=== PATIENT | female | born 1945 | race Caucasian/White ===

== ENCOUNTER → 2016-06-22 | Outpatient (CLI) | payer OTHER ==
--- NOTE | 2016-06-23 15:11 | MAMMOGRAPHY REPORT ---
BILATERAL DIGITAL SCREENING MAMMOGRAM TOMOSYNTHESIS WITH CAD: 06/22/2016 CLINICAL HISTORY: Asymptomatic. Personal history of breast cancer. TECHNIQUE: Breast tomosynthesis in addition to standard 2D mammography was performed. Current study was also evaluated with a Computer Aided Detection (CAD) system. COMPARISON: Comparison is made to exams dated: 06/19/2015 mammogram - [facility], 05/29/2013 mammogram, 05/31/2014 mammogram - [facility], 04/25/2012 mammogram, 04/21 mammogram, and 04/28/2010 mammogram. BREAST COMPOSITION: The tissue of both breasts is heterogeneously dense, which may obscure small ma sses. FINDINGS: A linear scar marker overlies the upper outer middle one third of the left breast. There are diffuse bilateral rodlike secretory calcifications and benign rim calcifications within the righ t breast. No suspicious mass, architectural distortion or cluster of new, suspicious microcalcifica tions is seen. IMPRESSION: ACR BI-RADS CATEGORY 1: NEGATIVE There is no mammographic evidence of malignancy. A 1 year screening mammogram is recommended. The p atient will receive written notification of the results. Approximately 10% of breast cancers are not detected with mammography. A negative mammographic repor t should not delay biopsy if a clinically suggestive mass is present. Josee Babcock M.D. ay/:06/22/2016 16:08:37 Pearler: Arely ALEGRIA)(Shruthi), [facility] letter sent: Normal /2 BI-RADS Code: ACR BI-RADS Category 1: Negative
== END | disposition home or self-care (01) ==
LOC: C.MAMM 15:34
PROVIDERS: ATTEND Family Medicine
DX: Z12.31 Encounter for screening mammogram for malignant neoplasm of breast (principal); Z85.3 Personal history of malignant neoplasm of breast

== ENCOUNTER → 2017-06-23 | Outpatient (CLI) | payer OTHER ==
--- NOTE | 2017-06-24 12:46 | MAMMOGRAPHY REPORT ---
BILATERAL DIGITAL SCREENING MAMMOGRAM TOMOSYNTHESIS WITH CAD: 06/23/2017 CLINICAL HISTORY: Routine screening examination. TECHNIQUE: Breast tomosynthesis in addition to standard 2D mammography was performed. Current study was also evaluated with a Computer Aided Detection (CAD) system. COMPARISON: Comparison is made to exams dated: 06/22/2016 mammogram, 06/19/2015 mammogram, 05/31/2014 mammogram - [facility], 05/29/2013 mammogram, 04/25/2012 mammogram, and 04/30/2011 ma mmogram. BREAST COMPOSITION: The tissue of both breasts is heterogeneously dense, which may obscure small mas ses. FINDINGS: There is stable expected architectural distortion in the left upper outer quadrant in an ar ea of prior surgery. There are diffuse benign-appearing rodlike and coarse calcifications in the theodora asts. No suspicious mass, architectural distortion or cluster of microcalcifications is seen. IMPRESSION: ACR BI-RADS CATEGORY 1: NEGATIVE There is no mammographic evidence of malignancy. A 1 year screening mammogram is recommended. The pa tient will receive written notification of the results. Approximately 10% of breast cancers are not detected with mammography. A negative mammographic report should not delay biopsy if a clinically suggestive mass is present. Josee Babcock M.D. ay/:06/23/2017 15:47:31 [employer] Supervisor: Meggan REINA(Gerber)(M), [facility] letter sent: Normal 1/2 BI-RADS Code: ACR BI-RADS Category 1: Negative
== END | disposition home or self-care (01) ==
LOC: C.MAMM 15:08
PROVIDERS: ATTEND Family Medicine
DX: Z12.31 Encounter for screening mammogram for malignant neoplasm of breast (principal)

== ENCOUNTER 2024-06-30 17:30 | Inpatient (IN) ==
[2024-06-30] MEDS: ONDANSETRON INJ 2 MG/ML 2 ML VIAL IV STA (18:09)
[2024-06-30] MEDS: ONDANSETRON INJ 2 MG/ML 2 ML VIAL ONE (18:09)
[2024-06-30 18:10] LABS: Basophils # (auto) 0.05 K/uL (0.00-0.20); Basophils % (auto) 0.7 %; Eosinophils # (auto) 0.03 K/uL (0.00-0.50); Eosinophils % (auto) 0.4 %; Hematocrit (blood only) 36.9 % (37.0-47.0); Immature Granulocytes # (auto) 0.02 K/uL (0.01-0.20); Immature Granulocytes % (auto) 0.3 %; Lymphocytes # (auto) 1.88 K/uL (1.20-3.40); Lymphocytes % (auto) 26.2 %; Mean Corpuscular Hemoglobin 30.9 pg (25.0-34.0); Mean Corpuscular Hgb Conc 35.2 g/dL (32.0-36.0); Mean Corpuscular Volume 87.6 fL (80.0-100.0); Mean Platelet Volume 9.2 fL (9.4-12.4); Monocytes # (auto) 0.53 K/uL (0.11-0.59); Monocytes % (auto) 7.4 %; Neutrophils # (auto) 4.67 K/uL (1.40-6.50); Platelet Count 287 K/uL (130-400); RDW Coefficient of Variation 12.4 % (11.5-14.5); Red Blood Count 4.21 M/uL (4.20-5.40); White Blood Count 7.18 K/ul (4.8-10.8)
[2024-06-30 18:29] LABS: Albumin Globulin Ratio 1.8 (0.9-2); Albumin Level 4.5 gm/dl (3.4-5.0); BUN Creatinine Ratio 17.8 (10-20); Bilirubin,Total 0.7 mg/dl (0.2-1.0); Calcium 9.4 mg/dl (8.6-10.3); Creatinine Clr Calc Pharmacy 66.5 ml/min; Globulin 2.5 gm/dl (2.5-4.0); Potassium 3.4 mmol/L (3.5-5.1)
[2024-06-30] MEDS: OPTIRAY 320 100ml IV ONE (18:50)
--- NOTE | 2024-06-30 19:04 | CT Scan Report ---
EXAM: CT Head Without Intravenous Contrast INDICATION: Anxiety, nausea and vomiting. TECHNIQUE: Axial computed tomography images of the head/brain without intravenous contrast. Sagittal and/or coronal reformats are provided. Sagittal and coronal reformatted images were created and reviewed. This CT exam was performed using one or more of the following dose reduction techniques: automated exposure control, adjustment of the mA and/or kV according to patient size, and/or use of iterative reconstruction technique. COMPARISON: No relevant prior studies available. FINDINGS: Limitations: None. Brain and extra-axial spaces: There is age appropriate cortical atrophy and chronic ischemic periventricular white matter hypodensity. No acute infarct, hemorrhage or mass noted. Bones/joints: No acute changes. Soft tissues: No significant abnormality noted. Vasculature: No acute abnormality noted. Sinuses: No layering fluid in the visualized portions of the paranasal sinuses. Mastoid air cells: No mastoid effusion. Orbits: No significant abnormality noted. IMPRESSION: Cerebral atrophy. No acute changes. ACT 112: Negative or not required by law. Electronically signed by Franci Thomas 06-30-2024 7:03 PM
--- NOTE | 2024-06-30 19:10 | CT Scan Report ---
EXAMINATION: CT of the abdomen and pelvis performed after the administration of IV contrast TECHNIQUE: Helical CT images from the lung bases through the symphysis pubis were obtained with contrast. Coronal and sagittal reformatted images were generated at a workstation for further assessment. Dose reduction techniques were achieved by using automatic exposure control and/or adjustment of mA and/or kV according to patient size and/or use of iterative reconstruction technique. COMPARISON: 10/25/2023 HISTORY: Abdominal pain FINDINGS: Lower chest: No consolidation. No pleural effusion or pneumothorax. Liver: No suspicious liver lesions. Portal veins appear patent. Gallbladder: No gallstones. No evidence of acute cholecystitis. Spleen: Normal size. Pancreas: No suspicious pancreatic lesions. The pancreatic duct is not dilated. Adrenal glands: No adrenal nodules. Kidneys: No hydronephrosis or obstructing renal stones. Bladder / Pelvic organs: Bilateral urinary bladder diverticula. The bladder is mildly distended. Bowel: No bowel obstruction. No abnormal bowel wall thickening. The appendix is unremarkable. Sigmoid diverticulosis without diverticulitis. Lymph nodes: No retroperitoneal, mesenteric, or pelvic lymphadenopathy. Peritoneum / Retroperitoneum: No free fluid or air within the abdomen. Vessels: No infrarenal aortic aneurysm. Moderate to heavy aortoiliac calcification. Bones and soft tissues: No suspicious lesion in the bones. Grade 1-2 anterolisthesis at L5 related to facet degenerative changes. The bones are osteopenic. IMPRESSION: No acute finding in the abdomen or pelvis. Electronically signed by Oz Ellison 06-30-2024 7:10 PM
--- NOTE | 2024-06-30 20:07 | Emergency Department Note ---
History of Present Illness General Chief complaint: Vomiting Stated complaint: NAUSEA, VOMITING, HTN Time Seen by Provider: 06/30/24 17:54 History of Present Illness Provider Complaint: + nausea and + vomiting Onset (ago): hour(s) 6 Description of Vomiting: no bilious, no blood-streaked, no bloody or no coffee grounds Associated Abdominal Pain: No Maximum Pain Intensity: 5 Relieved By: + none Exacerbated By: + none Context: + possible food poisoning (Patient reports she went to [email or web address] for lunch with her friends and then came home and then felt very nervous and started vomiting uncontrollably); no foreign travel, no sick contacts, no recent antibiotic use, no alcohol abuse, no trauma, no NSAID use, no smoking or no marijuana use Associated symptoms: + cough; no fever/chills or no headaches Home Medications Medication Instructions Recorded Confirmed Type atorvastatin 40 mg tablet 40 mg PO Q OTHER DAY 06/03/18 10/25/23 History citalopram 20 mg tablet 20 mg PO DAILY 06/03/18 10/25/23 History alendronate 35 mg tablet 35 mg PO WK 10/25/23 10/25/23 History furosemide 20 mg tablet 20 mg PO DAILY 10/25/23 10/25/23 History levothyroxine 100 mcg tablet 100 mcg PO DAILY 10/25/23 10/25/23 History losartan 50 mg tablet 50 mg PO DAILY 10/25/23 10/25/23 History multivitamin 1 tab PO DAILY 10/25/23 10/25/23 History Allergies Allergy/AdvReac Type Severity Reaction Status Date / Time LEONIDAS Inhibitors Allergy Severe SHORTNESS Verified 10/25/23 21:42 OF BREATH Past Med/Surg History Problem List Prolonged Q-T interval on ECG (Acute) Nausea and vomiting (Acute) Discharge planning issues DVT prophylaxis History of DVT (deep vein thrombosis) (Chronic) Early adulthood, no apparent PE, no recurrence. 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, re-excision of margins 2008 Status post cataract extraction (Chronic) Status post hysterectomy (Chronic) History of breast cancer (Chronic) DCIS left breast, s/p partial mastectomy 2007, s/p re-excision of margins 2008 Diabetic neuropathy (Chronic) COPD (chronic obstructive pulmonary disease) (Chronic) Hypothyroidism (Chronic) Depression (Chronic) Sleep apnea, obstructive (Chronic) BiPAP Dyslipidemia (Chronic) Diabetes mellitus type 2 with complications (Chronic) Essential hypertension (Chronic) Acute chest pain (Acute) Bradycardia (Acute) Family History Mother Coronary heart disease Diabetes mellitus type 2 with complications Father Coronary heart disease Brother Heart disease Essential hypertension Social History Smoking Status: Former smoker Second Hand Exposure: No; Do You Dip or Chew Tobacco: No; Hx Alcohol Use: Yes Alcohol type: wine Hx Substance Use: No Preferred Language: Polish Communication Ability: Effective Visual Impairment: No Limitations Hearing Ability: Hard of Hearing Chair Maker Required: No Beliefs That Will Affect Care: None Current Living Situation: Alone Current Living Situation Comment: [facility] ON [facility] [place] Feels Safe at Home: Yes Assistive Devices: BiPap Physical Exam 2 Vital Signs: Vital Signs - 24 hr 06/30/24 17:37 06/30/24 17:40 06/30/24 17:54 Temperature 36.4 C L Temperature Source Oral Pulse Rate 66 62 Pulse Rate [Right Brachial] 61 Pulse Rhythm [Righ t Brachial] Regular Pulse Strength [Ri ght Brachial] Normal Respiratory Rate 15 18 Respiratory Effort / Characteristics Non-Labored Sponta neous Non-Labored Respiratory Depth Normal Normal Respiratory Patter n Regular Regular Blood Pressure 173/103 H Blood Pressure [Ri ght Arm] 175/120 H Blood Pressure Bailee n 126 Blood Pressure Bailee n [Right Arm] 138 Blood Pressure Pos ition [Right Arm] Lying Pulse Oximetry 98 98 Oxygen Delivery Me thod Room Air Room Air Sepsis Recent Feve r Within 48 Hours No Sepsis New/Unexpla ined Change in Men beto Status N/A Sepsis Action Take n by Nursing No Action Required Physical Exam: Physical Exam GENERAL: Patient vomiting. HENT: Exam performed. - Head: Normocephalic and atraumatic. EYES: Conjunctivae and EOM are normal. Right eye exhibits no discharge. Left eye exhibits no discharge. No scleral icterus. NECK: Normal range of motion. Neck supple. No JVD present. CV: Normal rate, regular rhythm, normal heart sounds and intact distal pulses. There is no peripheral edema. Palpable radial pulses bue. PULM/CHEST: Effort normal and breath sounds normal. No respiratory distress. No stridor. no wheezes. no rales. ABD: The abdomen is soft. There is no tenderness. NEURO: Motor and sensation grossly intact. SKIN: Skin is warm and dry. He is not diaphoretic. PSYCH: normal mood and affect. Behavior is normal. Judgment and thought content normal. Course Course 1753: The patient was evaluated in room A2. A complete history and physical exam was performed Cardiac monitoring: An order was placed for continuous cardiac monitoring. The monitor shows a rate of 60 with sinus rhythm interpreted by me. 1930: Vital signs stable. Labs and imaging are unremarkable. Patient has not had any vomiting since receiving Zofran. Patient's QTc is improved. Patient be discharged with follow-up PCP. DISCHARGE - Plan of care discussed with patient and questions answered. The patient was given both verbal and printed discharge instructions. The patient verbalized understanding and ability to comply. The patient is to seek outpatient follow up as noted in the discharge instructions. The patient verbalized understanding and ability to comply. The patient is discharged in stable condition. The patient was instructed to return for worsening symptoms. 2015: Patient is stating she does not feel comfortable going home and is afraid she will not be able to care for self and lives alone. Discussed with Dr. Guo who states he will evaluate her for admission. Administered Medications Discontinued Medications Ioversol (Optiray 320 100ml) 94 ml IV ONCE ONE Stop: 06/30/24 18:51 Last Admin: 06/30/24 18:50 Dose: 94 ml Documented By: GARETH Ondansetron HCl (Ondansetron Inj 2 Mg/Ml 2 Ml Vial) Confirm Administered Dose 4 mg .ROUTE .STK-MED ONE Stop: 06/30/24 18:03 Last Admin: 06/30/24 18:09 Dose: Not Given Documented By: MR Ondansetron HCl (Ondansetron Inj 2 Mg/Ml 2 Ml Vial) 4 mg IV NOW STA Stop: 06/30/24 18:09 Last Admin: 06/30/24 18:09 Dose: 4 mg Documented By: Medical Decision Making Laboratory Data Attestation: I reviewed the patient's lab results. 06/30/24 17:45 06/30/24 17:45 Lab Results 06/30/24 Range/Units 17:45 WBC 7.18 (4.8-10.8) K/ul RBC 4.21 (4.20-5.40) M/uL Hgb 13.0 (12.0-16.0) g/dl Hct 36.9 L (37.0-47.0) % MCV 87.6 (80.0-100.0) fL MCH 30.9 (25.0-34.0) pg MCHC 35.2 (32.0-36.0) g/dL RDW Std Deviation 40.0 (36.4-46.3) fL RDW Coeff of Rod 12.4 (11.5-14.5) % Plt Count 287 (130-400) K/uL MPV 9.2 L (9.4-12.4) fL Immature Gran % (Auto) 0.3 % Neut % (Auto) 65.0 % Lymph % (Auto) 26.2 % [place] % (Auto) 7.4 % Eos % (Auto) 0.4 % Baso % (Auto) 0.7 % Neut # (Auto) 4.67 (1.40-6.50) K/uL Lymph # (Auto) 1.88 (1.20-3.40) K/uL [place] # (Auto) 0.53 (0.11-0.59) K/uL Eos # (Auto) 0.03 (0.00-0.50) K/uL Baso # (Auto) 0.05 (0.00-0.20) K/uL Immature Gran # (Auto) 0.02 (0.01-0.20) K/uL Sodium 139 (136-145) mmol/L Potassium 3.4 L (3.5-5.1) mmol/L Chloride 103 (98-107) mmol/L Carbon Dioxide 24 (21-32) mmol/L Anion Gap 12 H (3-11) BUN 13 (6-23) mg/dl Creatinine 0.73 (0.6-1.2) mg/dl Est Cr Clr Drug Dosing 66.5 ml/min eGFR 82.57 BUN/Creatinine Ratio 17.8 (10-20) Glucose 134 H (70-99(Fasting)) mg/dl Calcium 9.4 (8.6-10.3) mg/dl Total Bilirubin 0.7 (0.2-1.0) mg/dl AST 25 (13-39) U/L ALT 13 (7-52) U/L Alkaline Phosphatase 81 (34-104) U/L Total Protein 7.0 (6.0-8.3) gm/dl Albumin 4.5 (3.4-5.0) gm/dl Globulin 2.5 (2.5-4.0) gm/dl Albumin/Globulin Ratio 1.8 (0.9-2) Lipase 28 (11-82) U/L Imaging Data Radiologist's Impression: Abdomen/Pelvis CT 06/30/24 18:09 EXAMINATION: CT of the abdomen and pelvis performed after the administration of IV contrast TECHNIQUE: Helical CT images from the lung bases through the symphysis pubis were obtained with contrast. Coronal and sagittal reformatted images were generated at a workstation for further assessment. Dose reduction techniques were achieved by using automatic exposure control and/or adjustment of mA and/or kV according to patient size and/or use of iterative reconstruction technique. COMPARISON: 10/25/2023 HISTORY: Abdominal pain FINDINGS: Lower chest: No consolidation. No pleural effusion or pneumothorax. Liver: No suspicious liver lesions. Portal veins appear patent. Gallbladder: No gallstones. No evidence of acute cholecystitis. Spleen: Normal size. Pancreas: No suspicious pancreatic lesions. The pancreatic duct is not dilated. Adrenal glands: No adrenal nodules. Kidneys: No hydronephrosis or obstructing renal stones. Bladder / Pelvic organs: Bilateral urinary bladder diverticula. The bladder is mildly distended. Bowel: No bowel obstruction. No abnormal bowel wall thickening. The appendix is unremarkable. Sigmoid diverticulosis without diverticulitis. Lymph nodes: No retroperitoneal, mesenteric, or pelvic lymphadenopathy. Peritoneum / Retroperitoneum: No free fluid or air within the abdomen. Vessels: No infrarenal aortic aneurysm. Moderate to heavy aortoiliac calcification. Bones and soft tissues: No suspicious lesion in the bones. Grade 1-2 anterolisthesis at L5 related to facet degenerative changes. The bones are osteopenic. IMPRESSION: No acute finding in the abdomen or pelvis. Electronically signed by Oz Ellison 06-30-2024 7:[address] 06/30/24 18:10 EXAM: CT Head Without Intravenous Contrast INDICATION: Anxiety, nausea and vomiting. TECHNIQUE: Axial computed tomography images of the head/brain without intravenous contrast. Sagittal and/or coronal reformats are provided. Sagittal and coronal reformatted images were created and reviewed. This CT exam was performed using one or more of the following dose reduction techniques: automated exposure control, adjustment of the mA and/or kV according to patient size, and/or use of iterative reconstruction technique. COMPARISON: No relevant prior studies available. FINDINGS: Limitations: None. Brain and extra-axial spaces: There is age appropriate cortical atrophy and chronic ischemic periventricular white matter hypodensity. No acute infarct, hemorrhage or mass noted. Bones/joints: No acute changes. Soft tissues: No significant abnormality noted. Vasculature: No acute abnormality noted. Sinuses: No layering fluid in the visualized portions of the paranasal sinuses. Mastoid air cells: No mastoid effusion. Orbits: No significant abnormality noted. IMPRESSION: Cerebral atrophy. No acute changes. ACT 112: Negative or not required by law. Electronically signed by Franci Thomas 06-30-2024 7:03 PM ECG Data Attestation: I personally reviewed and interpreted this ECG as follows: Additional Comments: EKG #1 at 1743: Sinus rhythm with rate of 65. UT 260 QRS [address] elevation or ST depression. First-degree AV block present. T wave inversion in lead aVL which appears unchanged from EKG in October 2023. EKG #2 at 1924: Sinus rhythm with a rate of 62. UT 272 QRS [address] elevation or ST depression. No significant change from the previous EKG. [facility] Narrative 1754: The patient was evaluated in room A2. A complete history and physical exam was performed Cardiac monitoring: An order was placed for continuous cardiac monitoring. The monitor shows a rate of 60 with sinus rhythm interpreted by me. 1930: Vital signs stable. Labs and imaging are unremarkable. Patient has not had any vomiting since receiving Zofran. Patient's QTc is improved. Patient be discharged with follow-up PCP. DISCHARGE - Plan of care discussed with patient and questions answered. The patient was given both verbal and printed discharge instructions. The patient verbalized understanding and ability to comply. The patient is to seek outpatient follow up as noted in the discharge instructions. The patient verbalized understanding and ability to comply. The patient is discharged in stable condition. The patient was instructed to return for worsening symptoms. 2015: Patient is stating she does not feel comfortable going home and is afraid she will not be able to care for self and lives alone. Discussed with Dr. Guo who states he will evaluate her for admission. Impression & Plan Nausea and vomiting, Prolonged Q-T interval on ECG Discharge Plan Visit Data Chief Complaint: Vomiting Stated Complaint: NAUSEA, VOMITING, HTN ED Provider: Frederick Flaherty Discharge Problem: Nausea and vomiting, Prolonged Q-T interval on ECG Patient Disposition: Being Evaluated by Hospitalist Discharge Instructions Tami/Other Patient Handouts: ED [facility] Vomiting Forms Stand Alone Forms: [facility], Important Visit Information Prescriptions Prescriptions: No Action atorvastatin 40 mg Tablet 40 mg PO Q OTHER DAY citalopram 20 mg Tablet 20 mg PO DAILY multivitamin Tablet 1 tab PO DAILY losartan 50 mg tablet 50 mg PO DAILY levothyroxine 100 mcg tablet 100 mcg PO DAILY alendronate 35 mg tablet 35 mg PO WK Rx Instructions: [facility] furosemide 20 mg tablet 20 mg PO DAILY Referrals Referrals: Vinh Mejia MD [Physician] - (Follow-up in 1-7 days.) Jeanine Franco DO [Primary Care Provider] - (Follow-up in 1-7 days.) Discharge Problem: Nausea and vomiting Qualifiers: Vomiting type: unspecified Qualified Code(s): R11.2 - Nausea with vomiting, unspecified
[2024-06-30] MEDS ORDERED: MAGNESIUM HYDROXIDE SUSP 30 ML UDC PO PRN (20:29)
[2024-06-30] MEDS ORDERED: ACETAMINOPHEN 325 MG TAB PO PRN (20:29)
[2024-06-30] MEDS ORDERED: PROMETHAZINE 6.25 MG/50.25 ML BAG IV PRN (20:29)
[2024-06-30] MEDS ORDERED: GLUCOSE 40% GEL 15 GM TUBE PO PRN (20:42)
[2024-06-30] MEDS ORDERED: DEXTROSE 50% 50 ML SYRINGE IV PRN (20:42)
[2024-06-30] MEDS ORDERED: CARBOHYDRATES FOR HYPOGLYCEMIA PO PRN (20:42)
[2024-06-30] MEDS ORDERED: GLUCAGON FOR INJ 1 MG VIAL SQ PRN (20:42)
[2024-06-30] MEDS ORDERED: GLUCOSE 10 TAB/TUBE PO PRN (20:42)
--- NOTE | 2024-06-30 20:46 | History & Physical Report ---
Date of Service June 30, 2024 Assessment & Plan (1) Acute gastroenteritis: Plan Patient is a 79-year-old female with past medical history of type 2 diabetes, hyperlipidemia, hypothyroidism, COPD group B, DARI, hypertension, hypertensive heart disease, irritable bowel syndrome, osteoporosis, history of left breast cancer, depression Presented with multiple episode of nausea/vomiting. Acute gastroenteritis; Mild Hypokalemia Patient presents with acute onset of nausea/vomiting. No diarrhea/ hematemesis BMP showed mild hypokalemia with potassium of 3.4. CT abdomen and pelvis did not show any acute finding. Lipase within normal limits Suspect acute gastroenteritis; will give her IV fluids, replete potassium. Started on clear liquid diet; advance as tolerated Promethazine for nausea/vomiting Repeat BMP tomorrow a.m. Will obtain a stool PCR if she develops diarrhea Prolonged QTc-EKG shows normal sinus rhythm with first-degree AV block( similar to before); prolonged QTc with 511ms. Repleted potassium. Repeat EKG in AM. Chronic conditions; Hypertensioncontinue losartan 50 mg once a day; hold Lasix Hyperlipidemiacontinue on Lipitor Hypothyroidismcontinue levothyroxine Depressioncontinue on citalopram Type 2 diabetes mellitus -last A1c of 6.0% in April 2024; insulin sliding scale. DNR/DNI DVT prophylaxis heparin Time spent evaluating patient, direct bedside care, chart review, placing orders, interpretation of diagnostic studies, discussion with consultants, patient, and family members, as well as other required patient management activities is 60-minute Please note the above document was generated using voice recognition software. It may contain grammatical, syntax or spelling errors. Any formal questions or concerns about the content, text or information contained within the body of this dictation should be directly addressed to the provider for clarification History of Present Illness Chief Complaint: Nausea and vomiting for 1 day Primary Care Provider: Jeanine Franco DO History obtained from interview with the patient and chart review. Medical history of type 2 diabetes, hyperlipidemia, hypothyroidism, COPD group B, DARI, hypertension, hypertensive heart disease, irritable bowel syndrome, osteoporosis, history of left breast cancer, depression Last confinement in May 2018 with chest discomfort Patient presents to the hospital with multiple episodes of nausea and vomiting. Patient reported that she went for lunch with her friends in the afternoon. After coming back home, patient started to have multiple episode of vomiting containing food particle; denies any hematemesis. She reports some abdominal discomfort. She denies any abdominal pain. She denies any diarrhea, chest pain, palpitation or shortness of breath. On presentation to the ED, she was hypertensive, afebrile and saturating well on room air. CBC revealed normal WBC count. BMP showed mild hypokalemia with potassium of 3.4. CT abdomen and pelvis did not show any acute finding. CT head without contrast did not show any cerebral atrophy. Patient was admitted for further evaluation. Family history; mother heart disease, at 97, father heart disorder at 88. Social history; previous smoker; stopped in 2014. Drinks 2 glasses of wine every night; last drink was day before yesterday. Allergies Allergy/AdvReac Type Severity Reaction Status Date / Time LEONIDAS Inhibitors Allergy Severe SHORTNESS Verified 10/25/23 21:42 OF BREATH Home Medications Medication Instructions Recorded Confirmed Type alendronate 35 mg tablet 35 mg PO WK 06/30/24 06/30/24 History atorvastatin 40 mg tablet 40 mg PO DAILY 06/30/24 06/30/24 History citalopram 20 mg tablet 20 mg PO DAILY 06/30/24 06/30/24 History fluticasone propionate 50 1 spray intranasal DAILY 06/30/24 06/30/24 History mcg/actuation nasal spray,suspension furosemide 20 mg tablet 20 mg PO DAILY 06/30/24 06/30/24 History levothyroxine 100 mcg tablet 100 mcg PO DAILY 06/30/24 06/30/24 History losartan 50 mg tablet 50 mg PO DAILY 06/30/24 06/30/24 History Past Med/Surg History Problem List (Updated 06/30/24 @ 20:44 by Fredrick Guo MD) Acute gastroenteritis Prolonged Q-T interval on ECG (Acute) Nausea and vomiting (Acute) Discharge planning issues DVT prophylaxis History of DVT (deep vein thrombosis) (Chronic) Early adulthood, no apparent PE, no recurrence. 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, re-excision of margins 2008 Status post cataract extraction (Chronic) Status post hysterectomy (Chronic) History of breast cancer (Chronic) DCIS left breast, s/p partial mastectomy 2007, s/p re-excision of margins 2008 Diabetic neuropathy (Chronic) COPD (chronic obstructive pulmonary disease) (Chronic) Hypothyroidism (Chronic) Depression (Chronic) Sleep apnea, obstructive (Chronic) BiPAP Dyslipidemia (Chronic) Diabetes mellitus type 2 with complications (Chronic) Essential hypertension (Chronic) Acute chest pain (Acute) Bradycardia (Acute) Family History Mother Coronary heart disease Diabetes mellitus type 2 with complications Father Coronary heart disease Brother Heart disease Essential hypertension Social History Smoking Status: Former smoker Second Hand Exposure: No; Do You Dip or Chew Tobacco: No; Hx Alcohol Use: Yes Alcohol type: wine Hx Substance Use: No Preferred Language: Bengali Communication Ability: Effective Visual Impairment: No Limitations Hearing Ability: Hard of Hearing Tool Crib Manager Required: No Beliefs That Will Affect Care: None Current Living Situation: Alone Current Living Situation Comment: [facility] [place] Feels Safe at Home: Yes Assistive Devices: BiPap Review of Systems Review of Systems: All systems reviewed & are unremarkable except as noted in Subjective Physical Exam Physical Exam: Constitutional: Alert oriented x 3; not in distress. Respiratory bilateral vesicular breath sound Cardiovascular: RRR, no murmur, no edema Vessels: no JVD or carotid bruit Chest: normal inspection of chest Abdomen: Soft, nontender. Bowel sound present Musculoskeletal: no cyanosis or clubbing, extremities motor strength 5/5 Skin: no rashes, warm and dry normal turgor Neurologic: PERRL, EOMI, accommodation nl, no face palsy, no dysarthria CN's II- XI intact bilaterally and moves all extremities Results & Data Results & Data Vital Signs (Past 12 Hours) Vital Signs Temp Pulse Pulse Resp BP BP Pulse Ox 06/30/24 20:01 65 16 176/93 H 95 06/30/24 19:21 63 16 146/69 H 95 06/30/24 17:54 62 06/30/24 17:40 61 18 175/120 H 98 06/30/24 17:37 36.4 C L 66 15 173/103 H 98 O2 Del Method 06/30/24 20:01 Room Air 06/30/24 19:21 Room Air 06/30/24 17:54 06/30/24 17:40 Room Air 06/30/24 17:37 Room Air
[2024-06-30] MEDS: ALPRAZolam 0.25 MG TABLET PO STA (21:13)
[2024-06-30] MEDS: SODIUM CHLORIDE 0.9% 500 ML IV SCH (21:54)
[2024-06-30] MEDS: POTASSIUM CHLORIDE / WTR 10 MEQ/100 ML PLCT IV SCH (22:01)
[2024-06-30] MEDS: HEPARIN SOD 5,000 UNIT/0.5 ML VIAL SQ SCH (22:06)
[2024-06-30] MEDS: INSULIN ASPART PER UNIT CHARGE SC SCH (22:07)
--- OUTSIDE RECORDS SUMMARY | 2024-07-01 04:07 | External Medical Summary | Summary of Care ---
Author Name Unknown Organization [facility] Address [address] [place] [address] Phone [phone] Care Team Providers Care Technical Services Coordinator Name Role Phone Jeanine Franco DO Primary Care Provider Reason for Visit * Reason Onset Date Comments Information 05/19/202405/19 Encounter Details Date Type Department Care Team ([facility] st Contact Info) Description 05/19/2024 Telephone Family Practice [address] [facility] [place] [address] [place] [id number] Jeanine Franco DO [address] [place], [place] [id number] Information (05/19) Allergies Active Allergy Reactions Criticality Noted Date Comments Cm Inhibitors Cough Low 09/11/2008 Amoxicillin 11/17/2019 Diffuse rash documented as of this encounter (statuses as of 06/15/2024) Medications VITAMINS & MINERALS CAPS OR 1 TABLET DAILY 0 0 Active CALCIUM 500 + D 500-125 MG-UNIT PO TABS taking one tablet by mouth once daily Active Vitamin D-3 25 MCG (1000 UT) Oral Capsule Take 1 Capsule by mouth in the morning. 1 Active Fluticasone Propionate 50 MCG/ACT Nasal Suspension (Flonase)Indicat ions:Nasal congestion Administer 2 Sprays into each nostril in the morning. 16 g 07/21/2022 10:54 AM EST 3 Active Magnesium 400 MG Oral Tablet Take 1 Tablet by mouth daily as needed for Cramping. Active OneTouch Verio In Vitro Strip (Glucose Blood)Indication s:Type 2 diabetes mellitus with hemoglobin A1c goal of less than 7.0% (HCC) USE TO TEST BLOOD SUGAR ONCE DAILY 100 Strip 3 03/10/2024 8:23 AM EDT 4 08/25/19 25 Active OneTouch Delica Plus [id number] USE TO TEST BLOOD SUGARS ONCE DAILY 100 Each 3 03/10/2024 8:23 AM EDT 4 08/25/19 25 Active Alendronate Sodium 35 MG Oral Tablet (Fosamax)Indicat ions:High risk for fracture due to osteoporosis by DEXA scan TAKE ONE TABLET BY MOUTH ONCE A WEEK 12 Tablet 3 03/27/2024 8:35 AM EDT 4 Active Losartan Potassium 50 MG Oral Tablet (Cozaar)Indicati ons:HTN, goal below 140/90 TAKE ONE TABLET BY MOUTH EVERY DAY IN THE MORNING 100 Tablet 3 05/22/2024 10:29 AM EST 4 11/08/19 25 Active Furosemide 20 MG Oral Tablet (Lasix)Indicatio ns:HTN, goal below 140/90,Dyslipide dustin, goal LDL below 100,Hypertensive heart disease with chronic diastolic congestive heart failure (HCC) TAKE ONE TABLET BY MOUTH EVERY MORNING 90 Tablet 3 05/26/2024 5:58 PM EST 4 12/01/19 25 Active Atorvastatin Calcium 40 MG Oral Tablet (Lipitor)Indicat ions:Dyslipidemi a, goal LDL below 100 TAKE ONE TABLET BY MOUTH THREE TIMES A WEEK ON MON, WED AND FRI IN THE EVENING 45 Tablet 1 06/07/2024 8:29 AM EST 4 Active Citalopram Hydrobromide 20 MG Oral Tablet (CeleXA)Indicati ons:Major depressive disorder, recurrent episode, moderate (HCC) Take 1 Tablet by mouth every other day. 50 Tablet 3 03/27/2024 8:35 AM EDT 4 Active Levothyroxine Sodium 100 MCG Oral Tablet (Levoxyl) TAKE 1 TABLET BY MOUTH DAILY AT LEAST 30 MINUTES PRIOR TO FIRST MEAL OF THE DAY OR OTHER MEDICATIONS 100 Tablet 3 05/19/2024 1:41 PM EST 4 05/16/20 25 Active busPIRone HCl 5 MG Oral Tablet (Buspar)Indicati ons:Major depressive disorder, recurrent episode, moderate (HCC) Take 1 Tablet by mouth in the morning and 1 Tablet before bedtime. 60 Tablet 1 05/17/2024 11:42 AM EST 4 Active documented as of this encounter (statuses as of 06/15/2024) Active Problems Problem Noted Date Diagnosed Date Major depressive disorder, recurrent episode, mo derate 07/29/2023 Hypertensive heart disease w ith chronic diastolic congestive heart failure 08/06/2021 Lumbar degenerative disc disease 06/04/2021 Nocturnal hypoxemia 05/06/2020 Hypothyroidism due to acquired atrophy of thyroi d 07/24/2019 Type 2 diabetes mellitus with polyneuropathy 08/2019 COPD, group B, by GOLD 2017 classification 05/01 Overview: Per COPD GOLD Classification Type 2 diabetes mellitus wit h diabetic peripheral angiopathy without gangrene 01/12/2018 History of tobacco use 11/10/2015 Overview (11/10/2015): Stopped in 2014 with a 20 pack year history HTN, goal below 140/90 08/26/2015 Overview: Per HTN Protocol #27. Hearing loss sensory, bilateral 11/23/2012 Overview (11/23/2012): bilateral Irritable bowel syndrome 11/15/2009 DYSLIPIDEMIA, GOAL LDL BELOW 100 05/30/2009 Overview (05/30/2009): Per Lipid Taxonomy. Type 2 diabetes mellitus wit h hemoglobin A1c goal of less than 7.0% 04/04/2009 Overview (10/15/2015): Modified per Diabetes protocol #14. ICD-10 update of inactive term Advance directive on file 12/18/2008 Overview (12/18/2008): No, Advance Directive brochure given to patient. History of left breast cancer 08/14/2008 High risk for fracture due to osteoporosis by DE XA scan 05/16/2008 Overview (05/20/2008): fracture risk is HIGH: 10 year risk 24% for osteoporotic fracture CM inhibitor intolerance 01/11/2008 Overview (01/11/2008): Cough DARI (obstructive sleep apnea) 03/15/2003 Overview (12/25/2015): 12/06/15 PSG - AHI 17.4, 34 mins <89% 12/2006 PSG - BIPAP 06/0404/19/05 PSG AHP documented as of this encounter (statuses as of 06/15/2024) Resolved Problems Problem Noted Date Diagnosed Date Resolved Date Major depressive disorder, r ecurrent episode, mild 07/29/2023 07/29/2023 Cauda equina compression 10/09/2020 COPD, mild 06/07/2013 05/05/2019 Overview (11/10/2015): 06/07/2013: PFT completed 11/06/15 reduced FEV1/VC, with normal VC and FEV1 HTN, GOAL BELOW 140/80 02/08/201209/25 Overview: Per HTN Protocol #27. Kidney disease, chronic, sta ge I (GFR over 89 ml/min) 05/26/2010 01/18/2019 HTN, GOAL BELOW 130/80 05/14/200902/10 Overview (05/14/2009): Modified per HTN protocol #16. Vitamin D deficiency 05/08/2009 012 Carcinoma in situ of breast 08/14/2008 09/11/2008 DM type 2 causing renal disease 01/11/2008 05/17/2017 Benign neoplasm of colon 12/24/2006 Overview (01/01/2007): hyperplastic polyps--repeat 10 years DM type 2, not at goal 10/27/200604/04 Overview (04/04/2009): Modified per Diabetes protocol #14. Edema 01/14/2005 07/26/2008 Overview (07/26/2008): Resolved per Duplicate Protocol #2. Edema 03/15/2003 01/12/2018 Dyslipidemia, goal to be determined 05/30/2009 Overview (05/30/2009): Per Lipid Taxonomy. HYPERTENSION NOS 05/14/2009 Overview (05/14/2009): Modified per HTN protocol #16. BONE & CARTILAGE DIS NOS Tobacco use disorder 016 Overview (11/10/2015): Stopped in 2014 Hypothyroidism 06/04/2021 documented as of this encounter (statuses as of 06/15/2024) Immunizations Name Administration Dates Next Due COVID-19 mRNA, LNP-s, No Pre serve, 2-Dose Series ([facility]) 04/10/2021,08/19/2020,07/16/2020 COVID-19 mRNA, LNP-s, No Pre serve, 2-Dose Series ([employer]) 10/06/2021 COVID-19, MRNA-LNP, 24-25, P R, 30MCG/0.3ML, IM, 12YRS AND ABOVE ([employer]-ComirnatRemotium) 03/04/2024 COVID-19, MRNA-LNP, PF, 30 M CG/0.3 mL, 12 YRS AND ABOVE, IM ([employer]-ComirnatRemotium) 11/17/2023,03/14/2023 Covid-19, Mrna, Lnp-s, Pf, B ivalent, 30 Mcg, IM, 12 yrs and above (Pfizer) 03/24/2022 Hepatitis B, 20+ yrs 11/06/2016 Pneumococcal Conjugate Vacc, 13 Valent (Prevnar) 08/22/2014 Pneumococcal Conjugate Vacci ne, 20-valent ([id number]) 04/03/2024 Pneumococcal Polysaccharide PPV23 (Pneumovax) 11/06/2016,11/24/2006 RSV Vac., Recomb, Adjuvant, PF,0.5 Ml (Arexvy) 03/18/2023 Season Influenza, Quad, PF, Adjuvanted, 65+ Yrs, IM (FLUAD) 02/22/2020 Seasonal Influenza Vac., MDV , IM, 0.5 mL (Fluzone) 03/28/2014,04/11/2013,03/21/2012,04/16,03/19/2010,04/25/2008,05/02/2007 ,05/11/2006 Seasonal Influenza, High Dos e, Trivalent, PF, IM (Fluzone HD) 03/27/2024 Seasonal Influenza, PF, 6 M & above, IM , (FluLaval or Fluzone) 04/11/2018,05/17/2017 Seasonal Influenza, Quadriva lent Hd (Fluzone Hd) 03/02/2023,03/31/2022,03/21/2021 Seasonal Influenza, Quadriva lent, No Preserve, IM 03/29/2016,05/02/2015 Seasonal Influenza, Trivalen t, Adjuvanted, 65+ YRS, PF, (Fluad) 03/30/2019 TDAP (age 10 and older)(Boostrix) 06/04/2021 TDAP, Age 7 and older, IM (Adacel) 05/06/2011 Varicella Zoster Vaccine (Adult) 08/01/2008 Zoster Vaccine Recombinant (Shingrix) 08/28/2019 ,05/19/2019 documented as of this encounter Social History Tobacco Use Types Packs/Day Years Used Date Smoking Tobacco: Former Cigarettes 0.5 40 0 12/24/1974 - 12/24/2014 Passive Smoke Exposure: Never Smokeless Tobacco: Never Comments:10 cig./day for 35 years. Trying to quit especially since ill. hasn't smoked in 7 years Alcohol Use Standard Drinks/Week Comments Yes 14 (1 standard drink = 0.6 oz pu re alcohol) AUDIT-C Answer Date Recorded Q1: How often do you have a drink containing alcohol? 4 or more times a week 06/04/2021 Q2: How many drinks containi ng alcohol do you have on a typical day when you are drinking? 1 or 2 Q3: How often do you have si x or more drinks on one occasion? Never 06/04/2021 PHQ-2 Answer Date Recorded PHQ Adult Total Score 2 04/27/2024 Hunger Vital Sign Answer Date Recorded Within the past 12 months, y ou worried that your food would run out before you got the money to buy more. Never true 04/27/20 24 Within the past 12 months, t he food you bought just didn't last and you didn't have money to get more. Never true 04/27/2024 Childcare Answer Date Recorded Do you feel overwhelmed with taking care of a child, family member or friend? No 04/27/2024 Does your family need help f inding childcare? (Household - for ages 0-17 years) Not on file 04/27/2024 Clothing Answer Date Recorded Have you been unable to get clothing when it was really needed? No 04/27/2024 Is your family able to get c lothes or diapers when needed? (Household - for ages 0-17 years) Not on file 04/27/2024 Personal Safety Answer Date Recorded Do you feel unsafe or have concerns for your saf ety? No 04/27/2024 Do you have concerns for you r family's safety? (Household - for ages 0-17 years) Not on file 04/27/2024 Utilities Answer Date Recorded Do you have trouble paying y our heating, water, or electric bill? No 04/27/2024 Is your family able to pay t he heat, water, or electric bill? (Household - for ages 0-17 years) Not on file 04/27/2024 Does your family have access to good internet? (Household - for ages 0-17 years) Not on file 04/27/2024 Employment Status Answer Date Recorded Are you unemployed or without regular income? No 04/27/2024 Does the household have a re gular source of income? (Household - for ages 0-17 years) Not on file 04/27/2024 Social Connections Answer Date Recorded How often do you feel lonely or isolated from those around you? Sometimes 04/27/2024 Financial Resource Strain Answer Date R ecorded Do you have any trouble payi ng for your medications, or do you think you might in the future? No 04/27/2024 Does your family have troubl e paying for medicine? (Household - for ages 0-17 years) Not on file 04/27/2024 Transportation Needs Answer Date Record ed READ ONLY Do you have troubl e getting a ride to medical visits or work? Never True 04/27/2024 Does your family have a hard time getting a ride to doctors visits? (Household - for ages 0-17 years) Not on file 04/27/2024 Has lack of transportation k ept you from medical appointments, meetings, work, or from getting things needed for daily living? Check all that apply. No 04/27/2024 Do you (or your family) have trouble finding or paying for a ride (transportation)? (Household - for ages 0-17 years) Not on file 04/27/2024 Housing Stability Answer Date Recorded Do you currently live in a s helter or have no steady place to sleep at night? No 04/27/2024 READ ONLY Do you think you a re at risk of becoming homeless? No 04/27/2024 Does your family worry about paying for your home or becoming homeless? (Household - for ages 0-17 years) Not on file 1 06/27/2023 Are you homeless or worried that you might be in the future? No 04/27/2024 Are you (or your family) vernon eless or worried that you might be in the future? (Household - for ages 0-17 years) Not on file Food Insecurity Answer Date Recorded Do you need food for this week? No 04/27/2024 Are you able to get enough f ood for your family? (Household - for ages 0-17 years) Not on file 04/27/2024 Does your family need food t his week? (Household - for ages 0-17 years) Not on file 04/27/2024 Do you always have enough fo od for your family? 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 Tube unspun for greater than two hours. Labs can be redrawn at any [facility] lab. Called patient and left a voicemail to return call. Patient returned phone call and will stop in office to get labs redrawn. documented in this encounter Plan of Treatment Upcoming Encounters Date Type Department Care Team (Late st Contact Info) Description 07/19/2024 11:20 AM EST Office Visit Family Practice [address] [place] [address] [address] [facility] [place] [address] Jeanine Franco DO [address] [place] [address] 01/23/2025 10:20 AM EDT Office Visit Dermatology [facility] [address] [facility] [place] [address] Deidre Barragan PA-C [address] [facility] [address] [facility] Maintenance Due Date Last Done Comments Hepatitis B Vaccine (2 of 3 - 19+ 3-dose series) 12/04/2016 11/06/2016 COVID-19 Vaccine ( season) 2024 03/04/2024, 11/17/2023, 03/14/2023, Additional history exists Adult Wellness Visit 09/06/2024 09/07/2023, 04/21/20 22 TSH 10/11/2024 10/12/2023, 03/22, 04/09/2022, Additional history exists HbA1c 11/14/2024 05/17/2024, 11/19, 06/03/2023, Additional history exists Depression Monitoring 04/27/2025 04/27/2024 Albumin/Creatinine Ratio 05/15/2025 024, 04/07/2024, 04/19/2023, Additional history exists Diabetic Foot Exam 05/17/2025 05/17/2024, 1 08/04/2022, 05/22/2022, Additional history exists O2 ASSESSMENT COMPLETED IN PAST YEAR FOR COPD 05/17/2025 05/17/2024 Diabetic Eye Exam 05/22/2025 05/22/2024, , 05/22/2024, Additional history exists GFR 05/22/2025 05/22/2024, 03/21, 12/07/2023, Additional history exists DXA Scan 03/08/2026 03/08/2024, 02/19, 09/08/2021, Additional history exists DTap/Tdap Vaccines (3 - Td or Tdap) 06/04/2031 06/04/2021, 05/06/2011, 01/14/2000 Zoster Vaccines Completed 08/28/2019, 04/22, 08/01/2008 Alpha-1 Antitrypsin Completed 08/06/2021 Influenza Vaccine (FLU shot) Completed 12/2023, 03/27/2024, 03/02/2023, Additional history exists Pneumococcal Vaccine: 50+ Years Completed 04/03/2024, 11/06/2016, 08/22/2014, Additional history exists VITAMIN D LEVEL ONCE IN A LIFETIME-USE SMARTSET# [id number] Completed 05/22/2024, 06/03/2023, 04/09/2022, Additional history exists HPV (Gardasil) Vaccine Aged Out No lo nger eligible based on patient's age to complete this topic MENINGOCOCCAL (MENACTRA/MENVEO) Aged Out No longer eligible based on patient's age to complete this topic documented as of this encounter Medical Devices Implanted Type Area Diabetes Clinical Manager Device Identifier Shelf Expiration Date Model / Serial / Lot Lens 19.0 M160l - [id number] - [id number] Implanted:Qty: 1 on 11/28/2015 by Vinh Richardson MD at OR [facility] Right: Eye [employer] : SURGICAL 08/18/2016 [id number]-[id number] / [id number] / [id number] Lens Intraoc 22.0 - [id number] - [id number] Implanted:Qty: 1 on 01/23/2020 by Ric Mcdonald MD at OR [facility] Left: Eye [employer] 07/21/2024 [id number] / [id number] / [id number] documented as of this encounter Advance Directives Documents on File Type Date Recorded 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 Care Teams Technical Services Coordinator Relationship Specialty Start Date End Date Jeanine Franco DO [address] [place] [address] PCP - General Family Medicine 12/07/23 documented as of this encounter
--- OUTSIDE RECORDS SUMMARY | 2024-07-01 04:07 | External Medical Summary | Summary of Care ---
Author Name Unknown Organization [facility] Address [address] [place] [address] Phone [phone] Care Team Providers Care Software Test Automation Engineer Name Role Phone Jeanine Franco DO Primary Care Provider [phone] Reason for Visit * Reason Onset Date Comments Appointment 05/02/2024 Re: sleep f/u ap pt Encounter Details Date Type Department Care Team ([facility] Contact Info) Description 05/02/2024 Telephone [facility] [place] [address] [facility] [place] [phone] Alena Nuno CRNP [address] [place] [address] Appointment (Re: sleep f/u appt) Allergies Active Allergy Reactions Criticality Noted Date Comments Cm Inhibitors Cough Low 09/11/2008 Amoxicillin 11/17/2019 Diffuse rash documented as of this encounter (statuses as of 06/16/2024) Medications VITAMINS & MINERALS CAPS OR 1 TABLET DAILY 0 0 Active CALCIUM 500 + D 500-125 MG-UNIT PO TABS taking one tablet by mouth once daily Active Vitamin D-3 25 MCG (1000 UT) Oral Capsule Take 1 Capsule by mouth in the morning. 1 Active Fluticasone Propionate 50 MCG/ACT Nasal Suspension (Flonase)Indicati ons:Nasal congestion Administer 2 Sprays into each nostril in the morning. 16 g 07/21/2022 10:54 AM EST 3 Active Magnesium 400 MG Oral Tablet Take 1 Tablet by mouth daily as needed for Cramping. Active OneTouch Verio In Vitro Strip (Glucose Blood)Indications :Type 2 diabetes mellitus with hemoglobin A1c goal of less than 7.0% (HCC) USE TO TEST BLOOD SUGAR ONCE DAILY 100 Strip 3 03/10/2024 8:23 AM EDT 4 08/25/19 25 Active OneTouch Delica Plus [id number] USE TO TEST BLOOD SUGARS ONCE DAILY 100 Each 3 03/10/2024 8:23 AM EDT 4 08/25/19 25 Active Alendronate Sodium 35 MG Oral Tablet (Fosamax)Indicati ons:High risk for fracture due to osteoporosis by DEXA scan TAKE ONE TABLET BY MOUTH ONCE A WEEK 12 Tablet 3 03/27/2024 8:35 AM EDT 4 Active Losartan Potassium 50 MG Oral Tablet (Cozaar)Indicafordo ns:HTN, goal below 140/90 TAKE ONE TABLET BY MOUTH EVERY DAY IN THE MORNING 100 Tablet 3 05/22/2024 10:29 AM EST 4 11/08/19 25 Active Furosemide 20 MG Oral Tablet (Lasix)Indication s:HTN, goal below 140/90,Dyslipidem ia, goal LDL below 100,Hypertensive heart disease with chronic diastolic congestive heart failure (HCC) TAKE ONE TABLET BY MOUTH EVERY MORNING 90 Tablet 3 05/26/2024 5:58 PM EST 4 12/01/19 25 Active Atorvastatin Calcium 40 MG Oral Tablet (Lipitor)Indicati ons:Dyslipidemia, goal LDL below 100 TAKE ONE TABLET BY MOUTH THREE TIMES A WEEK ON MON, WED AND FRI IN THE EVENING 45 Tablet 1 06/07/2024 8:29 AM EST 4 Active Citalopram Hydrobromide 20 MG Oral Tablet (CeleXA)Indicatio ns:Major depressive disorder, recurrent episode, moderate (HCC) Take 1 Tablet by mouth every other day. 50 Tablet 3 03/27/2024 8:35 AM EDT 4 Active documented as of this encounter (statuses as of 06/16/2024) Active Problems Problem Noted Date Diagnosed Date [...] as of this encounter (statuses as of 06/16/2024) Resolved Problems Problem Noted Date Diagnosed Date [...] as of this encounter (statuses as of 06/16/2024) Immunizations Name Administration Dates Next Due COVID-19 mRNA, LNP-s, No Pre serve, 2-Dose Series (Moderna) 04/10/2021,08/19/2020,07/16/2020 COVID-19 mRNA, LNP-s, No Pre serve, 2-Dose Series (Pfizer) 10/06/2021 COVID-19, MRNA-LNP, 24-25, P R, 30MCG/0.3ML, IM, 12YRS AND ABOVE ([employer]-Comirnat[employer]'s Extra) 03/04/2024 COVID-19, MRNA-LNP, PF, 30 M CG/0.3 mL, 12 YRS AND ABOVE, IM ([email or web address]) 11/17/2023,03/14/2023 Covid-19, Mrna, Lnp-s, Pf, B ivalent, 30 Mcg, IM, 12 yrs and above ([employer]) 03/24/2022 Hepatitis B, 20+ yrs 11/06/2016 Pneumococcal Conjugate Vacc, 13 Valent (Prevnar) 08/22/2014 Pneumococcal Conjugate Vacci ne, 20-valent ([id number]) 04/03/2024 Pneumococcal Polysaccharide PPV23 (Pneumovax) 11/06/2016,11/24/2006 RSV [...] No 04/27/2024 Does the household have a [facility] source of income? 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 Her equipment isn't working properly. documented in this encounter Plan of Treatment Upcoming Encounters Date Type Department Care Team (Late st Contact Info) Description 07/19/2024 11:20 AM EST Office Visit Family Practice [address] [place] [address] [address] [place] [address] Jeanine Franco, DO [address] [place] [address] 01/23/2025 10:20 AM EDT Office Visit Dermatology [facility] [place] [address] [place] [address] Deidre Barragan, LORENA [address] [facility] [place] [address] Health Maintenance Due Date Last Done Comments Hepatitis B Vaccine (2 of 3 - 19+ 3-dose series) 12/04/2016 11/06/2016 COVID-19 Vaccine (2023- season) 2024 03/04/2024, 11/17/2023, 03/14/2023, Additional history exists Adult Wellness Visit 09/06/2024 09/07/2023, 04/21/20 22 TSH 10/11/2024 10/12/2023, 03/22, 04/09/2022, Additional history exists HbA1c 11/14/2024 05/17/2024, 11/19, 06/03/2023, Additional history exists Depression Monitoring 04/27/2025 04/27/2024 Albumin/Creatinine Ratio 05/15/202505/15/2 024, 04/07/2024, 04/19/2023, Additional history exists Diabetic [...] D LEVEL ONCE IN A LIFETIME-USE SMARTSET# 53248 Completed 05/22/2024, 06/03/2023, 04/09/2022, Additional history exists HPV (Gardasil) Vaccine Aged Out No lo nger eligible based on patient's age to complete this topic MENINGOCOCCAL (MENACTRA/MENVEO) Aged Out No longer eligible based on patient's age to complete this topic documented as of this encounter Medical Devices Implanted Type Area Upholsterer Outside Device Identifier Shelf Expiration Date Model / Serial / Lot Lens 19.0 M160l - [id number] - [id number] Implanted:Qty: 1 on 11/28/2015 by Vinh Richardson MD at OR [facility] Right: Eye [employer] LOMB : SURGICAL 08/18/2016 [id number] / [id number] / [id number] Lens Intraoc 22.0 - [id number] - [id number] Implanted:Qty: 1 on 01/23/2020 by Ric Mcdonald MD at OR [facility] Left: Eye BAUSCH [employer] LOMB 07/21/2024 [id number] / [id number] / [id number] documented as of this encounter Advance Directives Documents on File Type Date Recorded 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 Care Teams Software Test Automation Engineer Relationship Specialty Start Date End Date Jeanine Franco DO [address] [place] [facility] [place] [address] PCP - General Family Medicine 12/07/23 documented as of this encounter
--- OUTSIDE RECORDS SUMMARY | 2024-07-01 04:08 | External Medical Summary | Summary of Care ---
Author Name Unknown Organization [facility] Address [address] [place] [address] Phone [phone] Care Team Providers Care Contact Finger Assembler Name Role Phone Jeanine Franco DO Primary Care Provider [phone] Encounter Details Date Type Department Care Team ([facility] st Contact Info) Description 05/30/2024 Documentation HEALTH & WELLNESS Clif Barton, Health Ball Rolling Machine Operator Allergies Active Allergy Reactions Criticality Noted Date Comments Cm Inhibitors Cough Low 09/11/2008 Amoxicillin 11/17/2019 Diffuse rash documented as of this encounter (statuses as of 05/30/2024) Medications VITAMINS & MINERALS CAPS OR 1 [...] hemoglobin A1c goal of less than 7.0% ([facility]) USE TO TEST BLOOD SUGAR ONCE DAILY 100 Strip 3 03/10/2024 8:23 AM EDT 4 08/25/19 25 Active RachelTouch Delica Plus [id number] USE TO TEST BLOOD SUGARS ONCE DAILY [...] TIMES A WEEK ON MON, WED AND WED IN THE EVENING 45 Tablet 1 03/01/2024 6:17 PM EDT 4 Active Citalopram Hydrobromide 20 MG Oral [...] as of this encounter (statuses as of 05/30/2024) Active Problems Problem Noted Date Diagnosed Date [...] as of this encounter (statuses as of 05/30/2024) Resolved Problems Problem Noted Date Diagnosed Date [...] as of this encounter (statuses as of 05/30/2024) Immunizations Name Administration Dates Next Due COVID-19 mRNA, LNP-s, No Pre serve, 2-Dose Series (Moderna) 04/10/2021,08/19/2020,07/16/2020 COVID-19 mRNA, LNP-s, No Pre serve, 2-Dose Series (Pfizer) 10/06/2021 COVID-19, MRNA-LNP, 24-25, P R, 30MCG/0.3ML, IM, 12YRS AND ABOVE ([employer]ComirnatProven) 03/04/2024 COVID-19, MRNA-LNP, PF, 30 M CG/0.3 mL, 12 YRS AND ABOVE, IM ([employer]-ComirnatProven) 11/17/2023,03/14/2023 Covid-19, Mrna, Lnp-s, Pf, B ivalent, 30 Mcg, IM, 12 yrs and above (Pfizer) 03/24/2022 Hepatitis B, 20+ yrs 11/06/2016 Pneumococcal Conjugate Vacc, 13 Valent (Prevnar) 08/22/2014 Pneumococcal Conjugate Vacci ne, 20-valent ([id number]) 04/03/2024 Pneumococcal Polysaccharide PPV23 (Pneumovax) 11/06/2016,11/24/2006 RSV [...] 04/27/2024 Does the household have a re lar source of income? 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 Not on aydin e Not on file Not on file Not on file Not on file documented as of this encounter Progress Notes * Clif Barton Health Ball Rolling Machine Operator - 05/30/2024 10:21 AM EST Visit Type: Return Wellness Return Visit Type: Group exercise strength and balance class 45 min documented in this encounter Plan of Treatment Upcoming Encounters Date Type Department Care Team (Late st Contact Info) Description 07/19/2024 11:20 AM EST Office Visit Family Practice [address] [facility] [address] [place] [phone] Jeanine Franco DO [address] [place] [address] 09/11/2024 10:00 AM EDT Nurse Only Family Practice [address] [facility] [address] [place] [phone] Loree Osman, COLE [address] [place] [phone] 01/23/2025 10:20 AM EDT Office Visit Dermatology [facility] [address] [facility] [place] [place] [address] Deidre Barragan PA-C [address] [place] [address] Health Maintenance Due Date Last Done Comments Hepatitis B Vaccine (2 of 3 - 19+ 3-dose series) 12/04/2016 11/06/2016 COVID-19 Vaccine ( season) 2024 03/04/2024, 11/17/2023, 03/14/2023, Additional history exists Adult Wellness Visit 09/06/2024 09/07/2023, 04/21/20 22 TSH 10/11/2024 10/12/2023, 03/22, 04/09/2022, Additional history exists HbA1c 11/14/2024 05/17/2024, 0601/2024, 06/03/2023, Additional history exists Depression Monitoring 04/27/2025 04/27/2024 Albumin/Creatinine Ratio 05/15/202505/15/ 024, 04/07/2024, 04/19/2023, Additional history exists Diabetic Foot Exam 05/17/2025 05/17/2024, 1 08/04/2022, 05/22/2022, Additional history exists O2 ASSESSMENT COMPLETED IN PAST YEAR FOR COPD 05/17/2025 05/17/2024 Diabetic Eye Exam 05/22/2025 05/22/2024, , 06/03/2023, Additional history exists GFR 05/22/2025 05/22/2024, 03/21, 12/07/2023, Additional history exists DXA Scan 03/08/2026 03/08/2024, 02/19, 09/08/2021, Additional history exists DTap/Tdap Vaccines (3 - Td or Tdap) 06/04/2031 06/04/2021, 05/06/2011, 01/14/2000 Zoster Vaccines Completed 08/28/2019, 04/22, 08/01/2008 Alpha-1 Antitrypsin Completed 08/06/2021 Influenza Vaccine (FLU shot) Completed 12/2023, 03/27/2024, 03/02/2023, Additional history exists Pneumococcal Vaccine: 65+ Years Completed 04/03/2024, 11/06/2016, 08/22/2014, Additional history exists VITAMIN D LEVEL ONCE IN A LIFETIME-USE SMARTSET# [id number] Completed 05/22/2024, 06/03/2023, 04/09/2022, Additional history exists HPV (Gardasil) Vaccine Aged Out No lo nger eligible based on patient's age to complete this topic MENINGOCOCCAL (MENACTRA/MENVEO) Aged Out No longer eligible based on patient's age to complete this topic documented as of this encounter Medical Devices Implanted Type Area Provider Network Analyst Device Identifier Shelf Expiration Date Model / Serial / Lot Lens 19.0 M160l - [id number] - [id number] Implanted:Qty: 1 on 11/28/2015 by Vinh Richardson MD at OR [facility] Right: Eye BAUSCH [employer] LOMB : SURGICAL 08/18/2016 [id number]-42.0 / [id number] / [id number] Lens Intraoc 22.0 - [id number] - [id number] Implanted:Qty: 1 on 01/23/2020 by Ric Mcdonald MD at OR [facility] Left: Eye BAUSCH & LOMB 07/21/2024 [id number] / [id number] / [id number] documented as of this encounter Advance Directives Documents on File Type Date Recorded 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 Care Teams Contact Finger Assembler Relationship Specialty Start Date End Date Jeanine Franco DO [address] [place] [address] PCP - General Family Medicine 12/07/23 documented as of this encounter
--- OUTSIDE RECORDS SUMMARY | 2024-07-01 04:08 | External Medical Summary | Summary of Care ---
Author Name Unknown Organization [facility] Address [address] [place] [address] Phone [phone] Care Team Providers Care Area Development Consultant Name Role Phone Jeanine Franco DO Primary Care Provider [phone] Reason for Visit * Reason Comments Outpatient Testing Encounter Details Date Type Department Care Team ([facility] st Contact Info) Description 05/22/2024 12:40 PM EST Laboratory Laboratory, [facility] [address] [place] [phone] [facility] [address] [place] [address] Arrived Allergies Active Allergy Reactions Criticality Noted Date Comments Cm Inhibitors Cough Low 09/11/2008 Amoxicillin 11/17/2019 Diffuse rash documented as of this encounter (statuses as of 05/22/2024) Medications VITAMINS & MINERALS CAPS OR 1 [...] 4 08/25/19 25 Active OneTouch Delica Plus [id number] USE TO TEST BLOOD SUGARS ONCE DAILY [...] BY MOUTH EVERY MORNING 90 Tablet 3 02/26/2024 9:38 AM EDT 4 12/01/19 25 Active Atorvastatin Calcium 40 [...] as of this encounter (statuses as of 05/22/2024) Active Problems Problem Noted Date Diagnosed Date [...] as of this encounter (statuses as of 05/22/2024) Resolved Problems Problem Noted Date Diagnosed Date [...] as of this encounter (statuses as of 05/22/2024) Immunizations Name Administration Dates Next Due COVID-19 mRNA, LNP-s, No Pre serve, 2-Dose Series ([facility]) 04/10/2021,08/19/2020,07/16/2020 COVID-19 mRNA, LNP-s, No Pre serve, 2-Dose Series (Pfizer) 10/06/2021 COVID-19, MRNA-LNP, 24-25, P R, 30MCG/0.3ML, IM, 12YRS AND ABOVE ([employer]a Pharm[employer]) 03/04/2024 COVID-19, MRNA-LNP, PF, 30 M CG/0.3 mL, 12 YRS AND ABOVE, IM (Robert Applebaum MDirnatHanda Pharmaceuticals) 11/17/2023,03/14/2023 Covid-19, Mrna, Lnp-s, Pf, B ivalent, 30 Mcg, IM, 12 yrs and above ([employer]) 03/24/2022 Hepatitis B, 20+ yrs 11/06/2016 Pneumococcal Conjugate Vacc, 13 Valent (Prevnar) 08/22/2014 Pneumococcal Conjugate Vacci ne, 20-valent ([id number]) 04/03/2024 Pneumococcal Polysaccharide PPV23 (Pneumovax) 11/06/2016,11/24/2006 RSV [...] 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 Not on aydin e Not on file Not on file Not on file Not on file documented as of this encounter Plan of Treatment Upcoming Encounters Date Type Department Care Team (Late st Contact Info) Description 07/19/2024 11:20 AM EST Office Visit Family Practice [address] [place] [address] [place] [phone] Jeanine Franco DO [address] [place] [address] 09/11/2024 10:00 AM EDT Nurse Only Family Practice [address] [facility] [address] [place] [phone] Loree Osman, COLE [address] [place] [phone] 01/23/2025 10:20 AM EDT Office Visit Dermatology [facility] [address] [place] [address] Deidre Barragan PA-C [address] [place] [address] Health Maintenance Due Date Last Done Comments Hepatitis B Vaccine (2 of 3 - 19+ 3-dose series) 12/04/2016 11/06/2016 COVID-19 Vaccine ( season) 2024 03/04/2024, 11/17/2023, 03/14/2023, Additional history exists Adult Wellness Visit 09/06/2024 09/07/2023, 04/21/20 22 TSH 10/11/2024 10/12/2023, 03/22, 04/09/2022, Additional history exists HbA1c 11/14/2024 05/17/2024, 11/19, 06/03/2023, Additional history exists GFR 04/07/2025 04/07/2024, 11/19, 10/12/2023, Additional history exists Depression Monitoring 04/27/2025 04/27/2024 Albumin/Creatinine Ratio 05/15/202505/15/2 024, 04/07/2024, 04/19/2023, Additional history exists Diabetic Eye Exam 05/17/2025 05/17/2024, , 06/03/2022, Additional history exists Diabetic Foot Exam 05/17/2025 05/17/2024, 1 08/04/2022, 05/22/2022, Additional history exists O2 ASSESSMENT COMPLETED IN PAST YEAR FOR COPD 05/17/2025 05/17/2024 DXA Scan 03/08/2026 03/08/2024, 02/19, 09/08/2021, Additional history exists DTap/Tdap Vaccines (3 - Td or Tdap) 06/04/2031 06/04/2021, 05/06/2011, 01/14/2000 Zoster Vaccines Completed 08/28/2019, 04/22, 08/01/2008 Alpha-1 Antitrypsin Completed 08/06/2021 VITAMIN D LEVEL ONCE IN A LIFETIME-USE SMARTSET# [id number] Completed 06/03/2023, 04/09/2022, 06/04/2021, Additional history exists Influenza Vaccine (FLU shot) Completed 12/2023, 03/27/2024, 03/02/2023, Additional history exists Pneumococcal Vaccine: 65+ Years Completed 04/03/2024, 11/06/2016, 08/22/2014, Additional history exists HPV (Gardasil) Vaccine Aged Out No lo nger eligible based on patient's age to complete this topic MENINGOCOCCAL (MENACTRA/MENVEO) Aged Out No longer eligible based on patient's age to complete this topic documented as of this encounter Medical Devices Implanted Type Area Professional Security Officer Device Identifier Shelf Expiration Date Model / Serial / Lot Lens 19.0 M160l - [id number] - [id number] Implanted:Qty: 1 on 11/28/2015 by Vinh Richardson MD at OR [facility] Right: Eye BAUSCH [employer] LOMB : SURGICAL 08/18/2016 [id number] / [id number] / [id number] Lens Intraoc 22.0 - [id number] - [id number] Implanted:Qty: 1 on 01/23/2020 by Ric Mcdonald MD at OR [facility] Left: Eye BAUSCH & LOMB 07/21/2024 [id number] / [id number] / [id number] documented as of this encounter Advance Directives Documents on File Type Date Recorded 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 Care Teams Area Development Consultant Relationship Specialty Start Date End Date Jeanine Franco DO [address] [place] [address] PCP - General Family Medicine 12/07/23 documented as of this encounter
--- OUTSIDE RECORDS SUMMARY | 2024-07-01 04:08 | External Medical Summary ---
Author Name Unknown Address Unknown Organization [id number]:[facility] [place] [address] Laboratory Report Ordering Provider Test Date Status AMNA BERKOWITZ 05/22/2024 12:47:27 Final Observation Date Value Abnormality Reference (Units ) Status BUN 05/22/2024 12:47:27 9 6-20 (mg/dL) Final Creatinine 05/22/2024 12:47:27 0.7 0.5-1.0 (mg/dL) Final Glomerular filtration rate/1.73 sq M.predicted [Volume Rate/Area] in Serum, Plasma or Blood by Creatinine-based formula (CKD-EPI) 05/22/2024 12:47:27 81 >=60 (mL/min) Final eGFR is calculated based on the CKD-EPI 2020 equation. Sodium 05/22/2024 12:47:27 137 135-146 (m mol/L) Final Potassium 05/22/2024 12:47:27 4.3 3.5-5.1 (m mol/L) Final Cl 05/22/2024 12:47:27 99 98-107 (mm ol/L) Final CO2 05/22/2024 12:47:27 28 22-32 (mmo l/L) Final Anion gap 05/22/2024 12:47:27 10 7-15 (mmol /L) Final Glucose 05/22/2024 12:47:27 137 Above high normal 70 -120 (mg/dL) Final Calcium 05/22/2024 12:47:27 9.5 8.4-10.2 ( mg/dL) Final Performing Location [facility] [address] [place] [address]
--- OUTSIDE RECORDS SUMMARY | 2024-07-01 04:08 | External Medical Summary ---
Author Name Unknown Address Unknown Organization [id number]:[facility] - [address] [place] [address] Laboratory Report Ordering Provider Test Date Status AMNA BERKOWITZ 05/22/2024 12:47:27 Final Deficient: <20 ng/mL
Ins ufficient: 20-29 ng/mL
Recommended/Optimum:30-50 ng/mL

Vitamin D intoxication is rare. If suspicious of Vitamin D toxicity, evaluation of serum Calcium and PTH is recommended. Observation Date Value Abnormality Reference (Units ) Status 25-OH Vitamin D total 05/22/2024 12:47:27 27 >19 (ng/mL) Final Performing Location LAB[facility]ATORY [facility] - [address] [place] [address]
--- OUTSIDE RECORDS SUMMARY | 2024-07-01 04:08 | External Medical Summary | Summary of Care ---
Author Name Unknown Organization [facility] Address [address] [place] [address] Phone [phone] Care Team Providers Care Frozen Food Department Manager Name Role Phone Jeanine Franco DO Primary Care Provider [phone] Reason for Visit * Reason Onset Date Comments Test Results 05/25/202405/25 Encounter Details Date Type Department Care Team ([facility] st Contact Info) Description 05/25/2024 Telephone Family Practice [address] [facility], [place] [address] [place] [phone] Jeanine Franco DO [address] [place], [place] [id number] Test Results (05/25) Allergies Active Allergy Reactions Criticality Noted Date Comments Cm Inhibitors Cough Low 09/11/2008 Amoxicillin 11/17/2019 Diffuse rash documented as of this encounter (statuses as of 05/25/2024) Medications VITAMINS & MINERALS CAPS OR 1 [...] 4 08/25/19 25 Active OneTouch Delica Plus [id number] USE TO TEST BLOOD SUGARS ONCE DAILY [...] FRI IN THE EVENING 45 Tablet 1 03/01/2024 [...] as of this encounter (statuses as of 05/25/2024) Active Problems Problem Noted Date Diagnosed Date [...] as of this encounter (statuses as of 05/25/2024) Resolved Problems Problem Noted Date Diagnosed Date [...] as of this encounter (statuses as of 05/25/2024) Immunizations Name Administration Dates Next Due COVID-19 mRNA, LNP-s, No Pre serve, 2-Dose Series ([facility]) 04/10/2021,08/19/2020,07/16/2020 COVID-19 mRNA, LNP-s, No Pre serve, 2-Dose Series (Pfizer) 10/06/2021 COVID-19, MRNA-LNP, 24-25, P R, 30MCG/0.3ML, IM, 12YRS AND ABOVE ([employer]) 03/04/2024 COVID-19, MRNA-LNP, PF, 30 M CG/0.3 mL, 12 YRS AND ABOVE, IM ([employer]) 11/17/2023,03/14/2023 Covid-19, Mrna, Lnp-s, Pf, B ivalent, 30 Mcg, IM, 12 yrs and above (Pfizer) 03/24/2022 Hepatitis B, 20+ yrs 11/06/2016 Pneumococcal Conjugate Vacc, 13 Valent (Prevnar) 08/22/2014 Pneumococcal Conjugate Vacci ne, 20-valent ([id number]) 04/03/2024 Pneumococcal Polysaccharide PPV23 (Pneumovax) 11/06/2016,11/24/2006 RSV [...] 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 Thank you * Telephone Encounter - Su Gaines LPN - 05/25/2024 2:49 PM EST Call placed to patient - no answer. Message left to return call to [phone]. * Telephone Encounter - Jeanine Franco DO - 05/25/2024 2:21 PM EST Would advise that she take regularly and we will check at a future visit. * Telephone Encounter - Su Gaines LPN - 05/25/2024 2:02 PM EST Call placed to patient and relayed information from Dr. Franco. Pt states she does have Vitamin D1000 IU at home. States she does miss taking them some days. Discussed putting them in her pill minder with other medications. Pt states she will comply. Please advise if any additional recommendations. * Telephone Encounter - Jeanine Franco DO - 05/25/2024 1:57 PM EST Please let pt know: Her lab studies looked good. Her vitamin D is not quite back to normal range. Is she taking the supplements as listed on her medlist or has she changed? documented in this encounter Plan of Treatment Upcoming Encounters Date Type Department Care Team (Late st Contact Info) Description 07/19/2024 11:20 AM EST Office Visit Family [facility], [address] [place] [address] Jeanine Franco DO 293 [place] [address] 09/11/2024 10:00 AM EDT Nurse Only Family Practice [address] [place] [address] 293 [place] [address] Loree Osman, COLE 293 [place] [address] 01/23/2025 10:20 AM EDT Office Visit Dermatology [facility] [address] [facility] [place] [address] Deidre Barragan PA-C [address] [facility] [place] [address] Health Maintenance Due Date Last Done Comments [...] IN PAST YEAR FOR COPD 05/17/2025 05/17/2024 GFR 05/22/2025 05/22/2024, 03/21, 12/07/2023, Additional history [...] D LEVEL ONCE IN A LIFETIME-USE SMARTSET# 04267 Completed 05/22/2024, 06/03/2023, 04/09/2022, Additional history exists HPV (Gardasil) Vaccine Aged Out No lo nger eligible based on patient's age to complete this topic MENINGOCOCCAL (MENACTRA/MENVEO) Aged Out No longer eligible based on patient's age to complete this topic documented as of this encounter Medical Devices Implanted Type Area Machine Precision Etcher Device Identifier Shelf Expiration Date Model / Serial / Lot Lens 19.0 M160l - [id number] - [id number] Implanted:Qty: 1 on 11/28/2015 by Vinh Richardson MD at OR [facility] Right: Eye BAUSCH & LOMB : SURGICAL 08/18/2016 [id number] / [id number] / [id number] Lens Intraoc 22.0 - [id number] - [id number] Implanted:Qty: 1 on 01/23/2020 by Ric Mcdonald MD at OR [facility] Left: Eye BAUSCH & LOMB 07/21/2024 [id number] / [id number] / [id number] documented as of this encounter Advance Directives Documents on File Type Date Recorded Patient Rehab Services Aide Expl anation POL 10/01/2022 [place] OR [facility] FOR LIFE-SUSTAINING TREATMENT * Full Code (Latest Code Status on File) Date Activated Date Inactivated Comments 11/28/2015 6:26 AM 11/28/2015 12:14 PM This order re flects the patients wishes and were consensually agreed upon. Care Teams Frozen Food Department Manager Relationship Specialty Start Date End Date Jeanine Franco DO [address] [place] [address] PCP - General Family Medicine 12/07/23 documented as of this encounter
--- OUTSIDE RECORDS SUMMARY | 2024-07-01 04:08 | External Medical Summary | Summary of Care ---
Author Name Unknown Organization [facility] Address [address] [place] [address] Phone [phone] Care Team Providers Care Clinical Product Specialist Name Role Phone Jeanine Franco DO Primary Care Provider [phone] Encounter Details Date Type Department Care Team (Late st Contact Info) Description 05/26/2024 Orders Only Family Practice 65 [facility], [place] [address] [place] [phone] Jeanine Franco DO 293 [place] [address] Allergies Active Allergy Reactions Criticality Noted Date Comments Cm Inhibitors Cough Low 09/11/2008 Amoxicillin 11/17/2019 Diffuse rash documented as of this encounter (statuses as of 05/26/2024) Medications VITAMINS & MINERALS CAPS OR 1 [...] 4 08/25/19 25 Active OneTouch Delica Plus Earlhs32V USE TO TEST BLOOD SUGARS ONCE DAILY [...] as of this encounter (statuses as of 05/26/2024) Active Problems Problem Noted Date Diagnosed Date [...] as of this encounter (statuses as of 05/26/2024) Resolved Problems Problem Noted Date Diagnosed Date [...] as of this encounter (statuses as of 05/26/2024) Immunizations Name Administration Dates Next Due COVID-19 mRNA, LNP-s, No Pre serve, 2-Dose Series ([facility]) 04/10/2021,08/19/2020,07/16/2020 COVID-19 mRNA, LNP-s, No Pre serve, 2-Dose Series ([employer]) 10/06/2021 COVID-19, MRNA-LNP, 24-25, P R, 30MCG/0.3ML, IM, 12YRS AND ABOVE ([employer]) 03/04/2024 COVID-19, MRNA-LNP, PF, 30 M CG/0.3 mL, 12 YRS AND ABOVE, IM ([employer]) 11/17/2023,03/14/2023 Covid-19, Mrna, Lnp-s, Pf, B ivalent, 30 Mcg, IM, 12 yrs and above (Pfizer) 03/24/2022 Hepatitis B, 20+ yrs 11/06/2016 Pneumococcal Conjugate Vacc, 13 Valent (Prevnar) 08/22/2014 Pneumococcal Conjugate Vacci ne, 20-valent ([id number]) 04/03/2024 Pneumococcal Polysaccharide PPV23 (Pneumovax) 11/06/2016,11/24/2006 RSV [...] 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 Not on file Not on aydin e Not on file Not on file Not on file Not on file documented as of this encounter Plan of Treatment Upcoming Encounters Date Type Department Care Team (Late st Contact Info) Description 07/19/2024 11:20 AM EST Office Visit Family Practice [address] [facility], [place] 293 [facility] [place] [address] Jeanine Franco DO 293 [place] [address] 09/11/2024 10:00 AM EDT Nurse Only Family Practice 65 [facility] [address] [place] [address] Loree Osman, COLE 293 [place] [address] 01/23/2025 10:20 AM EDT Office Visit Dermatology [facility] 200 [place] [address] Deidre Barragan PA-C [address] [facility] [address] Health Maintenance Due Date Last Done Comments [...] 05/22/2025 05/22/2024, 03/21, 12/07/2023, Additional history exists Diabetic Eye Exam 05/26/2025 05/22/2024, , 06/03/2023, Additional history exists DXA Scan 03/08/2026 03/08/2024, 02/19, 09/08/2021, Additional history exists DTap/Tdap Vaccines (3 - Td or Tdap) 06/04/2031 06/04/2021, 05/06/2011, 01/14/2000 Zoster Vaccines Completed 08/28/2019, 04/22, 08/01/2008 Alpha-1 Antitrypsin Completed 08/06/2021 Influenza Vaccine (FLU shot) Completed 12/2023, 03/27/2024, 03/02/2023, Additional history exists Pneumococcal Vaccine: 65+ Years Completed 04/03/2024, 11/06/2016, 08/22/2014, Additional history exists VITAMIN D LEVEL ONCE IN A LIFETIME-USE SMARTSET# 00410 Completed 05/22/2024, 06/03/2023, 04/09/2022, Additional history exists HPV (Gardasil) Vaccine Aged Out No lo nger eligible based on patient's age to complete this topic MENINGOCOCCAL (MENACTRA/MENVEO) Aged Out No longer eligible based on patient's age to complete this topic documented as of this encounter Medical Devices Implanted Type Area Senior Project Coordinator Device Identifier Shelf Expiration Date Model / Serial / Lot Lens 19.0 M160l - [id number] - [id number] Implanted:Qty: 1 on 11/28/2015 by Vinh Richardson MD at OR [facility] Right: Eye BAUSCH & LOMB : SURGICAL 08/18/2016 [id number]-[id number] / [id number] / [id number] Lens Intraoc 22.0 - [id number] - [id number] Implanted:Qty: 1 on 01/23/2020 by Ric Mcdonald MD at OR [facility] Left: Eye BAUSCH & LOMB 07/21/2024 [id number] / [id number] / [id number] documented as of this encounter Procedures Procedure Name Priority Date/Time Associated Diagnosis Comments DIABETIC EYE EXAM Routine 05/22/2024 documented in this encounter Results * DIABETIC EYE EXAM (05/22/2024) 05/22/2024 us History Per Patient OTHER Final Result OUTSIDE LAB (SEE SCANNED REPORT) documented in this encounter Advance Directives Documents on File Type Date Recorded Patient Boiler Room Operator Expl anation POLST 10/01/2022 [place] OR [facility] FOR LIFE-SUSTAINING TREATMENT * Full Code (Latest Code Status on File) Date Activated Date Inactivated Comments 11/28/2015 6:26 AM 11/28/2015 12:14 PM This order re flects the patients wishes and were consensually agreed upon. Care Teams Clinical Product Specialist Relationship Specialty Start Date End Date Jeanine Franco DO [address] [place] [address] PCP - General Family Medicine 12/07/23 documented as of this encounter
--- OUTSIDE RECORDS SUMMARY | 2024-07-01 04:08 | External Medical Summary | Summary of Care ---
Author Name Unknown Organization [facility] Address [address] [place] [address] Phone [phone] Care Team Providers Care Malted Milk Mixer Name Role Phone Jeanine Franco DO Primary Care Provider [phone] Encounter Details Date Type Department Care Team ([facility] st Contact Info) Description 06/01/2024 Documentation HEALTH & WELLNESS Clif Barton, Health Elevator Operator Service Allergies Active Allergy Reactions Criticality Noted Date Comments Cm Inhibitors Cough Low 09/11/2008 Amoxicillin 11/17/2019 Diffuse rash documented as of this encounter (statuses as of 06/01/2024) Medications VITAMINS & MINERALS CAPS OR 1 [...] hemoglobin A1c goal of less than 7.0% ([facility]) USE TO TEST BLOOD SUGAR ONCE DAILY 100 Strip 3 03/10/2024 8:23 AM EDT 4 08/25/19 25 Active RachelTouch Delica Plus Jwoafc76H USE TO TEST BLOOD SUGARS ONCE DAILY [...] as of this encounter (statuses as of 06/01/2024) Active Problems Problem Noted Date Diagnosed Date [...] as of this encounter (statuses as of 06/01/2024) Resolved Problems Problem Noted Date Diagnosed Date [...] as of this encounter (statuses as of 06/01/2024) Immunizations Name Administration Dates Next Due COVID-19 mRNA, LNP-s, No Pre serve, 2-Dose Series ([employer]) 04/10/2021,08/19/2020,07/16/2020 COVID-19 mRNA, LNP-s, No Pre serve, 2-Dose Series (Pfizer) 10/06/2021 COVID-19, MRNA-LNP, 24-25, P R, 30MCG/0.3ML, IM, 12YRS AND ABOVE ([employer]) 03/04/2024 COVID-19, MRNA-LNP, PF, 30 M CG/0.3 mL, 12 YRS AND ABOVE, IM ([employer]) 11/17/2023,03/14/2023 Covid-19, Mrna, Lnp-s, Pf, B ivalent, 30 Mcg, IM, 12 yrs and above (Pfizer) 03/24/2022 Hepatitis B, 20+ yrs 11/06/2016 Pneumococcal Conjugate Vacc, 13 Valent (Prevnar) 08/22/2014 Pneumococcal Conjugate Vacci ne, 20-valent ([id number]) 04/03/2024 Pneumococcal Polysaccharide PPV23 (Pneumovax) 11/06/2016,11/24/2006 RSV [...] 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 Not 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 Not on aydin e Not on file Not on file Not on file Not on file documented as of this encounter Progress Notes * Clif Barton Health Elevator Operator Service - 06/01/2024 10:48 AM EST Visit Type: Return Wellness Return Visit Type: Group exercise strength and balance class 45 min documented in this encounter Plan of Treatment Upcoming Encounters Date Type Department Care Team (Late st Contact Info) Description 07/19/2024 11:20 AM EST Office Visit Family Practice 65 [facility] 293 [place] [phone] Jeanine Franco DO 293 [place] [address] 09/11/2024 10:00 AM EDT Nurse Only Family Practice 65 [facility] 293 [place] [phone] Loree Osman, COLE 293 [facility] [phone] 01/23/2025 10:20 AM EDT Office Visit Dermatology [facility] 200 [facility] [place] [address] Deidre Barragan PA-C [address] [place] [address] Health Maintenance Due Date Last Done Comments [...] D LEVEL ONCE IN A LIFETIME-USE SMARTSET# 77309 Completed 05/22/2024, 06/03/2023, 04/09/2022, Additional history exists HPV (Gardasil) Vaccine Aged Out No lo nger eligible based on patient's age to complete this topic MENINGOCOCCAL (MENACTRA/MENVEO) Aged Out No longer eligible based on patient's age to complete this topic documented as of this encounter Medical Devices Implanted Type Area Dental Professional Device Identifier Shelf Expiration Date Model / Serial / Lot Lens 19.0 M160l - [id number] - [id number] Implanted:Qty: 1 on 11/28/2015 by Vinh Richardson MD at OR [facility] Right: Eye BAUSCH & LOMB : SURGICAL 08/18/2016 [id number]-74.0 / [id number] / [id number] Lens Intraoc 22.0 - [id number] - [id number] Implanted:Qty: 1 on 01/23/2020 by Ric Mcdonald MD at OR [facility] Left: Eye BAUSCH & LOMB 07/21/2024 [id number] / [id number] / [id number] documented as of this encounter Advance Directives Documents on File Type Date Recorded Patient Firer Powerhouse Expl anation POLST 10/01/2022 [place] OR [facility] FOR LIFE-SUSTAINING TREATMENT * Full Code (Latest Code Status on File) Date Activated Date Inactivated Comments 11/28/2015 6:26 AM 11/28/2015 12:14 PM This order re flects the patients wishes and were consensually agreed upon. Care Teams Malted Milk Mixer Relationship Specialty Start Date End Date Jeanine Franco DO [address] [facility] [place] [address] PCP - General Family Medicine 12/07/23 documented as of this encounter
--- OUTSIDE RECORDS SUMMARY | 2024-07-01 04:09 | External Medical Summary | Summary of Care ---
Author Name Unknown Organization [facility] Address [address] [place] [address] Phone [phone] Care Team Providers Care Planting Supervisor Name Role Phone Jeanine Franco DO Primary Care Provider Reason for Visit * Reason Onset Date Comments Scan To Read 05/17/2024 Encounter Details Date Type Department Care Team ([facility] st Contact Info) Description 05/17/2024 Telephone Family Practice 65 [facility] [place] [address] [place] [phone] Jeanine Franco DO [address] [place], [place] [id number] Scan To Read Allergies Active Allergy Reactions Criticality Noted Date Comments Cm Inhibitors Cough Low 09/11/2008 Amoxicillin 11/17/2019 Diffuse rash documented as of this encounter (statuses as of 05/17/2024) Medications VITAMINS & MINERALS CAPS OR 1 [...] 4 08/25/19 25 Active OneTouch Delica Plus Kstyth24H USE TO TEST BLOOD SUGARS ONCE DAILY [...] DAY IN THE MORNING 100 Tablet 3 02/11/2024 8:50 AM EDT 4 11/08/19 25 Active Furosemide 20 MG [...] DAY OR OTHER MEDICATIONS 100 Tablet 3 4 05/16/20 25 Active busPIRone HCl 5 MG Oral Tablet (Buspar)Indicati ons:Major depressive disorder, recurrent episode, moderate (HCC) Take 1 Tablet by mouth in the morning and 1 Tablet before bedtime. 60 Tablet 1 4 Active documented as of this encounter (statuses as of 05/17/2024) Active Problems Problem Noted Date Diagnosed Date [...] as of this encounter (statuses as of 05/17/2024) Resolved Problems Problem Noted Date Diagnosed Date [...] as of this encounter (statuses as of 05/17/2024) Immunizations Name Administration Dates Next Due COVID-19 mRNA, LNP-s, No Pre serve, 2-Dose Series ([facility]) 04/10/2021,08/19/2020,07/16/2020 COVID-19 mRNA, LNP-s, No Pre serve, 2-Dose Series ([employer]) 10/06/2021 COVID-19, MRNA-LNP, 24-25, P R, 30MCG/0.3ML, IM, 12YRS AND ABOVE ([employer]) 03/04/2024 COVID-19, MRNA-LNP, PF, 30 M CG/0.3 mL, 12 YRS AND ABOVE, IM ([employer]) 11/17/2023,03/14/2023 Covid-19, Mrna, Lnp-s, Pf, B ivalent, 30 Mcg, IM, 12 yrs and above ([employer]) 03/24/2022 Hepatitis B, 20+ yrs 11/06/2016 Pneumococcal Conjugate Vacc, 13 Valent (Prevnar) 08/22/2014 Pneumococcal Conjugate Vacci ne, 20-valent ([id number]) 04/03/2024 Pneumococcal Polysaccharide PPV23 (Pneumovax) 11/06/2016,11/24/2006 RSV [...] the money to buy more. Never true 11/07/20 24 Within the past 12 months, t [...] Encounter - Ramona Crisostomo RT (R) - 05/17/2024 10:22 AM EST A Diabetic Telemed Eye image was taken and requires your interpretation for Dr Franco. Please check your inbasket for image. Patient prefers to be seen at [facility] if a follow-up appointment is needed. documented in this encounter Plan of Treatment Upcoming Encounters Date Type Department Care Team (Late st Contact Info) Description 07/19/2024 11:20 AM EST Office Visit Family Practice [address] [place] [address] 293 [place] [address] Jeanine Franco DO [address] [place] [address] 09/11/2024 10:00 AM EDT Nurse Only [address] [place] [address] Loree Osman, COLE [address] [place] [address] 01/23/2025 10:20 AM EDT Office Visit Dermatology [facility] [place] [address] Deidre Barragan PA-C [address] [facility] [address] Health Maintenance Due Date Last Done Comments Hepatitis B Vaccine (2 of 3 - 19+ 3-dose series) 12/04/2016 11/06/2016 COVID-19 Vaccine ( season) 2024 03/04/2024, 11/17/2023, 03/14/2023, Additional history exists Postponed from 04/29/2024 (Patient Declined After Education) HbA1c 06/07/2024 12/07/2023, 05/21, 02/01/2023, Additional history exists Adult Wellness Visit 09/06/2024 09/07/2023, 04/21/20 22 TSH 10/11/2024 10/12/2023, 03/22, 04/09/2022, Additional history exists GFR 04/07/2025 04/07/2024, 11/19, [...] D LEVEL ONCE IN A LIFETIME-USE SMARTSET# 70312 Completed 06/03/2023, 04/09/2022, 06/04/2021, Additional history exists Influenza Vaccine (FLU shot) Completed 03/27/2024, 03/27/2024, 03/02/2023, Additional history exists Pneumococcal Vaccine: 65+ Years Completed 04/03/2024, 11/06/2016, 08/22/2014, Additional history exists HPV (Gardasil) Vaccine Aged Out No lo nger eligible based on patient's age to complete this topic MENINGOCOCCAL (MENACTRA/MENVEO) Aged Out No longer eligible based on patient's age to complete this topic documented as of this encounter Medical Devices Implanted Type Area Quick Print Operator Device Identifier Shelf Expiration Date Model / Serial / Lot Lens 19.0 M160l - [id number] - [id number] Implanted:Qty: 1 on 11/28/2015 by Vinh Richardson MD at OR [facility] Right: Eye BAUSCH & LOMB : SURGICAL 08/18/2016 [id number]-43.0 / [id number] / [id number] Lens Intraoc 22.0 - [id number] - [id number] Implanted:Qty: 1 on 01/23/2020 by Ric Mcdonald MD at OR [facility] Left: Eye BAUSCH & LOMB 07/21/2024 [id number] / [id number] / [id number] documented as of this encounter Advance Directives Documents on File Type Date Recorded Patient Artist Color Separation Expl anation POLST 10/01/2022 [place] OR [facility] FOR LIFE-SUSTAINING TREATMENT * Full Code (Latest Code Status on File) Date Activated Date Inactivated Comments 11/28/2015 6:26 AM 11/28/2015 12:14 PM This order re flects the patients wishes and were consensually agreed upon. Care Teams Planting Supervisor Relationship Specialty Start Date End Date Jeanine Franco DO 293 [facility] [place] [address] PCP - General Family Medicine 12/07/23 documented as of this encounter
--- OUTSIDE RECORDS SUMMARY | 2024-07-01 04:09 | External Medical Summary | Summary of Care ---
Author Name Unknown Organization [facility] Address [address] [place] [address] Phone [phone] Care Team Providers Care Junior Systems Administrator Name Role Phone Jeanine Franco DO Primary Care Provider [phone] Reason for Referral * Precert (Diagnostic Medical) (Within 10 days (routine)) - Authorized Specialty Diagnoses / Procedures Referred By Contac t Referred To Contact Sleep Disorders Diagnoses Obstructive sleep apnea Nocturnal hypoxemia Hypertensive heart disease with chronic diastolic congestive heart failure (HCC) Weight loss Procedures SLEEP STUDY, W/O CPAP Alena Nuno CRNP [address] [place] [address] Phone: tel: fax: Referral ID Status Reason Start Date Expiration Date V isits Requested Visits Authorized [id number] Authorized 05/16/2024 999 999 * Precert (Diagnostic Medical) (Within 10 days (routine)) - Authorized Specialty Diagnoses / Procedures Referred By Contac t Referred To Contact Sleep Disorders Diagnoses Obstructive sleep apnea Nocturnal hypoxemia Hypertensive heart disease with chronic diastolic congestive heart failure (HCC) Weight loss Procedures SLEEP STUDY, W/ CPAP (TREATMENT SETTINGS) Alena Nuno CRNP [address] [employer] [place] [address] Phone: tel: fax: Referral ID Status Reason Start Date Expiration Date V isits Requested Visits Authorized [id number] Authorized 05/16/2024 999 999 Reason for Visit * Reason Comments Follow Up Return sleep. DARI. C PAP. Hasn't used CPAP in around year ago. Stopped using it due to the recall. * Evaluate & Treat - Unlimited Visits (Within 10 days (routine)) - Authorized Specialty Diagnoses / Procedures Referred By Contac t Referred To Contact Sleep Medicine / Sleep Disorders Diagnoses DARI (obstructive sleep apnea) Jeanine Franco, DO [address] [place] [address] Phone: tel: fax: Referral ID Status Reason Start Date Expiration Date Visits Requested Visits Authorized [id number] Authorized Specialty Services Required 4 2 2 Encounter Details Date Type Department Care Team (Late st Contact Info) Description 05/16/2024 8:30 AM EST Office Visit Sleep Disorders Ctr [facility] [address] [facility] [phone] Alena Nuno CRNP [address] [facility] [place] [address] Obstructive sleep apnea*; Nocturnal hypoxemia; Hypertensive heart disease with chronic diastolic congestive heart failure (HCC); Weight loss Allergies Active Allergy Reactions Criticality Noted Date Comments Cm Inhibitors Cough Low 09/11/2008 Amoxicillin 11/17/2019 Diffuse rash documented as of this encounter (statuses as of 05/16/2024) Medications VITAMINS & MINERALS CAPS OR 1 [...] mouth daily as needed for Cramping. Active NATURAL SUPPLEMENT Take 1 Capsule by mouth in the morning. Coqnol 100 1 capsule daily with fat-containing meal to help with muscle cramping/fatigu e from statin medication. Active NATURAL SUPPLEMENT Take 2 Capsules by mouth in the morning and 2 Capsules before bedtime. Osteoben-2 capsules in AM, 2 capsules at night for bone health/muscle cramping. Active Levothyroxine Sodium 100 MCG Oral Tablet (Levoxyl) TAKE 1 TABLET BY MOUTH DAILY AT LEAST 30 MINUTES PRIOR TO FIRST MEAL OF THE DAY OR OTHER MEDICATIONS 100 Tablet 2 02/08/2024 11:36 AM EDT 4 07/25/19 25 Active finalsiteTouch Verio In Vitro Strip (Glucose Blood)Indication s:Type 2 diabetes mellitus with hemoglobin A1c goal of less than 7.0% ([facility]) USE TO TEST BLOOD SUGAR ONCE DAILY 100 Strip 3 03/10/2024 8:23 AM EDT 4 08/25/19 25 Active OneTouch Delica Plus [id number] USE TO TEST BLOOD SUGARS ONCE DAILY [...] 3 03/27/2024 8:35 AM EDT 4 Active Citalopram Hydrobromide 20 MG Oral Tablet (CeleXA)Indicati ons:Major depressive disorder, recurrent episode, moderate (HCC) Take one tablet by mouth every other day 15 Tablet 5 4 Active documented as of this encounter (statuses as of 05/16/2024) Active Problems Problem Noted Date Diagnosed Date [...] as of this encounter (statuses as of 05/16/2024) Resolved Problems Problem Noted Date Diagnosed Date [...] as of this encounter (statuses as of 05/16/2024) Immunizations Name Administration Dates Next Due COVID-19 mRNA, LNP-s, No Pre serve, 2-Dose Series ([facility]) 04/10/2021,08/19/2020,07/16/2020 COVID-19 mRNA, LNP-s, No Pre serve, 2-Dose Series (Pfizer) 10/06/2021 COVID-19, MRNA-LNP, 24-25, P R, 30MCG/0.3ML, IM, 12YRS AND ABOVE (Pfizer-Comirnaty) 03/04/2024 COVID-19, MRNA-LNP, PF, 30 M CG/0.3 mL, 12 YRS AND ABOVE, IM (PFIZER-Comirnaty) 11/17/2023,03/14/2023 Covid-19, Mrna, Lnp-s, Pf, B ivalent, 30 Mcg, IM, 12 yrs and above (Pfizer) 03/24/2022 Hepatitis B, 20+ yrs 11/06/2016 Pneumococcal Conjugate Vacc, 13 Valent (Prevnar) 08/22/2014 Pneumococcal Conjugate Vacci ne, 20-valent ([id number]) 04/03/2024 Pneumococcal Polysaccharide PPV23 (Pneumovax) 11/06/2016,11/24/2006 RSV [...] 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 Not on file Not on aydin e Not on file Not on file Not on file Not on file documented as of this encounter Last Filed Vital Signs Vital Sign Reading Time Taken Comments Blood Pressure 122/82 05/16/2024 8:16 AM EST Pulse 58 05/16/2024 8:16 AM EST Temperature 35 C (95 F) 05/16/2024 8:16 AM EST Respiratory Rate 16 05/16/2024 8:16 AM EST Oxygen Saturation 97% 05/16/2024 8:16 AM EST Inhaled Oxygen Concentration - - Weight 80.7 kg (178 lb) 05/16/2024 8:16 AM EST Height 168.9 cm (5' 6.5") 05/16/2024 8:16 AM EST Body Mass Index 28.3 05/16/2024 8:16 AM EST documented in this encounter Progress Notes * Alena Nuno CRNP - 05/16/2024 8:26 AM EST [facility] Dominique Sloan is a 79 year old female seen today for severe DARI. Initially presented with snoring and tiredness. PSG 04/19/2005: RDI 39 PAP titration 12/2006: titrated to BiPAP 17/10 cwp PSG 10/15/2015: AHI 17, SpO2 <89% for 34 minutes PAP titration 02/17/2016: titrated to CPAP 7 cwp PAP intolerance due to dry mouth HST 03/20/2021 (wt 196 lb): ESTHER 49.7, SpO2 timi 80%, time <89% 47.5 min Last seen by Dr. Baxter July 2022 with continued dry mouth and low usage, overnight oximetry ordered but not completed. Interim History: Stopped BPAP due to Javi' recall about 1 year ago. She does not recall receiving replacement BPAP through Javi[employer] recall. Doesn't like PAP treatment with dry mouth as one complaint with oronasal interface. Wonders if mouth tape would help her breathing at night. Has lost about 50 lbs by report (20 lb since last study in 2020). Bedtime around 7-7:30p, sleeping until 7:30a. Wakes about twice a night to use the restroom. Total sleep time around 10 hours. No morning headaches. Rested on waking. Denies daytime sleepiness or fatigue. No daytime sleeping. No RLS. Will get muscle cramps about 1-2x/week at the most. Has a new bed and mattress which she has been happy with. No health related concerns. Tries to walk a mile a day, inside or outside. Equipment: DME Provider: [facility] Device: [employer] autoBIPAP Settings: min EPAP 4, max IPAP 13, PS 2-7 [place] Sleepiness Scale Question 05/15/2024 2:06 PM EST - Filed by Patient What is the chance you will doze off in the following situation? Sitting and reading No chance of dozing Watching TV No chance of dozing Sitting inactive in a public place, such as a theater or meeting No chance of dozing As a passenger in a car for an hour without a break No chance of dozing Lying down to rest in the afternoon when circumstances permit No chance of dozing When sitting and talking to someone No chance of dozing When sitting quietly after lunch without alcohol No chance of dozing In a car, while stopped for a few minutes in traffic No chance of dozing Score (range: 0 - 24) 0 Problem List: Patient Active Problem List Diagnosis DARI (obstructive sleep apnea) Advance directive on file CM inhibitor intolerance High risk for fracture due to osteoporosis by DEXA scan History of left breast cancer Type 2 diabetes mellitus with hemoglobin A1c goal of less than 7.0% ([facility]) DYSLIPIDEMIA, GOAL LDL BELOW 100 Irritable bowel syndrome Hearing loss sensory, bilateral HTN, goal below 140/90 History of tobacco use Type 2 diabetes mellitus with diabetic peripheral angiopathy without gangrene (HCC) COPD, group B, by GOLD 2017 classification ([facility]) Hypothyroidism due to acquired atrophy of thyroid Type 2 diabetes mellitus with polyneuropathy (HCC) Nocturnal hypoxemia Lumbar degenerative disc disease Hypertensive heart disease with chronic diastolic congestive heart failure (HCC) Major depressive disorder, recurrent episode, moderate (HCC) Current Medications: Current Outpatient Medications Medication Sig Dispense Refill Citalopram Hydrobromide 20 MG Oral Tablet (CeleXA) Take one tablet by mouth every other day 15 Tablet 5 Citalopram Hydrobromide 20 MG Oral Tablet (CeleXA) Take 1 Tablet by mouth every other day. 50 Tablet 3 Atorvastatin Calcium 40 MG Oral Tablet (Lipitor) TAKE ONE TABLET BY MOUTH THREE TIMES A WEEK ON MON, WED AND FRI IN THE EVENING 45 Tablet 1 Furosemide 20 MG Oral Tablet (Lasix) TAKE ONE TABLET BY MOUTH EVERY MORNING 90 Tablet 3 Losartan Potassium 50 MG Oral Tablet (Cozaar) TAKE ONE TABLET BY MOUTH EVERY DAY IN THE MORNING 100Tablet 3 Alendronate Sodium 35 MG Oral Tablet (Fosamax) TAKE ONE TABLET BY MOUTH ONCE A WEEK 12 Tablet 3 OneTouch Delica Plus [id number] USE TO TEST BLOOD SUGARS ONCE DAILY 100 Each 3 OneTouch Verio In Vitro Strip (Glucose Blood) USE TO TEST BLOOD SUGAR ONCE DAILY 100 Strip 3 Levothyroxine Sodium 100 MCG Oral Tablet (Levoxyl) TAKE 1 TABLET BY MOUTH DAILY AT LEAST 30 MINUTESPRIOR TO FIRST MEAL OF THE DAY OR OTHER MEDICATIONS 100 Tablet 2 NATURAL SUPPLEMENT Take 1 Capsule by mouth in the morning. Coqnol 100 1 capsule daily with fat-containing meal to help with muscle cramping/fatigue from statin medication. NATURAL SUPPLEMENT Take 2 Capsules by mouth in the morning and 2 Capsules before bedtime. Osteoben-2 capsules in AM, 2 capsules at night for bone health/muscle cramping. Magnesium 400 MG Oral Tablet Take 1 Tablet by mouth daily as needed for Cramping. Fluticasone Propionate 50 MCG/ACT Nasal Suspension (Flonase) Administer 2 Sprays into each nostril in the morning. 16 g 0 Vitamin D-3 25 MCG (1000 UT) Oral Capsule Take 1 Capsule by mouth in the morning. CALCIUM 500 + D 500-125 MG-UNIT PO TABS taking one tablet by mouth once daily VITAMINS & MINERALS CAPS OR 1 TABLET DAILY 0 No current facility-administered medications for this visit. Physical Exam: BP 122/82 | Pulse 58 | Temp (!) 35 C (95 F) (Tympanic) | Resp 16 | Ht 1.689 m (5' 6.5") | Wt 80.7 kg (178 lb) | SpO2 97% | BMI 28.30 kg/m | BSA 1.95 m Constitutional: Alert, oriented and in no acute distress Skin: No abnormal mask markings on face Cardio: Regular rate and rhythm, no murmur Chest: Normal respiratory effort at rest Neuro: Fluent speech Psych: Appropriate mood and affect. Assessment & Plan: Encounter Diagnoses Name Primary? Obstructive sleep apnea Yes Nocturnal hypoxemia Hypertensive heart disease with chronic diastolic congestive heart failure (HCC) -untreated severe DARI with hypoxemia, discussed risks with overall health if left untreated -weight down from prior testing -agreeable to reassessing and restarting PAP therapy if recommended -consider cutting sleep time back to max 9 hours -continue to avoid engaging in activities that require full alertness when feeling sleepy or tired Follow-up with Sleep Medicine pending sleep study results. [facility] I spent a total of 30-39 minutes (exact time 39 mins) on the date of service in preparation, delivery, and documentation of the care provided to Dominique Sloan excluding any time spent in the performance of separately billed services. documented in this encounter Nursing Notes * Valorie Ovalles LPN - 05/16/2024 8:19 AM EST Chief Complaint Patient presents with Follow Up Return sleep. DARI. CPAP. Hasn't used CPAP in around year ago. Stopped using it due to the recall. [place] Sleepiness Scale Question 05/15/2024 2:06 PM EST - Filed by Patient What is the chance you will doze off in the following situation? Sitting and reading No chance of dozing Watching TV No chance of dozing Sitting inactive in a public place, such as a theater or meeting No chance of dozing As a passenger in a car for an hour without a break No chance of dozing Lying down to rest in the afternoon when circumstances permit No chance of dozing When sitting and talking to someone No chance of dozing When sitting quietly after lunch without alcohol No chance of dozing In a car, while stopped for a few minutes in traffic No chance of dozing Score (range: 0 - 24) 0 documented in this encounter Plan of Treatment Upcoming Encounters Date Type Department Care Team (Late st Contact Info) Description 07/19/2024 11:20 AM EST Office Visit Family Practice [address], [place] [address] [facility], [place] [address] Jeanine Franco, DO [address] [facility] [address] 09/11/2024 10:00 AM EDT Nurse Only Family Practice [address] [facility], [place] [address] [place] [address] Loree Osman, RN [address] [place] [phone] 01/23/2025 10:20 AM EDT Office Visit Dermatology [facility] [address] [place] [address] Deidre Barragan PA-C [address] [facility] [address] Scheduled Orders Name Type Priority Associated Diagnoses Orde r Schedule SLEEP STUDY, W/ CPAP (TREATMENT SETTINGS) Procedures Routine Obstructive sleep apnea Nocturnal hypoxemia Hypertensive heart disease with chronic diastolic congestive heart failure (HCC) Weight loss Ordered: 05/16/2024 SLEEP STUDY, W/O CPAP Procedures Routine Obstructive sleep apnea Nocturnal hypoxemia Hypertensive heart disease with chronic diastolic congestive heart failure (HCC) Weight loss Ordered: 05/16/2024 Health Maintenance Due Date Last Done Comments Hepatitis B Vaccine (2 of 3 - 19+ 3-dose series) 12/04/2016 11/06/2016 COVID-19 Vaccine ( season) 2024 03/04/2024, 11/17/2023, 03/14/2023, Additional history exists Diabetic Eye Exam 06/03/2024 06/03/2023, , 06/04/2021, Additional history exists Diabetic Foot Exam 06/03/2024 06/03/2023, 1 07/23/2021, 04/09/2022, Additional history exists HbA1c 06/07/2024 12/07/2023, 05/21, 02/01/2023, Additional history exists Adult Wellness Visit 09/06/2024 09/07/2023, 04/21/20 22 TSH 10/11/2024 10/12/2023, 03/22, 04/09/2022, Additional history exists GFR 04/07/2025 04/07/2024, 11/19, 10/12/2023, Additional history exists Depression Monitoring 04/27/2025 04/27/2024 Albumin/Creatinine Ratio 05/15/2025 024, 04/07/2024, 04/19/2023, Additional history exists O2 ASSESSMENT COMPLETED IN PAST YEAR FOR COPD 05/16/2025 05/16/2024 DXA Scan 03/08/2026 03/08/2024, 02/19, 09/08/2021, Additional history exists DTap/Tdap Vaccines (3 - Td or Tdap) 06/04/2031 06/04/2021, 05/06/2011, 01/14/2000 Zoster Vaccines Completed 08/28/2019, 04/22, 08/01/2008 Alpha-1 Antitrypsin Completed 08/06/2021 VITAMIN D LEVEL ONCE IN A LIFETIME-USE SMARTSET# [id number] Completed 06/03/2023, 04/09/2022, 06/04/2021, Additional history exists [...] this encounter Medical Devices Implanted Type Area Agriculturist Device Identifier Shelf Expiration Date Model / Serial / Lot Lens 19.0 M160l - [id number] - [id number] Implanted:Qty: 1 on 11/28/2015 by Vinh Richardson MD at OR [facility] Right: Eye BA[employer]CH [employer] LOMB : SURGICAL 08/18/2016 [id number] / [id number] / [id number] Lens Intraoc 22.0 - [id number] - [id number] Implanted:Qty: 1 on 01/23/2020 by Ric Mcdonald MD at OR [facility] Left: Eye BAUSCH [employer] LOMB 07/21/2024 [id number] / [id number] / [id number] documented as of this encounter Visit Diagnoses Diagnosis Obstructive sleep apnea- Primary Obstructive sleep apnea (adult) (pediatric) Nocturnal hypoxemia Hypoxemia Hypertensive heart disease with chronic diastolic congestive heart failure (HCC) Weight loss Loss of weight documented in this encounter Advance Directives Documents on File Type Date Recorded 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 Care Teams Junior Systems Administrator Relationship Specialty Start Date End Date Jeanine Franco DO [address] [place] [address] PCP - General Family Medicine 12/07/23 documented as of this encounter
--- OUTSIDE RECORDS SUMMARY | 2024-07-01 04:09 | External Medical Summary | Summary of Care ---
Author Name Unknown Organization [facility] Address [address] [place] [address] Phone [phone] Care Team Providers Care Leader Assembler Name Role Phone Jeanine Franco DO Primary Care Provider [phone] Encounter Details Date Type Department Care Team (Late st Contact Info) Description 05/11/2024 Documentation HEALTH & WELLNESS Clif Barton, Health Linesperson Allergies Active Allergy Reactions Criticality Noted Date Comments Cm Inhibitors Cough Low 09/11/2008 Amoxicillin 11/17/2019 Diffuse rash documented as of this encounter (statuses as of 05/11/2024) Medications VITAMINS & MINERALS CAPS OR 1 [...] 11:36 AM EDT 4 07/25/19 25 Active OneTouch Verio In Vitro Strip (Glucose Blood)Indication s:Type 2 diabetes mellitus with hemoglobin A1c goal of less than 7.0% (HCC) USE TO TEST BLOOD SUGAR ONCE DAILY 100 Strip 3 03/10/2024 8:23 AM EDT 4 08/25/19 25 Active OneTouch Delica Plus [id number] USE TO TEST BLOOD SUGARS ONCE DAILY [...] as of this encounter (statuses as of 05/11/2024) Active Problems Problem Noted Date Diagnosed Date [...] as of this encounter (statuses as of 05/11/2024) Resolved Problems Problem Noted Date Diagnosed Date [...] as of this encounter (statuses as of 05/11/2024) Immunizations Name Administration Dates Next Due COVID-19 mRNA, LNP-s, No Pre serve, 2-Dose Series (Moderna) 04/10/2021,08/19/2020,07/16/2020 COVID-19 mRNA, LNP-s, No Pre serve, 2-Dose Series (Pfizer) 10/06/2021 COVID-19, MRNA-LNP, 24-25, P R, 30MCG/0.3ML, IM, 12YRS AND ABOVE ([employer]-ComirnatNightpro) 03/04/2024 COVID-19, MRNA-LNP, PF, 30 M CG/0.3 mL, 12 YRS AND ABOVE, IM ([employer]-ComirnatNightpro) 11/17/2023,03/14/2023 Covid-19, Mrna, Lnp-s, Pf, B ivalent, 30 Mcg, IM, 12 yrs and above (Pfizer) 03/24/2022 Hepatitis B, 20+ yrs 11/06/2016 Pneumococcal Conjugate Vacc, 13 Valent (Prevnar) 08/22/2014 Pneumococcal Conjugate Vacci ne, 20-valent ([id number]) 04/03/2024 Pneumococcal Polysaccharide PPV23 (Pneumovax) 11/06/2016,11/24/2006 RSV [...] 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 Not on file Not on aydin e Not on file Not on file Not on file Not on file documented as of this encounter Progress Notes * Clif Barton, Health Linesperson - 05/11/2024 2:35 PM EST Visit Type: Return Wellness Return Visit Type: Group exercise strength and balance circuit 45 min documented in this encounter Plan of Treatment Upcoming Encounters Date Type Department Care Team (Late st Contact Info) Description 07/19/2024 11:20 AM EST Office Visit Family Practice [address] [place] [address] [address] [place] [phone] Jeanine Franco DO [address] [place] [address] 09/11/2024 10:00 AM EDT Nurse Only Family Practice [address] [place] [address] [address] [place] [phone] Loree Osman, COLE [address] [place] [phone] 11/07/2024 10:00 AM EDT Office Visit Sleep Disorders Ctr [facility] [phone] Alena Nuno CRNP [address] [facility] [address] 01/23/2025 10:20 AM EDT Office Visit Dermatology [facility] [address] [facility] [place] [address] Deidre Barragan, PA-C [address] [facility] [address] Health Maintenance Due Date Last Done Comments [...] 10/11/2024 10/12/2023, 03/22, 04/09/2022, Additional history exists Albumin/Creatinine Ratio 04/07/2025 024, 04/19/2023, 04/16/2023, Additional history exists GFR 04/07/2025 04/07/2024, 11/19, 10/12/2023, Additional history exists O2 ASSESSMENT COMPLETED IN PAST YEAR FOR COPD 04/24/2025 04/24/2024 Depression Monitoring 04/27/2025 04/27/2024 DXA Scan 03/08/2026 03/08/2024, 02/19, 09/08/2021, Additional history exists DTap/Tdap Vaccines (3 - Td or Tdap) 06/04/2031 06/04/2021, 05/06/2011, 01/14/2000 Zoster Vaccines Completed 08/28/2019, 04/22, 08/01/2008 Alpha-1 Antitrypsin Completed 08/06/2021 VITAMIN D LEVEL ONCE IN A LIFETIME-USE SMARTSET# [id number] Completed 06/03/2023, 04/09/2022, 06/04/2021, Additional history exists [...] this encounter Medical Devices Implanted Type Area Wood Patternmaker Device Identifier Shelf Expiration Date Model / Serial / Lot Lens 19.0 M160l - [id number] - [id number] Implanted:Qty: 1 on 11/28/2015 by Vinh Richardson MD at OR [facility] Right: Eye BAUSCH [employer] LOMB : SURGICAL 08/18/2016 [id number] / [id number] / [id number] Lens Intraoc 22.0 - [id number] - [id number] Implanted:Qty: 1 on 01/23/2020 by Ric Mcdonald MD at OR [facility] Left: Eye BAUSCH [employer] LOMB 07/21/2024 [id number] / [id number] / [id number] documented as of this encounter Advance Directives Documents on File Type Date Recorded 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 Care Teams Leader Assembler Relationship Specialty Start Date End Date Jeanine Franco DO [address] [place] [address] PCP - General Family Medicine 12/07/23 documented as of this encounter
--- OUTSIDE RECORDS SUMMARY | 2024-07-01 04:09 | External Medical Summary | Summary of Care ---
Author Name Unknown Organization [facility] Address [address] [place] [address] Phone [phone] Care Team Providers Care Loading Unit Operator Seating Name Role Phone Jeanine Franco DO Primary Care Provider [phone] Reason for Referral * Evaluate & Treat - Unlimited Visits (Within 30 days (routine)) - Authorized Specialty Diagnoses / Procedures Referred By Contac t Referred To Contact Optometry Diagnoses Type 2 diabetes mellitus with polyneuropathy (HCC) Jeanine Franco DO [address] [place] [address] Phone: tel: fax: Referral ID Status Reason Start Date Expiration Date Visits Requested Visits Authorized [id number] Authorized Specialty Services Required 4 1 1 Question Answer Referring for: Optometry Conditions Optometry Conditions Diabetic Eye Exam without Retinopathy Referral Priority Within 30 days (routine) Where should this appointment be scheduled? External Reason for Visit * Reason Comments Follow Up Encounter Details Date Type Department Care Team (Latest Contact Info) Description 05/17/2024 8:00 AM EST Office Visit Family Practice [facility] [place] [address] [place] [address] Jeanine Franco DO [address] [place] [address] Type 2 diabetes mellitus with polyneuropathy (HCC)*; DM type 2 nursing care encounter (HCC); Major depressive disorder, recurrent episode, moderate (HCC); Vitamin D deficiency Allergies Active Allergy Reactions Criticality Noted Date Comments Cm Inhibitors Cough Low 09/11/2008 Amoxicillin 11/17/2019 Diffuse rash documented as of this encounter (statuses as of 05/17/2024) Medications VITAMINS & MINERALS CAPS OR 1 TABLET DAILY 0 12/05/19 00 Active CALCIUM 500 + D 500-125 MG-UNIT PO TABS taking one tablet by mouth once daily Active Vitamin D-3 25 MCG (1000 UT) Oral Capsule Take 1 Capsule by mouth in the morning. 06/05/20 21 Active Fluticasone Propionate 50 MCG/ACT Nasal Suspension (Flonase)Indica tions:Nasal congestion Administer 2 Sprays into each nostril in the morning. 16 g 3 10:54 AM EST 07/21/19 23 Active Magnesium 400 MG Oral Tablet Take 1 Tablet by mouth daily as needed for Cramping. Active OneTouch Verio In Vitro Strip (Glucose Blood)Indicatio ns:Type 2 diabetes mellitus with hemoglobin A1c goal of less than 7.0% ([facility]) USE TO TEST BLOOD SUGAR ONCE DAILY 100 Strip 3 4 8:23 AM EDT 08/25/19 24 025 Active OneTouch Delica Plus [id number] USE TO TEST BLOOD SUGARS ONCE DAILY 100 Each 3 4 8:23 AM EDT 08/25/19 24 025 Active Alendronate Sodium 35 MG Oral Tablet (Fosamax)Indica tions:High risk for fracture due to osteoporosis by DEXA scan TAKE ONE TABLET BY MOUTH ONCE A WEEK 12 Tablet 3 4 8:35 AM EDT 10/14/19 24 Active Losartan Potassium 50 MG Oral Tablet (Cozaar)Indicat ions:HTN, goal below 140/90 TAKE ONE TABLET BY MOUTH EVERY DAY IN THE MORNING 100 Tablet 3 4 8:50 AM EDT 11/08/19 24 025 Active Furosemide 20 MG Oral Tablet (Lasix)Indicati ons:HTN, goal below 140/90,Dyslipid emia, goal LDL below 100,Hypertensiv e heart disease with chronic diastolic congestive heart failure (HCC) TAKE ONE TABLET BY MOUTH EVERY MORNING 90 Tablet 3 4 9:38 AM EDT 12/01/19 24 025 Active Atorvastatin Calcium 40 MG Oral Tablet (Lipitor)Indica tions:Dyslipide dustin, goal LDL below 100 TAKE ONE TABLET BY MOUTH THREE TIMES A WEEK ON MON, WED AND FRI IN THE EVENING 45 Tablet 1 4 6:17 PM EDT 02/29/20 24 Active Citalopram Hydrobromide 20 MG Oral Tablet (CeleXA)Indicat ions:Major depressive disorder, recurrent episode, moderate (HCC) Take 1 Tablet by mouth every other day. 50 Tablet 3 4 8:35 AM EDT 03/09/20 24 Active Levothyroxine Sodium 100 MCG Oral Tablet (Levoxyl) TAKE 1 TABLET BY MOUTH DAILY AT LEAST 30 MINUTES PRIOR TO FIRST MEAL OF THE DAY OR OTHER MEDICATIONS 100 Tablet 3 05/16/20 24 025 Active busPIRone HCl 5 MG Oral Tablet (Buspar)Indicat ions:Major depressive disorder, recurrent episode, moderate (HCC) Take 1 Tablet by mouth in the morning and 1 Tablet before bedtime. 60 Tablet 1 05/17/20 24 Active NATURAL SUPPLEMENT Take 1 Capsule by mouth in the morning. Coqnol 100 1 capsule daily with fat-containing meal to help with muscle cramping/fatig ue from statin medication. Discontinued NATURAL SUPPLEMENT Take 2 Capsules by mouth in the morning and 2 Capsules before bedtime. Osteoben-2 capsules in AM, 2 capsules at night for bone health/muscle cramping. 024 Discontinued Citalopram Hydrobromide 20 MG Oral Tablet (CeleXA)Indicat ions:Major depressive disorder, recurrent episode, moderate (HCC) Take one tablet by mouth every other day 15 Tablet 5 03/30/20 24 024 Discontinued documented as of this encounter (statuses as [...] mRNA, LNP-s, No Pre serve, 2-Dose Series ([facility]) 04/10/2021,08/19/2020,07/16/2020 COVID-19 mRNA, LNP-s, No Pre serve, 2-Dose Series ([employer]) 10/06/2021 COVID-19, MRNA-LNP, 24-25, P R, 30MCG/0.3ML, IM, 12YRS AND ABOVE ([employer]) 03/04/2024 COVID-19, MRNA-LNP, PF, 30 M CG/0.3 mL, 12 YRS AND ABOVE, IM ([employer]) 11/17/2023,03/14/2023 Covid-19, Mrna, Lnp-s, Pf, B ivalent, 30 Mcg, IM, 12 yrs and above ([employer]ix) 03/24/2022 Hepatitis B, 20+ yrs 11/06/2016 Influenza, Whole Virus 04/04/2003 PPD 12/10/2004 Pneumococcal Conjugate Vacc, 13 Valent (Prevnar) 08/22/2014 Pneumococcal Conjugate Vacci ne, 20-valent ([id number]) 04/03/2024 Pneumococcal Polysaccharide PPV23 (Pneumovax) 11/06/2016,11/24/2006 RSV Vac., Recomb, Adjuvant, PF,0.5 Ml (Arexvy) 03/18/2023 Season Influenza, Quad, PF, Adjuvanted, 65+ Yrs, IM (FLUAD) 02/22/2020 Seasonal Influenza Vac., MDV , IM, 0.5 mL (Fluzone) 03/28/2014,04/11/2013,03/21/2012,04/16,03/19/2010,04/25/2008,05/02/2007 ,05/11/2006,04/16/2005,03/27/2002 Seasonal Influenza, High Dos e, Trivalent, PF, IM (Fluzone HD) 03/27/2024 Seasonal Influenza, PF, 6 M & above, IM , (FluLaval or Fluzone) 04/11/2018,05/17/2017 Seasonal Influenza, Quadriva lent Hd (Fluzone Hd) 03/02/2023,03/31/2022,03/21/2021 Seasonal Influenza, Quadriva lent, No Preserve, IM 03/29/2016,05/02/2015 Seasonal Influenza, Trivalen t, Adjuvanted, 65+ YRS, PF, (Fluad) 03/30/2019 TD - Tetanus/Diptheria (ADULT) 01/14/2000 TDAP (age 10 and older)(Boostrix) 06/04/2021 TDAP, Age 7 and older, IM (Adacel) 05/06/2011 Varicella Zoster Vaccine (Adult) 08/01/2008 Zoster Vaccine Recombinant (Shingrix) 08/28/2019 ,05/19/2019 documented as of this encounter Social History Tobacco Use Types Packs/Day Years Used Date Smoking Tobacco: Former Cigarettes 0.5 40 0 12/24/1974 - 12/24/2014 Passive Smoke Exposure: Never Smokeless Tobacco: Never Tobacco Cessation:Counseling Given: Yes Comments:10 cig./day for 35 years. Trying to [...] No 04/27/2024 Does the household have a [facility] income? 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 Not on file Not on file Not on aydin e Not on file Not on file Not on file Not on file documented as of this encounter Last Filed Vital Signs Vital Sign Reading Time Taken Comments Blood Pressure 130/84 05/17/2024 8:20 AM EST Pulse 58 05/17/2024 8:20 AM EST Temperature 35.5 C (95.9 F) 05/17/2024 8:20 AM ES T Respiratory Rate 16 05/17/2024 8:20 AM EST Oxygen Saturation 97% 05/17/2024 8:20 AM EST Inhaled Oxygen Concentration - - Weight 79.9 kg (176 lb 3.2 oz) 05/17/2024 8:20 A M EST Height 168.9 cm (5' 6.5") 05/17/2024 8:20 AM EST Body Mass Index 28.01 05/17/2024 8:20 AM EST documented in this encounter Patient Instructions * Patient Instructions* Loree Laboy, VOIP NETWORK TECHNICIAN - 05/17/2024 8:19 AM EST Diabetes: Keeping Feet Healthy Inspect your feet every day for signs of a problem. Diabetes can damage nerves in your feet and cause neuropathy. This condition makes it hard for you to feel injuries or sore spots. Diabetes can also change blood flow, making it harder for small problems, like a blister, to heal properly. In fact, minor injuries can quickly become serious infections that send you to the hospital. Practice self-care to protect your feet and keep them healthy. Take Special Care Inspect your feet daily for problems such as redness, blisters, cracks, dry skin, or numbness. Use a mirror to see the bottoms of your feet. Or, ask for help. Manage your diabetes. Monitor and control your blood sugar. Take all your medications as prescribed. Avoid walking barefoot, even indoors. Wash your feet with warm water and mild soap. Dry well, especially between toes. Dont treat corns or calluses yourself. Talk to your doctor or legal records manager (a doctor who specializes in foot care) if you need assistance trimming your toenails. Use moisturizing cream or lotion if you have dry skin, but dont use it between toes. Dont use heating pads on your feet. If you have neuropathy, you could get a burn and not feel it. Stop smoking. Smoking restricts blood flow and can make it harder for wounds to heal. Have Regular Checkups Foot problems can develop quickly. So be sure to follow your healthcare teams schedule for regular checkups. During office visits, take off your shoes and socks as soon as you get in the exam room. Ask your healthcare provider to examine your feet for problems. This will make it easier to find and treat small skin irritations before they get worse. Regular checkups can also help keep track of the blood flow and feeling in your feet. If you have neuropathy, you may need to have checkups more often. Wear Proper Footwear Wearing proper footwear is very important. If areas of your feet have been damaged by too much pressure, your healthcare provider may recommend changing your footwear. In some cases, avoiding high heels or tight work boots may be all thats needed. Or, your healthcare provider may recommend special shoes or custom inserts. These help protect your feet and keep existing irritations from getting worse. If you need special footwear, ask your healthcare provider if you qualify for [employer] diabetic shoe program. Make Sure Shoes and Socks Fit Any pair of shoes--new or old--should feel comfortable as soon as you put them on. There shouldnt be any rubbing when you walk. Wear the right shoe for any activity. For instance, a running shoe is designed to keep your feet injury-free while jogging. Buy shoes at the end of the day, when your feet are larger. Make sure they provide support without feeling too loose. Make sure your socks fit, t oo. Wear soft, seamless, well-padded socks for activity. Cotton or microfiber socks are best to help to absorb sweat. To protect your feet, avoid shoes that are open-toed or open-heeled. If you have questions about what kinds of shoes and socks are best, talk to your healthcare team. Get Regular Exercise Regular exercise improves blood flow in your feet. It also increases foot strength and flexibility.Gentle exercises, like walking or riding a stationary bicycle, are best. You can also do special foot exercises. Just be sure to talk with your healthcare provider before starting any exercise program. Also mention if any exercise causes pain, redness, or other signs of foot problems. Note: If you have any kind of break in the skin of your foot or ankle, keep the area clean. Then call your doctor--especially if the area doesnt appear to be healing. [phone] [employer], [address] [place] [address], [place] [address]. All rights reserved. This information is not intended as a substitute for professional medical care. Always follow your healthcare professional's instructions. documented in this encounter Progress Notes * Loree Laboy LPN - 05/17/2024 8:19 AM EST Socks and Shoes Removed for Annual Diabetic Foot Screening RIGHT FOOT: No Reddened, Cracking, Or Open Areas Noted. RIGHT Dorsalis Pedis Pulse: Palpable RIGHT Posterior Tibial Pulse: Palpable RIGHT Monofilament:Patient reports feeling monofilament pressure on plantar surface of foot LEFT FOOT: No Reddened, Cracking or Open Areas Noted. LEFT Dorsalis Pedis Pulse: Palpable LEFT Posterior Tibial Pulse: Palpable LEFT Monofilament:Patient reports feeling monofilament pressure on plantar surface of foot Do you need diabetic shoes: N/A * Jeanine Franco DO - 05/17/2024 8:12 AM EST SUBJECTIVE: Chief Complaint Patient presents with Follow Up HPI: Dominique Sloan is a 79 year old female who presents today with complaints of depression and anxiety. This started about 3-4 weeks ago. She has done counseling in the past but not recently. She cannot pinpoint any particular trigger. She does not believe that it has been seasonal. She is on Celexa. PHM: Patient Active Problem List Diagnosis DARI (obstructive sleep apnea) Advance directive on file CM inhibitor intolerance High risk for fracture due to osteoporosis by DEXA scan History of left breast cancer Type 2 diabetes mellitus with hemoglobin A1c goal of less than 7.0% (HCC) DYSLIPIDEMIA, GOAL LDL BELOW 100 Irritable bowel syndrome Hearing loss sensory, bilateral HTN, goal below 140/90 History of tobacco use Type 2 diabetes mellitus with diabetic peripheral angiopathy without gangrene (HCC) COPD, group B, by GOLD 2017 classification (HCC) Hypothyroidism due to acquired atrophy of thyroid Type 2 diabetes mellitus with polyneuropathy (HCC) Nocturnal hypoxemia Lumbar degenerative disc disease Hypertensive heart disease with chronic diastolic congestive heart failure (HCC) Major depressive disorder, recurrent episode, moderate (HCC) Current Outpatient Medications Medication Sig Dispense Refill VITAMINS & MINERALS CAPS OR 1 TABLET DAILY 0 CALCIUM 500 + D 500-125 MG-UNIT PO TABS taking one tablet by mouth once daily Vitamin D-3 25 MCG (1000 UT) Oral Capsule Take 1 Capsule by mouth in the morning. Fluticasone Propionate 50 MCG/ACT Nasal Suspension (Flonase) Administer 2 Sprays into each nostril in the morning. 16 g 0 Magnesium 400 MG Oral Tablet Take 1 Tablet by mouth daily as needed for Cramping. Alendronate Sodium 35 MG Oral Tablet (Fosamax) TAKE ONE TABLET BY MOUTH ONCE A WEEK 12 Tablet 3 Losartan Potassium 50 MG Oral Tablet (Cozaar) TAKE ONE TABLET BY MOUTH EVERY DAY IN THE MORNING 100Tablet 3 Furosemide 20 MG Oral Tablet (Lasix) TAKE ONE TABLET BY MOUTH EVERY MORNING 90 Tablet 3 Atorvastatin Calcium 40 MG Oral Tablet (Lipitor) TAKE ONE TABLET BY MOUTH THREE TIMES A WEEK ON MON, WED AND FRI IN THE EVENING 45 Tablet 1 Citalopram Hydrobromide 20 MG Oral Tablet (CeleXA) Take 1 Tablet by mouth every other day. 50 Tablet 3 Levothyroxine Sodium 100 MCG Oral Tablet (Levoxyl) TAKE 1 TABLET BY MOUTH DAILY AT LEAST 30 MINUTESPRIOR TO FIRST MEAL OF THE DAY OR OTHER MEDICATIONS 100 Tablet 3 OneTouch Verio In Vitro Strip (Glucose Blood) USE TO TEST BLOOD SUGAR ONCE DAILY 100 Strip 3 OneTouch Delica Plus [id number] USE TO TEST BLOOD SUGARS ONCE DAILY 100 Each 3 No current facility-administered medications for this visit. Past Medical History: Diagnosis Date CM inhibitor intolerance cough Advance directive on file 12/18/2008 No, Advance Directive brochure given to patient. Benign neoplasm of colon 12/24/2006 hyperplastic polyps--repeat 10 years CA IN SITU BREAST 08/14/2008 COPD, mild (HCC) 06/07/2013 PFT completed 06/07/2013 DIAB RENAL MANIF ADULT 01/11/2008 DM type 2, goal A1c below 7 04/04/2009 Modified per Diabetes protocol #14. Dyslipidemia, goal LDL below 100 05/30/2009 Edema 03/15/2003 Eye trauma 02/20/1980 hit in left eye with raquet ball-patient reports rest and eye patch called it a "detached retina" Hernia, umbilical 04/28/2012 Dr. Villalba HTN, goal below 140/90 02/08/2012 Per HTN Protocol #27. HYPOTHYROIDISM NOS Irritable bowel syndrome 11/15/2009 Kidney Dz,Chronic (GFR Over 89) Stage I 05/26/2010 Lumbar degenerative disc disease 06/04/2021 Major depressive disorder, recurrent episode, mild (HCC) NEUROPATHY IN DIABETES 04/16/2011 Obstructive Sleep Apnea 03/15/2003 bi pap Sensory - neural hearing loss 11/23/2012 bilateral Tobacco use disorder Past Surgical History: Procedure Laterality Date COLONOSCOPY W/ LESION REMOVAL, SNARE 12/24/2006 repeat 10 yrs, hyperplastic polyp COLORECTAL CANCER SCREEN;W/FLE 09/27/2002 wnl 40cms MAMMOGRAM - BILATERAL 09/07/2001 MAMMOGRAM-UNILAT FOCAL CAITY 09/15/2005 birad code 2, yearly left asymmetry remains unchanged MASTECTOMY, PARTIAL 08/06/2008 Left breast, re-excision of margins (clear) at [facility] - Dr. Cobb PARTIAL HYSTERECTOMY 06/21/1982 heavy periods [place] MASTECTOMY PARTIAL Left 06/18/2008 Left breast (DCIS) at [facility] - Dr. Cobb REMOVE CATARACT, INSERT LENS PROSTH Right 11/28/2015 EXTRACAPSULAR CATARACT REMOVAL WITH INTRAOCULAR LENS performed by Vinh Richardson MD at [facility] REMOVE CATARACT, INSERT LENS PROSTH Left 01/23/2020 left EXTRACAPSULAR CATARACT REMOVAL WITH INTRAOCULAR LENS performed by Ric Mcdonald MD at OR [facility] UMBIL HERNIA REPAIR (REDUCIBLE) AGE 5+YR 04/28/2012 04/28/2012 umbilical hernia repair [facility] - Dr. Yifan Villalba Review of patient's allergies indicates: Allergen Reactions Amoxicillin Diffuse rash Cm Inhibitors Cough Family History Problem Relation Name Age of Onset Heart Disorder Mother angioplasty 80s Diabetes Mother Heart Disorder Father CAD Eye Problems Father AMD, blind one eye childhood Arthritis Sister Hypertension Sister Other (lumbar spinal stenosis) Sister Myasthenia gravis Sister Lymphoma Brother Valvular heart disease Brother Family Status Relation Status Mo at age 97 diabetes onset in 80s, angioplasty in her 80s Fa at age 88 heart disease Sis Alive cholesterol Sis Alive Bro Alive cholesterol Social History Tobacco Use Smoking status: Former Current packs/day: 0.00 Average packs/day: 0.5 packs/day for 40.0 years (20.0 ttl pk-yrs) Types: Cigarettes Start date: 12/24/1974 Quit date: 12/24/2014 Years since quittin.4 Passive exposure: Never Smokeless tobacco: Never Tobacco comments: 10 cig./day for 35 years. Trying to quit especially since ill. hasn't smoked in 7 years Substance Use Topics Alcohol use: Yes Alcohol/week: 14.0 standard drinks of alcohol Types: 14 12 oz of beer per week Vaping/E-Cigarette Use Vaping/E-Cigarette Use Never User Counseling Given? No Vaping/E-Cigarette Substances Nicotine No Other No Flavoring No THC No Cannabidiol (CBD) No Vaping/E-Cigarette Devices Disposable No Pre-filled or Refillable Cartridge No Refillable Tank No Pre-filled Pod No REVIEW OF SYSTEMS: Review of Systems Constitutional: Negative for chills, fatigue, fever and unexpected weight change. Respiratory: Negative for cough, chest tightness, shortness of breath and wheezing. Cardiovascular: Negative for chest pain, palpitations and leg swelling. Gastrointestinal: Negative for abdominal pain, constipation, diarrhea, nausea and vomiting. Musculoskeletal: Negative for arthralgias, gait problem and joint swelling. Skin: Negative for color change, pallor and rash. Psychiatric/Behavioral: As per HPI OBJECTIVE: BP 130/84 | Pulse 58 | Temp 95.9 F (35.5 C) | Resp 16 | Ht 5' 6.5" (1.689 m) | Wt 176 lb 3.2 oz(79.9 kg) | SpO2 97% | BMI 28.01 kg/m | BSA 1.94 m PHYSICAL EXAM: Physical Exam Constitutional: General: She is not in acute distress. Appearance: She is well-developed. Cardiovascular: Rate and Rhythm: Normal rate and regular rhythm. Heart sounds: Normal heart sounds. No murmur heard. No friction rub. No gallop. Pulmonary: Effort: Pulmonary effort is normal. No respiratory distress. Breath sounds: Normal breath sounds. No wheezing or rales. Abdominal: General: Bowel sounds are normal. There is no distension. Palpations: Abdomen is soft. Tenderness: There is no abdominal tenderness. There is no guarding. Musculoskeletal: General: No tenderness or deformity. Normal range of motion. Skin: General: Skin is warm and dry. Coloration: Skin is not pale. Findings: No erythema or rash. Neurological: Mental Status: She is alert and oriented to person, place, and time. ASSESSMENT/PLAN: (E11.42) Type 2 diabetes mellitus with polyneuropathy (HCC) (primary encounter diagnosis) Plan: HEMOGLOBIN A1C, TELEMEDICINE DIABETIC EYE, ADULT/PEDS OPHTHALMOLOGY/OPTOMETRY REFERRAL OP, BASIC METABOLIC PANEL Pt will complete lab studies. She will complete eye screen. (E11.9) DM type 2 nursing care encounter (HCC) Plan: DIABETES FOOT EXAM Pt will complete foot exam. (F33.1) Major depressive disorder, recurrent episode, moderate (HCC) Plan: busPIRone HCl 5 MG Oral Tablet (Buspar) Pt will start Buspar in addition to Celexa. Discussed potential risks and side effects. (E55.9) Vitamin D deficiency Plan: 25-HYDROXY VITAMIN D Pt will complete vitamin D. Follow-up: as scheduled Total time today including reviewing chart before the visit, pertinent labs, imaging reports, face to face time, and documentation time was 33 minutes. Jeanine Franco DO documented in this encounter Nursing Notes * Loree Laboy LPN - 05/17/2024 8:17 AM EST Here for follow up, is going to PT> documented in this encounter Plan of Treatment Upcoming Encounters Date Type Department Care Team (Late st Contact Info) Description 07/19/2024 11:20 AM EST Office Visit Family Practice 65 [facility] [address] [place] [address] Jeanine Franco DO [address] [place] [address] 09/11/2024 10:00 AM EDT Nurse Only Family Practice 65 [facility] [address] [place] [phone] Loree Osman, COLE [address] [place] [phone] 01/23/2025 10:20 AM EDT Office Visit Dermatology Shonna Ortiz [place] [address] [place] [address] Deidre Barragan PA-C [address] [facility] [place] [phone] Pending Results Name Type Priority Associated Diagnoses Date /Time HEMOGLOBIN A1C Lab Routine Type 2 diabetes mellitus with polyneuropathy (HCC) 05/17/2024 8:47 AM EST BASIC METABOLIC PANEL Lab Routine Type 2 diabetes mellitus with polyneuropathy (HCC) 05/17/2024 8:47 AM EST 25-HYDROXY VITAMIN D Lab Routine Vitamin D deficiency 05/17/2024 8:47 AM EST Scheduled Orders Name Type Priority Associated Diagnoses Orde r Schedule HEMOGLOBIN A1C Lab Routine Type 2 diabetes mellitus with polyneuropathy (HCC) Expected: 05/17/2024 (Approximate), Expires: 06/16/2025 BASIC METABOLIC PANEL Lab Routine Type 2 diabetes mellitus with polyneuropathy (HCC) Expected: 05/17/2024 (Approximate), Expires: 05/17/2025 25-HYDROXY VITAMIN D Lab Routine Vitamin D deficiency Expected: 05/17/2024 (Approximate), Expires: 05/17/2025 Scheduled Referrals Name Type Priority Associated Diagnoses Orde r Schedule ADULT/PEDS OPHTHALMOLOGY/OPTO METRY REFERRAL OP Referral Within 30 days (routine) Type 2 diabetes mellitus with polyneuropathy (HCC) Ordered: 05/17/2024 Health Maintenance Due Date Last Done Comments Hepatitis B Vaccine (2 of 3 - 19+ 3-dose series) 12/04/2016 11/06/2016 COVID-19 Vaccine ( season) 2024 03/04/2024, 11/17/2023, 03/14/2023, Additional history exists Postponed from 04/29/2024 (Patient Declined After Education) Diabetic Eye Exam 06/03/2024 06/03/2023, , 06/04/2021, Additional history exists HbA1c 06/07/2024 12/07/2023, 05/21, [...] D LEVEL ONCE IN A LIFETIME-USE SMARTSET# [id number] Completed 06/03/2023, 04/09/2022, 06/04/2021, Additional history exists [...] this encounter Medical Devices Implanted Type Area Solar Field Service Technician Device Identifier Shelf Expiration Date Model / Serial / Lot Lens 19.0 M160l - [id number] - [id number] Implanted:Qty: 1 on 11/28/2015 by Vinh Richardson MD at OR [facility] Right: Eye [employer] : SURGICAL 08/18/2016 [id number]-11.0 / [id number] / [id number] Lens Intraoc 22.0 - [id number] - [id number] Implanted:Qty: 1 on 01/23/2020 by Ric Mcdonald MD at OR [facility] Left: Eye [employer] 07/21/2024 [id number] / [id number] / [id number] documented as of this encounter Visit Diagnoses Diagnosis Type 2 diabetes mellitus with polyneuropathy (HCC)- Primary Type II or unspecified type diabetes mellitus with neurological manifestations, not stated as uncontrolled DM type 2 nursing care encounter (HCC) Type II or unspecified type diabetes mellitus without mention of complication, not stated as uncontrolled Major depressive disorder, recurrent episode, moderate (HCC) Major depressive disorder, recurrent episode, moderate Vitamin D deficiency Unspecified vitamin D deficiency documented in this encounter Advance Directives Documents on File Type Date Recorded 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 Care Teams Loading Unit Operator Seating Relationship Specialty Start Date End Date Jeanine Franco DO [address] [place] [address] PCP - General Family Medicine 12/07/23 documented as of this encounter
--- OUTSIDE RECORDS SUMMARY | 2024-07-01 04:09 | External Medical Summary ---
Author Name Unknown Address Unknown Organization K01:[place] [facility] [place] [address] [facility] [address] Laboratory Report Ordering Provider Test Date Status AMNA BERKOWITZ 05/17/2024 08:47:30 Final Observation Date Value Abnormality Reference (Units ) Status HbA1C 05/17/2024 08:47:30 6.0 Above high normal 4. 0-5.6 (%) Final The use of HbA1c to monitor glycemic status is based on normal hemoglobin and HbA composition. This test should not be used in patients with abnormal hemoglobin that affects the half life of the red blood cell or the in vivo glycation rates. Glucose, estimated average 05/17/2024 08:47:30 126 Above high normal <126 (mg/dL) Malik mendoza Performing Location [facility] [place] [address] [facility] [address]
--- OUTSIDE RECORDS SUMMARY | 2024-07-01 04:09 | External Medical Summary | Summary of Care ---
Author Name Unknown Organization [facility] Address [address] [place] [address] Phone [phone] Care Team Providers Care Water Service Supervisor Name Role Phone Jeanine Franco DO Primary Care Provider [phone] Reason for Referral * Evaluate & Treat - Unlimited Visits (Within 30 days (routine)) - Authorized Specialty Diagnoses / Procedures Referred By Contac t Referred To Contact Optometry Diagnoses Type 2 diabetes mellitus with polyneuropathy (HCC) Jeanine Franco DO [address] [place] [address] Phone: tel: fax: Referral ID Status Reason Start Date Expiration Date Visits Requested Visits Authorized [id number] Authorized Specialty Services Required 4 1 1 Question Answer Referring for: Optometry Conditions Optometry Conditions Diabetic Eye Exam without Retinopathy Referral Priority Within 30 days (routine) Where should this appointment be scheduled? External Reason for Visit * Reason Comments Follow Up Encounter Details Date Type Department Care Team (Latest Contact Info) Description 05/17/2024 8:00 AM EST Office Visit Family Practice 65 [facility] [place] [address] [place] [address] Jeanine Franco DO [address] [place] [address] Type 2 diabetes mellitus with polyneuropathy (HCC)*; [...] hemoglobin A1c goal of less than 7.0% ([facility]) USE TO TEST BLOOD SUGAR ONCE DAILY 100 Strip 3 4 8:23 AM EDT 08/25/19 24 025 Active OneTouch Delica Plus [id number] USE TO TEST BLOOD SUGARS ONCE DAILY [...] mRNA, LNP-s, No Pre serve, 2-Dose Series ([facility]) 04/10/2021,08/19/2020,07/16/2020 COVID-19 mRNA, LNP-s, No Pre serve, 2-Dose Series ([employer]) 10/06/2021 COVID-19, MRNA-LNP, 24-25, P R, 30MCG/0.3ML, IM, 12YRS AND ABOVE ([employer]) 03/04/2024 COVID-19, MRNA-LNP, PF, 30 M CG/0.3 mL, 12 YRS AND ABOVE, IM ([employer]) 11/17/2023,03/14/2023 Covid-19, Mrna, Lnp-s, Pf, B ivalent, 30 Mcg, IM, 12 yrs and above ([employer]) 03/24/2022 Hepatitis B, 20+ yrs 11/06/2016 Influenza, Whole Virus 04/04/2003 PPD 12/10/2004 Pneumococcal Conjugate Vacc, 13 Valent (Prevnar) 08/22/2014 Pneumococcal Conjugate Vacci ne, 20-valent ([id number]) 04/03/2024 Pneumococcal Polysaccharide PPV23 (Pneumovax) 11/06/2016,11/24/2006 RSV [...] No 04/27/2024 Does the household have a [facility] source of income? 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 Talk to your doctor or single corner cutter (a doctor who specializes in foot care) [...] the area doesnt appear to be healing. [phone] [employer], [address] [place] [address], [place] [address]. All rights reserved. This information is not [...] DAILY 100 Strip 3 OneTouch Delica Plus [id number] USE TO TEST BLOOD SUGARS ONCE DAILY [...] Left breast, re-excision of margins (clear) at [facility] - Dr. Cobb PARTIAL HYSTERECTOMY 06/21/1982 heavy periods [place] MASTECTOMY PARTIAL Left 06/18/2008 Left breast (DCIS) at [facility] - Dr. Cobb REMOVE CATARACT, INSERT LENS PROSTH Right 11/28/2015 EXTRACAPSULAR CATARACT REMOVAL WITH INTRAOCULAR LENS performed by Vinh Richardson MD at OR [facility] REMOVE CATARACT, INSERT LENS PROSTH Left 01/23/2020 left EXTRACAPSULAR CATARACT REMOVAL WITH INTRAOCULAR LENS performed by Ric Mcdonald MD at OR [facility] UMBIL HERNIA REPAIR (REDUCIBLE) AGE 5+YR 04/28/2012 04/28/2012 umbilical hernia repair [facility] - Dr. Yifan Villalba Review of patient's [...] AM EST Office Visit Family Practice 65 [facility] [address] [place] [address] Jeanine Franco DO [address] [place] [address] 09/11/2024 10:00 AM EDT Nurse Only Family Practice 65 [facility] [address] [place] [phone] Loree Osman, COLE [address] [place] [phone] 01/23/2025 10:20 AM EDT Office Visit Dermatology [facility] [place] [address] [place] [address] Deidre Barragan PA-C [address] [facility] [place] [address] Pending Results Name Type Priority Associated Diagnoses [...] D LEVEL ONCE IN A LIFETIME-USE SMARTSET# [id number] Completed 06/03/2023, 04/09/2022, 06/04/2021, Additional history exists [...] this encounter Medical Devices Implanted Type Area Jigger Operator Device Identifier Shelf Expiration Date Model / Serial / Lot Lens 19.0 M160l - [id number] - [id number] Implanted:Qty: 1 on 11/28/2015 by Vinh Richardson MD at OR [facility] Right: Eye BAUSCH & LOMB : SURGICAL 08/18/2016 [id number]-56.0 / [id number] / [id number] Lens Intraoc 22.0 - [id number] - [id number] Implanted:Qty: 1 on 01/23/2020 by Ric Mcdonald MD at OR [facility] Left: Eye BAUSCH & LOMB 07/21/2024 [id number] / [id number] / [id number] documented as of this encounter Visit Diagnoses [...] Documents on File Type Date Recorded Patient Cosmetician Apprentice Expl anation POLST 10/01/2022 [place] OR [facility] FOR LIFE-SUSTAINING TREATMENT * Full Code (Latest Code Status on File) Date Activated Date Inactivated Comments 11/28/2015 6:26 AM 11/28/2015 12:14 PM This order re flects the patients wishes and were consensually agreed upon. Care Teams Water Service Supervisor Relationship Specialty Start Date End Date Jeanine Franco DO [address] [place] [address] PCP - General Family Medicine 12/07/23 documented as of this encounter
--- OUTSIDE RECORDS SUMMARY | 2024-07-01 04:09 | External Medical Summary | Summary of Care ---
Author Name Unknown Organization [facility] Address [address] [place] [address] Phone [phone] Care Team Providers Care Tassel Making Machine Operator Name Role Phone Jeanine Franco DO Primary Care Provider Reason for Visit * Reason Onset Date Comments Scan To Read 05/17/2024 Encounter Details Date Type Department Care Team ([facility] st Contact Info) Description 05/17/2024 Telephone Family Practice 65 [facility] [place] [address] [place] [phone] Jeanine Franco DO [address] [place], [place] [phone] Scan To Read Allergies Active Allergy Reactions [...] 4 08/25/19 25 Active OneTouch Delica Plus [id number] USE TO TEST BLOOD SUGARS ONCE DAILY [...] LNP-s, No Pre serve, 2-Dose Series ([facility]) 04/10/2021,08/19/2020,07/16/2020 COVID-19 mRNA, LNP-s, No Pre serve, 2-Dose Series ([employer]) 10/06/2021 COVID-19, MRNA-LNP, 24-25, P R, 30MCG/0.3ML, IM, 12YRS AND ABOVE ([employer]) 03/04/2024 COVID-19, MRNA-LNP, PF, 30 M CG/0.3 mL, 12 YRS AND ABOVE, IM ([employer]) 11/17/2023,03/14/2023 Covid-19, Mrna, Lnp-s, Pf, B ivalent, 30 Mcg, IM, 12 yrs and above ([employer]) 03/24/2022 Hepatitis B, 20+ yrs 11/06/2016 Influenza, Whole Virus 04/04/2003 PPD 12/10/2004 Pneumococcal Conjugate Vacc, 13 Valent (Prevnar) 08/22/2014 Pneumococcal Conjugate Vacci ne, 20-valent (Nrlcrnl63) 04/03/2024 Pneumococcal Polysaccharide PPV23 (Pneumovax) 11/06/2016,11/24/2006 RSV [...] 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 Travis Mark MD 05/17/2024 12:40 PM * Telephone Encounter - Ramona Crisostomo RT (R) - 05/17/2024 10:22 AM EST A Diabetic Telemed Eye image was taken and requires your interpretation for Dr Franco. Please check your inbasket for image. Patient prefers to be seen at [facility] if a follow-up appointment is needed. documented in this encounter Plan of Treatment Upcoming Encounters Date Type Department Care Team (Late st Contact Info) Description 07/19/2024 11:20 AM EST Office Visit Family Practice 65 [facility] [address] [place] [phone] Jeanine Franco DO [address] [place] [address] 09/11/2024 10:00 AM EDT Nurse Only Family Practice 65 [facility] [address] [place] [phone] Loree Osman RN [address] [place] [phone] 01/23/2025 10:20 AM EDT Office Visit Dermatology [facility] [place] [address] [facility], [place] [address] Deidre Barragan PA-C [address] [facility] [place] [address] Health Maintenance Due Date Last Done Comments [...] D LEVEL ONCE IN A LIFETIME-USE SMARTSET# [id number] Completed 06/03/2023, 04/09/2022, 06/04/2021, Additional history exists [...] this encounter Medical Devices Implanted Type Area Unit Manager Device Identifier Shelf Expiration Date Model / Serial / Lot Lens 19.0 M160l - [id number] - [id number] Implanted:Qty: 1 on 11/28/2015 by Vinh Richardson MD at OR [facility] Right: Eye BAUSCH [employer] LOMB : SURGICAL 08/18/2016 [id number]-62.0 / [id number] / [id number] Lens Intraoc 22.0 - [id number] - [id number] Implanted:Qty: 1 on 01/23/2020 by Ric Mcdonald MD at OR [facility] Left: Eye BAUSCH & LOMB 07/21/2024 [id number] / [id number] / [id number] documented as of this encounter Advance Directives Documents on File Type Date Recorded Patient Brimming Machine Operator Expl anation POLST 10/01/2022 [place] OR [facility] FOR LIFE-SUSTAINING TREATMENT * Full Code (Latest Code Status on File) Date Activated Date Inactivated Comments 11/28/2015 6:26 AM 11/28/2015 12:14 PM This order re flects the patients wishes and were consensually agreed upon. Care Teams Tassel Making Machine Operator Relationship Specialty Start Date End Date Jeanine Franco DO [address] [facility] [place] [address] PCP - General Family Medicine 12/07/23 documented as of this encounter
--- OUTSIDE RECORDS SUMMARY | 2024-07-01 04:09 | External Medical Summary | Summary of Care ---
Author Name Unknown Organization [facility] Address [address] [place] [address] Phone [phone] Care Team Providers Care Pumper Gager Name Role Phone Jeanine Franco DO Primary Care Provider [phone] Reason for Referral * Evaluate & Treat - Unlimited Visits (Within 30 days (routine)) - Authorized Specialty Diagnoses / Procedures Referred By Contac t Referred To Contact Optometry Diagnoses Type 2 diabetes mellitus with polyneuropathy (HCC) Jeanine Franco DO [address] [place] [address] Phone: tel: fax: Referral ID Status Reason Start Date Expiration Date Visits Requested Visits Authorized [id number] Authorized Specialty Services Required 4 1 1 Question Answer Referring for: Optometry Conditions Optometry Conditions Diabetic Eye Exam without Retinopathy Referral Priority Within 30 days (routine) Where should this appointment be scheduled? External Reason for Visit * Reason Comments Follow Up Encounter Details Date Type Department Care Team (Latest Contact Info) Description 05/17/2024 8:00 AM EST Office Visit Family Practice 65 [facility] [place] [address] [place] [address] Jeanine Franco DO [address] [place] [address] Type 2 diabetes mellitus with polyneuropathy (HCC)*; [...] hemoglobin A1c goal of less than 7.0% ([facility]) USE TO TEST BLOOD SUGAR ONCE DAILY 100 Strip 3 4 8:23 AM EDT 08/25/19 24 025 Active OneTouch Delica Plus [id number] USE TO TEST BLOOD SUGARS ONCE DAILY [...] mRNA, LNP-s, No Pre serve, 2-Dose Series ([facility] [place] [facility]) 04/10/2021,08/19/2020,07/16/2020 COVID-19 mRNA, LNP-s, No Pre serve, 2-Dose Series ([employer]) 10/06/2021 COVID-19, MRNA-LNP, 24-25, P R, 30MCG/0.3ML, IM, 12YRS AND ABOVE ([email or web address]) 03/04/2024 COVID-19, MRNA-LNP, PF, 30 M CG/0.3 mL, 12 YRS AND ABOVE, IM ([employer]) 11/17/2023,03/14/2023 Covid-19, Mrna, Lnp-s, Pf, B ivalent, 30 Mcg, IM, 12 yrs and above ([employer]) 03/24/2022 Hepatitis B, 20+ yrs 11/06/2016 Influenza, Whole Virus 04/04/2003 PPD 12/10/2004 Pneumococcal Conjugate Vacc, 13 Valent (Prevnar) 08/22/2014 Pneumococcal Conjugate Vacci ne, 20-valent ([employer]) 04/03/2024 Pneumococcal Polysaccharide PPV23 (Pneumovax) 11/06/2016,11/24/2006 RSV [...] No 04/27/2024 Does the household have a [facility] source of income? 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 Talk to your doctor or warp worker (a doctor who specializes in foot care) [...] the area doesnt appear to be healing. [id number] [employer], [address] [place] [address], [place] [address]. All rights reserved. This information is not [...] DAILY 100 Strip 3 OneTouch Delica Plus [id number] USE TO TEST BLOOD SUGARS ONCE DAILY [...] Left breast, re-excision of margins (clear) at [facility] - Dr. Cobb PARTIAL HYSTERECTOMY 06/21/1982 heavy periods [place] MASTECTOM[place] PARTIAL Left 06/18/2008 Left breast (DCIS) at [facility] - Dr. Cobb REMOVE CATARACT, INSERT LENS PROSTH Right 11/28/2015 EXTRACAPSULAR CATARACT REMOVAL WITH INTRAOCULAR LENS performed by Vinh Richardson MD at [facility] REMOVE CATARACT, INSERT LENS PROSTH Left 01/23/2020 left EXTRACAPSULAR CATARACT REMOVAL WITH INTRAOCULAR LENS performed by Ric Mcdonald MD at OR [facility] UMBIL HERNIA REPAIR (REDUCIBLE) AGE 5+YR 04/28/2012 04/28/2012 umbilical hernia repair [facility] - Dr. Yifan Villalba Review [...] AM EST Office Visit Family Practice 65 [facility] [address] [place] [address] Jeanine Franco DO [address] [place] [address] 09/11/2024 10:00 AM EDT Nurse Only Family Practice [address] [facility] [address] [place] [phone] Loree Osman, COLE [address] [place] [phone] 01/23/2025 10:20 AM EDT Office Visit Dermatology Shonna Ortiz [place] [address] [facility], [place] [address] Deidre Barragan PA-C [address] [facility] [place] [address] Pending Results Name Type Priority Associated Diagnoses [...] D LEVEL ONCE IN A LIFETIME-USE SMARTSET# [id number] Completed 06/03/2023, 04/09/2022, 06/04/2021, Additional history exists [...] this encounter Medical Devices Implanted Type Area Shot Polisher Device Identifier Shelf Expiration Date Model / Serial / Lot Lens 19.0 M160l - [id number] - [id number] Implanted:Qty: 1 on 11/28/2015 by Vinh Richardson MD at OR [facility] Right: Eye BAUSCH [employer] LOMB : SURGICAL 08/18/2016 [id number]-39.0 / [id number] / [id number] Lens Intraoc 22.0 - [id number] - [id number] Implanted:Qty: 1 on 01/23/2020 by Ric Mcdonald MD at OR [facility] Left: Eye BAUSCH & LOMB 07/21/2024 [id number] / [id number] / [id number] documented as of this encounter Procedures Procedure Name Priority Date/Time Associated Diagnosis Comments TELEMEDICINE DIABETIC EYE Routine 05/17/2024 Type 2 diabetes mellitus with polyneuropathy (HCC) documented in this encounter Results * TELEMEDICINE DIABETIC EYE (05/17/2024) 05/17/2024 Jeanine Franco DO DIGITAL PHOTOGRAPHY Final Re sult documented in this encounter Visit Diagnoses Diagnosis Type 2 [...] Documents on File Type Date Recorded Patient Gamma Operator Expl anation POLST 10/01/2022 [place] OR [facility] FOR LIFE-SUSTAINING TREATMENT * Full Code (Latest Code Status on File) Date Activated Date Inactivated Comments 11/28/2015 6:26 AM 11/28/2015 12:14 PM This order re flects the patients wishes and were consensually agreed upon. Care Teams Pumper Gager Relationship Specialty Start Date End Date Jeanine Franco DO [address] [place] [address] PCP - General Family Medicine 12/07/23 documented as of this encounter
--- OUTSIDE RECORDS SUMMARY | 2024-07-01 04:09 | External Medical Summary ---
Author Name Unknown Address Unknown Organization K1H:LABORATORY [facility] - [address] [facility] [address] Laboratory Report Ordering Provider Test Date Status RAMÍREZ VERONICA 05/15/2024 11:19:00 Final Normal: <30 mg/g creatinine< br/>High: 30-300 mg/g creatinine
Very High: >300 mg/g creatinine
Nephrotic: >2200 mg/g creatinine Observation Date Value Abnormality Reference (Units ) Status Albumin, Urine 05/15/2024 11:19:00 <1.20 (mg/d L) Final This testing was performed a s part of a [facility] [employer] fulfillment initiative Creatinine, Urine 05/15/2024 11:19:00 31 (m g/dL) Final ALBUMIN/CREATININE RATIO, HIDE 05/15/2024 11:19:00 Uninterpretable Albumin/Creatinine ratio due to very low albumin and creatinine values. <30 (mg/g Creat) Final Performing Location LABORATORY [facility] - [address] [facility] [address]
--- OUTSIDE RECORDS SUMMARY | 2024-07-01 04:09 | External Medical Summary | Summary of Care ---
Author Name Unknown Organization [facility] Address [address] [place] [address] Phone [phone] Care Team Providers Care Vehicle Assembler Name Role Phone Jeanine Woo DO Primary Care Provider [phone] Reason for Visit * Reason Comments Medication Refill Encounter Details Date Type Department Care Team (Late st Contact Info) Description 05/16/2024 Refill Family Practice [address] [place] [address] [place] [phone] Jeanine Woo DO [address] [place] [address] Allergies Active Allergy Reactions Criticality Noted Date [...] morning. 16 g 07/21/2022 10:54 AM EST 07/21/19 23 Active Magnesium [...] at night for bone health/muscle cramping. Active OneTouch Verio In Vitro Strip (Glucose Blood)Indication s:Type 2 diabetes mellitus with hemoglobin A1c goal of less than 7.0% ([facility]) USE TO TEST BLOOD SUGAR ONCE DAILY 100 Strip 3 03/10/2024 8:23 AM EDT 08/25/19 24 025 Active OneTouch Delica Plus [id number] USE TO TEST BLOOD SUGARS ONCE DAILY 100 Each 3 03/10/2024 8:23 AM EDT 08/25/19 24 025 Active Alendronate Sodium 35 MG Oral Tablet (Fosamax)Indicat ions:High risk for fracture due to osteoporosis by DEXA scan TAKE ONE TABLET BY MOUTH ONCE A WEEK 12 Tablet 3 03/27/2024 8:35 AM EDT 10/14/19 24 Active Losartan Potassium 50 MG Oral Tablet (Cozaar)Indicati ons:HTN, goal below 140/90 TAKE ONE TABLET BY MOUTH EVERY DAY IN THE MORNING 100 Tablet 3 02/11/2024 8:50 AM EDT 11/08/19 24 025 Active Furosemide 20 MG Oral Tablet (Lasix)Indicatio ns:HTN, goal below 140/90,Dyslipide dustin, goal LDL below 100,Hypertensive heart disease with chronic diastolic congestive heart failure (HCC) TAKE ONE TABLET BY MOUTH EVERY MORNING 90 Tablet 3 02/26/2024 9:38 AM EDT 12/01/19 24 025 Active Atorvastatin Calcium 40 MG Oral Tablet (Lipitor)Indicat ions:Dyslipidemi a, goal LDL below 100 TAKE ONE TABLET BY MOUTH THREE TIMES A WEEK ON MON, WED AND FRI IN THE EVENING 45 Tablet 1 03/01/2024 6:17 PM EDT 02/29/20 24 Active Citalopram Hydrobromide 20 MG Oral Tablet (CeleXA)Indicati ons:Major depressive disorder, recurrent episode, moderate (HCC) Take 1 Tablet by mouth every other day. 50 Tablet 3 03/27/2024 8:35 AM EDT 03/09/20 24 Active Citalopram Hydrobromide 20 MG Oral Tablet (CeleXA)Indicati ons:Major depressive disorder, recurrent episode, moderate (HCC) Take one tablet by mouth every other day 15 Tablet 5 03/30/20 24 Active Levothyroxine Sodium 100 MCG Oral Tablet (Levoxyl) TAKE 1 TABLET BY MOUTH DAILY AT LEAST 30 MINUTES PRIOR TO FIRST MEAL OF THE DAY OR OTHER MEDICATIONS 100 Tablet 3 05/16/20 24 025 Active Levothyroxine Sodium 100 MCG Oral Tablet (Levoxyl) TAKE 1 TABLET BY MOUTH DAILY AT LEAST 30 MINUTES PRIOR TO FIRST MEAL OF THE DAY OR OTHER MEDICATIONS 100 Tablet 2 02/08/2024 11:36 AM EDT 07/26/19 24 024 Discontin ued(Refil l) documented as of this encounter (statuses as [...] serve, 2-Dose Series ([facility]) 04/10/2021,08/19/2020,07/16/2020 COVID-19 mRNA, LNP-s, No Pre serve, [...] (Prevnar) 08/22/2014 Pneumococcal Conjugate Vacci ne, 20-valent ([id number]) 04/03/2024 Pneumococcal Polysaccharide PPV23 (Pneumovax) 11/06/2016,11/24/2006 RSV [...] Job Start Date 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 Not on file Not on file Not on aydin e Not on file Not on file Not on file Not on file documented as of this encounter Miscellaneous Notes * Telephone Encounter - Joanna Wilson [facility] - 05/16/2024 8:05 PM ESTSigned Prescriptions: Disp Refills Levothyroxine Sodium 100 MCG Oral Tablet (*100 Ta*3 Sig: TAKE 1 TABLET BY MOUTH DAILY AT LEAST 30 MINUTES PRIOR TO FIRST MEAL OF THE DAY OR OTHER MEDICATIONS Authorizing Provider: JEANINE WOO Ordering User: JOANNA WILSON * Telephone Encounter - Jesi Matson CPhT - 05/16/2024 4:49 PM EST Did you pend patient's preferred pharmacy and medication before forwarding?yes Pharmacy: [facility] Pending Prescriptions: Disp Refills Levothyroxine Sodium 100 MCG Oral Tablet *100 Ta*2 Sig: TAKE 1 TABLET BY MOUTH DAILY AT LEAST 30 MINUTES PRIOR TO FIRST MEAL OF THE DAY OR OTHER MEDICATIONS Last Visit: 04/24/2024 (in office), 12/07/2023 (telemedicine) Next Visit: 05/17/2024 If no future appointments scheduled, and last appointment is greater than a year ago, please schedule patient for a follow-up appointment Last date the medication was ordered: 07/26/23 Is this request for a controlled substance?No Urine Drug Screen:No results found. However, due to the size of the patient record, not all encounters were searched. Please check Results Review for a complete set of results. Patient Phone Numbers Labs: Lab Results Component Value Date/Time CREAT 0.7 04/07/2024 10:48 AM CREAT 0.7 05/27/2020 10:36 AM POTASSIUM 4.7 04/07/2024 10:48 AM POTASSIUM 4.4 05/27/2020 10:36 AM TSH 0.28 10/12/2023 12:02 PM TSH 0.06 (L) 05/27/2020 10:36 AM LDL 71 06/03/2023 09:43 AM LDL 87 06/13/2019 08:08 AM LDL NOT APPLICABLE 06/13/2019 08:08 AM ALT 14 04/07/2024 10:48 AM ALT 14 05/27/2020 10:36 AM HGBA1C 5.9 (H) 12/07/2023 10:54 AM HGBA1C 6.2 (H) 05/27/2020 10:36 AM documented in this encounter Plan of Treatment Upcoming Encounters Date Type Department Care Team (Late st Contact Info) Description 05/17/2024 8:00 AM EST Office Visit Family Practice [address] [place] [phone] Jeanine Woo DO [address] [place] [address], [place] [address] 07/19/2024 11:20 AM EST Office Visit Family Practice 65 [facility] [address] [place] [phone] Jeanine Woo DO 293 [place] [address] 09/11/2024 10:00 AM EDT Nurse Only Family Practice [address] [place] [phone] Loree Osman RN [address] [place] [phone] 01/23/2025 10:20 AM EDT Office Visit Dermatology [facility] [address] [facility] [place] [address] Deidre Barragan, LORENA [address] [facility] [place] [address] Health Maintenance Due Date Last Done Comments [...] D LEVEL ONCE IN A LIFETIME-USE SMARTSET# 14976 Completed 06/03/2023, 04/09/2022, 06/04/2021, Additional history exists [...] this encounter Medical Devices Implanted Type Area Head Of Physics Device Identifier Shelf Expiration Date Model / Serial / Lot Lens 19.0 M160l - [id number] - [id number] Implanted:Qty: 1 on 11/28/2015 by Vinh Richardson MD at OR [facility] Right: Eye [employer] : SURGICAL 08/18/2016 [id number] / [id number] / [id number] Lens Intraoc 22.0 - [id number] - [id number] Implanted:Qty: 1 on 01/23/2020 by Ric Mcdonald MD at OR [facility] Left: Eye BA[employer] LOMB 07/21/2024 [id number] / [id number] / [id number] documented as of this encounter Advance Directives Documents on File Type Date Recorded 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 Care Teams Vehicle Assembler Relationship Specialty Start Date End Date Jeanine Woo DO [address] [place] [address] PCP - General Family Medicine 12/07/23 documented as of this encounter
--- OUTSIDE RECORDS SUMMARY | 2024-07-01 04:10 | External Medical Summary | Summary of Care ---
Author Name Unknown Organization [facility] Address [address] [place] [address] Phone [phone] Care Team Providers Care Signalman Name Role Phone Jeanine Franco DO Primary Care Provider Reason for Visit * Reason Onset Date Comments Appointment 04/18/2024 1M Encounter Details Date Type Department Care Team ([facility] st Contact Info) Description 04/18/2024 Telephone Family Practice 65 [facility] [place] [address] [place] [phone] Jeanine Franco DO [address] [place] [address] Appointment (1M) Allergies Active Allergy Reactions Criticality Noted Date Comments Cm Inhibitors Cough Low 09/11/2008 Amoxicillin 11/17/2019 Diffuse rash documented as of this encounter (statuses as of 04/19/2024) Medications Medication Sig Dispensed Refills Start Date End Date Status VITAMINS & MINERALS CAPS OR 1 TABLET DAILY 0 12/05/1999 Active CALCIUM 500 + D 500-125 MG-UNIT PO TABS taking one tablet by mouth once daily Active Vitamin D-3 25 MCG (1000 UT) Oral Capsule Take 1 Capsule by mouth in the morning. 06/05/2021 Active Fluticasone Propionate 50 MCG/ACT Nasal Suspension (Flonase)Indication s:Nasal congestion Administer 2 Sprays into each nostril in the morning. 16 g 07/21/2022 Active Magnesium 400 MG Oral Tablet Take 1 Tablet by mouth daily as needed for Cramping. Active NATURAL SUPPLEMENT Take 1 Capsule by mouth in the morning. Coqnol 100 1 capsule daily with fat-containing meal to help with muscle cramping/fatigue from statin medication. Active NATURAL SUPPLEMENT Take 2 Capsules by mouth in the morning and 2 Capsules before bedtime. Osteoben-2 capsules in AM, 2 capsules at night for bone health/muscle cramping. Active Levothyroxine Sodium 100 MCG Oral Tablet (Levoxyl) TAKE 1 TABLET BY MOUTH DAILY AT LEAST 30 MINUTES PRIOR TO FIRST MEAL OF THE DAY OR OTHER MEDICATIONS 100 Tablet 2 07/26/2023 07/25/2024 Active GIVTEDTouch Verio In Vitro Strip (Glucose Blood)Indications:T ype 2 diabetes mellitus with hemoglobin A1c goal of less than 7.0% (HCC) USE TO TEST BLOOD SUGAR ONCE DAILY 100 Strip 3 08/25/2023 08/24/2024 Active OneTouch Delica Plus [id number] USE TO TEST BLOOD SUGARS ONCE DAILY 100 Each 3 08/25/2023 08/24/2024 Active Alendronate Sodium 35 MG Oral Tablet (Fosamax)Indication s:High risk for fracture due to osteoporosis by DEXA scan TAKE ONE TABLET BY MOUTH ONCE A WEEK 12 Tablet 3 10/14/2023 Active Losartan Potassium 50 MG Oral Tablet (Cozaar)Indications :HTN, goal below 140/90 TAKE ONE TABLET BY MOUTH EVERY DAY IN THE MORNING 100 Tablet 3 11/08/2023 11/07/2024 Active Furosemide 20 MG Oral Tablet (Lasix)Indications: HTN, goal below 140/90,Dyslipidemia , goal LDL below 100,Hypertensive heart disease with chronic diastolic congestive heart failure (HCC) TAKE ONE TABLET BY MOUTH EVERY MORNING 90 Tablet 3 12/01/2023 11/30/2024 Active Atorvastatin Calcium 40 MG Oral Tablet (Lipitor)Indication s:Dyslipidemia, goal LDL below 100 TAKE ONE TABLET BY MOUTH THREE TIMES A WEEK ON MON, WED AND FRI IN THE EVENING 45 Tablet 1 02/29/2024 Active Citalopram Hydrobromide 20 MG Oral Tablet (CeleXA)Indications :Major depressive disorder, recurrent episode, moderate (HCC) Take 1 Tablet by mouth every other day. 50 Tablet 3 03/09/2024 Active Citalopram Hydrobromide 20 MG Oral Tablet (CeleXA)Indications :Major depressive disorder, recurrent episode, moderate (HCC) Take one tablet by mouth every other day 15 Tablet 5 03/30/2024 Active documented as of this encounter (statuses as of 04/19/2024) Active Problems Problem Noted Date Diagnosed Date [...] gangrene 01/12/2018 History of tobacco use 11/10/2015 Overview: Stopped in 2014 with a 20 pack year history HTN, goal below 140/90 08/26/2015 Overview: Per HTN Protocol #27. Hearing loss sensory, bilateral 11/23/2012 Overview: bilateral Irritable bowel syndrome 11/15/2009 DYSLIPIDEMIA, GOAL LDL BELOW 100 05/30/2009 Overview: Per Lipid Taxonomy. Type 2 diabetes mellitus wit h hemoglobin A1c goal of less than 7.0% 04/04/2009 Overview: Modified per Diabetes protocol #14. ICD-10 update of inactive term Advance directive on file 12/18/2008 Overview: No, Advance Directive brochure given to patient. History of left breast cancer 08/14/2008 High risk for fracture due to osteoporosis by DE XA scan 05/16/2008 Overview: fracture risk is HIGH: 10 year risk 24% for osteoporotic fracture CM inhibitor intolerance 01/11/2008 Overview: Cough DARI (obstructive sleep apnea) 03/15/2003 Overview: 12/06/15 PSG - AHI 17.4, 34 mins <89% 12/2006 PSG - BIPAP 06/0404/19/05 PSG AHP documented as of this encounter (statuses as of 04/19/2024) Resolved Problems Problem Noted Date Diagnosed Date Resolved Date Major depressive disorder, r ecurrent episode, mild 07/29/2023 07/29/2023 Cauda equina compression 10/09/2020 COPD, mild 06/07/2013 05/05/2019 Overview: 06/07/2013: PFT completed 11/06/15 reduced FEV1/VC, with normal VC and FEV1 HTN, GOAL BELOW 140/80 02/08/201209/25 Overview: Per HTN Protocol #27. Kidney disease, chronic, sta ge I (GFR over 89 ml/min) 05/26/2010 01/18/2019 HTN, GOAL BELOW 130/80 05/14/200902/10 Overview: Modified per HTN protocol #16. Vitamin D deficiency 05/08/2009 012 Carcinoma in situ of breast 08/14/2008 09/11/2008 DM type 2 causing renal disease 01/11/2008 05/17/2017 Benign neoplasm of colon 12/24/2006 Overview: hyperplastic polyps--repeat 10 years DM type 2, not at goal 10/27/200604/04 Overview: Modified per Diabetes protocol #14. Edema 01/14/2005 07/26/2008 Overview: Resolved per Duplicate Protocol #2. Edema 03/15/2003 01/12/2018 Dyslipidemia, goal to be determined 05/30/2009 Overview: Per Lipid Taxonomy. HYPERTENSION NOS 05/14/2009 Overview: Modified per HTN protocol #16. BONE & CARTILAGE DIS NOS Tobacco use disorder 016 Overview: Stopped in 2014 Hypothyroidism 06/04/2021 documented as of this encounter (statuses as of 04/19/2024) Immunizations Name Administration Dates Next Due COVID-19 mRNA, LNP-s, No Pre serve, 2-Dose Series (Moderna) 04/10/2021,08/19/2020,07/16/2020 COVID-19 mRNA, LNP-s, No Pre serve, 2-Dose Series (Pfizer) 10/06/2021 COVID-19, MRNA-LNP, 23-24, P F, 30 MCG/0.3 mL, 12 YRS AND ABOVE, IM (Mevvy-Continuum AnalyticsirMEEP) 11/17/2023,03/14/2023 COVID-19, MRNA-LNP, 24-25, P R, 30MCG/0.3ML, IM, 12YRS AND ABOVE (THYME) 03/04/2024 Covid-19, Mrna, Lnp-s, Pf, B ivalent, 30 Mcg, IM, 12 yrs and above (VeriWave) 03/24/2022 Hepatitis B, 20+ yrs 11/06/2016 Pneumococcal Conjugate Vacc, 13 Valent (Prevnar) 08/22/2014 Pneumococcal Conjugate Vacci ne, 20-valent ([id number]) 04/03/2024 Pneumococcal Polysaccharide PPV23 (Pneumovax) 11/06/2016,11/24/2006 RSV [...] years Alcohol Use Standard Drinks/Week Comments Yes 17.5 (1 standard drink = 0.6 oz pure alcohol) 24 oz/day AUDIT-C Answer Date Recorded Q1: How often [...] Answer Date Recorded PHQ Adult Total Score 0 02/01/2023 Hunger Vital Sign Answer Date Recorded Within the past 12 months, y ou worried that your food would run out before you got the money to buy more. Never true 09/06/19 24 Within the past 12 months, t he food you bought just didn't last and you didn't have money to get more. Never true 09/06/2023 Childcare Answer Date Recorded Do you feel overwhelmed with taking care of a child, family member or friend? No 09/06/2023 Does your family need help f inding childcare? (Household - for ages 0-17 years) Not on file 09/06/2023 Clothing Answer Date Recorded Have you been unable to get clothing when it was really needed? No 09/06/2023 Is your family able to get c lothes or diapers when needed? (Household - for ages 0-17 years) Not on file 09/06/2023 Personal Safety Answer Date Recorded Do you feel unsafe or have concerns for your saf ety? No 09/06/2023 Do you have concerns for you r family's safety? (Household - for ages 0-17 years) Not on file 09/06/2023 Utilities Answer Date Recorded Do you have trouble paying y our heating, water, or electric bill? No 09/06/2023 Is your family able to pay t he heat, water, or electric bill? (Household - for ages 0-17 years) Not on file 09/06/2023 Does your family have access to good internet? (Household - for ages 0-17 years) Not on file 09/06/2023 Employment Status Answer Date Recorded Are you unemployed or without regular income? No 09/06/2023 Does the household have a re lar source of income? (Household - for ages 0-17 years) Not on file 09/06/2023 Social Connections Answer Date Recorded How often do you feel lonely or isolated from th ose around you? Rarely 09/06/2023 Financial Resource Strain Answer Date R ecorded Do you have any trouble payi ng for your medications, or do you think you might in the future? No 09/06/2023 Does your family have troubl e paying for medicine? (Household - for ages 0-17 years) Not on file 09/06/2023 Transportation Needs Answer Date Record ed READ ONLY Do you have troubl e getting a ride to medical visits or work? Never True 09/06/2023 Does your family have a hard time getting a ride to doctors visits? (Household - for ages 0-17 years) Not on file 09/06/2023 Has lack of transportation k ept you from medical appointments, meetings, work, or from getting things needed for daily living? Check all that apply. (Adult - for ages 18 years and over) Not on file 09/06/2023 Do you (or your family) have trouble finding or paying for a ride (transportation)? (Household - for ages 0-17 years) Not on file 09/06/2023 Housing Stability Answer Date Recorded Do you currently live in a s helter or have no steady place to sleep at night? No 09/06/2023 READ ONLY Do you think you a re at risk of becoming homeless? No 09/06/2023 Does your family worry about paying for your home or becoming homeless? (Household - for ages 0-17 years) Not on file 0 09/06/2023 Are you homeless or worried that you might be in the future? (Adult - for ages 18 years and over) Not on file Are you (or your family) vernon eless or worried that you might be in the future? (Household - for ages 0-17 years) Not on file Food Insecurity Answer Date Recorded Do you need food for this week? No 09/06/2023 Are you able to get enough f ood for your family? (Household - for ages 0-17 years) Not on file 09/06/2023 Does your family need food t his week? (Household - for ages 0-17 years) Not on file 09/06/2023 Do you always have enough fo od for your family? (Household - for ages 0-17 years) Not on file 09/06/2023 Sex and Gender Information Value Date Recorded Sex Assigned at Female 04/03/2019 10:03 AM EDT Gender Identity Female 04/03/2019 10:03 AM EDT Sexual Orientation Straight 04/03/2019 10 :03 AM EDT Job Start Date Occupation Industry Not on file Not on file Not on file documented as of this encounter Miscellaneous Notes * Telephone Encounter - Roxanna Ribeiro OSA - 04/19/2024 2:22 PM EDT Left message to call to schedule appt * Telephone Encounter - Jeanine Franco DO - 04/19/2024 1:45 PM EDT Per TE on 04/12, I did advise 1 month f/u given results. * Telephone Encounter - Su Gaines LPN - 04/18/2024 3:00 PM EDT Please advise. Most recent OV note also states follow up in 3 months. * Telephone Encounter - Roxanna Ribeiro OSA - 04/18/2024 2:39 PM EDT Came in thinking she needed a one month return You put 3M on her visit summary Do you want her back sooner? documented in this encounter Plan of Treatment Upcoming Encounters Date Type Department Care Team (Late st Contact Info) Description 07/19/2024 11:20 AM EST Office Visit Family Practice [address] [place] [address] [address] [place] [phone] Jeanine Franco DO [address] [place] [address] 09/11/2024 10:00 AM EDT Nurse Only Family Practice [address] [place] [address] [address] [place] [phone] Loree Osman, COLE [address] [place] [address] 11/07/2024 10:00 AM EDT Office Visit Sleep Disorders Ctr [facility] [address] [place] [phone] Alena Nuno CRNP [address] [facility] [place] [address] 01/23/2025 10:20 AM EDT Office Visit Dermatology [facility] [address] [facility], [place] [address] Deidre Barragan PA-C [address] [facility] [place] [address] Health Maintenance Due Date Last Done Comments Hepatitis B Vaccine (2 of 3 - 19+ 3-dose series) 12/04/2016 11/06/2016 Diabetic Eye Exam 06/03/2024 06/03/2023, , 06/04/2021, Additional history exists Diabetic Foot Exam 06/03/2024 06/03/2023, 1 07/23/2021, 04/09/2022, Additional history exists HbA1c 06/07/2024 12/07/2023, 05/21, 02/01/2023, Additional history exists Depression Monitoring 09/05/2024 09/06/2023 Adult Wellness Visit 09/06/2024 09/07/2023, 04/21/20 22 TSH 10/11/2024 10/12/2023, 03/22, 04/09/2022, Additional history exists Albumin/Creatinine Ratio 04/07/2025 024, 04/19/2023, 04/16/2023, Additional history exists GFR 04/07/2025 04/07/2024, 11/19, 10/12/2023, Additional history exists O2 ASSESSMENT COMPLETED IN PAST YEAR FOR COPD 04/07/2025 04/07/2024 DXA Scan 03/08/2026 03/08/2024, 02/19, 09/08/2021, Additional history exists DTap/Tdap Vaccines (3 - Td or Tdap) 06/04/2031 06/04/2021, 05/06/2011, 01/14/2000 Zoster Vaccines Completed 08/28/2019, 04/22, 08/01/2008 Alpha-1 Antitrypsin Completed 08/06/2021 VITAMIN D LEVEL ONCE IN A LIFETIME-USE SMARTSET# [id number] Completed 06/03/2023, 04/09/2022, 06/04/2021, Additional history exists COVID-19 Vaccine Completed 03/04/2024, , 03/14/2023, Additional history exists Influenza Vaccine (FLU shot) [...] this encounter Medical Devices Implanted Type Area Mechanical Car Checker Device Identifier Shelf Expiration Date Model / Serial / Lot Lens 19.0 M160l - [id number] Implanted:Qty: 1 on 11/28/2015 by Vinh Richardson MD at OR [facility] Right: Eye [employer]OM[employer] : SURGICAL 08/18/2016 [id number] / [id number] / [id number] Lens Intraoc 22.0 - [id number] - [id number] Implanted:Qty: 1 on 01/23/2020 by Ric Mcdonald MD at OR [facility] Left: Eye BA[employer]CH [employer] LOMB 07/21/2024 [id number] / [id number] / [id number] documented as of this encounter Advance Directives Documents on File Type Date Recorded 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 Care Teams Signalman Relationship Specialty Start Date End Date Jeanine Franco DO [address] [place] [address] PCP - General Family Medicine 12/07/23 documented as of this encounter
--- OUTSIDE RECORDS SUMMARY | 2024-07-01 04:10 | External Medical Summary | Summary of Care ---
Author Name Unknown Organization [facility] Address [address] [place] [address] Phone [phone] Care Team Providers Care Lapping Machine Operator Name Role Phone Jeanine Franco DO Primary Care Provider [phone] Encounter Details Date Type Department Care Team (Late st Contact Info) Description 04/18/2024 Population Health External Data Unspecified Department Allergies Active Allergy Reactions Criticality Noted Date Comments Cm Inhibitors Cough Low 09/11/2008 Amoxicillin 11/17/2019 Diffuse rash documented as of this encounter (statuses as of 04/18/2024) Medications Medication Sig Dispensed Refills Start Date [...] MEDICATIONS 100 Tablet 2 07/26/2023 07/25/2024 Active OneTouch Verio In Vitro Strip (Glucose Blood)Indications:T ype 2 diabetes mellitus with hemoglobin A1c goal of less than 7.0% (HCC) USE TO TEST BLOOD SUGAR ONCE DAILY 100 Strip 3 08/25/2023 08/24/2024 Active OneTouch Delica Plus [id number] USE TO TEST BLOOD SUGARS ONCE DAILY [...] as of this encounter (statuses as of 04/18/2024) Active Problems Problem Noted Date Diagnosed Date [...] as of this encounter (statuses as of 04/18/2024) Resolved Problems Problem Noted Date Diagnosed Date [...] as of this encounter (statuses as of 04/18/2024) Immunizations Name Administration Dates Next Due COVID-19 mRNA, LNP-s, No Pre serve, 2-Dose Series (Moderna) 04/10/2021,08/19/2020,07/16/2020 COVID-19 mRNA, LNP-s, No Pre serve, 2-Dose Series (Pfizer) 10/06/2021 COVID-19, MRNA-LNP, 23-24, P F, 30 MCG/0.3 mL, 12 YRS AND ABOVE, IM (datango-Comirnat) 11/17/2023,03/14/2023 COVID-19, MRNA-LNP, 24-25, P R, 30MCG/0.3ML, IM, 12YRS AND ABOVE (Lang Ma-Well Beyond CareirnatIsentropic) 03/04/2024 Covid-19, Mrna, Lnp-s, Pf, B ivalent, 30 Mcg, IM, 12 yrs and above (Pfizer) 03/24/2022 Hepatitis B, 20+ yrs 11/06/2016 Pneumococcal Conjugate Vacc, 13 Valent (Prevnar) 08/22/2014 Pneumococcal Conjugate Vacci ne, 20-valent ([id number]) 04/03/2024 Pneumococcal Polysaccharide PPV23 (Pneumovax) 11/06/2016,11/24/2006 RSV [...] the money to buy more. Never true 02/02/20 23 Within the past 12 months, t he food you bought just didn't last and you didn't have money to get more. Never true 02/01/2023 Sex and Gender Information Value Date Recorded [...] AM EST Office Visit Family Practice 65 [facility] 293 [place] [address] Jeanine Franco DO [address] [place] [address] 09/11/2024 10:00 AM EDT Nurse Only Family Practice 65 [facility] 293 [place] [phone] Loree Osman, COLE [address] [place] [address] 11/07/2024 10:00 AM EDT [facility] [address] [place] [phone] Alena Nuno CRNP [address] [facility] [place] [address] 01/23/2025 10:20 AM EDT Office Visit Dermatology [facility] Diana Carney [address] [facility] [address] Deidre Barragan PA-C [address] [facility] [address] Health Maintenance Due Date Last Done Comments [...] D LEVEL ONCE IN A LIFETIME-USE SMARTSET# [id number] Completed 06/03/2023, 04/09/2022, 06/04/2021, Additional history exists [...] this encounter Medical Devices Implanted Type Area Beef Ribber Device Identifier Shelf Expiration Date Model / Serial / Lot Lens 19.0 M160l - [id number] - [id number] Implanted:Qty: 1 on 11/28/2015 by Vinh Richardson MD at OR [facility] Right: Eye BAUSCH & LOMB : SURGICAL 08/18/2016 [id number]-09.0 / [id number] / [id number] Lens Intraoc 22.0 - [id number] - [id number] Implanted:Qty: 1 on 01/23/2020 by Ric Mcdonald MD at OR [facility] Left: Eye BAUSCH & LOMB 07/21/2024 [id number] / [id number] / [id number] documented as of this encounter Advance Directives Documents on File Type Date Recorded Patient Scuba Dive Training Instructor Expl anation POLST 10/01/2022 [place] OR [facility] FOR LIFE-SUSTAINING TREATMENT * Full Code (Latest Code Status on File) Date Activated Date Inactivated Comments 11/28/2015 6:26 AM 11/28/2015 12:14 PM This order re flects the patients wishes and were consensually agreed upon. Care Teams Lapping Machine Operator Relationship Specialty Start Date End Date Jeanine Franco DO [address] [place] [address] PCP - General Family Medicine 12/07/23 documented as of this encounter
--- OUTSIDE RECORDS SUMMARY | 2024-07-01 04:10 | External Medical Summary | Summary of Care ---
Author Name Unknown Organization [facility] Address [address] [place] [address] Phone [phone] Care Team Providers Care Kickboxing Instructor Name Role Phone Jeanine Franco DO Primary Care Provider [phone] Reason for Visit * Reason Onset Date Comments Appointment 04/07/2024 Sleep appt Encounter Details Date Type Department Care Team ([facility] Contact Info) Description 04/07/2024 Telephone Family Practice [address] [facility] [place] [address] [place] [phone] Jeanine Franco DO [address] [place], [place] [phone] Appointment (Sleep appt) Allergies Active Allergy Reactions Criticality Noted Date Comments Cm Inhibitors Cough Low 09/11/2008 Amoxicillin 11/17/2019 Diffuse rash documented as of this encounter (statuses as of 04/21/2024) Medications Medication Sig Dispensed Refills Start Date [...] MEDICATIONS 100 Tablet 2 07/26/2023 07/25/2024 Active Volar VideoTouch Verio In Vitro Strip (Glucose Blood)Indications:T ype 2 diabetes mellitus with hemoglobin A1c goal of less than 7.0% (HCC) USE TO TEST BLOOD SUGAR ONCE DAILY 100 Strip 3 08/25/2023 08/24/2024 Active OneTouch Delica Plus [id number] USE TO TEST BLOOD SUGARS ONCE DAILY [...] as of this encounter (statuses as of 04/21/2024) Active Problems Problem Noted Date Diagnosed Date [...] as of this encounter (statuses as of 04/21/2024) Resolved Problems Problem Noted Date Diagnosed Date [...] as of this encounter (statuses as of 04/21/2024) Immunizations Name Administration Dates Next Due COVID-19 mRNA, LNP-s, No Pre serve, 2-Dose Series ([facility]) 04/10/2021,08/19/2020,07/16/2020 COVID-19 mRNA, LNP-s, No Pre serve, 2-Dose Series (Lectorati) 10/06/2021 COVID-19, MRNA-LNP, 24-25, P R, 30MCG/0.3ML, IM, 12YRS AND ABOVE (LectoratiAttraction World) 03/04/2024 COVID-19, MRNA-LNP, PF, 30 M CG/0.3 mL, 12 YRS AND ABOVE, IM (Hail Varsity) 11/17/2023,03/14/2023 Covid-19, Mrna, Lnp-s, Pf, B ivalent, 30 Mcg, IM, 12 yrs and above (Lectorati) 03/24/2022 Hepatitis B, 20+ yrs 11/06/2016 Pneumococcal Conjugate Vacc, 13 Valent (Prevnar) 08/22/2014 Pneumococcal Conjugate Vacci ne, 20-valent ([id number]) 04/03/2024 Pneumococcal Polysaccharide PPV23 (Pneumovax) 11/06/2016,11/24/2006 RSV [...] Telephone Encounter - Itzel Gray LPN - 04/07/2024 11:03 AM EDT Please add pt to cancel list. * Telephone Encounter - Roxanna Ribeiro OSA - 04/07/2024 10:58 AM EDT Needs sleep med appt DARI (obstructive sleep apnea) [G47.33] Gave May appt Could she be seen sooner Please call with date and time documented in this encounter Plan of Treatment Upcoming Encounters Date Type Department Care Team (Late st Contact Info) Description 04/24/2024 8:00 AM EST Office Visit Family Practice [address] [facility] [place] 293 [place] [address] Jeanine Franco, DO 293 [facility] [place] [address] 07/19/2024 11:20 AM EST Office Visit Family Practice 65 [facility] 293 [place] [address] Jeanine Franco, DO 293 [facility] [place] [address] 09/11/2024 10:00 AM EDT Nurse Only [facility] Practice [address] [place] [address] 293 [place] [phone] Loree Osman, COLE 293 [facility] [place] [phone] 11/07/2024 10:00 AM EDT Office Visit [facility] [phone] Alena Nuno CRNP [facility] [address] 01/23/2025 10:20 AM EDT Office Visit Dermatology [facility] 200 [facility] [place] [address] Deidre Barragan PA-Latrice [address] [facility] [address] Health Maintenance Due Date Last Done Comments [...] D LEVEL ONCE IN A LIFETIME-USE SMARTSET# [id number] Completed 06/03/2023, 04/09/2022, 06/04/2021, Additional history exists [...] this encounter Medical Devices Implanted Type Area Acidizer Helper Device Identifier Shelf Expiration Date Model / Serial / Lot Lens 19.0 M160l - [id number] - [id number] Implanted:Qty: 1 on 11/28/2015 by Vinh Richardson MD at OR [facility] Right: Eye BAUSCH & LOMB : SURGICAL 08/18/2016 [id number]-32.0 / [id number] / [id number] Lens Intraoc 22.0 - [id number] - [id number] Implanted:Qty: 1 on 01/23/2020 by Ric Mcdonald MD at OR [facility] Left: Eye BAUSCH & LOMB 07/21/2024 [id number] / [id number] / [id number] documented as of this encounter Advance Directives Documents on File Type Date Recorded Patient Nurse Epidemiologist Expl anation POLST 10/01/2022 [place] [facility] FOR LIFE-SUSTAINING TREATMENT * Full Code (Latest Code Status on File) Date Activated Date Inactivated Comments 11/28/2015 6:26 AM 11/28/2015 12:14 PM This order re flects the patients wishes and were consensually agreed upon. Care Teams Kickboxing Instructor Relationship Specialty Start Date End Date Jeanine Franco DO [address] [facility] [place] [address] PCP - General Family Medicine 12/07/23 documented as of this encounter
--- OUTSIDE RECORDS SUMMARY | 2024-07-01 04:10 | External Medical Summary | Summary of Care ---
Author Name Unknown Organization [facility] Address [address] [place] [address] Phone [phone] Care Team Providers Care Head Cager Name Role Phone Jeanine Franco DO Primary Care Provider [phone] Encounter Details Date Type Department Care Team (Late st Contact Info) Description 05/09/2024 Documentation HEALTH & WELLNESS Clif Barton, Health Airplane Cabin Attendant Allergies Active Allergy Reactions Criticality Noted Date Comments Cm Inhibitors Cough Low 09/11/2008 Amoxicillin 11/17/2019 Diffuse rash documented as of this encounter (statuses as of 05/09/2024) Medications VITAMINS & MINERALS CAPS OR 1 [...] 4 08/25/19 25 Active OneTouch Delica Plus [id number] USE TO TEST BLOOD SUGARS ONCE DAILY [...] as of this encounter (statuses as of 05/09/2024) Active Problems Problem Noted Date Diagnosed Date [...] as of this encounter (statuses as of 05/09/2024) Resolved Problems Problem Noted Date Diagnosed Date [...] as of this encounter (statuses as of 05/09/2024) Immunizations Name Administration Dates Next Due COVID-19 mRNA, LNP-s, No Pre serve, 2-Dose Series (Moderna) 04/10/2021,08/19/2020,07/16/2020 COVID-19 mRNA, LNP-s, No Pre serve, 2-Dose Series (Pfizer) 10/06/2021 COVID-19, MRNA-LNP, 24-25, P R, 30MCG/0.3ML, IM, 12YRS AND ABOVE (Link_A_Media Devices-ComirnatSelerity) 03/04/2024 COVID-19, MRNA-LNP, PF, 30 M CG/0.3 mL, 12 YRS AND ABOVE, IM (GoMango.com-ComirnatSelerity) 11/17/2023,03/14/2023 Covid-19, Mrna, Lnp-s, Pf, B ivalent, 30 Mcg, IM, 12 yrs and above (Pfizer) 03/24/2022 Hepatitis B, 20+ yrs 11/06/2016 Pneumococcal Conjugate Vacc, 13 Valent (Prevnar) 08/22/2014 Pneumococcal Conjugate Vacci ne, 20-valent ([id number]) 04/03/2024 Pneumococcal Polysaccharide PPV23 (Pneumovax) 11/06/2016,11/24/2006 RSV [...] 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 file Not on file Not on aydin e Not on file Not on file Not on file Not on file documented as of this encounter Progress Notes * Clif Barton, Health Airplane Cabin Attendant - 05/09/2024 12:34 PM EST Visit Type: Return Wellness Return Visit Type: Group exercise strength and balance class 45 min documented in this encounter Plan of Treatment Upcoming Encounters Date Type Department Care Team (Late st Contact Info) Description 07/19/2024 11:20 AM EST Office Visit Family Practice [address] [place] [address] 293 [place] [phone] Jeanine Franco DO [address] [place] [address] 09/11/2024 10:00 AM EDT Nurse Only Family Practice [address] [place] [address] 293 [place] [phone] Loree Osman, COLE [address] [place] [phone] 11/07/2024 10:00 AM EDT Office Visit [facility]tr [facility] [phone] Alena N[facility] [address] [facility] [address] 01/23/2025 10:20 AM EDT Office Visit Dermatology [facility] 200 [facility] [place] [place] [address] Deidre Barragan, PA-C [address] [facility] [address] Health Maintenance Due Date Last Done Comments [...] D LEVEL ONCE IN A LIFETIME-USE SMARTSET# [id number] Completed 06/03/2023, 04/09/2022, 06/04/2021, Additional history exists [...] this encounter Medical Devices Implanted Type Area Asphalt Mixer Device Identifier Shelf Expiration Date Model / Serial / Lot Lens 19.0 M160l - [id number] - [id number] Implanted:Qty: 1 on 11/28/2015 by Vinh Richardson MD at OR [facility] Right: Eye BAUSCH & LOMB : SURGICAL 08/18/2016 [id number]-12.0 / [id number] / [id number] Lens Intraoc 22.0 - [id number] - [id number] Implanted:Qty: 1 on 01/23/2020 by Ric Mcdonald MD at OR [facility] Left: Eye BAUSCH & LOMB 07/21/2024 [id number] / [id number] / [id number] documented as of this encounter Advance Directives Documents on File Type Date Recorded Patient Tank Calibrator Expl anation POLST 10/01/2022 [place] OR [facility] FOR LIFE-SUSTAINING TREATMENT * Full Code (Latest Code Status on File) Date Activated Date Inactivated Comments 11/28/2015 6:26 AM 11/28/2015 12:14 PM This order re flects the patients wishes and were consensually agreed upon. Care Teams Head Cager Relationship Specialty Start Date End Date Jeanine Franco DO [address] [facility] [address] PCP - General Family Medicine 12/07/23 documented as of this encounter
--- OUTSIDE RECORDS SUMMARY | 2024-07-01 04:10 | External Medical Summary | Summary of Care ---
Author Name Unknown Organization [facility] Address [address] [place] [address] Phone [phone] Care Team Providers Care Nurse Orthopedic Name Role Phone Jeanine Franco DO Primary Care Provider [phone] Encounter Details Date Type Department Care Team (Late st Contact Info) Description 04/07/2024 Documentation HEALTH & WELLNESS Alayna Farah, Health Stacker Driver Allergies Active Allergy Reactions Criticality Noted Date Comments Cm Inhibitors Cough Low 09/11/2008 Amoxicillin 11/17/2019 Diffuse rash documented as of this encounter (statuses as of 04/07/2024) Medications Medication Sig Dispensed Refills Start Date [...] 3 08/25/2023 08/24/2024 Active OneTouch Delica Plus [id number] USE TO TEST BLOOD SUGARS ONCE DAILY [...] as of this encounter (statuses as of 04/07/2024) Active Problems Problem Noted Date Diagnosed Date [...] as of this encounter (statuses as of 04/07/2024) Resolved Problems Problem Noted Date Diagnosed Date [...] as of this encounter (statuses as of 04/07/2024) Immunizations Name Administration Dates Next Due COVID-19 mRNA, LNP-s, No Pre serve, 2-Dose Series (Moderna) 04/10/2021,08/19/2020,07/16/2020 COVID-19 mRNA, LNP-s, No Pre serve, 2-Dose Series (Pfizer) 10/06/2021 COVID-19, MRNA-LNP, 23-24, P F, 30 MCG/0.3 mL, 12 YRS AND ABOVE, IM (OmiroFashiolista) 11/17/2023,03/14/2023 COVID-19, MRNA-LNP, 24-25, P R, 30MCG/0.3ML, IM, 12YRS AND ABOVE (Patient Engagement Systems) 03/04/2024 Covid-19, Mrna, Lnp-s, Pf, B ivalent, 30 Mcg, IM, 12 yrs and above (King Solarman) 03/24/2022 Hepatitis B, 20+ yrs 11/06/2016 Pneumococcal Conjugate Vacc, 13 Valent (Prevnar) 08/22/2014 Pneumococcal Conjugate Vacci ne, 20-valent ([id number]) 04/03/2024 Pneumococcal Polysaccharide PPV23 (Pneumovax) 11/06/2016,11/24/2006 RSV [...] as of this encounter Progress Notes * Alayna Farah Health Stacker Driver - 04/07/2024 11:25 AM EDT Visit Type: Return Wellness Return Visit Type: Group exercise Balance and strength training documented in this encounter Plan of Treatment Upcoming Encounters Date Type Department Care Team (Late st Contact Info) Description 04/07/2024 2:00 PM EDT Imaging Radiology [facility] 132 [facility] [place] [address] 09/11/2024 10:00 AM EDT Nurse Only Family Practice [address] [place] [address] 293 [facility], [place] [phone] Loree Osman, RN 293 [place] [address] 11/07/2024 10:00 AM EDT Office Visit Sleep Disorders Ctr [facility] 132 [facility] [place] [phone] Alena Nuno CRNP [address] [facility] [address] 01/23/2025 10:20 AM EDT Office Visit Dermatology [facility] [address] [place], [place] [address] Deidre Barragan PA-C [address] [facility] [address] Health Maintenance Due Date Last Done Comments Hepatitis B Vaccine (2 of 3 - 19+ 3-dose series) 12/04/2016 11/06/2016 Albumin/Creatinine Ratio 04/19/2024 023, 04/16/2023, 05/22/2022, Additional history exists Diabetic Eye Exam 06/03/2024 06/03/2023, , 06/04/2021, Additional history exists Diabetic Foot Exam 06/03/2024 06/03/2023, 1 07/23/2021, 04/09/2022, Additional history exists HbA1c 06/07/2024 12/07/2023, 05/21, 02/01/2023, Additional history exists Depression Monitoring 09/05/2024 09/06/2023 Adult Wellness Visit 09/06/2024 09/07/2023, 04/21/20 22 TSH 10/11/2024 10/12/2023, 03/22, 04/09/2022, Additional history exists GFR 12/06/2024 12/07/2023, 09/20, 07/29/2023, Additional history exists O2 ASSESSMENT COMPLETED IN PAST YEAR FOR COPD 04/07/2025 04/07/2024 DXA Scan 03/08/2026 03/08/2024, 02/19, 09/08/2021, Additional history exists DTap/Tdap Vaccines (3 - Td or Tdap) 06/04/2031 06/04/2021, 05/06/2011, 01/14/2000 Zoster Vaccines Completed 08/28/2019, 04/22, 08/01/2008 Alpha-1 Antitrypsin Completed 08/06/2021 VITAMIN D LEVEL ONCE IN A LIFETIME-USE SMARTSET# [id number] Completed 06/03/2023, 04/09/2022, 06/04/2021, Additional history exists [...] this encounter Medical Devices Implanted Type Area Lead Mechanic Device Identifier Shelf Expiration Date Model / Serial / Lot Lens 19.0 M160l - [id number] - [id number] Implanted:Qty: 1 on 11/28/2015 by Vinh Richardson MD at OR [facility] Right: Eye BAUSCH & LOMB : SURGICAL 08/18/2016 [id number]-20.0 / [id number] / [id number] Lens Intraoc 22.0 - [id number] - [id number] Implanted:Qty: 1 on 01/23/2020 by Ric Mcdonald MD at OR [facility] Left: Eye BAUSCH & LOMB 07/21/2024 [id number] / [id number] / [id number] documented as of this encounter Advance Directives Documents on File Type Date Recorded Patient Trimmer Machine Operator Expl anatfili POLST 10/01/2022 [place] [facility] FOR LIFE-SUSTAINING TREATMENT * Full Code (Latest Code Status on File) Date Activated Date Inactivated Comments 11/28/2015 6:26 AM 11/28/2015 12:14 PM This order re flects the patients wishes and were consensually agreed upon. Care Teams Nurse Orthopedic Relationship Specialty Start Date End Date Jeanine Franco DO [address] [place] [address] PCP - General Family Medicine 12/07/23 documented as of this encounter
--- OUTSIDE RECORDS SUMMARY | 2024-07-01 04:10 | External Medical Summary | Summary of Care ---
Author Name Unknown Organization [facility] Address [address] [place] [address] Phone [phone] Care Team Providers Care Senior Policy Advisor Name Role Phone Jeanine Franco DO Primary Care Provider [phone] Reason for Visit * Reason Comments Follow Up Encounter Details Date Type Department Care Team ([facility] st Contact Info) Description 04/24/2024 8:00 AM EST Office Visit Family Practice [address] [facility] [address] [place] [phone] Jeanine Franco DO [address] [place] [address] Type 2 diabetes mellitus with hemoglobin A1c goal of less than 7.0% ([facility])*; HTN, goal below 140/90; Alcohol abuse Allergies Active Allergy Reactions Criticality Noted Date Comments Cm Inhibitors Cough Low 09/11/2008 Amoxicillin 11/17/2019 Diffuse rash documented as of this encounter (statuses as of 04/24/2024) Medications Medication Sig Dispensed Refills Start Date [...] MEDICATIONS 100 Tablet 2 07/26/2023 07/25/2024 Active twtrlandTouch Verio In Vitro Strip (Glucose Blood)Indications:T ype 2 diabetes mellitus with hemoglobin A1c goal of less than 7.0% ([facility]) USE TO TEST BLOOD SUGAR ONCE DAILY 100 Strip 3 08/25/2023 08/24/2024 Active OneTouch Delica Plus [id number] USE TO TEST BLOOD SUGARS ONCE DAILY [...] as of this encounter (statuses as of 04/24/2024) Active Problems Problem Noted Date Diagnosed Date [...] as of this encounter (statuses as of 04/24/2024) Resolved Problems Problem Noted Date Diagnosed Date [...] as of this encounter (statuses as of 04/24/2024) Immunizations Name Administration Dates Next Due COVID-19 mRNA, LNP-s, No Pre serve, 2-Dose Series ([facility] 04/10/2021,08/19/2020,07/16/2020 COVID-19 mRNA, LNP-s, No Pre serve, 2-Dose Series ([employer]) 10/06/2021 COVID-19, MRNA-LNP, 24-25, P R, 30MCG/0.3ML, IM, 12YRS AND ABOVE ([employer]) 03/04/2024 COVID-19, MRNA-LNP, PF, 30 M CG/0.3 mL, 12 YRS AND ABOVE, IM ([employer]) 11/17/2023,03/14/2023 Covid-19, Mrna, Lnp-s, Pf, B ivalent, 30 Mcg, IM, 12 yrs and above ([employer]) 03/24/2022 Hepatitis B, 20+ yrs 11/06/2016 Pneumococcal Conjugate Vacc, 13 Valent (Prevnar) 08/22/2014 Pneumococcal Conjugate Vacci ne, 20-valent ([id number]) 04/03/2024 Pneumococcal Polysaccharide PPV23 (Pneumovax) 11/06/2016,11/24/2006 RSV [...] Sign Reading Time Taken Comments Blood Pressure 118/64 04/24/2024 8:00 AM EST Pulse 60 04/24/2024 8:00 AM EST Temperature 36.4 C (97.6 F) 04/24/2024 8:00 AM ES T Respiratory Rate 14 04/24/2024 8:00 AM EST Oxygen Saturation 96% 04/24/2024 8:00 AM EST Inhaled Oxygen Concentration - - Weight 80.2 kg (176 lb 14.4 oz) 04/24/2024 8:00 AM EST Height 168.9 cm (5' 6.5") 04/24/2024 8:00 AM EST Body Mass Index 28.12 04/24/2024 8:00 AM EST documented in this encounter Progress Notes * Jeanine Franco DO - 04/24/2024 8:16 AM EST SUBJECTIVE: Chief Complaint Patient presents with Follow Up HPI: Dominique Sloan is a 79 year old female who presents today for regular return. Pt notes that she is doing well. She notes no further falls. She feels she has clearer memory and notes things are cognitively doing better. She attributes this to cutting back on alcohol. She has moved from wine to beer. She is not drinking more than 1-2 a day per her report. She feels this has helped. She offers no complaints today. PHM: Patient Active Problem List Diagnosis DAIR (obstructive sleep apnea) Advance directive on file CM inhibitor intolerance High risk for fracture due to osteoporosis by DEXA scan History of left breast cancer Type 2 diabetes mellitus with hemoglobin A1c goal of less than 7.0% ([facility]) DYSLIPIDEMIA, GOAL LDL BELOW 100 Irritable bowel syndrome Hearing loss sensory, bilateral HTN, goal below 140/90 History of tobacco use Type 2 diabetes mellitus with diabetic peripheral angiopathy without gangrene ([facility]) COPD, group B, by GOLD 2017 classification ([facility]) Hypothyroidism due to acquired atrophy of thyroid Type 2 diabetes mellitus with polyneuropathy ([facility]) Nocturnal hypoxemia Lumbar degenerative disc disease Hypertensive heart disease with chronic diastolic congestive heart failure ([facility]) Major depressive disorder, recurrent episode, moderate ([facility]) Current Outpatient Medications Medication Sig Dispense Refill [...] by mouth daily as needed for Cramping. NATURAL SUPPLEMENT Take 2 Capsules by mouth in the morning and 2 Capsules before bedtime. Osteoben-2 capsules in AM, 2 capsules at night for bone health/muscle cramping. Levothyroxine Sodium 100 MCG Oral Tablet (Levoxyl) TAKE 1 TABLET BY MOUTH DAILY AT LEAST 30 MINUTESPRIOR TO FIRST MEAL OF THE DAY OR OTHER MEDICATIONS 100 Tablet 2 Alendronate Sodium 35 MG Oral Tablet (Fosamax) [...] mouth every other day. 50 Tablet 3 NATURAL SUPPLEMENT Take 1 Capsule by mouth in the morning. Coqnol 100 1 capsule daily with fat-containing meal to help with muscle cramping/fatigue from statin medication. (Patient not taking: Reported on 04/24/2024) OneTouch Verio In Vitro Strip (Glucose Blood) USE TO TEST BLOOD SUGAR ONCE DAILY 100 Strip 3 OneTouch Delica Plus [id number] USE TO TEST BLOOD SUGARS ONCE DAILY 100 Each 3 Citalopram Hydrobromide 20 MG Oral Tablet (CeleXA) Take one tablet by mouth every other day 15 Tablet 5 No current facility-administered medications for this visit. [...] Left breast, re-excision of margins (clear) [place] [facility] [place] Cobb PARTIAL HYSTERECTOMY 06/21/1982 heavy periods [place] MASTECTOMY PARTIAL Left 06/18/2008 Left breast (DCIS) [place] [facility]. Cobb REMOVE CATARACT, INSERT LENS PROSTH Right 11/28/2015 EXTRACAPSULAR CATARACT REMOVAL WITH INTRAOCULAR LENS performed by Vinh Richardson MD at [facility] REMOVE CATARACT, INSERT LENS PROSTH Left 01/23/2020 left EXTRACAPSULAR CATARACT REMOVAL WITH INTRAOCULAR LENS performed by Ric Mcdonald MD at [facility] UMBIL HERNIA REPAIR (REDUCIBLE) AGE 5+YR 04/28/2012 04/28/2012 umbilical hernia repair [facility] - Dr. Yifan Villalba Review [...] date: 12/24/1974 Quit date: 12/24/2014 Years since quittin.3 Passive exposure: Never Smokeless tobacco: Never Tobacco comments: 10 cig./day for 35 years. Trying to quit especially since ill. hasn't smoked in 7 years Substance Use Topics Alcohol use: Yes Alcohol/week: 17.5 standard drinks of alcohol Types: 21 5 oz of wine per week Comment: 24 oz/day Vaping/E-Cigarette Use Vaping/E-Cigarette Use Never User Counseling [...] Negative for color change, pallor and rash. OBJECTIVE: BP 118/64 (BP Site: Left Arm, BP Position: Sitting, BP Cuff Size: Regular) | Pulse 60 | Temp 36.4 C (97.6 F) (Tympanic) | Resp 14 | Ht 1.689 m (5' 6.5") | Wt 80.2 kg (176 lb 14.4 oz) | SpO2 96% |BMI 28.12 kg/m | BSA 1.94 m PHYSICAL EXAM: [...] oriented to person, place, and time. ASSESSMENT/PLAN: (E11.9) Type 2 diabetes mellitus with hemoglobin A1c goal of less than 7.0% (HCC) (primary encounter diagnosis) Plan: pt will remain on current regimen. No changes. Has been controlled. (I10) HTN, goal below 140/90 Plan: BP controlled. No changes for now. (F10.10) Alcohol abuse Plan: pt has cut back on alcohol. Feeling better cognitively. No further falls. Follow-up: as scheduled Total time today including reviewing chart before the visit, pertinent labs, imaging reports, face to face time, and documentation time was 31 minutes. Jeanine Franco DO documented in this encounter Nursing Notes * Su Gaines LPN - 04/24/2024 8:00 AM EST Patient here for routine follow up visit. documented in this encounter Plan of Treatment Upcoming Encounters Date Type Department Care Team (Late st Contact Info) Description 07/19/2024 11:20 AM EST Office Visit Family Practice [address] [place] [address] [address] [place] [phone] Jeanine Franco DO [address] [place] [address] 09/11/2024 10:00 AM EDT Nurse Only Family Practice [address] [place] [address] [address] [place] [phone] Loree Osman RN [address] [place] [address] 11/07/2024 10:00 AM EDT Office Visit [facility] [address] [facility] [phone] Alena Nuno CRNP [address] [facility] [address] 01/23/2025 10:20 AM EDT Office Visit Dermatology [facility] [address] [facility] [address] Deidre Barragan PA-C [address] [facility] [place] [address] Health Maintenance Due Date Last Done Comments [...] IN PAST YEAR FOR COPD 04/24/2025 04/24/2024 DXA Scan 03/08/2026 03/08/2024, 02/19, 09/08/2021, Additional history exists DTap/Tdap Vaccines (3 - Td or Tdap) 06/04/2031 06/04/2021, 05/06/2011, 01/14/2000 Zoster Vaccines Completed 08/28/2019, 04/22, 08/01/2008 Alpha-1 Antitrypsin Completed 08/06/2021 VITAMIN D LEVEL ONCE IN A LIFETIME-USE SMARTSET# [id number] Completed 06/03/2023, 04/09/2022, 06/04/2021, Additional history exists [...] this encounter Medical Devices Implanted Type Area Developmental Training Counselor Device Identifier Shelf Expiration Date Model / Serial / Lot Lens 19.0 M160l - [id number] - [id number] Implanted:Qty: 1 on 11/28/2015 by Vinh Richardson MD at [facility] Right: Eye BAUSCH [employer] LOMB : SURGICAL 08/18/2016 [id number] / [id number] / [id number] Lens Intraoc 22.0 - [id number] - [id number] Implanted:Qty: 1 on 01/23/2020 by Ric Mcdonald MD at OR [facility] Left: Eye BAUSCH & LOMB 07/21/2024 [id number] / [id number] / [id number] documented as of this encounter Visit Diagnoses Diagnosis Type 2 diabetes mellitus with hemoglobin A1c goal of less than 7.0% ([facility])- Primary HTN, goal below 140/90 Unspecified essential hypertension Alcohol abuse Alcohol abuse, unspecified documented in this encounter Advance Directives Documents on File Type Date Recorded Patient Profiler Operator Expl anation POLST 10/01/2022 [place] [facility] * Full Code (Latest Code Status on File) Date Activated Date Inactivated Comments 11/28/2015 6:26 AM 11/28/2015 12:14 PM This order re flects the patients wishes and were consensually agreed upon. Care Teams Senior Policy Advisor Relationship Specialty Start Date End Date Jeanine Franco DO [address] [facility] [place] [address] PCP - General Family Medicine 12/07/23 documented as of this encounter
--- OUTSIDE RECORDS SUMMARY | 2024-07-01 04:11 | External Medical Summary | Summary of Care ---
Author Name Unknown Organization [facility] Address [address] [place] [address] Phone [phone] Care Team Providers Care [facility] Name Role Phone Jeanine Woo DO Primary Care Provider Encounter Details Date Type Department Care Team (Late st Contact Info) Description 03/28/2024 Refill Family Practice [address] [place] [address] [place] [phone] Jeanine Woo DO [address] [place] [address] Major depressive disorder, recurrent episode, moderate (HCC) Allergies Active Allergy Reactions Criticality Noted Date Comments Cm Inhibitors Cough Low 09/11/2008 Amoxicillin 11/17/2019 Diffuse rash documented as of this encounter (statuses as of 03/30/2024) Medications Medication Sig Dispensed Refills Start Date End Date Status VITAMINS & MINERALS CAPS OR 1 TABLET DAILY 0 12/05/1999 Acti ve CALCIUM 500 + D 500-125 MG-UNIT PO TABS taking one tablet by mouth once daily Active Vitamin D-3 25 MCG (1000 UT) Oral Capsule Take 1 Capsule by mouth in the morning. 06/05/2021 Active Fluticasone Propionate 50 MCG/ACT Nasal Suspension (Flonase)Indicatio ns:Nasal congestion Administer 2 Sprays into each nostril [...] at night for bone health/muscle cramping. Active NATURAL SUPPLEMENT Take 1 Capsule by mouth in the morning. Berbenne synergy 1 capsule daily for blood sugar. Active Levothyroxine Sodium 100 MCG Oral Tablet (Levoxyl) TAKE 1 TABLET BY MOUTH DAILY AT LEAST 30 MINUTES PRIOR TO FIRST MEAL OF THE DAY OR OTHER MEDICATIONS 100 Tablet 2 07/26/2023 5 Active OneTouch Verio In Vitro Strip (Glucose Blood)Indications: Type 2 diabetes mellitus with hemoglobin A1c goal of less than 7.0% ([facility]) USE TO TEST BLOOD SUGAR ONCE DAILY 100 Strip 3 08/25/2023 5 Active OneTouch Delica Plus [id number] USE TO TEST BLOOD SUGARS ONCE DAILY 100 Each 3 08/25/2023 5 Active Alendronate Sodium 35 MG Oral Tablet (Fosamax)Indicatio ns:High risk for fracture due to osteoporosis by DEXA scan TAKE ONE TABLET BY MOUTH ONCE A WEEK 12 Tablet 3 10/14/2023 Active Losartan Potassium 50 MG Oral Tablet (Cozaar)Indication s:HTN, goal below 140/90 TAKE ONE TABLET BY MOUTH EVERY DAY IN THE MORNING 100 Tablet 3 11/08/2023 5 Active Furosemide 20 MG Oral Tablet (Lasix)Indications :HTN, goal below 140/90,Dyslipidemi a, goal LDL below 100,Hypertensive heart disease with chronic diastolic congestive heart failure (HCC) TAKE ONE TABLET BY MOUTH EVERY MORNING 90 Tablet 3 12/01/2023 5 Active Atorvastatin Calcium 40 MG Oral Tablet (Lipitor)Indicatio ns:Dyslipidemia, goal LDL below 100 TAKE ONE TABLET BY MOUTH THREE TIMES A WEEK ON MON, WED AND FRI IN THE EVENING 45 Tablet 1 02/29/2024 Active Citalopram Hydrobromide 20 MG Oral Tablet (CeleXA)Indication s:Major depressive disorder, recurrent episode, moderate (HCC) Take 1 Tablet by mouth every other day. 50 Tablet 3 03/09/2024 Active Citalopram Hydrobromide 20 MG Oral Tablet (CeleXA)Indication s:Major depressive disorder, recurrent episode, moderate (HCC) Take one tablet by mouth every other day 15 Tablet 5 03/30/2024 Active Citalopram Hydrobromide 20 MG Oral Tablet (CeleXA)Indication s:Major depressive disorder, recurrent episode, moderate (HCC) Take one tablet by mouth every other day 10 Tablet 3 03/08/2024 4 Discontinue d(Refill) documented as of this encounter (statuses as of 03/30/2024) Active Problems Problem Noted Date Diagnosed Date [...] as of this encounter (statuses as of 03/30/2024) Resolved Problems Problem Noted Date Diagnosed Date [...] as of this encounter (statuses as of 03/30/2024) Immunizations Name Administration Dates Next Due COVID-19 mRNA, LNP-s, No Pre serve, 2-Dose Series ([employer]) 04/10/2021,08/19/2020,07/16/2020 COVID-19 mRNA, LNP-s, No Pre serve, 2-Dose Series (Pfizer) 10/06/2021 COVID-19, MRNA-LNP, 23-24, P F, 30 MCG/0.3 mL, 12 YRS AND ABOVE, IM ([employer]) 11/17/2023,03/14/2023 COVID-19, MRNA-LNP, 24-25, P R, 30MCG/0.3ML, IM, 12YRS AND ABOVE ([employer]) 03/04/2024 Covid-19, Mrna, Lnp-s, Pf, B ivalent, 30 Mcg, IM, 12 yrs and above (Pfizer) 03/24/2022 Hepatitis B, 20+ yrs 11/06/2016 Pneumococcal Conjugate Vacc, 13 Valent (Prevnar) 08/22/2014 Pneumococcal Polysaccharide PPV23 (Pneumovax) 11/06/2016,11/24/2006 RSV Vac., [...] encounter Miscellaneous Notes * Telephone Encounter - Torri Mcnair [facility] - 03/30/2024 9:01 AM EDTSigned Prescriptions: Disp Refills Citalopram Hydrobromide 20 MG Oral Tablet *15 Tab*5 Sig: Take one tablet by mouth every other dayAuthorizing Provider: JEANINE WOO User: TORRI MCNAIR NN * Telephone Encounter - Roxanna Ribeiro DARI - 03/28/2024 1:27 PM EDT ONE MONTH SUPPLY HAS NONE LEFT THEN WANTS BACK ON AUTOMATIC REFILL Pending Prescriptions: Disp Refills Citalopram Hydrobromide 20 MG Oral Tablet*10 Tab*3 Sig: Take one tablet by mouth every other day Last Visit: 01/03/2024 (in office), 12/07/2023 (telemedicine) Next Visit: 04/03/2024 Last date the medication was ordered Patient Active Problem List Diagnosis DARI (obstructive sleep apnea) Advance directive on file CM inhibitor intolerance High risk for fracture due to osteoporosis by DEXA scan History of left breast cancer Type 2 diabetes mellitus with hemoglobin A1c goal of less than 7.0% ([facility]) DYSLIPIDEMIA, GOAL LDL BELOW 100 Irritable bowel syndrome Hearing loss sensory, bilateral HTN, goal below 140/90 History of tobacco use Type 2 diabetes mellitus with diabetic peripheral angiopathy without gangrene ([facility]) COPD, group B, by GOLD 2017 classification ([facility]) Hypothyroidism due to acquired atrophy of thyroid Type 2 diabetes mellitus with polyneuropathy ([facility]) Nocturnal hypoxemia Lumbar degenerative disc disease Hypertensive heart disease with chronic diastolic congestive heart failure ([facility]) Major depressive disorder, recurrent episode, moderate ([facility]) Labs: Lab Results Component Value Date/Time CREATININE - [facility] 0.8 12/07/2023 10:54 AM CREATININE - [facility] 0.7 05/27/2020 10:36 AM CREATININE, RANDOM URINE - [facility] 108 04/19/2023 03:24 PM CREATININE, RANDOM URINE - [facility] 12 05/27/2020 10:43 AM Lab Results Component Value Date/Time POTASSIUM - [facility] 4.9 12/07/2023 10:54 AM POTASSIUM - [facility] 4.4 05/27/2020 10:36 AM Lab Results Component Value Date/Time TSH - [facility] 0.28 10/12/2023 12:02 PM TSH - [facility] 0.06 (L) 05/27/2020 10:36 AM TSH - OUTSIDE LAB 0.454 06/04/2018 12:00 AM Lab Results Component Value Date/Time LDL CHOLESTEROL (CALCULATED) - [facility] 71 06/03/2023 09:43 AM LDL CHOLESTEROL (CALCULATED) - [facility] 104 12/04/2021 11:53 AM LDL CHOLESTEROL (CALCULATED) - [facility] 87 06/13/2019 08:08 AM LDL CHOLESTEROL (CALCULATED) - [facility] 90 07/20/2018 02:42 PM LDL CHOLESTEROL (DIRECT MEASURE) - [facility] NOT APPLICABLE 06/13/2019 08:08 AM LDL CHOLESTEROL (DIRECT MEASURE) - [facility] NOT APPLICABLE 07/20/2018 02:42 PM LDL CHOLESTEROL (DIRECT MEASURE) - [facility] 148 (H) 05/10/2013 12:43 PM LDL CHOLESTEROL (DIRECT MEASURE) - [facility] 149 (H) 07/01/2010 11:47 AM Lab Results Component Value Date/Time ALT - [facility] 13 10/12/2023 12:02 PM ALT - [facility] 14 05/27/2020 10:36 AM Hemoglobin AIC Results: Lab Results Component Value Date/Time HEMOGLOBIN A1C - [facility] 5.9 (H) 12/07/2023 10:54 AM HEMOGLOBIN A1C - [facility] 6.2 (H) 06/03/2023 09:43 AM HEMOGLOBIN A1C - [facility] 6.1 (H) 02/01/2023 09:18 AM HEMOGLOBIN A1C - [facility] 6.2 (H) 05/27/2020 10:36 AM HEMOGLOBIN A1C - [facility] 6.4 (H) 12/27/2019 03:55 PM HEMOGLOBIN A1C - [facility] 6.3 (H) 06/13/2019 08:08 AM documented in this encounter Plan of Treatment Upcoming Encounters Date Type Department Care Team (Late st Contact Info) Description 04/03/2024 10:15 AM EDT Nurse Only Family Practice 65 [facility] [address] [facility] [place] [phone] College, Nurse Fam Prac [address] [place] [address] 04/07/2024 11:20 AM EDT Office Visit Family Practice [address] [place] [address] [address] [facility] [place] [phone] Jeanine Woo DO [address] [place] [address] 09/11/2024 10:00 AM EDT Nurse Only Family Practice [address] [place] [address] 293 [place] [phone] Loree Osman, COLE 293 [place] [phone] 01/23/2025 10:20 AM EDT Office Visit Dermatology [facility] 200 [facility] [address] Deidre Barragan PA-C [address] [facility] [address] Health Maintenance Due Date Last Done Comments Hepatitis B Vaccine (2 of 3 - 19+ 3-dose series) 12/04/2016 11/06/2016 Albumin/Creatinine Ratio 04/19/202404/19/2 023, 04/16/2023, 05/22/2022, Additional history exists Diabetic [...] ASSESSMENT COMPLETED IN PAST YEAR FOR COPD 01/02/2025 01/03/2024 DXA Scan 03/08/2026 03/08/2024, 08/20, 09/08/2021, Additional history exists DTap/Tdap Vaccines (3 - Td or Tdap) 06/04/2031 06/04/2021, 05/06/2011, 01/14/2000 Pneumococcal Vaccine: 65+ Years Completed 11/06/2016, 08/22/2014, 11/24/2006 Zoster Vaccines Completed 08/28/2019, 04/22, 08/01/2008 Alpha-1 Antitrypsin Completed 08/06/2021 VITAMIN D LEVEL ONCE IN A LIFETIME-USE SMARTSET# [id number] Completed 06/03/2023, 04/09/2022, 06/04/2021, Additional history exists COVID-19 Vaccine Completed 03/04/2024, , 03/14/2023, Additional history exists Influenza Vaccine (FLU shot) Completed 12/2023, 03/02/2023, 03/31/2022, Additional history exists HPV (Gardasil) Vaccine Aged Out No lo nger eligible based on patient's age to complete this topic MENINGOCOCCAL (MENACTRA/MENVEO) Aged Out No longer eligible based on patient's age to complete this topic documented as of this encounter Medical Devices Implanted Type Area Highway Engineering Technician Device Identifier Shelf Expiration Date Model / Serial / Lot Lens 19.0 M160l - [id number] - [id number] Implanted:Qty: 1 on 11/28/2015 by Vinh Richardson MD at OR [facility] Right: Eye BA[employer]CH [employer] LOMB : SURGICAL 08/18/2016 [id number] / [id number] / [id number] Lens Intraoc 22.0 - [id number] - [id number] Implanted:Qty: 1 on 01/23/2020 by Ric Mcdonald MD at OR [facility] Left: Eye BAUSCH [employer] LOMB 07/21/2024 [id number] / [id number] / [id number] documented as of this encounter Visit Diagnoses Diagnosis Major depressive disorder, recurrent episode, moderate (HCC) Major depressive disorder, recurrent episode, moderate documented in this encounter Advance Directives Documents on File Type Date Recorded Patient A P Manager Expl anation POLST 10/01/2022 [place] [facility] FOR LIFE-SUSTAINING TREATMENT * Full Code (Latest Code Status on File) Date Activated Date Inactivated Comments 11/28/2015 6:26 AM 11/28/2015 12:14 PM This order re flects the patients wishes and were consensually agreed upon. Care Teams [facility] Relationship Specialty Start Date End Date Jeanine Woo DO [address] [place] [address] PCP - General Family Medicine 12/07/23 documented as of this encounter
--- OUTSIDE RECORDS SUMMARY | 2024-07-01 04:11 | External Medical Summary ---
Author Name Unknown Address Unknown Organization K01:[facility] – [place] - [address] [facility] [address] Laboratory Report Ordering Provider Test Date Status AMNA BERKOWITZ 04/07/2024 10:48:09 Final Observation Date Value Abnormality Reference (Units ) Status BUN 04/07/2024 10:48:09 10 6-20 (mg/dL) Final Creatinine 04/07/2024 10:48:09 0.7 0.5-1.0 (mg/dL) Final Glomerular filtration rate/1.73 sq M.predicted [Volume Rate/Area] in Serum, Plasma or Blood by Creatinine-based formula (CKD-EPI) 04/07/2024 10:48:09 87 >=60 (mL/min) Final eGFR is calculated based on the CKD-EPI 2020 equation. Sodium 04/07/2024 10:48:09 137 135-146 (m mol/L) Final Potassium 04/07/2024 10:48:09 4.7 3.5-5.1 (m mol/L) Final Cl 04/07/2024 10:48:09 101 98-107 (mm ol/L) Final CO2 04/07/2024 10:48:09 25 22-32 (mmo l/L) Final Anion gap 04/07/2024 10:48:09 11 7-15 (mmol /L) Final Glucose 04/07/2024 10:48:09 106 70-120 (mg /dL) Final Albumin 04/07/2024 10:48:09 4.4 3.8-5.0 (g /dL) Final AST (Aspartate aminotransferase) 04/07/2024 10:48:09 29 10-35 (U/L) Final Results may be falsely eleva darrel due to hemolysis. Alk Phos 04/07/2024 10:48:09 108 35-130 (U/ L) Final Bilirubin, Total 04/07/2024 10:48:09 0.5 <=1 .2 (mg/dL) Final Calcium 04/07/2024 10:48:09 9.4 8.4-10.2 ( mg/dL) Final Protein 04/07/2024 10:48:09 6.5 6.0-8.3 (g /dL) Final ALT (Alanine aminotransferase) 04/07/2024 10:48:09 14 10-35 (U/L) Final Performing Location [facility] – [place], [place] - [address] [facility] [address]
--- OUTSIDE RECORDS SUMMARY | 2024-07-01 04:11 | External Medical Summary | Summary of Care ---
Author Name Unknown Organization [facility] Address [address] [place] [address] Phone [phone] Care Team Providers Care Shuttle Spotter Name Role Phone Jeanine Franco DO Primary Care Provider [phone] Encounter Details Date Type Department Care Team (Late st Contact Info) Description 04/03/2024 Documentation HEALTH & WELLNESS Alayna Farah, Health Still Operator Allergies Active Allergy Reactions Criticality Noted Date Comments Cm Inhibitors Cough Low 09/11/2008 Amoxicillin 11/17/2019 Diffuse rash documented as of this encounter (statuses as of 04/03/2024) Medications Medication Sig Dispensed Refills Start Date [...] 3 08/25/2023 08/24/2024 Active OneTouch Delica Plus [id number] USE TO TEST BLOOD SUGARS ONCE DAILY [...] as of this encounter (statuses as of 04/03/2024) Active Problems Problem Noted Date Diagnosed Date [...] as of this encounter (statuses as of 04/03/2024) Resolved Problems Problem Noted Date Diagnosed Date [...] as of this encounter (statuses as of 04/03/2024) Immunizations Name Administration Dates Next Due COVID-19 mRNA, LNP-s, No Pre serve, 2-Dose Series (Moderna) 04/10/2021,08/19/2020,07/16/2020 COVID-19 mRNA, LNP-s, No Pre serve, 2-Dose Series (Cardley) 10/06/2021 COVID-19, MRNA-LNP, 23-24, P F, 30 MCG/0.3 mL, 12 YRS AND ABOVE, IM ([facility]) 11/17/2023,03/14/2023 COVID-19, MRNA-LNP, 24-25, P R, 30MCG/0.3ML, IM, 12YRS AND ABOVE ([facility]) 03/04/2024 Covid-19, Mrna, Lnp-s, Pf, B ivalent, 30 Mcg, IM, 12 yrs and above (Cardley) 03/24/2022 Hepatitis B, 20+ yrs 11/06/2016 Pneumococcal Conjugate Vacc, 13 Valent (Prevnar) 08/22/2014 Pneumococcal Conjugate Vacci ne, 20-valent ([id number]) 04/03/2024 Pneumococcal Polysaccharide PPV23 (Pneumovax) 11/06/2016,11/24/2006 RSV [...] encounter Progress Notes * Alayna Farah Health Still Operator - 04/03/2024 10:57 AM EDT SESSION TYPE: Group exercise session: Exercise Subtype or Modality: Flexibility Training Patient completed a group exercise session which consisted of flexibility training. All exercise was focused on improving flexibility and mobility of upper and lower body. She tolerated exercise welland had no complaints. documented in this encounter Plan of Treatment Upcoming Encounters Date Type Department Care Team (Late st Contact Info) Description 04/07/2024 11:20 AM EDT Office Visit Family Practice 65 [facility] 293 [place] [phone] Jeanine Franco DO 293 [place] [address] 09/11/2024 10:00 AM EDT Nurse Only Family Practice 65 [facility] 293 [place] [phone] Loree Osman RN 293 [place] [phone] 01/23/2025 10:20 AM EDT Office Visit Dermatology [facility] [address] [place] [address] Deidre Barragan PA-C [address] [facility] [address] Health Maintenance Due Date Last Done Comments [...] D LEVEL ONCE IN A LIFETIME-USE SMARTSET# [id number] Completed 06/03/2023, 04/09/2022, 06/04/2021, Additional history exists COVID-19 Vaccine Completed 03/04/2024, , 03/14/2023, Additional history exists Influenza Vaccine (FLU shot) Completed 12/2023, 03/02/2023, 03/31/2022, Additional history exists Pneumococcal Vaccine: 65+ Years Completed 04/03/2024, 11/06/2016, 08/22/2014, Additional history exists HPV (Gardasil) Vaccine Aged Out No lo nger eligible based on patient's age to complete this topic MENINGOCOCCAL (MENACTRA/MENVEO) Aged Out No longer eligible based on patient's age to complete this topic documented as of this encounter Medical Devices Implanted Type Area Clay Stain Mixer Device Identifier Shelf Expiration Date Model / Serial / Lot Lens 19.0 M160l - [id number] - [id number] Implanted:Qty: 1 on 11/28/2015 by Vinh Richardson MD at OR [facility] Right: Eye BAUSCH & LOMB : SURGICAL 08/18/2016 [id number] / [id number] / [id number] Lens Intraoc 22.0 - [id number] - [id number] Implanted:Qty: 1 on 01/23/2020 by Ric Mcdonald MD at OR [facility] Left: Eye BAUSCH & LOMB 07/21/2024 [id number] / [id number] / [id number] documented as of this encounter Advance Directives Documents on File Type Date Recorded Patient City Auditor Expl anation POLST 10/01/2022 [facility] FOR LIFE-SUSTAINING TREATMENT * Full Code (Latest Code Status on File) Date Activated Date Inactivated Comments 11/28/2015 6:26 AM 11/28/2015 12:14 PM This order re flects the patients wishes and were consensually agreed upon. Care Teams Shuttle Spotter Relationship Specialty Start Date End Date Jeanine Franco DO [address] [place] [address] PCP - General Family Medicine 12/07/23 documented as of this encounter
--- OUTSIDE RECORDS SUMMARY | 2024-07-01 04:11 | External Medical Summary | Summary of Care ---
Author Name Unknown Organization [facility] Address [address] [place] [address] Phone [phone] Care Team Providers Care Merchandising Specialist Name Role Phone Jeanine Franco DO Primary Care Provider Reason for Visit * Reason Onset Date Comments Other 03/28/2024 Fall Encounter Details Date Type Department Care Team (Latest Contact Info) Description 03/28/2024 Telephone HEALTH & WELLNESS Jeanine Franco DO [address] [place] [address] Other (Fall) Allergies Active Allergy Reactions Criticality Noted Date Comments Cm Inhibitors Cough Low 09/11/2008 Amoxicillin 11/17/2019 Diffuse rash documented as of this encounter (statuses as of 03/29/2024) Medications Medication Sig Dispensed Refills Start Date [...] 3 08/25/2023 08/24/2024 Active OneTouch Delica Plus [id number] USE TO TEST BLOOD SUGARS ONCE DAILY [...] every other day 10 Tablet 3 03/08/2024 Active Citalopram Hydrobromide 20 MG Oral Tablet (CeleXA)Indications :Major depressive disorder, recurrent episode, moderate (HCC) Take 1 Tablet by mouth every other day. 50 Tablet 3 03/09/2024 Active documented as of this encounter (statuses as of 03/29/2024) Active Problems Problem Noted Date Diagnosed Date [...] as of this encounter (statuses as of 03/29/2024) Resolved Problems Problem Noted Date Diagnosed Date [...] as of this encounter (statuses as of 03/29/2024) Immunizations Name Administration Dates Next Due COVID-19 mRNA, LNP-s, No Pre serve, 2-Dose Series (Moderna) 04/10/2021,08/19/2020,07/16/2020 COVID-19 mRNA, LNP-s, No Pre serve, 2-Dose Series (Pfizer) 10/06/2021 COVID-19, MRNA-LNP, 23-24, P F, 30 MCG/0.3 mL, 12 YRS AND ABOVE, IM ([facility]) 11/17/2023,03/14/2023 COVID-19, MRNA-LNP, 24-25, P R, 30MCG/0.3ML, IM, 12YRS AND ABOVE (Monscierge) 03/04/2024 Covid-19, Mrna, Lnp-s, Pf, B ivalent, 30 Mcg, IM, 12 yrs and above ([employer]) 03/24/2022 Hepatitis B, 20+ yrs 11/06/2016 [...] encounter Miscellaneous Notes * Telephone Encounter - Jeanine Franco DO - 03/29/2024 1:44 PM EDT Noted. * Telephone Encounter - Loree LaboyKEITH - 03/29/2024 1:14 PM EDT Called to check status of patient, states she has right shoulder pain. Offered appt, states she feels she will be ok. Thank you * Telephone Encounter - Jeanine Franco DO - 03/29/2024 9:39 AM EDT Noted. Please see how pt is doing today. * Telephone Encounter - Alayna Farah Health Punch Press Operator - 03/28/2024 8:11 AM EDT Patient contacted me via email this morning to let me know she wouldn't be in exercise class this morning. She stated that she fell and is a little sore. I asked the patient how she fell and if she needed to speak to a nurse. She stated that she got up in the middle of the night and tripped over her own feet. She will be playing pinCloudJayle here this afternoon and informed me that she would touch base with someone if she doesn't feel any better or feels worse. documented in this encounter Plan of Treatment Upcoming Encounters Date Type Department Care Team (Late st Contact Info) Description 04/03/2024 10:15 AM EDT Nurse Only Family Practice 65 [facility] 293 [place] [address] College, Nurse Fam Prac 65 [facility] 293 [facility], [place] [address] 04/07/2024 11:20 AM EDT Office Visit Family Practice 65 [facility] 293 [place] [address] Jeanine Franco DO 293 [place] [address] 09/11/2024 10:00 AM EDT Nurse Only Family Practice [address] [place] [address] [address] [place], [place] [phone] Loree Osman, RN [address] [place], [place] [phone] 01/23/2025 10:20 AM EDT Office Visit Dermatology [facility] 200 [facility], [place] [address] Deidre Barragan PA-C [address] [facility] [place] [address] Health Maintenance Due Date Last Done Comments [...] D LEVEL ONCE IN A LIFETIME-USE SMARTSET# [id number] Completed 06/03/2023, 04/09/2022, 06/04/2021, Additional history exists [...] this encounter Medical Devices Implanted Type Area Connie Scratcher Device Identifier Shelf Expiration Date Model / Serial / Lot Lens 19.0 M160l - [id number] - [id number] Implanted:Qty: 1 on 11/28/2015 by Vinh Richarsdon MD at OR [facility] Right: Eye BAUSCH & LOMB : SURGICAL 08/18/2016 [id number]-13.0 / [id number] / [id number] Lens Intraoc 22.0 - [id number] - [id number] Implanted:Qty: 1 on 01/23/2020 by Ric Mcdonald MD at OR [facility] Left: Eye BAUSCH & LOMB 07/21/2024 [id number] / [id number] / [id number] documented as of this encounter Advance Directives Documents on File Type Date Recorded Patient Cytogenetic Technician Expl anation POLST 10/01/[address] [place] [address] [facility] FOR LIFE-SUSTAINING TREATMENT * Full Code (Latest Code Status on File) Date Activated Date Inactivated Comments 11/28/2015 6:26 AM 11/28/2015 12:14 PM This order re flects the patients wishes and were consensually agreed upon. Care Teams Merchandising Specialist Relationship Specialty Start Date End Date Jeanine Franco DO [address] [facility] [place] [address] PCP - General Family Medicine 12/07/23 documented as of this encounter
--- OUTSIDE RECORDS SUMMARY | 2024-07-01 04:11 | External Medical Summary ---
Author Name Unknown Address Unknown Organization K01:[facility] [address] [facility] [place] [address] Laboratory Report Ordering Provider Test Date Status AMNA BERKOWITZ 04/07/2024 10:48:09 Final Observation Date Value Abnormality Reference (Units ) Status WBC, Total 04/07/2024 10:48:09 4.24 4.00-10.80 (K/uL) Final RBC 04/07/2024 10:48:09 4.24 3.85-5.15 (M/uL) Final Hemoglobin 04/07/2024 10:48:09 13.3 12.0-15.3 (g/dL) Final HCT 04/07/2024 10:48:09 40.0 36.0-45.2 (%) Final MCV 04/07/2024 10:48:09 94.3 81.5-97.5 (fL) Final MCH 04/07/2024 10:48:09 31.4 27.0-34.0 (pg) Final MCHC 04/07/2024 10:48:09 33.3 32.0-36.0 (g/dL) Final RDW 04/07/2024 10:48:09 12.4 11.5-15.5 (%) Final Platelets 04/07/2024 10:48:09 277 140-400 (K/uL) Final MPV 04/07/2024 10:48:09 9.8 6.6-11.1 (fL) Final Nucleated erythrocytes/100 leukocytes [Ratio] in Blood by Automated count 04/07/2024 10:48:09 0 <=0 (/100 WBCs) Final Performing Location [facility] [place] [address] [place] [address]
--- OUTSIDE RECORDS SUMMARY | 2024-07-01 04:11 | External Medical Summary ---
Author Name Unknown Address Unknown Organization K01:[facility]ATORY [facility] [place] - [address] [place] [address] Laboratory Report Ordering Provider Test Date Status AMNA BERKOWITZ 04/07/2024 10:48:09 Final Observation Date Value Abnormality Reference (Units ) Status Vitamin B12 04/07/2024 10:48:09 [phone] (pg/mL) Final Performing Location LABORATORY [facility] - [address] [place] [address]
--- OUTSIDE RECORDS SUMMARY | 2024-07-01 04:11 | External Medical Summary | Summary of Care ---
Author Name Unknown Organization [facility] Address [address] [place] [address] Phone [phone] Care Team Providers Care Sheeter Waxer Operator Name Role Phone Jeanine Franco DO Primary Care Provider [phone] Encounter Details Date Type Department Care Team (Late st Contact Info) Description 04/06/2024 Documentation HEALTH & WELLNESS Alayna Farah, Health Preparation Supervisor [place] Allergies Active Allergy Reactions Criticality Noted Date Comments Cm Inhibitors Cough Low 09/11/2008 Amoxicillin 11/17/2019 Diffuse rash documented as of this encounter (statuses as of 04/06/2024) Medications Medication Sig Dispensed Refills Start Date [...] 3 08/25/2023 08/24/2024 Active OneTouch Delica Plus [id number] USE TO TEST BLOOD SUGARS ONCE DAILY [...] as of this encounter (statuses as of 04/06/2024) Active Problems Problem Noted Date Diagnosed Date [...] as of this encounter (statuses as of 04/06/2024) Resolved Problems Problem Noted Date Diagnosed Date [...] as of this encounter (statuses as of 04/06/2024) Immunizations Name Administration Dates Next Due COVID-19 mRNA, LNP-s, No Pre serve, 2-Dose Series (Moderna) 04/10/2021,08/19/2020,07/16/2020 COVID-19 mRNA, LNP-s, No Pre serve, 2-Dose Series ([facility]) 10/06/2021 COVID-19, MRNA-LNP, 23-24, P F, 30 MCG/0.3 mL, 12 YRS AND ABOVE, IM ([facility]) 11/17/2023,03/14/2023 COVID-19, MRNA-LNP, 24-25, P R, 30MCG/0.3ML, IM, 12YRS AND ABOVE ([facility]) 03/04/2024 Covid-19, Mrna, Lnp-s, Pf, B ivalent, 30 Mcg, IM, 12 yrs and above ([facility]) 03/24/2022 Hepatitis B, 20+ yrs 11/06/2016 Pneumococcal Conjugate Vacc, 13 Valent (Prevnar) 08/22/2014 Pneumococcal Conjugate Vacci ne, 20-valent ([id number]) 04/03/2024 Pneumococcal Polysaccharide PPV23 (Pneumovax) 11/06/2016,11/24/2006 RSV [...] encounter Progress Notes * Alayna Farah Health Preparation Supervisor [place] - 04/06/2024 1:54 PM EDT Visit Type: Return Wellness Return Visit Type: Group exercise Cardiovascular training documented in this encounter Plan of Treatment Upcoming Encounters Date Type Department Care Team (Late st Contact Info) Description 04/07/2024 10:00 AM EDT Office Visit Family Practice 65 [facility] 293 [place] [phone] Jeanine Franco DO [address] [place] [address] 09/11/2024 10:00 AM EDT Nurse Only Family Practice 65 [facility] 293 [place] [phone] Loree Osman, COLE [address] [place] [address] 01/23/2025 10:20 AM EDT Office Visit Dermatology [facility] 200 [facility] [place] [address] Deidre Barragan, [place] [address] [place] [address] Health Maintenance Due Date Last Done Comments [...] D LEVEL ONCE IN A LIFETIME-USE SMARTSET# [id number] Completed 06/03/2023, 04/09/2022, 06/04/2021, Additional history exists [...] this encounter Medical Devices Implanted Type Area Strip Tank Tender Device Identifier Shelf Expiration Date Model / Serial / Lot Lens 19.0 M160l - [id number] - [id number] Implanted:Qty: 1 on 11/28/2015 by Vinh Richardson MD at OR [facility] Right: Eye BAUSCH & LOMB : SURGICAL 08/18/2016 [id number]-57.0 / [id number] / [id number] Lens Intraoc 22.0 - [id number] - [id number] Implanted:Qty: 1 on 01/23/2020 by Ric Mcdonald MD at OR [facility] Left: Eye BAUSCH & LOMB 07/21/2024 [id number] / [id number] / [id number] documented as of this encounter Advance Directives Documents on File Type Date Recorded Patient Epoxy Specialist Expl anation POLST 10/01/2022 [place] OR [facility] FOR LIFE-SUSTAINING TREATMENT * Full Code (Latest Code Status on File) Date Activated Date Inactivated Comments 11/28/2015 6:26 AM 11/28/2015 12:14 PM This order re flects the patients wishes and were consensually agreed upon. Care Teams Sheeter Waxer Operator Relationship Specialty Start Date End Date Jeanine Franco DO [address] [place] [address] PCP - General Family Medicine 12/07/23 documented as of this encounter
--- OUTSIDE RECORDS SUMMARY | 2024-07-01 04:11 | External Medical Summary ---
Author Name Unknown Address Unknown Organization K01:LABORATORY [facility] [place] - [address] [place] [address] Laboratory Report Ordering Provider Test Date Status AMNA BERKOWITZ 04/07/2024 10:48:09 Final Normal: <30 mg/g creatinine< br/>High: 30-300 mg/g creatinine
Very High: >300 mg/g creatinine
Nephrotic: >2200 mg/g creatinine Observation Date Value Abnormality Reference (Units ) Status Albumin, Urine 04/07/2024 10:48:09 4.00 (mg/dL) Final Creatinine, Urine 04/07/2024 10:48:09 58 (mg/dL) Final Albumin/Creatinine [Mass Ratio] in Urine 04/07/2024 10:48:09 69 Above high normal <30 (mg/g Creat) Final Performing Location LABORATORY [facility] [place] - [address] [place] [address]
--- OUTSIDE RECORDS SUMMARY | 2024-07-01 04:11 | External Medical Summary ---
Author Name Unknown Address Unknown Organization : Laboratory Report Ordering Provider Test Date Status AMNA BERKOWITZ 04/07/2024 10:40:00 Final Observation Date Value Abnormality Reference (Units ) Status Color of Urine by Auto 04/07/2024 10:40:00 Yellow Light Yellow, Yellow Final Clarity, Urine 04/07/2024 10:40:00 Clear Clear Final Glucose [Mass/volume] in Urine by Automated test strip 04/07/2024 10:40:00 Negative Negative (mg/dL) Final Bilirubin.total [Presence] in Urine by Automated test strip 04/07/2024 10:40:00 Negative Negative Final Ketones [Mass/volume] in Urine by Automated test strip 04/07/2024 10:40:00 Negative Negative (mg/dL) Final Specific gravity, Urine 04/07/2024 10:40:00 1.015 1.003-1.030 Final Hemoglobin [Presence] in Urine by Automated test strip 04/07/2024 10:40:00 Small Abnormal Negative Final pH, Urine 04/07/2024 10:40:00 5.5 5.0, 5.5, 6.0, 6.5, 7.0, 7.5 (units) Final Protein [Mass/volume] in Urine by Automated test strip 04/07/2024 10:40:00 Negative Negative (mg/dL) Final Urobilinogen, Urine 04/07/2024 10:40:00 0.2 0.2, 1.0 (mg/dL) Final Nitrite [Presence] in Urine by Automated test strip 04/07/2024 10:40:00 Negative Negative Final Leukocyte esterase [Presence] in Urine by Automated test strip 04/07/2024 10:40:00 Negative Negative Final Performing Location
--- OUTSIDE RECORDS SUMMARY | 2024-07-01 04:11 | External Medical Summary | Summary of Care ---
Author Name Unknown Organization [facility] Address [address] [place] [address] Phone [phone] Care Team Providers Care Sexual Assault Social Worker Name Role Phone Jeanine Franco DO Primary Care Provider [phone] Encounter Details Date Type Department Care Team (Late st Contact Info) Description 03/29/2024 Documentation HEALTH & WELLNESS Alayna Farah, Health Account Retention Representative Allergies Active Allergy Reactions Criticality Noted Date [...] 3 08/25/2023 08/24/2024 Active OneTouch Delica Plus Nktxhv29K USE TO TEST BLOOD SUGARS ONCE DAILY [...] mRNA, LNP-s, No Pre serve, 2-Dose Series ([employer]utenberg[employer]) 10/06/2021 COVID-19, MRNA-LNP, 23-24, P F, 30 MCG/0.3 mL, 12 YRS AND ABOVE, IM ([facility]) 11/17/2023,03/14/2023 COVID-19, MRNA-LNP, 24-25, P R, 30MCG/0.3ML, IM, 12YRS AND ABOVE ([employer] [facility] [employer] 03/04/2024 Covid-19, Mrna, Lnp-s, Pf, B ivalent, 30 Mcg, IM, 12 yrs and above ([employer]berg[employer]) 03/24/2022 Hepatitis B, 20+ yrs 11/06/2016 Pneumococcal [...] encounter Progress Notes * Alayna Farah Health Account Retention Representative - 03/29/2024 9:55 AM EDT SESSION TYPE: Group exercise session: Exercise Subtype or Modality: Balance Training Patient completed a group exercise session which consisted of balance training. All exercises included improving balance and strength of lower extremities. She tolerated the exercises well and had nocomplaints. documented in this encounter Plan of Treatment Upcoming Encounters Date Type Department Care Team (Late st Contact Info) Description 04/03/2024 10:15 AM EDT Nurse Only Family Practice 65 [facility] 293 [place] [phone] College, Nurse [facility] Pr[facility] [address] [place] [address] 04/07/2024 11:20 AM EDT Office Visit Family Practice 65 [facility] [address] [place] [phone] Jeanine Franco DO 293 [place] [address] 09/11/2024 10:00 AM EDT Nurse Only Family Practice 65 [facility] [address] [place] [phone] Loree Osman RN 293 [place] [phone] 01/23/2025 10:20 AM EDT Office Visit Dermatology [facility] 200 [place] [address] Deidre Barragan PA-C [address] [facility] [address] Health Maintenance Due Date Last Done Comments [...] D LEVEL ONCE IN A LIFETIME-USE SMARTSET# [id number] Completed 06/03/2023, 04/09/2022, 06/04/2021, Additional history exists [...] this encounter Medical Devices Implanted Type Area Car Hopper Device Identifier Shelf Expiration Date Model / Serial / Lot Lens 19.0 M160l - [id number] - [id number] Implanted:Qty: 1 on 11/28/2015 by Vinh Richardson MD at OR [facility] Right: Eye BAUSCH & LOMB : SURGICAL 08/18/2016 [id number]-57.0 / [id number] / [id number] Lens Intraoc 22.0 - [id number] - [id number] Implanted:Qty: 1 on 01/23/2020 by Ric Mcdonald MD at OR [facility] Left: Eye BAUSCH & LOMB 07/21/2024 [id number] / [id number] / [id number] documented as of this encounter Advance Directives Documents on File Type Date Recorded Patient Display Specialist Expl anation POLST 10/01/2022 [facility] FOR LIFE-SUSTAINING TREATMENT * Full Code (Latest Code Status on File) Date Activated Date Inactivated Comments 11/28/2015 6:26 AM 11/28/2015 12:14 PM This order re flects the patients wishes and were consensually agreed upon. Care Teams Sexual Assault Social Worker Relationship Specialty Start Date End Date Jeanine Franco DO [address] [place] [address] PCP - General Family Medicine 12/07/23 documented as of this encounter
--- OUTSIDE RECORDS SUMMARY | 2024-07-01 04:11 | External Medical Summary | Summary of Care ---
Author Name Unknown Organization [facility] Address [address] [place] [address] Phone [phone] Care Team Providers Care Technical Solution Architect Name Role Phone Jeanine Franco DO Primary Care Provider [phone] Encounter Details Date Type Department Care Team (Late st Contact Info) Description 04/05/2024 Documentation [facility]ALTH [facility] WELLNESS Alayna Farah, Health Speeder Tender Allergies Active Allergy Reactions Criticality Noted Date Comments Cm Inhibitors Cough Low 09/11/2008 Amoxicillin 11/17/2019 Diffuse rash documented as of this encounter (statuses as of 04/05/2024) Medications Medication Sig Dispensed Refills Start Date [...] 3 08/25/2023 08/24/2024 Active OneTouch Delica Plus [id number] USE TO TEST BLOOD SUGARS ONCE DAILY [...] as of this encounter (statuses as of 04/05/2024) Active Problems Problem Noted Date Diagnosed Date [...] as of this encounter (statuses as of 04/05/2024) Resolved Problems Problem Noted Date Diagnosed Date [...] as of this encounter (statuses as of 04/05/2024) Immunizations Name Administration Dates Next Due COVID-19 mRNA, LNP-s, No Pre serve, 2-Dose Series (Moderna) 04/10/2021,08/19/2020,07/16/2020 COVID-19 mRNA, LNP-s, No Pre serve, 2-Dose Series ([facility]) 10/06/2021 COVID-19, MRNA-LNP, 23-24, P F, 30 MCG/0.3 mL, 12 YRS AND ABOVE, IM [facility]) 11/17/2023,03/14/2023 COVID-19, MRNA-LNP, 24-25, P R, 30MCG/0.3ML, IM, 12YRS AND ABOVE ([facility]) 03/04/2024 Covid-19, Mrna, Lnp-s, Pf, B ivalent, 30 Mcg, IM, 12 yrs and above ([facility]) 03/24/2022 Hepatitis B, 20+ yrs 11/06/2016 Pneumococcal Conjugate Vacc, 13 Valent (Prevnar) 08/22/2014 Pneumococcal Conjugate Vacci ne, 20-valent ([id number]) 04/03/2024 Pneumococcal Polysaccharide PPV23 (Pneumovax) 11/06/2016,11/24/2006 RSV [...] encounter Progress Notes * Alayna Farah Health Speeder Tender - 04/05/2024 9:57 AM EDT Visit Type: Return Wellness Return Visit Type: Group exercise Balance training documented in this encounter Plan of Treatment Upcoming Encounters Date Type Department Care Team (Late st Contact Info) Description 04/07/2024 11:20 AM EDT Office Visit Family Practice [address] [facility] [address] [place] [phone] Jeanine Franco DO [address] [place] [address] 09/11/2024 10:00 AM EDT Nurse Only Family Practice [address] [facility] [address] [place] [phone] Loree Osman, COLE [address] [place] [address] 01/23/2025 10:20 AM EDT Office Visit Dermatology [facility] [address] [facility] [place] [address] Deidre Barragan, MERVAT-Latrice [address] [place] [address] Health Maintenance Due Date Last Done Comments [...] D LEVEL ONCE IN A LIFETIME-USE SMARTSET# [id number] Completed 06/03/2023, 04/09/2022, 06/04/2021, Additional history exists [...] this encounter Medical Devices Implanted Type Area Bow String Maker Device Identifier Shelf Expiration Date Model / Serial / Lot Lens 19.0 M160l - [id number] - [id number] Implanted:Qty: 1 on 11/28/2015 by Vinh Richardson MD at OR [facility] Right: Eye [employer] : SURGICAL 08/18/2016 HS87G-20.0 / [id number] / [id number] Lens Intraoc 22.0 - [id number] - [id number] Implanted:Qty: 1 on 01/23/2020 by Ric Mcdonald MD at OR [facility] Left: Eye [employer] 07/21/2024 [id number] / [id number] / [id number] documented as of this encounter Advance Directives Documents on File Type Date Recorded Patient Bulb Sorter Expl anation POLST 10/01/2022 [place] [facility] FOR LIFE-SUSTAINING TREATMENT * Full Code (Latest Code Status on File) Date Activated Date Inactivated Comments 11/28/2015 6:26 AM 11/28/2015 12:14 PM This order re flects the patients wishes and were consensually agreed upon. Care Teams Technical Solution Architect Relationship Specialty Start Date End Date Jeanine Franco DO [address] [facility] [place] [address] PCP - General Family Medicine 12/07/23 documented as of this encounter
--- OUTSIDE RECORDS SUMMARY | 2024-07-01 04:11 | External Medical Summary | Summary of Care ---
Author Name Unknown Organization [facility] Address [address] [place] [address] Phone [phone] Care Team Providers Care Retail Account Executive Name Role Phone Jeanine Franco DO Primary Care Provider [phone] Reason for Referral * Evaluate & Treat - Unlimited Visits (Within 10 days (routine)) - Authorized Specialty Diagnoses / Procedures Referred By Dianne posada Referred To Contact Sleep Medicine / Sleep Disorders Diagnoses DARI (obstructive sleep apnea) Jeanine Franco DO [address] [place] [address] Referral ID Status Reason Start Date Expiration Date Visits Requested Visits Authorized [id number] Authorized Specialty Services Required 4 2 2 Question Answer GS CAD SLEEP MED ADULT REFERRAL Sleep Apnea Testing and Management Does the patient snore and/or gasp at night or has been told they stop breathing at night? Yes, document patient's symptoms in progress note Referral Priority Within 10 days (routine) Where should this appointment be scheduled? [facility] * Precert (Within 10 days (routine)) - Authorized Specialty Diagnoses / Procedures Referred By Contsergey t Referred To Contact Radiology Diagnoses Multiple falls Memory difficulties Procedures CT HEAD/BRAIN WO CONTRAST Jeanine Franco DO [address] [place] [address] Referral ID Status Reason Start Date Expiration Date V isits Requested Visits Authorized [id number] Authorized 04/07/2024 999 999 Reason for Visit * Reason Comments Follow Up Encounter Details Date Type Department Care Team (Latest Contact Info) Description 04/07/2024 10:00 AM EDT Office Visit Family Practice [address], [place] [address] [place] [address] Jeanine Franco, DO [address] [facility] [place] [address] Type 2 diabetes mellitus with polyneuropathy (HCC)*; Multiple falls; Alcohol abuse; Risk and functional assessment; Memory difficulties; Rash and nonspecific skin eruption; DARI (obstructive sleep apnea) Allergies Active Allergy Reactions Criticality Noted Date [...] OR OTHER MEDICATIONS 100 Tablet 2 07/26/2023 Active OneTouch Verio In Vitro Strip (Glucose Blood)Indications: Type 2 diabetes mellitus with hemoglobin A1c goal of less than 7.0% (HCC) USE TO TEST BLOOD SUGAR ONCE DAILY 100 Strip 3 08/25/2023 5 Active OneTouch Delica Plus [id number] USE TO TEST BLOOD SUGARS ONCE DAILY [...] other day 15 Tablet 5 03/30/2024 Active NATURAL SUPPLEMENT Take 1 Capsule by mouth in the morning. Berbenne synergy 1 capsule daily for blood sugar. 4 Discontinue d(Patient preference/ discontinua tion) documented as of this encounter (statuses as [...] MCG/0.3 mL, 12 YRS AND ABOVE, IM ([facility] 11/17/2023,03/14/2023 COVID-19, MRNA-LNP, 24-25, P R, 30MCG/0.3ML, IM, 12YRS AND ABOVE ([facility]) 03/04/2024 Covid-19, Mrna, Lnp-s, Pf, B ivalent, 30 Mcg, IM, 12 yrs and above (Pfizer) 03/24/2022 Hepatitis B, 20+ yrs 11/06/2016 Influenza, Whole Virus 04/04/2003 PPD 12/10/2004 Pneumococcal Conjugate Vacc, 13 Valent (Prevnar) 08/22/2014 Pneumococcal Conjugate Vacci ne, 20-valent ([id number]) 04/03/2024 Pneumococcal Polysaccharide PPV23 (Pneumovax) 11/06/2016,11/24/2006 RSV [...] Sign Reading Time Taken Comments Blood Pressure 128/76 04/07/2024 10:04 AM EDT Pulse 61 04/07/2024 10:04 AM EDT Temperature 35.9 C (96.7 F) 04/07/2024 10:04 AM E DT Respiratory Rate 14 04/07/2024 10:04 AM EDT Oxygen Saturation 98% 04/07/2024 10:04 AM EDT Inhaled Oxygen Concentration - - Weight 80.8 kg (178 lb 3.2 oz) 04/07/2024 10:04 AM EDT Height 168.9 cm (5' 6.5") 04/07/2024 10:04 AM ED T Body Mass Index 28.33 04/07/2024 10:04 AM EDT documented in this encounter Patient Instructions * Patient Instructions* Su Mckeon LPN - 04/07/2024 10:01 AM EDT Patient Instructions - Fall Prevention (This education is for all patients over 65 regardless of symptoms) Remember to take your current medications as prescribed. In order to prevent falls, you are encouraged to: Exercise Utilize assistive/adaptive devices Avoid multifocal lenses when walking Avoid hazards in home Maintain a regular toileting schedule Any questions please contact our office. Preventing Falls in the Home (This education is for all patients over 65 regardless of symptoms) As you get older, falls are more likely. Thats because your reaction time slows. Your muscles and joints may also get stiffer, making them less flexible. Illness, medications, and vision changes can also affect your balance. A fall could leave you unable to live on your own. To make your home safer, follow these tips: Floors Put nonskid pads under area rugs Remove throw rugs Replace worn floor coverings Tack carpets firmly to each step on carpeted stairs. Put nonskid strips on the edges of uncarpeted stairs Keep floors and stairs free of clutter and cords Arrange furniture so there are clear pathways Clean up any spills right away Bathrooms Install grab bars in the tub or shower Apply nonskid strips or put a nonskid rubber mat in the tub or shower Sit on a bath chair to bathe Use bathmats with nonskid backing Lighting Keep a flashlight in each room Put a nightlight along the pathway between the bedroom and the bathroom Tami Patient Education Copyright 2008 - 2010 Tami except where otherwise noted Preventing Falls: Exercises to Improve Balance, Flexibility, Strength, and Staying Power (This education is for all patients over 65 regardless of symptoms) Certain types of exercises may help make you less likely to fall. Try the ones below. Or do other exercises that your healthcare provider suggests. Depending on your health, you may need to start slowly. Dont let that stop you. Even small amounts of exercise can help you. Be sure to talk to yourhealthcare provider before starting any exercise program. Improve Balance Many types of exercise can help improve balance. Alexander chi and yoga are good examples. Heres another one to try. You can do it anytime and almost anywhere. Stand next to a counter or solid support. Push yourself up onto your tiptoes. Hold for 5 seconds. If you start to lose your balance, hold on to the counter. Rest and repeat 5 times. Work up to holding for 20 to 30 seconds, if you can. Increase Flexibility Being more flexible makes it easier for you to move around safely. Try exercises like the seated hamstring stretch. Sit in a chair and put one foot on a stool. Straighten your leg and reach with both hands down either side of your leg. Reach as far down your leg as you can. Hold for about 20 seconds. Go back to the starting position. Then repeat 5 times. Switch legs. Build Strength Resistance exercises help build strength. You can do them without equipment. Or you can use weights, elastic bands, or special machines. One such exercise is called the biceps curl. You can hold a 1 pound weight or even a can of soup. Do this exercise at least 3 times a week. Strive for everyday. Sit up straight in a chair. Keep your elbow close to your body and your wrist straight. Bend your arm, moving your hand up to your shoulder. Then slowly lower your arm. Repeat 5 times. Switch to the other arm. Build Your Staying Power Aerobic exercises make your heart and lungs stronger so you can keep moving longer. Walking and swimming are two of the best types of exercises you can do. Using a stationary bike is great, too. Find an aerobic exercise that you enjoy. Start slowly and build up. Even 5 minutes is helpful. Aimfor a goal of 30 minutes, at least 3 times a week. You dont have to do 30 minutes in one session. Break it up and walk a little throughout the day. More Helpful Tips Start easy. Slowly work up to doing more. Talk with your healthcare provider about the best exercises for you. Call senior centers or health clubs about exercise programs. If needed, have a family member watch you walk every so often to check your stability. Exercise with a friend. Choose an activity you both enjoy. Try exercises that you can do anytime, anywhere. Here are two examples. Have someone with you when you first try these: Practice walking by placing one foot right in front of the other. Stand up and sit down 10 times. Repeat this throughout the day. PlayBuzz Patient Education Copyright 2008 [employer]zz except where otherwise noted. Preventing Falls: Moving Safely Using a Cane or Walker (This education is for all patients over 65 regardless of symptoms) Keep the cane away from your feet so you dont trip. A walking aid, such as a cane or walker, can help you stay more independent and avoid falls. Remember to keep your walking aid within easy reach when youre in a chair or in bed. And learn how to use it safely so you dont injure yourself. Using a Cane If you have a stronger side, hold the cane on that side. Get your balance. Move the cane and your weaker leg forward. Support your weight on both the cane and your weaker side. Step with your stronger leg. Start again from step 1. If youre using a folding walker, be sure you know how to lock it open. Check that its locked open before each use. Using a Walker Roll the walker (or lift it, if youre using one without wheels) forward about 12 inches. Step forward with your weaker leg first. Use the walker to help keep your balance. Bring your other foot forward to the center of the walker. Start again from step 1. Helpful Tips Check with your healthcare provider about the right walking aid to use. Ask about a walker with a seat attached. Check the tips of your cane or walker to make sure they have nonskid covers. Move slowly from room to room. Dont nicole. Sit down to get dressed. Use a dom pack or backpack to keep your hands free. Get help for jobs that mean climbing, even on a stepstool. [employer] Patient Education Copyright 2008 - 2010 [employer]zz except where otherwise noted. Urinary Incontinence Plan of Care Documentation: (This education is for all patients over 65 regardless of symptoms) Current medications reconciled. Patient encouraged to: Practice kegal exercises Provide education materials Use the restroom every 2 hours throughout the day Limit caffeine, alcohol, spicy foods and acidic foods Keep a bladder diary Limit fluid intake 3-4 hours before bed Lose weight Prevent constipation Take fluid pills at a time when you can get to the bathroom quickly Control sugar better if diabetic Limit fluid intake to 60 oz. per day Wear support stockings (TEDs)if you have edema Su Mckeon LPN 04/07/2024 Kegel Exercises Kegel exercises dont require special clothing or equipment. Theyre easy to learn and simple to do. And if you do them right, no one can tell youre doing them, so they can be done almost anywhere. Your doctor, nurse, or physical therapist can answer any questions you have and help you get started. A Weak Pelvic Floor The pelvic floor muscles may weaken due to aging, and vaginal childbirth, injury, surgery, chronic cough, or lack of exercise. If the pelvic floor is weak, your bladder and other pelvic organs may sag out of place. The urethra may also open too easily and allow urine to leak out. Kegel exercises can help you strengthen your pelvic floor muscles so they can better support the pelvic organs and control urine flow. How Kegel Exercises Are Done Try each of the Kegel exercises described below. When youre doing them, try not to move your leg, buttock, or stomach muscles. While youre urinating, try to stop the flow of urine. Start and stop it as often as you can. Contract as if you were stopping your urine stream, but do it when youre not urinating. Tighten your rectum as if trying not to pass gas. Contract your anus, but dont move your buttocks. Helpful Hints Do your Kegels as often as you can. The more you do them, the faster youll feel the results. Pick an activity you do often as a reminder. For instance, do your Kegels every time you sit down. Tighten your pelvic floor before you sneeze, get up from a chair, cough, laugh, or lift. This protects your pelvic floor from injury and can help prevent urine leakage. Try to hold each Kegel for a slow count to five. You probably wont be able to hold them for thatlong at first, but keep practicing. It will get easier as your pelvic floor gets stronger. Eventually, special weights that you place in your vagina may be recommended to help make your Kegels even more effective. Tami Patient Education Copyright 2009 - 2010 Tami except where otherwise noted. Here are some helpful tips for your urinary incontinence: (This education is for all patients over 65 regardless of symptoms) Practice Kegel exercises Use the restroom every 2 hours throughout the day Limit caffeine, alcohol, spicy foods, and acidic foods Keep a bladder diary Limit fluid intake 3-4 hours before bed Lose weight Prevent constipation Take fluid pills at a time when can get to the bathroom quickly Control sugar better if diabetic Limit fluid intake to 60 oz. per day Any questions, please feel free to contact our office. documented in this encounter Progress Notes * Jeanine Franco, DO - 04/07/2024 10:01 AM EDT SUBJECTIVE: Chief Complaint Patient presents with Follow Up HPI: Dominique Sloan is a 79 year old female who presents today for regular return. Pt states she had irineo on her left shoulder. It is apparently gone now. Somewhat itchy. She has a lump there as well.She has had it for a long time. This is separate from the rash. Pt has had a number of falls. She states she tripped on a curb. She fell going to the bathroom in the middle of the night. She states she slept on her couch last night and woke up in the middle of the night on the floor. She does remember rolling off the couch onto the floor. Drinking nightly, at least two glasses of wine. She states she cut back from a full bottle in the "last couple of months". Pt states that she has some memory issues. She will forget names and appointments. She had the wrong date on a check a few days ago. It was dated 2021. It was sent back to her. She feels she misplaces things. Pt notes she has not worn her CPAP in some time. She states that she was not using it after the recall. Per sleep medicine note, she was on BiPAP and was to f/u in July with them. PHM: Patient Active Problem List Diagnosis DARI [...] diabetic peripheral angiopathy without gangrene ([facility]) COPD, group B, by GOLD 2017 classification ([facility]) Hypothyroidism due to acquired atrophy of thyroid Type 2 diabetes mellitus with polyneuropathy ([facility]) Nocturnal hypoxemia Lumbar degenerative disc disease Hypertensive heart disease with chronic diastolic congestive heart failure ([facility]) Major depressive disorder, recurrent episode, moderate ([facility]) Current Outpatient Medications Medication Sig Dispense Refill [...] as needed for Cramping. NATURAL SUPPLEMENT Take 1 Capsule by mouth [...] mouth every other day. 50 Tablet 3 OneTouch Verio In Vitro Strip (Glucose Blood) USE TO TEST BLOOD SUGAR ONCE DAILY 100 Strip 3 OneTouch Delica Plus [id number] USE TO TEST BLOOD SUGARS ONCE DAILY [...] Left breast, re-excision of margins (clear) at [facility] [place] - Dr. Cobb PARTIAL HYSTERECTOMY 06/21/1982 heavy periods NC MASTECTOMY PARTIAL Left 06/18/2008 Left breast (DCIS) at [facility] [place] - Dr. Cobb REMOVE CATARACT, INSERT LENS PROSTH Right 11/28/2015 EXTRACAPSULAR CATARACT REMOVAL WITH INTRAOCULAR LENS performed by Vinh Richardson MD at [facility] REMOVE CATARACT, INSERT LENS PROSTH Left 01/23/2020 left EXTRACAPSULAR CATARACT REMOVAL WITH INTRAOCULAR LENS performed by Ric Mcdonald MD at [facility] UMBIL HERNIA REPAIR (REDUCIBLE) AGE 5+YR 04/28/2012 04/28/[address] [facility] - Dr. Yifan Villalba Review of [...] date: 12/24/1974 Quit date: 12/24/2014 Years since quittin.2 Passive exposure: Never Smokeless tobacco: Never Tobacco [...] arthralgias, gait problem and joint swelling. Skin: Positive for rash. Negative for color change and pallor. Neurological: As per HPI OBJECTIVE: BP 128/76 (BP Site: Left Arm, BP Position: Sitting, BP Cuff Size: Large) | Pulse 61 | Temp 35.9 C(96.7 F) (Tympanic) | Resp 14 | Ht 1.689 m (5' 6.5") | Wt 80.8 kg (178 lb 3.2 oz) | SpO2 98% | BMI 28.33 kg/m | BSA 1.95 m PHYSICAL EXAM: Physical Exam Constitutional: General: [...] not pale. Findings: No erythema or rash. Comments: Some excoriation of left shoulder Neurological: Mental Status: She is alert and oriented to person, place, and time. ASSESSMENT/PLAN: (E11.42) Type 2 diabetes mellitus with polyneuropathy (HCC) (primary encounter diagnosis) Plan: ALBUMIN / CREATININE RATIO, URINE Pt will complete urine today. She is currently diet controlled. To remain off of medication. Last A1C 5.9. (R29.6) Multiple falls Plan: CT HEAD/BRAIN WO CONTRAST, COMPREHENSIVE METABOLIC PANEL, CBC, VITAMIN B12, RPR, URINALYSIS, POINT OF CARE (ENTER/EDIT) Will check CT. UA with no cause of for falls. Check lab studies. Suspect alcohol is a contributor. (F10.10) Alcohol abuse Plan: Pt had been drinking a bottle of wine nightly. Reports she has cut back but unclear if she has done so. Suspect that this is a major contributor to memory issues and falls. Seems reluctant to cut back but states she will work on it. (Z13.9) Risk and functional assessment Plan: See nursing note. (R41.3) Memory difficulties Plan: CT HEAD/BRAIN WO CONTRAST, COMPREHENSIVE METABOLIC PANEL, CBC, VITAMIN B12, RPR, URINALYSIS, POINT OF CARE (ENTER/EDIT) As above. MMSE 29/30. (R21) Rash and nonspecific skin eruption Plan: No hives. Pt will monitor. Seems to have resolved. Small lipoma noted. (G47.33) DARI (obstructive sleep apnea) Plan: SLEEP MEDICINE REFERRAL OP Pt due for sleep medicine f/u. Unclear why she is not using the Bipap. She states she does not havethe necessary supplies now. Will ask sleep medicine to assess and assist with appropriate equipment. Follow-up: 3 months Total time today including reviewing chart before the visit, pertinent labs, imaging reports, face to face time, and documentation time was 44 minutes. Jeanine Franco DO * Su Mckeon LPN - 04/07/2024 10:01 AM EDT Fall Risk Plan of Care Documentation: - Current medications reconciled Patient encouraged to: - Exercise - Provide education materials for Core strengthening - Utilize assistive/adaptive devices - Provide education materials - Avoid multifocal lenses when walking - Avoid hazards in home - Provide education materials - Maintain a regular toileting schedule Su Mckeon LPN 04/07/2024 documented in this encounter Nursing Notes * Su Mckeon LPN - 04/07/2024 10:56 AM EDT Mini Mental exam today with score of 29/30. * Su Mckeon LPN - 04/07/2024 10:01 AM EDT Patient here for routine follow up visit. Reports she has had 3 falls over the past couple of weeks. Fell once going to bathroom in middle ofthe night - tripped over her feet. Fell again tripping over a curb. Fell last night - rolled of couch while sleeping. Pt reports she has cramping in legs, feet, hands that bothers her at night. Had a rash on left upper arm which she reports has resolved. Currently has a rash, hive type areas on upper right shoulder, chest area. Has a lump on her left upper arm that she has had for awhile. documented in this encounter Miscellaneous Notes * Addendum Note - Su Mckeon LPN - 04/07/2024 10:58 AM EDTAddended by: SU MCKEON on: 04/07/2024 10:58 AM Modules accepted: Orders documented in this encounter Plan of Treatment Upcoming Encounters Date Type Department Care Team (Late st Contact Info) Description 04/07/2024 2:00 PM EDT Imaging Radiology [address] [facility] [place] [id number] 09/11/2024 10:00 AM EDT Nurse Only Family Practice [address] [place] [address] [address] [place] [phone] Loree Osman RN [address] [facility] [place] [address] 11/07/2024 10:00 AM EDT Office Visit Sleep Disorders [facility]tr [facility] [address] [facility] [place] [phone] Alena Nuno CRNP [address] [facility] [place] [address] 01/23/2025 10:20 AM EDT Office [facility]at[facility] [address] Deidre Barragan PA-C [address] [facility] [place] [address] Pending Results Name Type Priority Associated Diagnoses Date /Time ALBUMIN / CREATININE RATIO, URINE Lab Routine Type 2 diabetes mellitus with polyneuropathy (HCC) 04/07/2024 10:48 AM EDT COMPREHENSIVE METABOLIC PANEL Lab Routine Multiple falls Memory difficulties 04/07/2024 10:48 AM EDT CBC Lab Routine Multiple falls Memory difficulties 04/07/2024 10:48 AM EDT VITAMIN B12 Lab Routine Multiple falls Memory difficulties 04/07/2024 10:48 AM EDT RPR Lab Routine Multiple falls Memory difficulties 04/07/2024 10:48 AM EDT Scheduled Orders Name Type Priority Associated Diagnoses Orde r Schedule ALBUMIN / CREATININE RATIO, URINE Lab Routine Type 2 diabetes mellitus with polyneuropathy (HCC) Expected: 04/07/2024, Expires: 04/07/2025 CT HEAD/BRAIN WO CONTRAST Medical Imaging Routine Multiple falls Memory difficulties Ordered: 04/07/2024 COMPREHENSIVE METABOLIC PANEL Lab Routine Multiple falls Memory difficulties Expected: 04/07/2024 (Approximate), Expires: 04/07/2025 CBC Lab Routine Multiple falls Memory difficulties Expected: 04/07/2024 (Approximate), Expires: 04/07/2025 VITAMIN B12 Lab Routine Multiple falls Memory difficulties Expected: 04/07/2024 (Approximate), Expires: 04/07/2025 RPR Lab Routine Multiple falls Memory difficulties Expected: 04/07/2024 (Approximate), Expires: 04/07/2025 URINALYSIS, POINT OF CARE (ENTER/EDIT) Point of Care Testing Routine Multiple falls Memory difficulties Ordered: 04/07/2024 Scheduled Referrals Name Type Priority Associated Diagnoses Orde r Schedule SLEEP MEDICINE REFERRAL OP Referral Within 10 days (routine) DARI (obstructive sleep apnea) Ordered: 04/07/2024 Health Maintenance Due Date Last Done Comments [...] D LEVEL ONCE IN A LIFETIME-USE SMARTSET# [id number] Completed 06/03/2023, 04/09/2022, 06/04/2021, Additional history exists [...] this encounter Medical Devices Implanted Type Area Temporary Administrative Assistant Device Identifier Shelf Expiration Date Model / Serial / Lot Lens 19.0 [id number] - [id number] - [id number] Implanted:Qty: 1 on 11/28/2015 by Vinh Richardson MD at [facility] Right: Eye [employer] : SURGICAL 08/18/2016 [id number] / [id number] / [id number] Lens Intraoc 22.0 - [id number] - [id number] Implanted:Qty: 1 on 01/23/2020 by Ric Mcdonald MD at [facility] Left: Eye [employer] 07/21/2024 [id number] / [id number] / [id number] documented as of this encounter Procedures Procedure Name Priority Date/Time Associated Diagnosis Comments MINI-MENTAL QUESTIONNAIRE SCAN (MMSE) OP Routine 04/07/2024 Memory difficulties documented in this encounter Results * MINI-MENTAL QUESTIONNAIRE SCAN (MMSE) OP (04/07/2024) Narrative Su Mckeon LPN - 04/07/2024 Jeanine Franco DO OTHER documented in this encounter Visit Diagnoses Diagnosis Type 2 diabetes mellitus with polyneuropathy (HCC)- Primary Type II or unspecified type diabetes mellitus with neurological manifestations, not stated as uncontrolled Multiple falls Personal history of fall Alcohol abuse Alcohol abuse, unspecified Risk and functional assessment Screening for unspecified condition Memory difficulties Memory loss Rash and nonspecific skin eruption Rash and other nonspecific skin eruption DARI (obstructive sleep apnea) Obstructive sleep apnea (adult) (pediatric) documented in this encounter Advance Directives Documents on File Type Date Recorded Patient National Service Officer Expl anation POL 10/01/2022 [place] [facility] FOR LIFE-SUSTAINING TREATMENT * Full Code (Latest Code Status on File) Date Activated Date Inactivated Comments 11/28/2015 6:26 AM 11/28/2015 12:14 PM This order re flects the patients wishes and were consensually agreed upon. Care Teams Retail Account Executive Relationship Specialty Start Date End Date Jeanine Franco DO [address] [place] [address] PCP - General Family Medicine 12/07/23 documented as of this encounter
--- OUTSIDE RECORDS SUMMARY | 2024-07-01 04:11 | External Medical Summary ---
Author Name Unknown Address Unknown Organization K01:[facility] [place] - [address] Priyanka [place]OWE[place] [address] Laboratory Report Ordering Provider Test Date Status AMNA BERKOWITZ 04/07/2024 10:48:09 Final Observation Date Value Abnormality Reference (Units ) Status Reagin Ab [Presence] in Serum by RPR 04/07/2024 10:48:09 Nonreactive Nonreactive Final Performing Location [facility] [place] - [address] [place] [address]
--- OUTSIDE RECORDS SUMMARY | 2024-07-01 04:11 | External Medical Summary | Summary of Care ---
Author Name Unknown Organization [facility] Address [address] [place] [address] Phone [phone] Care Team Providers Care Ship'S Cook Name Role Phone BalbirJeanine ireland Primary Care Provider [phone] Encounter Details Date Type Department Care Team ([facility] st Contact Info) Description 04/03/2024 10:15 AM EDT Nurse Only Family Practice [address] [phone] College, Nurse [facility] Prac [address] [address] Arrived Allergies Active Allergy Reactions Criticality Noted [...] A1c goal of less than 7.0% ([facility]) USE TO TEST BLOOD SUGAR ONCE DAILY 100 Strip 3 08/25/2023 08/24/2024 Active OneTouch Delica Plus [id number] USE TO TEST BLOOD SUGARS ONCE DAILY [...] mRNA, LNP-s, No Pre serve, 2-Dose Series ([facility]) 04/10/2021,08/19/2020,07/16/2020 COVID-19 mRNA, LNP-s, No Pre serve, 2-Dose Series ([employer]) 10/06/2021 COVID-19, MRNA-LNP, 23-24, P F, 30 MCG/0.3 mL, 12 YRS AND ABOVE, IM (Dynadmic-Composer[employer]) 11/17/2023,03/14/2023 COVID-19, MRNA-LNP, 24-25, P R, 30MCG/0.3ML, IM, 12YRS AND ABOVE ([employer]) 03/04/2024 Covid-19, Mrna, Lnp-s, Pf, B ivalent, 30 Mcg, IM, 12 yrs and above ([employer]) 03/24/2022 Hepatitis B, 20+ yrs 11/06/2016 Pneumococcal Conjugate Vacc, 13 Valent (Prevnar) 08/22/2014 Pneumococcal Conjugate Vacci ne, 20-valent (Edlymny20) 04/03/2024 Pneumococcal Polysaccharide PPV23 (Pneumovax) 11/06/2016,11/24/2006 RSV [...] EDT Office Visit Family Practice [address] [place] 293 [place] [phone] Jeanine Franco DO 293 [place] [address] 09/11/2024 10:00 AM EDT Nurse Only [facility] Practice 65 [facility] 293 [place] [phone] Loree Osman, COLE [address] [place] [phone] 01/23/2025 10:20 AM EDT Office Visit Dermatology [facility] 200 [place] [address] Deidre Barragan PA-C [address] [place] [address] Health Maintenance Due Date Last Done Comments [...] D LEVEL ONCE IN A LIFETIME-USE SMARTSET# 03204 Completed 06/03/2023, 04/09/2022, 06/04/2021, Additional history exists [...] this encounter Medical Devices Implanted Type Area Bounty Trapper Device Identifier Shelf Expiration Date Model / Serial / Lot Lens 19.0 M160l - [id number] - [id number] Implanted:Qty: 1 on 11/28/2015 by Vinh Richardson MD at OR [id number] Right: Eye BAUSCH & LOMB : SURGICAL 08/18/2016 [id number]-[id number] / [id number] / [id number] Lens Intraoc 22.0 - [id number] - [id number] Implanted:Qty: 1 on 01/23/2020 by Ric Mcdonald MD at OR [facility] Left: Eye BAUSCH & LOMB 07/21/2024 [id number] / [id number] / [id number] documented as of this encounter Visit Diagnoses Diagnosis Need for pneumococcal vaccination- Primary Need for prophylactic vaccination against streptococcus pneumoniae (pneumococcus) documented in this encounter Advance Directives Documents on File Type Date Recorded Patient Sales And Training Specialist Expl anation POLST 10/01/[address] [place] [address] [facility] FOR LIFE-SUSTAINING TREATMENT * Full Code (Latest Code Status on File) Date Activated Date Inactivated Comments 11/28/2015 6:26 AM 11/28/2015 12:14 PM This order re flects the patients wishes and were consensually agreed upon. Care Teams Ship'S Cook Relationship Specialty Start Date End Date Jeanine Franco DO [address] [facility] [place] [place] [address] PCP - General Family Medicine 12/07/23 documented as of this encounter
--- OUTSIDE RECORDS SUMMARY | 2024-07-01 04:11 | External Medical Summary | Summary of Care ---
Author Name Unknown Organization [facility] Address [address] [place] [address] Phone [phone] Care Team Providers Care Ironworker Apprentice Name Role Phone Jeanine Franco DO Primary Care Provider [phone] Reason for Referral * Evaluate & Treat - Unlimited Visits (Within 10 days (routine)) - Authorized Specialty Diagnoses / Procedures Referred By Dianne posada Referred To Contact Sleep Medicine / Sleep Disorders Diagnoses DARI (obstructive sleep apnea) Jeanine Franco DO [address] [place] [address] Referral ID Status Reason Start Date Expiration Date Visits Requested Visits Authorized [id number] Authorized Specialty Services Required 4 2 2 [...] CT HEAD/BRAIN WO CONTRAST Jeanine Franco DO [address] [place] [address] Referral ID Status Reason Start Date Expiration Date V isits Requested Visits Authorized [id number] Authorized 04/07/2024 999 999 Reason for Visit * Reason Comments Follow Up Encounter Details Date Type Department Care Team (Latest Contact Info) Description 04/07/2024 10:00 AM EDT Office Visit Family Practice [address] [place] [address] [place] [address] Jeanine Franco, DO 293 [place] [address] Type 2 diabetes mellitus with polyneuropathy (HCC)*; [...] 3 08/25/2023 5 Active OneTouch Delica Plus Drwecb90N USE TO TEST BLOOD SUGARS ONCE DAILY [...] MCG/0.3 mL, 12 YRS AND ABOVE, IM ([facility] 11/17/2023,03/14/2023 COVID-19, MRNA-LNP, 24-25, P R, 30MCG/0.3ML, IM, 12YRS AND ABOVE ([facility]) 03/04/2024 Covid-19, Mrna, Lnp-s, Pf, B ivalent, 30 Mcg, IM, 12 yrs and above (Pfizer) 03/24/2022 Hepatitis B, 20+ yrs 11/06/2016 Influenza, Whole Virus 04/04/2003 PPD 12/10/2004 Pneumococcal Conjugate Vacc, 13 Valent (Prevnar) 08/22/2014 Pneumococcal Conjugate Vacci ne, 20-valent (Beckvls84) 04/03/2024 Pneumococcal Polysaccharide PPV23 (Pneumovax) 11/06/2016,11/24/2006 RSV [...] 10 times. Repeat this throughout the day. [employer] Patient Education Copyright 2008 [employer] except where otherwise noted. Preventing Falls: Moving [...] that mean climbing, even on a stepstool. [employer] Patient Education Copyright 2008 - 2010 [employer]udog except where otherwise noted. Urinary Incontinence Plan [...] mellitus with diabetic peripheral angiopathy without gangrene ([facility]) COPD, group B, by GOLD 2017 classification ([facility]) Hypothyroidism due to acquired atrophy of thyroid Type 2 diabetes mellitus with polyneuropathy ([facility]) Nocturnal hypoxemia Lumbar degenerative disc disease Hypertensive heart disease with chronic diastolic congestive heart failure ([facility]) Major depressive disorder, recurrent episode, moderate ([facility]) Current Outpatient Medications Medication Sig [...] DAILY 100 Strip 3 OneTouch Delica Plus [id number] USE TO TEST BLOOD SUGARS ONCE DAILY [...] Left breast, re-excision of margins (clear) at [facility] - Dr. Cobb PARTIAL HYSTERECTOMY 06/21/1982 heavy periods [place] MASTECTOMY PARTIAL Left 06/18/2008 Left breast (DCIS) at [facility] - Dr. Cobb REMOVE CATARACT, INSERT LENS PROSTH Right 11/28/2015 EXTRACAPSULAR CATARACT REMOVAL WITH INTRAOCULAR LENS performed by Vinh Richardson MD at [facility] REMOVE CATARACT, INSERT LENS PROSTH Left 01/23/2020 left EXTRACAPSULAR CATARACT REMOVAL WITH INTRAOCULAR LENS performed by Ric Mcdonald MD at [facility] UMBIL HERNIA REPAIR (REDUCIBLE) AGE 5+YR 04/28/2012 04/28/2012 umbilical hernia repair [facility] - Dr. Yifan Villalba Review of [...] Description 04/07/2024 2:00 PM EDT Imaging Radiology [address] [facility] [place] [address] 09/11/2024 10:00 AM EDT Nurse Only Family Practice [address] [place] [address] [address] [place] [phone] Loree Osman RN 293 [place] [address] 11/07/2024 10:00 AM EDT Office Visit Sleep Disorders Ctr [facility] [address] [facility] [place] [phone] Alena Nuno CRNP 132 [facility] [place] [address] 01/23/2025 10:20 AM EDT Office Visit [facility]ermatology [facility] [address] Deidre Barragan PA-C [address] [facility] [place] [address] Pending Results Name Type Priority Associated Diagnoses [...] D LEVEL ONCE IN A LIFETIME-USE SMARTSET# 48698 Completed 06/03/2023, 04/09/2022, 06/04/2021, Additional history exists [...] this encounter Medical Devices Implanted Type Area Systems Auditor Device Identifier Shelf Expiration Date Model / Serial / Lot Lens 19.0 M160l - [id number] - [id number] Implanted:Qty: 1 on 11/28/2015 by Vinh Richardson MD at OR [facility] Right: Eye BAUSCH & LOMB : SURGICAL 08/18/2016 [id number]-11.0 / [id number] / [id number] Lens Intraoc 22.0 - [id number] - [id number] Implanted:Qty: 1 on 01/23/2020 by Ric Mcdonald MD at OR [facility] Left: Eye BAUSCH & LOMB 07/21/2024 [id number] / [id number] / [id number] documented as of this encounter Procedures Procedure [...] Documents on File Type Date Recorded Patient Major Assembly Inspector Expl anation POL 10/01/2022 [place] OR [facility] FOR LIFE-SUSTAINING TREATMENT * Full Code (Latest Code Status on File) Date Activated Date Inactivated Comments 11/28/2015 6:26 AM 11/28/2015 12:14 PM This order re flects the patients wishes and were consensually agreed upon. Care Teams Ironworker Apprentice Relationship Specialty Start Date End Date Jeanine Franco DO 293 [place] [address] PCP - General Family Medicine 12/07/23 documented as of this encounter
--- OUTSIDE RECORDS SUMMARY | 2024-07-01 04:12 | External Medical Summary | Summary of Care ---
Author Name Unknown Organization [facility] Address [address] [place] [address] Phone [phone] Care Team Providers Care Freight Representative Name Role Phone Jeanine Franco DO Primary Care Provider [phone] Encounter Details Date Type Department Care Team (Late st Contact Info) Description 03/27/2024 Documentation HEALTH & WELLNESS Alayna Farah, Health Millroom Supervisor Allergies Active Allergy Reactions Criticality Noted Date Comments Cm Inhibitors Cough Low 09/11/2008 Amoxicillin 11/17/2019 Diffuse rash documented as of this encounter (statuses as of 03/27/2024) Medications Medication Sig Dispensed Refills Start Date [...] 3 08/25/2023 08/24/2024 Active OneTouch Delica Plus Jhqgww43G USE TO TEST BLOOD SUGARS ONCE DAILY [...] as of this encounter (statuses as of 03/27/2024) Active Problems Problem Noted Date Diagnosed Date [...] as of this encounter (statuses as of 03/27/2024) Resolved Problems Problem Noted Date Diagnosed Date [...] as of this encounter (statuses as of 03/27/2024) Immunizations Name Administration Dates Next Due COVID-19 mRNA, LNP-s, No Pre serve, 2-Dose Series (Moderna) 04/10/2021,08/19/2020,07/16/2020 COVID-19 mRNA, LNP-s, No Pre serve, 2-Dose Series ([employer]us) 10/06/2021 COVID-19, MRNA-LNP, 23-24, P F, 30 MCG/0.3 mL, 12 YRS AND ABOVE, IM ([facility]) 11/17/2023,03/14/2023 COVID-19, MRNA-LNP, 24-25, P R, 30MCG/0.3ML, IM, 12YRS AND ABOVE ([employer]) 03/04/2024 Covid-19, Mrna, Lnp-s, Pf, B ivalent, 30 Mcg, IM, 12 yrs and above (Chorus) 03/24/2022 Hepatitis B, 20+ yrs 11/06/2016 Pneumococcal [...] encounter Progress Notes * Alayna Farah Health Millroom Supervisor - 03/27/2024 9:55 AM EDT SESSION TYPE: Group exercise [...] Care Team (Late st Contact Info) Description 03/27/2024 10:15 AM EDT Nurse Only Family Practice 65 [facility] 293 [place] [phone] College, Nurse Fam Prac [address] [place] [address] Arrived 04/07/2024 11:20 AM EDT Office Visit Family Practice 65 [facility] 293 [place] [phone] Jeanine Franco DO 293 [place] [address] 09/11/2024 10:00 AM EDT Nurse Only Family Practice 65 [facility] 293 [place] [phone] Loree Osman RN [address] [place] [address], [place] [phone] 01/23/2025 10:20 AM EDT Office Visit Dermatology [facility] 200 [place] [address] Deidre Barragan PA-C [address] [place] [address] Health Maintenance Due Date Last Done Comments Hepatitis B Vaccine (2 of 3 - 19+ 3-dose series) 12/04/2016 11/06/2016 Influenza Vaccine (FLU shot) (#1) 2024 03/27/2024, 03/02/2023, 03/31/2022, Additional history exists Albumin/Creatinine Ratio 04/19/202404/19/2 023, 04/16/2023, 05/22/2022, Additional [...] D LEVEL ONCE IN A LIFETIME-USE SMARTSET# [id number] Completed 06/03/2023, 04/09/2022, 06/04/2021, Additional history exists COVID-19 Vaccine Completed 03/04/2024, , 03/14/2023, Additional history exists HPV (Gardasil) Vaccine Aged Out No lo nger eligible based on patient's age to complete this topic MENINGOCOCCAL (MENACTRA/MENVEO) Aged Out No longer eligible based on patient's age to complete this topic documented as of this encounter Medical Devices Implanted Type Area Petroleum Geology Faculty Member Device Identifier Shelf Expiration Date Model / Serial / Lot Lens 19.0 M160l - [id number] - [id number] Implanted:Qty: 1 on 11/28/2015 by Vinh Richardson MD at OR [facility] Right: Eye BAUSCH & LOMB : SURGICAL 08/18/2016 [id number]-88.0 / [id number] / [id number] Lens Intraoc 22.0 - [id number] - [id number] Implanted:Qty: 1 on 01/23/2020 by Ric Mcdonald MD at OR [facility] Left: Eye BAUSCH & LOMB 07/21/2024 [id number] / [id number] / [id number] documented as of this encounter Advance Directives Documents on File Type Date Recorded Patient Globe Tester Expl anation POLST 10/01/2022 [place] OR [facility] FOR LIFE-SUSTAINING TREATMENT * Full Code (Latest Code Status on File) Date Activated Date Inactivated Comments 11/28/2015 6:26 AM 11/28/2015 12:14 PM This order re flects the patients wishes and were consensually agreed upon. Care Teams Freight Representative Relationship Specialty Start Date End Date Jeanine Franco DO [address] [place] [address] PCP - General Family Medicine 12/07/23 documented as of this encounter
--- OUTSIDE RECORDS SUMMARY | 2024-07-01 04:12 | External Medical Summary | Summary of Care ---
Author Name Unknown Organization [facility] Address [address] [place] [address] Phone [phone] Care Team Providers Care Dining Room Attendant Cafeteria Name Role Phone Jeanine Franco DO Primary Care Provider [phone] Encounter Details Date Type Department Care Team (Late st Contact Info) Description 03/16/2024 Documentation HEALTH & WELLNESS Alayna Farah, Health Iso Coordinator Allergies Active Allergy Reactions Criticality Noted Date Comments Cm Inhibitors Cough Low 09/11/2008 Amoxicillin 11/17/2019 Diffuse rash documented as of this encounter (statuses as of 03/16/2024) Medications Medication Sig Dispensed Refills Start Date [...] 3 08/25/2023 08/24/2024 Active OneTouch Delica Plus Xolmes40J USE TO TEST BLOOD SUGARS ONCE DAILY [...] as of this encounter (statuses as of 03/16/2024) Active Problems Problem Noted Date Diagnosed Date [...] as of this encounter (statuses as of 03/16/2024) Resolved Problems Problem Noted Date Diagnosed Date [...] as of this encounter (statuses as of 03/16/2024) Immunizations Name Administration Dates Next Due COVID-19 mRNA, LNP-s, No Pre serve, 2-Dose Series (Moderna) 04/10/2021,08/19/2020,07/16/2020 COVID-19 mRNA, LNP-s, No Pre serve, 2-Dose Series ([employer]) 10/06/2021 COVID-19, MRNA-LNP, 23-24, P F, 30 MCG/0.3 mL, 12 YRS AND ABOVE, IM ([facility]) 11/17/2023,03/14/2023 Covid-19, Mrna, Lnp-s, Pf, B ivalent, 30 Mcg, IM, 12 yrs and above (Pfizer) 03/24/2022 Hepatitis B, 20+ yrs 11/06/2016 Pneumococcal Conjugate Vacc, 13 Valent (Prevnar) 08/22/2014 Pneumococcal Polysaccharide PPV23 (Pneumovax) 11/06/2016,11/24/2006 RSV Vac., Recomb, Adjuvant, PF,0.5 Ml (Arexvy) 03/18/2023 Season Influenza, Quad, PF, Adjuvanted, 65+ Yrs, IM (FLUAD) 02/22/2020 Seasonal Influenza, PF, 6 M & above, IM , (FluLaval or Fluzone) 04/11/2018,05/17/2017 Seasonal Influenza, Quadriva lent Hd (Fluzone Hd) 03/02/2023,03/31/2022,03/21/2021 Seasonal Influenza, Quadriva lent, No Preserve, IM 03/29/2016,05/02/2015 Seasonal Influenza, Trivalen t, (IIV3), with Preserv, (Fluzone) 03/28/2014,04/11/2013,03/21/2012,04/16,03/19/2010,04/25/2008,05/02/2007 ,05/11/2006 Seasonal Influenza, Trivalen t, Adjuvanted, 65+ YRS, [...] encounter Progress Notes * Alayna Farah Health Iso Coordinator - 03/16/2024 11:55 AM EDT SESSION TYPE: Group exercise session: Exercise Subtype or Modality: Cardiovascular Training Patient completed a group exercise session which consisted of cardiovascular and resistance training. Patient moved through different cardio stations in 4 minute increments. The stations included using steps, seated/stationary exercises, dumbbells, recumbent bike and treadmill. Intensity of exercise was increased every minute at each station. She tolerated exercise well and had no complaints. documented in this encounter Plan of Treatment Upcoming Encounters Date Type Department Care Team (Late st Contact Info) Description 04/07/2024 11:20 AM EDT Office Visit Family Practice [address] [place] 293 [facility] [place] [address] Jeanine Franco, DO 293 [facility] [place] [address] 09/11/2024 10:00 AM EDT Nurse Only Ancillary 65 [facility] 293 [place] [address] College, Nurse Annual Wellness Visit 65 [facility] 293 [place] [address] 01/23/2025 10:20 AM EDT Office Visit Dermatology [facility] 200 [place] [address] Deidre Barragan PA-C [address] [facility] [address] Health Maintenance Due Date Last Done Comments Hepatitis B Vaccine (2 of 3 - 19+ 3-dose series) 12/04/2016 11/06/2016 COVID-19 Vaccine ( season) 2024 11/17/2023, 03/14/2023, 03/24/2022, Additional history exists Influenza Vaccine (FLU shot) (#1) 2024 03/02/2023, 03/31/2022, 03/21/2021, Additional history exists Albumin/Creatinine Ratio 04/19/202404/19/2 023, [...] D LEVEL ONCE IN A LIFETIME-USE SMARTSET# 95662 Completed 06/03/2023, 04/09/2022, 06/04/2021, Additional history exists Lung Cancer Screening Completed 09/02/2023 , 08/28/2022, 01/14/2005 HPV (Gardasil) Vaccine Aged Out No lo nger eligible based on patient's age to complete this topic MENINGOCOCCAL (MENACTRA/MENVEO) Aged Out No longer eligible based on patient's age to complete this topic documented as of this encounter Medical Devices Implanted Type Area Welding Pantograph Machine Operator Device Identifier Shelf Expiration Date Model / Serial / Lot Lens 19.0 M160l - [id number] - [id number] Implanted:Qty: 1 on 11/28/2015 by Vinh Richardson MD at OR [facility] Right: Eye BAUSCH & LOMB : SURGICAL 08/18/2016 [id number]-60.0 / [id number] / [id number] Lens Intraoc 22.0 - [id number] - [id number] Implanted:Qty: 1 on 01/23/2020 by Ric Mcdonald MD at OR [facility] Left: Eye BAUSCH & LOMB 07/21/2024 [id number] / [id number] / [id number] documented as of this encounter Advance Directives Documents on File Type Date Recorded Patient Animal Nurse Expl vidal POL 10/01/2022 [place] OR [facility] FOR LIFE-SUSTAINING TREATMENT * Full Code (Latest Code Status on File) Date Activated Date Inactivated Comments 11/28/2015 6:26 AM 11/28/2015 12:14 PM This order re flects the patients wishes and were consensually agreed upon. Care Teams Dining Room Attendant Cafeteria Relationship Specialty Start Date End Date Jeanine Franco DO [address] [place] [address] PCP - General Family Medicine 12/07/23 documented as of this encounter
--- OUTSIDE RECORDS SUMMARY | 2024-07-01 04:12 | External Medical Summary | Summary of Care ---
Author Name Unknown Organization [facility] Address [address] [place] [address] Phone [phone] Care Team Providers Care Quill Picking Machine Operator Name Role Phone BalbirJeanine ireland Primary Care Provider [phone] Reason for Visit * Reason Comments Immunizations Encounter Details Date Type Department Care Team ([facility] st Contact Info) Description 03/27/2024 10:15 AM EDT Nurse Only Family Practice [address] [phone] College, Nurse [facility] Prac [address] [address] Immunizations Allergies Active Allergy Reactions Criticality Noted Date [...] MEDICATIONS 100 Tablet 2 07/26/2023 07/25/2024 Active SimalayaTouch Verio In Vitro Strip (Glucose Blood)Indications:T ype 2 diabetes mellitus with hemoglobin A1c goal of less than 7.0% ([facility]) USE TO TEST BLOOD SUGAR ONCE DAILY 100 Strip 3 08/25/2023 08/24/2024 Active OneTouch Delica Plus [id number] USE TO TEST BLOOD SUGARS ONCE DAILY [...] mRNA, LNP-s, No Pre serve, 2-Dose Series ([employer]) 10/06/2021 COVID-19, MRNA-LNP, 23-24, P F, 30 MCG/0.3 mL, 12 YRS AND ABOVE, IM ([facility]) 11/17/2023,03/14/2023 COVID-19, MRNA-LNP, 24-25, P R, 30MCG/0.3ML, IM, 12YRS AND ABOVE ([facility]) 03/04/2024 Covid-19, Mrna, Lnp-s, Pf, B ivalent, 30 Mcg, IM, 12 yrs and above ([facility]) 03/24/2022 Hepatitis B, 20+ yrs 11/06/2016 Pneumococcal [...] as of this encounter Progress Notes * Giovanna Webb, [facility] - 03/27/2024 10:13 AM EDT Pre-Administration Time Out Procedure Performed: Yes Patient Identified (Ask Name/Date of ): Yes Does the patient have a fever greater than 101 degrees today? No Patient allergic to latex? No Has the patient ever fainted after receiving an injection? No VFC Stock: No Immunization(s) verified: Yes, Immunization Name: Flu, VIS Sheet(s) given: Yes Verified Side and Site: Yes Verified Shot(s) with Parent(s)/Patient: Yes Giovanna Archibald, Pharm D, BCACP Clinical Pharmacist [address] [place] [address] Medication Therapy [facility] 03/27/2024, 10:13 AM Ph. [phone] documented in this encounter Plan of Treatment Upcoming Encounters Date Type Department Care Team (Late st Contact Info) Description 04/03/2024 10:15 AM EDT Nurse Only Family Practice [address] [place] [address] [place] [phone] College, Nurse [address] [address] 04/07/2024 11:20 AM EDT Office Visit Family Practice [address] [place] [address] 293 [place] [phone] Jeanine Franco DO 293 [place] [address] 09/11/2024 10:00 AM EDT Nurse Only Family Practice [address] [place] [address] 293 [place] [address] Loree Osman, COLE [address] [place] [phone] 01/23/2025 10:20 AM EDT Office Visit Dermatology [facility] [address] [facility] [address] Deidre Barragan PA-C [address] [place] [address] [place] [address] Health Maintenance Due Date Last Done Comments [...] D LEVEL ONCE IN A LIFETIME-USE SMARTSET# [id number] Completed 06/03/2023, 04/09/2022, 06/04/2021, Additional history exists [...] this encounter Medical Devices Implanted Type Area X Ray Physician Device Identifier Shelf Expiration Date Model / Serial / Lot Lens 19.0 M160l - [id number] - [id number] Implanted:Qty: 1 on 11/28/2015 by Vinh Richardson MD at OR [facility] Right: Eye BAUSCH & LOMB : SURGICAL 08/18/2016 [id number]-18.0 / [id number] / [id number] Lens Intraoc 22.0 - [id number] - [id number] Implanted:Qty: 1 on 01/23/2020 by Ric Mcdonald MD at OR [facility] Left: Eye BAUSCH & LOMB 07/21/2024 [id number] / [id number] / [id number] documented as of this encounter Visit Diagnoses Diagnosis Need for influenza vaccination- Primary Need for prophylactic vaccination and inoculation against influenza documented in this encounter Advance Directives Documents on File Type Date Recorded Patient Instrument And Control Technician Expl anation POLST 10/01/2022 [place] [facility] FOR LIFE-SUSTAINING TREATMENT * Full Code (Latest Code Status on File) Date Activated Date Inactivated Comments 11/28/2015 6:26 AM 11/28/2015 12:14 PM This order re flects the patients wishes and were consensually agreed upon. Care Teams Quill Picking Machine Operator Relationship Specialty Start Date End Date Jeanine Franco DO [address] [facility] [place] [address] PCP - General Family Medicine 12/07/23 documented as of this encounter
--- OUTSIDE RECORDS SUMMARY | 2024-07-01 04:12 | External Medical Summary | Summary of Care ---
Author Name Unknown Organization [facility] Address [address] [place] [address] Phone [phone] Care Team Providers Care Rn Building Name Role Phone Jeanine Franco DO Primary Care Provider [phone] Encounter Details Date Type Department Care Team (Late st Contact Info) Description 03/21/2024 Documentation HEALTH & WELLNESS Alayna Farah, Health Rotor Assembler Allergies Active Allergy Reactions Criticality Noted Date Comments Cm Inhibitors Cough Low 09/11/2008 Amoxicillin 11/17/2019 Diffuse rash documented as of this encounter (statuses as of 03/21/2024) Medications Medication Sig Dispensed Refills Start Date [...] 3 08/25/2023 08/24/2024 Active OneTouch Delica Plus [id number] USE TO TEST BLOOD SUGARS ONCE DAILY [...] as of this encounter (statuses as of 03/21/2024) Active Problems Problem Noted Date Diagnosed Date [...] as of this encounter (statuses as of 03/21/2024) Resolved Problems Problem Noted Date Diagnosed Date [...] as of this encounter (statuses as of 03/21/2024) Immunizations Name Administration Dates Next Due COVID-19 mRNA, LNP-s, No Pre serve, 2-Dose Series (Moderna) 04/10/2021,08/19/2020,07/16/2020 COVID-19 mRNA, LNP-s, No Pre serve, 2-Dose Series ([employer]) 10/06/2021 COVID-19, MRNA-LNP, 23-24, P F, 30 MCG/0.3 mL, 12 YRS AND ABOVE, IM ([facility]) 11/17/2023,03/14/2023 Covid-19, Mrna, Lnp-s, Pf, B ivalent, [...] 0.5 mL (Fluzone) 03/28/2014,04/11/2013,03/21/2012,04/16,03/19/2010,04/25/2008,05/02/2007 ,05/11/2006 Seasonal Influenza, PF, 6 M & above, [...] encounter Progress Notes * Alayna Farah Health Rotor Assembler - 03/21/2024 2:26 PM EDT SESSION TYPE: Group exercise session: Exercise Subtype or Modality: Resistance Training Patient completed a group exercise session which consisted of resistance training. Body weight and dumbbells were used for the exercises. She tolerated exercise well and had no complaints. documented in this encounter Plan of Treatment Upcoming Encounters Date Type Department Care Team (Late st Contact Info) Description 03/27/2024 10:00 AM EDT Nurse Only Family Practice 65 [facility] 293 [place] [phone] College, Nurse [facility] Prac [address] [place] [address] 04/07/2024 11:20 AM EDT Office Visit Family Practice 65 [facility] 293 [place] [phone] Jeanine Franco DO 293 [place] [address] 09/11/2024 10:00 AM EDT Nurse Only Family Practice 65 [facility] 293 [place] [phone] Loree Osman, COLE 293 [place] [address] 01/23/2025 10:20 AM EDT Office Visit Dermatology [facility] 200 [place] [address] Deidre Barragan PA-Latrice [address] [place] [address] Health Maintenance Due Date Last Done Comments [...] D LEVEL ONCE IN A LIFETIME-USE SMARTSET# [id number] Completed 06/03/2023, 04/09/2022, 06/04/2021, Additional history exists HPV (Gardasil) Vaccine Aged Out No lo nger eligible based on patient's age to complete this topic MENINGOCOCCAL (MENACTRA/MENVEO) Aged Out No longer eligible based on patient's age to complete this topic documented as of this encounter Medical Devices Implanted Type Area Timber Buyer Device Identifier Shelf Expiration Date Model / Serial / Lot Lens 19.0 M160l - [id number] - [id number] Implanted:Qty: 1 on 11/28/2015 by Vinh Richardson MD at OR [facility] Right: Eye BAUSCH & LOMB : SURGICAL 08/18/2016 HH34P-57.0 / [id number] / [id number] Lens Intraoc 22.0 - [id number] - [id number] Implanted:Qty: 1 on 01/23/2020 by Ric Mcdonald MD at OR [facility] Left: Eye BAUSCH & LOMB 07/21/2024 [id number] / [id number] / [id number] documented as of this encounter Advance Directives Documents on File Type Date Recorded Patient Senior Compensation Analyst Expl anation POLST 10/01/2022 [facility] FOR LIFE-SUSTAINING TREATMENT * Full Code (Latest Code Status on File) Date Activated Date Inactivated Comments 11/28/2015 6:26 AM 11/28/2015 12:14 PM This order re flects the patients wishes and were consensually agreed upon. Care Teams Rn Building Relationship Specialty Start Date End Date Jeanine Franco DO 293 [place] [address] PCP - General Family Medicine 12/07/23 documented as of this encounter
--- OUTSIDE RECORDS SUMMARY | 2024-07-01 04:12 | External Medical Summary | Summary of Care ---
Author Name Unknown Organization [facility] Address [address] [place] [address] Phone [phone] Care Team Providers Care Sports Management Internship Name Role Phone Jeanine Franco DO Primary Care Provider [phone] Encounter Details Date Type Department Care Team (Late st Contact Info) Description 2024 Documentation HEALTH & WELLNESS Alayna Farah, Health Hand Buffer Allergies Active Allergy Reactions Criticality Noted Date Comments Cm Inhibitors Cough Low 09/11/2008 Amoxicillin 11/17/2019 Diffuse rash documented as of this encounter (statuses as of 2024) Medications Medication Sig Dispensed Refills Start Date [...] 3 08/25/2023 08/24/2024 Active OneTouch Delica Plus [id number] USE TO TEST BLOOD SUGARS ONCE DAILY [...] as of this encounter (statuses as of 2024) Active Problems Problem Noted Date Diagnosed Date [...] as of this encounter (statuses as of 2024) Resolved Problems Problem Noted Date Diagnosed Date [...] as of this encounter (statuses as of 2024) Immunizations Name Administration Dates Next Due COVID-19 mRNA, LNP-s, No Pre serve, 2-Dose Series (Moderna) 04/10/2021,08/19/2020,07/16/2020 COVID-19 mRNA, LNP-s, No Pre serve, 2-Dose Series ([employer]) 10/06/2021 COVID-19, MRNA-LNP, 23-24, P F, 30 MCG/0.3 mL, 12 YRS AND ABOVE, IM ([facility]) 11/17/2023,03/14/2023 Covid-19, Mrna, Lnp-s, Pf, B [...] encounter Progress Notes * Alayna Farah Health Hand Buffer - 2024 12:03 PM EDT SESSION TYPE: Group exercise session: Exercise Subtype or Modality: Balance Training Patient completed a group exercise session which consisted of resistance and balance training. Resistance training consisted of bodyweight. She tolerated exercise well and had no complaints. documented in this encounter Plan of Treatment Upcoming Encounters Date Type Department Care Team (Late st Contact Info) Description 04/07/2024 11:20 AM EDT Office Visit Family Practice [address] [place] 293 [place] [address] Jeanine Franco DO 293 [place] [address] 09/11/2024 10:00 AM EDT Nurse Only Family Practice [address] [place] [address] [address] [place], [place] [phone] Loree Osman, RN 293 [place] [phone] 01/23/2025 10:20 AM EDT Office Visit Dermatology [facility] 200 [facility], [place] [address] Deidre Barragan PA-C [address] [facility] [address] Health Maintenance Due Date Last Done Comments Hepatitis B Vaccine (2 of 3 - 19+ 3-dose series) 12/04/2016 11/06/2016 COVID-19 Vaccine ( season) 2024 11/17/2023, 03/14/2023, 03/24/2022, Additional history exists Influenza Vaccine (FLU shot) (#1) 2024 03/02/2023, 03/31/2022, 03/21/2021, Additional history exists Albumin/Creatinine Ratio 04/19/2024 023, 04/16/2023, 05/22/2022, Additional [...] D LEVEL ONCE IN A LIFETIME-USE SMARTSET# [id number] Completed 06/03/2023, 04/09/2022, 06/04/2021, Additional history exists HPV (Gardasil) Vaccine Aged Out No lo nger eligible based on patient's age to complete this topic MENINGOCOCCAL (MENACTRA/MENVEO) Aged Out No longer eligible based on patient's age to complete this topic documented as of this encounter Medical Devices Implanted Type Area Senior Chemist Device Identifier Shelf Expiration Date Model / Serial / Lot Lens 19.0 M160l - [id number] - [id number] Implanted:Qty: 1 on 11/28/2015 by Vinh Richardson MD at OR [facility] Right: Eye BAUSCH & LOMB : SURGICAL 08/18/2016 FO14G-86.0 / [id number] / [id number] Lens Intraoc 22.0 - [id number] - [id number] Implanted:Qty: 1 on 01/23/2020 by Ric Mcdonald MD at OR [facility] Left: Eye BAUSCH & LOMB 07/21/2024 [id number] / [id number] / [id number] documented as of this encounter Advance Directives Documents on File Type Date Recorded 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 Care Teams Sports Management Internship Relationship Specialty Start Date End Date Jeanine Franco DO [address] [place] [address] PCP - General Family Medicine 12/07/23 documented as of this encounter
--- OUTSIDE RECORDS SUMMARY | 2024-07-01 04:12 | External Medical Summary | Summary of Care ---
Author Name Unknown Organization [facility] Address [address] [place] [address] Phone [phone] Care Team Providers Care Call Center Rn Name Role Phone Jeanine Franco DO Primary Care Provider [phone] Encounter Details Date Type Department Care Team (Late st Contact Info) Description 03/24/2024 Documentation HEALTH & WELLNESS Alayna Farah, Health Production Reproduction Manager Allergies Active Allergy Reactions Criticality Noted Date Comments Cm Inhibitors Cough Low 09/11/2008 Amoxicillin 11/17/2019 Diffuse rash documented as of this encounter (statuses as of 03/24/2024) Medications Medication Sig Dispensed Refills Start Date [...] 3 08/25/2023 08/24/2024 Active OneTouch Delica Plus [id number] USE TO TEST BLOOD SUGARS ONCE DAILY [...] as of this encounter (statuses as of 03/24/2024) Active Problems Problem Noted Date Diagnosed Date [...] as of this encounter (statuses as of 03/24/2024) Resolved Problems Problem Noted Date Diagnosed Date [...] as of this encounter (statuses as of 03/24/2024) Immunizations Name Administration Dates Next Due COVID-19 mRNA, LNP-s, No Pre serve, 2-Dose Series (Moderna) 04/10/2021,08/19/2020,07/16/2020 COVID-19 mRNA, LNP-s, No Pre serve, 2-Dose Series ([employer]) 10/06/2021 COVID-19, MRNA-LNP, 23-24, P F, 30 MCG/0.3 mL, 12 YRS AND ABOVE, IM ([facility]) 11/17/2023,03/14/2023 Covid-19, Mrna, Lnp-s, Pf, B ivalent, [...] encounter Progress Notes * Alayna Farah Health Production Reproduction Manager - 03/24/2024 1:23 PM EDT SESSION TYPE: Group exercise session: [...] AM EDT Nurse Only Family Practice 65 [facility] 293 [place] [address] College, Nurse [facility] Prac [address] [place] [address] 03/27/2024 10:15 AM EDT Nurse Only Family Practice 65 [facility] 293 [place] [phone] College, Nurse Fam Prac [address] [place] [address] 04/07/2024 11:20 AM EDT Office Visit Family Practice 65 [facility] 293 [place] [phone] Jeanine Franco DO 293 [facility] [place] [address] 09/11/2024 10:00 AM EDT Nurse Only Family Practice 65 [facility] 293 [place] [phone] Loree Osman, COLE 293 [facility] [place] [phone] 01/23/2025 10:20 AM EDT Office Visit Dermatology [facility] 200 [facility] [place] [address] Deidre Barragan PA-C [address] [place] [address] Health Maintenance Due Date Last Done Comments [...] D LEVEL ONCE IN A LIFETIME-USE SMARTSET# [id number] Completed 06/03/2023, 04/09/2022, 06/04/2021, Additional history exists HPV (Gardasil) Vaccine Aged Out No lo nger eligible based on patient's age to complete this topic MENINGOCOCCAL (MENACTRA/MENVEO) Aged Out No longer eligible based on patient's age to complete this topic documented as of this encounter Medical Devices Implanted Type Area Patrol Judge Device Identifier Shelf Expiration Date Model / Serial / Lot Lens 19.0 M160l - [id number] - [id number] Implanted:Qty: 1 on 11/28/2015 by Vinh Richardson MD at OR [facility] Right: Eye BAUSCH & LOMB : SURGICAL 08/18/2016 WY51J-79.0 / [id number] / [id number] Lens Intraoc 22.0 - [id number] - [id number] Implanted:Qty: 1 on 01/23/2020 by Ric Mcdonald MD at OR [facility] Left: Eye BAUSCH & LOMB 07/21/2024 [id number] / [id number] / [id number] documented as of this encounter Advance Directives Documents on File Type Date Recorded Patient Board Handler Expl anation POLST 10/01/2022 [place] [facility] FOR LIFE-SUSTAINING TREATMENT * Full Code (Latest Code Status on File) Date Activated Date Inactivated Comments 11/28/2015 6:26 AM 11/28/2015 12:14 PM This order re flects the patients wishes and were consensually agreed upon. Care Teams Call Center Rn Relationship Specialty Start Date End Date Jeanine Franco DO [address] [place], [place] [address] [address] PCP - General Family Medicine 12/07/23 documented as of this encounter
--- OUTSIDE RECORDS SUMMARY | 2024-07-01 04:13 | External Medical Summary | Summary of Care ---
Author Name Unknown Organization [facility] Address [address] [place] [address] Phone [phone] Care Team Providers Care Produce Service Team Member Name Role Phone Jeanine Franco DO Primary Care Provider [phone] Encounter Details Date Type Department Care Team (Late st Contact Info) Description 03/10/2024 Documentation HEALTH & WELLNESS Alayna Farah, Health Safety Glass Installer Allergies Active Allergy Reactions Criticality Noted Date Comments Cm Inhibitors Cough Low 09/11/2008 Amoxicillin 11/17/2019 Diffuse rash documented as of this encounter (statuses as of 03/10/2024) Medications Medication Sig Dispensed Refills Start Date [...] 3 08/25/2023 08/24/2024 Active OneTouch Delica Plus [id number] USE TO TEST BLOOD SUGARS ONCE DAILY [...] as of this encounter (statuses as of 03/10/2024) Active Problems Problem Noted Date Diagnosed Date [...] as of this encounter (statuses as of 03/10/2024) Resolved Problems Problem Noted Date Diagnosed Date [...] as of this encounter (statuses as of 03/10/2024) Immunizations Name Administration Dates Next Due COVID-19 mRNA, LNP-s, No Pre serve, 2-Dose Series (Moderna) 04/10/2021,08/19/2020,07/16/2020 COVID-19 mRNA, LNP-s, No Pre serve, 2-Dose Series ([employer]) 10/06/2021 COVID-19, MRNA-LNP, 23-24, P F, 30 MCG/0.3 mL, 12 YRS AND ABOVE, IM ([facility]) 11/17/2023,03/14/2023 Covid-19, Mrna, Lnp-s, [...] encounter Progress Notes * Alayna Farah Health Safety Glass Installer - 03/10/2024 10:42 AM EDT SESSION TYPE: Group exercise session: [...] EDT Office Visit Family Practice [address], [place] 293 [place] [address] Jeanine Franco DO [address] [facility] [address] 09/11/2024 10:00 AM EDT Nurse Only Ancillary [address], [place] 293 [facility], [place] [address] College, Nurse Annual Wellness Visit [address] [facility] 293 [facility], [place] [address] 01/23/2025 10:20 AM EDT Office Visit Dermatology [facility] [place] 200 [facility] [address] Deidre Barragan PA-C [address] [facility] [address] Health Maintenance Due Date Last Done Comments [...] D LEVEL ONCE IN A LIFETIME-USE SMARTSET# [id number] Completed 06/03/2023, 04/09/2022, 06/04/2021, Additional history exists Lung Cancer Screening Completed 09/02/2023 , 08/28/2022, 01/14/2005 HPV (Gardasil) Vaccine Aged Out No lo nger eligible based on patient's age to complete this topic MENINGOCOCCAL (MENACTRA/MENVEO) Aged Out No longer eligible based on patient's age to complete this topic documented as of this encounter Medical Devices Implanted Type Area Due Diligence Coordinator Device Identifier Shelf Expiration Date Model / Serial / Lot Lens 19.0 M160l - [id number] - [id number] Implanted:Qty: 1 on 11/28/2015 by Vinh Richardson MD at OR [facility] Right: Eye BAUSCH & LOMB : SURGICAL 08/18/2016 [id number]-76.0 / [id number] / [id number] Lens Intraoc 22.0 - [id number] - [id number] Implanted:Qty: 1 on 01/23/2020 by Ric Mcdonald MD at OR [facility] Left: Eye BAUSCH & LOMB 07/21/2024 [id number] / [id number] / [id number] documented as of this encounter Advance Directives Documents on File Type Date Recorded Patient Staffing Recruiter Expl anation POLST 10/01/2022 [place] [facility] FOR LIFE-SUSTAINING TREATMENT * Full Code (Latest Code Status on File) Date Activated Date Inactivated Comments 11/28/2015 6:26 AM 11/28/2015 12:14 PM This order re flects the patients wishes and were consensually agreed upon. Care Teams Produce Service Team Member Relationship Specialty Start Date End Date Jeanine Franco DO [address] [place] [address] PCP - General Family Medicine 12/07/23 documented as of this encounter
--- OUTSIDE RECORDS SUMMARY | 2024-07-01 04:13 | External Medical Summary | Summary of Care ---
Author Name Unknown Organization [facility] Address [address] [place] [address] Phone [phone] Care Team Providers Care Silviculture Professor Name Role Phone Jeanine Woo DO Primary Care Provider [phone] Reason for Visit * Reason Onset Date Comments Medication Refill 03/07/2024 Short supply, pt is out Encounter Details Date Type Department Care Team (Late st Contact Info) Description 03/07/2024 Refill Family Practice [address] [place] [address] [place] [address] Jeanine Woo DO [address] [place] [address] Major depressive disorder, recurrent episode, moderate (HCC) Allergies Active Allergy Reactions Criticality Noted Date Comments Cm Inhibitors Cough Low 09/11/2008 Amoxicillin 11/17/2019 Diffuse rash documented as of this encounter (statuses as of 03/09/2024) Medications Medication Sig Dispensed Refills Start Date [...] MEDICATIONS 100 Tablet 2 07/26/2023 5 Active EvogenTouch Verio In Vitro Strip (Glucose Blood)Indications: Type 2 diabetes mellitus with hemoglobin A1c goal of less than 7.0% (HCC) USE TO TEST BLOOD SUGAR ONCE DAILY 100 Strip 3 08/25/2023 Active EvogenTouch Delica Plus [id number] USE TO TEST BLOOD SUGARS ONCE DAILY [...] one tablet by mouth every other day 50 Tablet 3 12/07/2023 4 Discontinue d(Refill) documented as of this encounter (statuses as of 03/09/2024) Active Problems Problem Noted Date Diagnosed Date [...] as of this encounter (statuses as of 03/09/2024) Resolved Problems Problem Noted Date Diagnosed Date [...] as of this encounter (statuses as of 03/09/2024) Immunizations Name Administration Dates Next Due COVID-19 mRNA, LNP-s, No Pre serve, 2-Dose Series (Moderna) 04/10/2021,08/19/2020,07/16/2020 COVID-19 mRNA, LNP-s, No Pre serve, 2-Dose Series (Pfizer) 10/06/2021 COVID-19, MRNA-LNP, 23-24, P F, 30 MCG/0.3 mL, 12 YRS AND ABOVE, IM (PFIZER-Comirnat) 11/17/2023,03/14/2023 Covid-19, Mrna, Lnp-s, Pf, B ivalent, [...] Trivalen t, (IIV3), with Preserv, (Fluzone) 03/28/2014,04/11/2013,03/21/2012,04/16,03/19/2010,04/25/2008,05/02/2007 ,05/11/2006,04/16/2005,03/27/2002 Seasonal Influenza, Trivalen t, Adjuvanted, 65+ YRS, [...] Miscellaneous Notes * Telephone Encounter - Roxanna Nova OSA - 03/09/2024 10:15 AM EDT Pt checking the status of this message. Please note, pt is and has been out of med for several days. Please send a short term supply to for her to picker packer \ Please call her once so she is aware . * Telephone Encounter - Roxanna Ribeiro OSA - 03/09/2024 8:50 AM EDT Needs short term sent to [facility] as she is completely out and has been for several days. Needs short supply to get her through Please fill JEROME and advise pt once signed to go picker packer. * Telephone Encounter - Josee Mcgill [facility] - 03/08/2024 9:47 AM EDTSigned Prescriptions: Disp Refills Citalopram Hydrobromide 20 MG Oral Tablet *10 Tab*3 Sig: Take one tablet by mouth every other dayAuthorizing Provider: JEANINE WOO * Telephone Encounter - Jeanien Woo DO - 03/08/2024 8:24 AM EDTSigned Prescriptions: Disp Refills Citalopram Hydrobromide 20 MG Oral Tablet *10 Tab*3 Sig: Take one tablet by mouth every other day Authorizing Provider: JEANINE WOO * Telephone Encounter - Roxanna Nova OSA - 03/07/2024 2:52 PM EDT Pt will call mail order for this refill of Celexa as she has refills left, she will confirm she is on automatic reorder. She is asking for a short supply be sent to the [facility] pharmacy as she is out of med. She has been out for several days now. Please contact pt to advise. documented in this encounter Plan of Treatment Upcoming Encounters Date Type Department Care Team (Late st Contact Info) Description 04/07/2024 11:20 AM EDT Office Visit Family Practice [address] [facility] [address] [place] [address] Jeanine Woo DO [address] [place] [address] 09/11/2024 10:00 AM EDT Nurse Only Ancillary [address] [address] [place], Nurse Annual Wellness Visit [address] [address] 01/23/2025 10:20 AM EDT Office Visit Dermatology [facility] [address] [place] [address] Deidre Barragan PA-C [address] [place] [address] Health Maintenance Due Date Last Done Comments [...] D LEVEL ONCE IN A LIFETIME-USE SMARTSET# [id number] Completed 06/03/2023, 04/09/2022, 06/04/2021, Additional history exists Lung Cancer Screening Completed 09/02/2023 , 08/28/2022, 01/14/2005 HPV (Gardasil) Vaccine Aged Out No lo nger eligible based on patient's age to complete this topic MENINGOCOCCAL (MENACTRA/MENVEO) Aged Out No longer eligible based on patient's age to complete this topic documented as of this encounter Medical Devices Implanted Type Area Laborer Tan House Device Identifier Shelf Expiration Date Model / Serial / Lot Lens 19.0 M160l - [id number] - [id number] Implanted:Qty: 1 on 11/28/2015 by Vinh Richardson MD at OR [facility] Right: Eye BAUSCH & LOMB : SURGICAL 08/18/2016 [id number]-77.0 / [id number] / [id number] Lens Intraoc 22.0 - [id number] - [id number] Implanted:Qty: 1 on 01/23/2020 by Ric Mcdonald MD at OR [facility] Left: Eye BAUSCH & LOMB 07/21/2024 [id number] / [id number] / [id number] documented as of this encounter Visit Diagnoses Diagnosis Major depressive disorder, recurrent episode, moderate (HCC) Major depressive disorder, recurrent episode, moderate documented in this encounter Advance Directives Documents on File Type Date Recorded 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 Care Teams Silviculture Professor Relationship Specialty Start Date End Date Jeanine Woo DO [address] [place] [address] PCP - General Family Medicine 12/07/23 documented as of this encounter
--- OUTSIDE RECORDS SUMMARY | 2024-07-01 04:13 | External Medical Summary | Summary of Care ---
Author Name Unknown Organization [facility] Address [address] [place] [address] Phone [phone] Care Team Providers Care Energy Operations Vice President Name Role Phone Jeanine Franco DO Primary Care Provider [phone] Encounter Details Date Type Department Care Team (Late st Contact Info) Description 03/09/2024 Documentation HEALTH & WELLNESS Alayna Farah, Health Renewable Energy Technician Allergies Active Allergy Reactions Criticality Noted Date [...] 3 08/25/2023 08/24/2024 Active OneTouch Delica Plus [id number] USE TO TEST BLOOD SUGARS ONCE DAILY [...] other day 10 Tablet 3 03/08/2024 Active documented as of this encounter (statuses [...] MCG/0.3 mL, 12 YRS AND ABOVE, IM (PFIZER-Comirnaty) [...] encounter Progress Notes * Alayna Farah Health Renewable Energy Technician - 03/09/2024 12:02 PM EDT SESSION TYPE: Group exercise session: [...] Upcoming Encounters Date Type Department Care Team (Donna st Contact Info) Description 04/07/2024 11:20 AM EDT Office Visit Family Practice [address] [place] [address] [place] [address] Jeanine Franco, DO [address] [place] [address] 09/11/2024 10:00 AM EDT Nurse Only Ancillary [address] [place] [address] [place] [address] [place], Nurse Annual Wellness Visit [address] [facility] [address] [place] [address] 01/23/2025 10:20 AM EDT Office Visit Dermatology [facility] [place] [address] [facility], [place] [address] Deidre Barragan [facility]-C [address] [facility] [address] Health Maintenance Due Date Last Done Comments [...] D LEVEL ONCE IN A LIFETIME-USE SMARTSET# [id number] Completed 06/03/2023, 04/09/2022, 06/04/2021, Additional history exists Lung Cancer Screening Completed 09/02/2023 , 08/28/2022, 01/14/2005 HPV (Gardasil) Vaccine Aged Out No lo nger eligible based on patient's age to complete this topic MENINGOCOCCAL (MENACTRA/MENVEO) Aged Out No longer eligible based on patient's age to complete this topic documented as of this encounter Medical Devices Implanted Type Area Solar Electric Installer Device Identifier Shelf Expiration Date Model / Serial / Lot Lens 19.0 M160l - [id number] - [id number] Implanted:Qty: 1 on 11/28/2015 by Vinh Richardson MD at OR [facility] Right: Eye BAUSCH & LOMB : SURGICAL 08/18/2016 [id number]-31.0 / [id number] / [id number] Lens Intraoc 22.0 - [id number] - [id number] Implanted:Qty: 1 on 01/23/2020 by Ric Mcdonald MD at OR [facility] Left: Eye BAUSCH & LOMB 07/21/2024 [id number] / [id number] / [id number] documented as of this encounter Advance Directives Documents on File Type Date Recorded Patient Finger Lift Operator Expl anation POLST 10/01/[address] [place] [address] [facility] FOR LIFE-SUSTAINING TREATMENT * Full Code (Latest Code Status on File) Date Activated Date Inactivated Comments 11/28/2015 6:26 AM 11/28/2015 12:14 PM This order re flects the patients wishes and were consensually agreed upon. Care Teams Energy Operations Vice President Relationship Specialty Start Date End Date Jeanine Franco DO [address] [place] [address] PCP - General Family Medicine 12/07/23 documented as of this encounter
--- OUTSIDE RECORDS SUMMARY | 2024-07-01 04:13 | External Medical Summary | Summary of Care ---
Author Name Unknown Organization [facility] Address [address] [place] [address] Phone [phone] Care Team Providers Care Senior Economist Name Role Phone Jeanine Woo DO Primary Care Provider Reason for Visit * Reason Onset Date Comments Medication Refill 03/07/2024 Short supply, pt is out Encounter Details Date Type Department Care Team (Late st Contact Info) Description 03/07/2024 Refill Family Practice [address] [place] [address] [place] [address] Jeanine Woo DO [address] [place] [address] Major depressive disorder, recurrent episode, moderate (HCC) [...] MEDICATIONS 100 Tablet 2 07/26/2023 5 Active NemediaTouch Verio In Vitro Strip (Glucose Blood)Indications: Type 2 diabetes mellitus with hemoglobin A1c goal of less than 7.0% (HCC) USE TO TEST BLOOD SUGAR ONCE DAILY 100 Strip 3 08/25/2023 Active NemediaTouch Delica Plus [id number] USE TO TEST BLOOD SUGARS ONCE DAILY [...] as of this encounter Miscellaneous Notes * Addendum Note - Rochelle Galvez [facility] - 03/09/2024 12:08 PM EDT Addended by: ROCHELLE GALVEZ on: 03/09/2024 12:08 PM Modules accepted: Orders * Telephone Encounter - Rochelle Galvez [facility] - 03/09/2024 12:00 PM EDT Patient's script was sent to [facility] yesterday. Called and left her a message saying such. Will send follow up script to mail order for subsequent fills. Rochelle Archibald, Pharm D, BCACP Clinical Pharmacist [address] - [facility] 03/09/2024, 12:01 PM Ph. [phone] * Telephone Encounter - Roxanna Nova OSA - 03/09/2024 10:15 AM EDT Pt checking the status of this message. Please note, pt is and has been out of med for several days. 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 * Telephone Encounter - Roxanna Ribeiro OSA - 03/09/2024 8:50 AM EDT Needs short term sent to [facility] as she is completely out and has been for several days. Needs short supply to get her through Please fill JEROME and advise pt once signed to go crop picker. * Telephone Encounter - Josee Mcgill [facility] - 03/08/2024 9:47 AM EDTSigned Prescriptions: Disp Refills Citalopram Hydrobromide 20 MG Oral Tablet *10 Tab*3 Sig: Take one tablet by mouth every other dayAuthorizing Provider: JEANINE WOO * Telephone Encounter - Jeanine Woo DO - 03/08/2024 8:24 AM EDTSigned [...] a short supply be sent to the [facility] pharmacy as she is out of med. She has been out for several days now. Please contact pt to advise. documented in this encounter Plan of Treatment Upcoming Encounters Date Type Department Care Team (Late st Contact Info) Description 04/07/2024 11:20 AM EDT Office Visit [facility] 65 [facility] [address] [place] [address] Jeanine Woo, 293 [place] [address] 09/11/2024 10:00 AM EDT Nurse Only Ancillary 65 [facility] [address] [place] [address] [place], Nurse Annual Wellness Visit [address] [place] [address] 01/23/2025 10:20 AM EDT Office Visit Dermatology [facility] [address] [place] [address] Deidre Barragan [facility]-C [address] [facility] [address] Health Maintenance Due Date Last Done Comments [...] D LEVEL ONCE IN A LIFETIME-USE SMARTSET# [id number] Completed 06/03/2023, 04/09/2022, 06/04/2021, Additional history exists Lung Cancer Screening Completed 09/02/2023 , 08/28/2022, 01/14/2005 HPV (Gardasil) Vaccine Aged Out No lo nger eligible based on patient's age to complete this topic MENINGOCOCCAL (MENACTRA/MENVEO) Aged Out No longer eligible based on patient's age to complete this topic documented as of this encounter Medical Devices Implanted Type Area E Learning Coordinator Device Identifier Shelf Expiration Date Model / Serial / Lot Lens 19.0 M160l - [id number] - [id number] Implanted:Qty: 1 on 11/28/2015 by Vinh Richardson MD at OR [facility] Right: Eye BAUSCH & LOMB : SURGICAL 08/18/2016 [id number]-24.0 / [id number] / [id number] Lens Intraoc 22.0 - [id number] - [id number] Implanted:Qty: 1 on 01/23/2020 by Ric Mcdonald MD at OR [facility] Left: Eye BAUSCH & LOMB 07/21/2024 [id number] / [id number] / [id number] documented as of this encounter Visit Diagnoses Diagnosis Major depressive disorder, recurrent episode, moderate (HCC) Major depressive disorder, recurrent episode, moderate documented in this encounter Advance Directives Documents on File Type Date Recorded Patient Production Cell Leader Expl vidal POL 10/01/2022 [place] OR [facility] FOR LIFE-SUSTAINING TREATMENT * Full Code (Latest Code Status on File) Date Activated Date Inactivated Comments 11/28/2015 6:26 AM 11/28/2015 12:14 PM This order re flects the patients wishes and were consensually agreed upon. Care Teams Senior Economist Relationship Specialty Start Date End Date Jeanine Woo DO [address] [place] [address] PCP - General Family Medicine 12/07/23 documented as of this encounter
--- OUTSIDE RECORDS SUMMARY | 2024-07-01 04:13 | External Medical Summary | Summary of Care ---
Author Name Unknown Organization [facility] Address [address] [place] [address] Phone [phone] Care Team Providers Care Revolving Inventory Clerk Name Role Phone Jeanine Franco DO Primary Care Provider [phone] Encounter Details Date Type Department Care Team (Late st Contact Info) Description 03/08/2024 Documentation HEALTH & WELLNESS Alayna Farah, Health News Anchor Allergies Active Allergy Reactions Criticality Noted Date Comments Cm Inhibitors Cough Low 09/11/2008 Amoxicillin 11/17/2019 Diffuse rash documented as of this encounter (statuses as of 03/08/2024) Medications Medication Sig Dispensed Refills Start Date [...] 3 08/25/2023 08/24/2024 Active OneTouch Delica Plus [id number] USE TO TEST BLOOD SUGARS ONCE DAILY [...] as of this encounter (statuses as of 03/08/2024) Active Problems Problem Noted Date Diagnosed Date [...] as of this encounter (statuses as of 03/08/2024) Resolved Problems Problem Noted Date Diagnosed Date [...] as of this encounter (statuses as of 03/08/2024) Immunizations Name Administration Dates Next Due COVID-19 [...] encounter Progress Notes * Alayna Farah Health News Anchor - 03/08/2024 11:58 AM EDT SESSION TYPE: Group exercise session: [...] AM EDT Office Visit Family Practice 65 [facility] [address] [place] [id number] Jeanine Franco DO [address] [place] [address] 09/11/2024 10:00 AM EDT Nurse Only Ancillary [address] [place], [place] [address] College, Nurse Annual Wellness Visit [address] [facility] [address] [place], [place] [address] 01/23/2025 10:20 AM EDT [facility] [place] [address] [place] [address] Deidre Barragan PA-C [address] [facility] [place] [address] Health Maintenance Due Date Last Done Comments Hepatitis B Vaccine (2 of 3 - 19+ 3-dose series) 12/04/2016 11/06/2016 DXA Scan 09/09/2023 09/08/2021, 08/20, 07/31/2019, Additional history exists COVID-19 Vaccine ( season) 2024 11/17/2023, 03/14/2023, [...] IN PAST YEAR FOR COPD 01/02/2025 01/03/2024 DTap/Tdap Vaccines (3 - Td or Tdap) 06/04/2031 06/04/2021, 05/06/2011, 01/14/2000 Pneumococcal Vaccine: 65+ Years Completed 11/06/2016, 08/22/2014, 11/24/2006 Zoster Vaccines Completed 08/28/2019, 04/22, 08/01/2008 Alpha-1 Antitrypsin Completed 08/06/2021 VITAMIN D LEVEL ONCE IN A LIFETIME-USE SMARTSET# [id number] Completed 06/03/2023, 04/09/2022, 06/04/2021, Additional history exists Lung Cancer Screening Completed 09/02/2023 , 08/28/2022, 01/14/2005 HPV (Gardasil) Vaccine Aged Out No lo nger eligible based on patient's age to complete this topic MENINGOCOCCAL (MENACTRA/MENVEO) Aged Out No longer eligible based on patient's age to complete this topic documented as of this encounter Medical Devices Implanted Type Area Director Of Public Relations Device Identifier Shelf Expiration Date Model / Serial / Lot Lens 19.0 M160l - [id number] - [id number] Implanted:Qty: 1 on 11/28/2015 by Vinh Richardson MD at OR [facility] Right: Eye BAUSCH & LOMB : SURGICAL 08/18/2016 [id number]-67.0 / [id number] / [id number] Lens Intraoc 22.0 - [id number] - [id number] Implanted:Qty: 1 on 01/23/2020 by Ric Mcdonald MD at OR [facility] Left: Eye BAUSCH & LOMB 07/21/2024 [id number] / [id number] / [id number] documented as of this encounter Advance Directives Documents on File Type Date Recorded Patient Director Of Mechanical Engineering Expl anation POLST 10/01/2022 [place] OR [facility] FOR LIFE-SUSTAINING TREATMENT * Full Code (Latest Code Status on File) Date Activated Date Inactivated Comments 11/28/2015 6:26 AM 11/28/2015 12:14 PM This order re flects the patients wishes and were consensually agreed upon. Care Teams Revolving Inventory Clerk Relationship Specialty Start Date End Date Jeanine Franco DO [address] [place] [address] PCP - General Family Medicine 12/07/23 documented as of this encounter
--- OUTSIDE RECORDS SUMMARY | 2024-07-01 04:13 | External Medical Summary | Summary of Care ---
Author Name Unknown Organization [facility] Address [address] [place] [address] Phone [phone] Care Team Providers Care Belt Lacer Name Role Phone Jeanine Franco DO Primary Care Provider Reason for Visit * Reason Onset Date Comments Medication Refill 02/29/2024 Encounter Details Date Type Department Care Team (Late st Contact Info) Description 02/29/2024 Refill Family Practice [address], [place] [address] [place] [phone] Jeanine Franco DO [address] [place] [address] Major depressive disorder, recurrent episode, moderate (HCC) Allergies Active Allergy Reactions Criticality Noted Date Comments Cm Inhibitors Cough Low 09/11/2008 Amoxicillin 11/17/2019 Diffuse rash documented as of this encounter (statuses as of 03/01/2024) Medications Medication Sig Dispensed Refills Start Date [...] MEDICATIONS 100 Tablet 2 07/26/2023 07/25/2024 Active ZurffTouch Verio In Vitro Strip (Glucose Blood)Indications:T ype 2 diabetes mellitus with hemoglobin A1c goal of less than 7.0% ([facility]) USE TO TEST BLOOD SUGAR ONCE DAILY 100 Strip 3 08/25/2023 08/24/2024 Active OneTouch Delica Plus [id number] USE TO TEST BLOOD SUGARS ONCE DAILY [...] MORNING 90 Tablet 3 12/01/2023 11/30/2024 Active Citalopram Hydrobromide 20 MG Oral Tablet (CeleXA)Indications :Major depressive disorder, recurrent episode, moderate (HCC) Take one tablet by mouth every other day 50 Tablet 3 12/07/2023 Active documented as of this encounter (statuses as of 03/01/2024) Active Problems Problem Noted Date Diagnosed Date [...] as of this encounter (statuses as of 03/01/2024) Resolved Problems Problem Noted Date Diagnosed Date [...] as of this encounter (statuses as of 03/01/2024) Immunizations Name Administration Dates Next Due COVID-19 mRNA, LNP-s, No Pre serve, 2-Dose Series (Moderna) 04/10/2021,08/19/2020,07/16/2020 COVID-19 mRNA, LNP-s, No Pre serve, 2-Dose Series (Nuserv) 10/06/2021 COVID-19, MRNA-LNP, 23-24, P F, 30 MCG/0.3 mL, 12 YRS AND ABOVE, IM ([facility]) 11/17/2023,03/14/2023 Covid-19, Mrna, Lnp-s, Pf, B ivalent, [...] encounter Miscellaneous Notes * Telephone Encounter - Stuart Acevedo RP - 03/01/2024 5:12 PM EDT Refused Prescriptions: Disp Refills Citalopram Hydrobromide 20 MG Oral Tablet *50 Tab*3 Sig: Take one tablet by mouth every other day Refused By: STUART ACEVEDO Reason for Refusal: Too soon * Telephone Encounter - Roxanna Ribeiro OSA - 02/29/2024 8:54 AM EDT Pending Prescriptions: Disp Refills Citalopram Hydrobromide 20 MG Oral Tablet*50 Tab*3 Sig: Take one tablet by mouth every other day Last Visit: 01/03/2024 (in office), 12/07/2023 (telemedicine) Next Visit: 02/29/2024 Last date the medication was ordered: Patient Active Problem List Diagnosis DARI (obstructive sleep apnea) Advance directive on file CM inhibitor intolerance High risk for fracture due to osteoporosis by DEXA scan History of left breast cancer Type 2 diabetes mellitus with hemoglobin A1c goal of less than 7.0% ([facility]) DYSLIPIDEMIA, GOAL LDL BELOW 100 Irritable bowel syndrome Hearing loss sensory, bilateral HTN, goal below 140/90 History of tobacco use Type 2 diabetes mellitus with diabetic peripheral angiopathy without gangrene ([facility]) COPD, group B, by GOLD 2017 classification ([facility]) Hypothyroidism due to acquired atrophy of thyroid Type 2 diabetes mellitus with polyneuropathy ([facility]) Nocturnal hypoxemia Lumbar degenerative disc disease Hypertensive heart disease with chronic diastolic congestive heart failure ([facility]) Major depressive disorder, recurrent episode, moderate ([facility]) Labs: Lab Results Component Value Date/Time CREATININE - [facility] 0.8 12/07/2023 10:54 AM CREATININE - [facility] 0.7 05/27/2020 10:36 AM CREATININE, RANDOM URINE - [facility] 108 04/19/2023 03:24 PM CREATININE, RANDOM URINE - [facility] 12 05/27/2020 10:43 AM CREATININE-OUTSIDE LAB 0.77 06/03/2018 12:00 AM Lab Results Component Value Date/Time POTASSIUM - [facility] 4.9 12/07/2023 10:54 AM POTASSIUM - [facility] 4.4 05/27/2020 10:36 AM POTASSIUM-OUTSIDE LAB 3.7 06/03/2018 12:00 AM Lab Results Component Value Date/Time TSH [...] Team (Late st Contact Info) Description 03/08/2024 10:30 AM EDT Imaging Radiology, [address] [place] [address] 04/07/2024 11:20 AM EDT Office Visit Family Practice 65 [facility] 293 [place] [address] Jeanine Franco DO 293 [facility], [place] [address] 09/11/2024 10:00 AM EDT Nurse Only Ancillary 65 [facility] 293 [facility] [place] [address] College, Nurse Annual Wellness Visit [address] [facility] [address] [place], [place] [address] 01/23/2025 10:20 AM EDT Office Visit Dermatology Shonna Ortiz [place] [address] [place] [address] Deidre Barragan PA-C [address] [facility] [place] [address] Health Maintenance Due Date Last Done Comments [...] D LEVEL ONCE IN A LIFETIME-USE SMARTSET# [id number] Completed 06/03/2023, 04/09/2022, 06/04/2021, Additional history exists Lung Cancer Screening Completed 09/02/2023 , 08/28/2022, 01/14/2005 HPV (Gardasil) Vaccine Aged Out No lo nger eligible based on patient's age to complete this topic MENINGOCOCCAL (MENACTRA/MENVEO) Aged Out No longer eligible based on patient's age to complete this topic documented as of this encounter Medical Devices Implanted Type Area Broommaker Device Identifier Shelf Expiration Date Model / Serial / Lot Lens 19.0 M160l - [id number] - [id number] Implanted:Qty: 1 on 11/28/2015 by Vinh Richardson MD at OR [facility] Right: Eye BAUSCH & LOMB : SURGICAL 08/18/2016 [id number]-46.0 / [id number] / [id number] Lens Intraoc 22.0 - [id number] - [id number] Implanted:Qty: 1 on 01/23/2020 by Ric Mcdonald MD at OR [facility] Left: Eye BAUSCH & LOMB 07/21/2024 [id number] / [id number] / [id number] documented as of this encounter Visit Diagnoses Diagnosis Major depressive disorder, recurrent episode, moderate (HCC) Major depressive disorder, recurrent episode, moderate documented in this encounter Advance Directives Documents on File Type Date Recorded Patient Icer Machine Expl anation POLST 10/01/2022 [place] [facility] FOR LIFE-SUSTAINING TREATMENT * Full Code (Latest Code Status on File) Date Activated Date Inactivated Comments 11/28/2015 6:26 AM 11/28/2015 12:14 PM This order re flects the patients wishes and were consensually agreed upon. Care Teams Belt Lacer Relationship Specialty Start Date End Date Jeanine Franco DO [address] [facility] [place] [address] PCP - General Family Medicine 12/07/23 documented as of this encounter
--- OUTSIDE RECORDS SUMMARY | 2024-07-01 04:13 | External Medical Summary | Summary of Care ---
Author Name Unknown Organization [facility] Address [address] [place] [address] Phone [phone] Care Team Providers Care Statistical Methods Professor Name Role Phone Jeanine Franco DO Primary Care Provider [phone] Encounter Details Date Type Department Care Team (Late st Contact Info) Description 03/03/2024 Documentation HEALTH & WELLNESS Alayna Farah, Health Power Line Lineman Allergies Active Allergy Reactions Criticality Noted Date Comments Cm Inhibitors Cough Low 09/11/2008 Amoxicillin 11/17/2019 Diffuse rash documented as of this encounter (statuses as of 03/03/2024) Medications Medication Sig Dispensed Refills Start Date [...] 3 08/25/2023 08/24/2024 Active OneTouch Delica Plus [id number] USE TO TEST BLOOD SUGARS ONCE DAILY [...] other day 50 Tablet 3 12/07/2023 Active Atorvastatin Calcium 40 MG Oral Tablet (Lipitor)Indication s:Dyslipidemia, goal LDL below 100 TAKE ONE TABLET BY MOUTH THREE TIMES A WEEK ON MON, WED AND FRI IN THE EVENING 45 Tablet 1 02/29/2024 Active documented as of this encounter (statuses as of 03/03/2024) Active Problems Problem Noted Date Diagnosed Date [...] as of this encounter (statuses as of 03/03/2024) Resolved Problems Problem Noted Date Diagnosed Date [...] as of this encounter (statuses as of 03/03/2024) Immunizations Name Administration Dates Next Due COVID-19 [...] encounter Progress Notes * Alayna Farah Health Power Line Lineman - 03/03/2024 10:50 AM EDT SESSION TYPE: Group exercise session: [...] Description 03/08/2024 10:30 AM EDT Imaging Radiology, [facility] [address] [facility] [place], [place] [address] 04/07/2024 11:20 AM EDT Office Visit Family Practice 65 [facility], [place] 293 [place] [address] Jeanine Franco, DO [facility] [address] 09/11/2024 10:00 AM EDT Nurse Only Ancillary [address], [place] 293 [facility], [place] [address] College, Nurse Annual Wellness Visit [address] [facility] 293 [facility], [place] [address] 01/23/2025 10:20 AM EDT Office Visit [facility]atology [facility] [place] [address] [facility] [address] Deidre Barragan [facility]C [address] [facility] [address] Health Maintenance Due Date Last Done Comments [...] D LEVEL ONCE IN A LIFETIME-USE SMARTSET# [id number] Completed 06/03/2023, 04/09/2022, 06/04/2021, Additional history exists Lung Cancer Screening Completed 09/02/2023 , 08/28/2022, 01/14/2005 HPV (Gardasil) Vaccine Aged Out No lo nger eligible based on patient's age to complete this topic MENINGOCOCCAL (MENACTRA/MENVEO) Aged Out No longer eligible based on patient's age to complete this topic documented as of this encounter Medical Devices Implanted Type Area Loan Examiner Device Identifier Shelf Expiration Date Model / Serial / Lot Lens 19.0 M160l - [id number] - [id number] Implanted:Qty: 1 on 11/28/2015 by Vinh Richardson MD at OR [facility] Right: Eye BAUSCH & LOMB : SURGICAL 08/18/2016 [id number]-01.0 / [id number] / [id number] Lens Intraoc 22.0 - [id number] - [id number] Implanted:Qty: 1 on 01/23/2020 by Ric Mcdonald MD at OR [facility] Left: Eye BAUSCH & LOMB 07/21/2024 [id number] / [id number] / [id number] documented as of this encounter Advance Directives Documents on File Type Date Recorded Patient Lawn Care Technician Expl anation POLST 10/01/2022 [place] OR [facility] FOR LIFE-SUSTAINING TREATMENT * Full Code (Latest Code Status on File) Date Activated Date Inactivated Comments 11/28/2015 6:26 AM 11/28/2015 12:14 PM This order re flects the patients wishes and were consensually agreed upon. Care Teams Statistical Methods Professor Relationship Specialty Start Date End Date Jeanine Franco DO [address] [place] [address] PCP - General Family Medicine 12/07/23 documented as of this encounter
--- OUTSIDE RECORDS SUMMARY | 2024-07-01 04:13 | External Medical Summary | Summary of Care ---
Author Name Unknown Organization [facility] Address [address] [place] [address] Phone [phone] Care Team Providers Care Denture Processor Name Role Phone Jeanine Woo DO Primary Care Provider Reason for Visit * Reason Onset Date Comments Medication Refill 03/07/2024 Short supply, pt is out Encounter Details Date Type Department Care Team (Late st Contact Info) Description 03/07/2024 Refill Family Practice [address] [place] [address] [place] [address] Jeanine Woo DO [address] [place] [address] Major depressive disorder, recurrent episode, moderate (HCC) [...] MEDICATIONS 100 Tablet 2 07/26/2023 5 Active DatameerTouch Verio In Vitro Strip (Glucose Blood)Indications: Type 2 diabetes mellitus with hemoglobin A1c goal of less than 7.0% (HCC) USE TO TEST BLOOD SUGAR ONCE DAILY 100 Strip 3 08/25/2023 Active DatameerTouch Delica Plus Jtyvsh52N USE TO TEST BLOOD SUGARS ONCE DAILY [...] AM EDT Needs short term sent to [facility] as she is completely out and has been for several days. Needs short supply to get her through Please fill JEROME and advise pt once signed to go picker tender helper. * Telephone Encounter - Josee Mcgill [facility] - 03/08/2024 9:47 AM EDTSigned Prescriptions: Disp [...] a short supply be sent to the [facility] pharmacy as she is out of med. She has been out for several days now. Please contact pt to advise. documented in this encounter Plan of Treatment Upcoming Encounters Date Type Department Care Team (Late st Contact Info) Description 03/09/2024 9:00 AM EDT Office Visit Family Practice 65 [facility] 293 [place] [address] [place], Health Bag Valver Fam Prac [address] [address] 04/07/2024 11:20 AM EDT Office Visit Family Practice 65 [facility] [address] [place] [phone] Jeanine Woo [address] [place] [address] 09/11/2024 10:00 AM EDT Nurse Only Ancillary 65 [facility] [address] [place] [address] [place], Nurse Annual Wellness Visit [address] [address] 01/23/2025 10:20 AM EDT Office Visit Dermatology [facility] 200 [facility] [place] [address] Deidre Barragan, [place] [address] [place] [address] Health Maintenance Due Date Last Done Comments [...] D LEVEL ONCE IN A LIFETIME-USE SMARTSET# [id number] Completed 06/03/2023, 04/09/2022, 06/04/2021, Additional history exists Lung Cancer Screening Completed 09/02/2023 , 08/28/2022, 01/14/2005 HPV (Gardasil) Vaccine Aged Out No lo nger eligible based on patient's age to complete this topic MENINGOCOCCAL (MENACTRA/MENVEO) Aged Out No longer eligible based on patient's age to complete this topic documented as of this encounter Medical Devices Implanted Type Area Wood Milling Machine Hand Device Identifier Shelf Expiration Date Model / Serial / Lot Lens 19.0 M160l - [id number] - [id number] Implanted:Qty: 1 on 11/28/2015 by Vinh Richardson MD at OR [facility] Right: Eye BAUSCH & LOMB : SURGICAL 08/18/2016 [id number]-56.0 / [id number] / [id number] Lens Intraoc 22.0 - [id number] - [id number] Implanted:Qty: 1 on 01/23/2020 by Ric Mcdonald MD at OR [facility] Left: Eye BAUSCH & LOMB 07/21/2024 [id number] / [id number] / [id number] documented as of this encounter Visit Diagnoses Diagnosis Major depressive disorder, recurrent episode, moderate (HCC) Major depressive disorder, recurrent episode, moderate documented in this encounter Advance Directives Documents on File Type Date Recorded Patient Scissors Sharpener Expl anation POLST 10/01/2022 [place] OR [facility] FOR LIFE-SUSTAINING TREATMENT * Full Code (Latest Code Status on File) Date Activated Date Inactivated Comments 11/28/2015 6:26 AM 11/28/2015 12:14 PM This order re flects the patients wishes and were consensually agreed upon. Care Teams Denture Processor Relationship Specialty Start Date End Date Jeanine Woo DO [address] [place] [address] PCP - General Family Medicine 12/07/23 documented as of this encounter
--- OUTSIDE RECORDS SUMMARY | 2024-07-01 04:13 | External Medical Summary | Summary of Care ---
Author Name Unknown Organization [facility] Address [address] [place] [address] Phone [phone] Care Team Providers Care Behavioral Intervention Specialist Name Role Phone Jeanine Woo DO Primary Care Provider Reason for Visit * Reason Onset Date Comments Medication Refill 03/07/2024 Short supply, pt is out Encounter Details Date Type Department Care Team (Late st Contact Info) Description 03/07/2024 Refill Family Practice [address] [place] [address] [place] [address] Jeanine Woo DO [address] [place] [address] Major depressive disorder, recurrent episode, moderate (HCC) [...] MEDICATIONS 100 Tablet 2 07/26/2023 5 Active ArtCorgiTouch Verio In Vitro Strip (Glucose Blood)Indications: Type 2 diabetes mellitus with hemoglobin A1c goal of less than 7.0% (HCC) USE TO TEST BLOOD SUGAR ONCE DAILY 100 Strip 3 08/25/2023 Active ArtCorgiTouch Delica Plus Hiizty96R USE TO TEST BLOOD SUGARS ONCE DAILY [...] Notes * Addendum Note - Rochelle Galvez formerly [facility] - 03/09/2024 12:08 PM EDT Addended by: ROCHELLE GALVEZ on: 03/09/2024 12:08 PM Modules accepted: Orders * Telephone Encounter - Rochelle Galvez formerly [facility] - 03/09/2024 12:00 PM EDT Patient's script was sent to [facility] yesterday. Called and left her a message saying such. Will send follow up script to mail order for subsequent fills. Rochelle Archibald, Pharm D, BCACP Clinical Pharmacist [address] - [facility] 03/09/2024, 12:01 PM Ph. [phone] * Telephone Encounter - Roxanna Nova OSA - 03/09/2024 10:15 AM EDT Pt checking the status of this message. Please note, pt is and has been out of med for several days. Please send a short term supply to for her to fruit or nut picker \ Please call her once so she is aware . * Telephone Encounter - Roxanna Ribeiro OSA - 03/09/2024 8:50 AM EDT Needs short term sent to [facility] as she is completely out and has been for several days. Needs short supply to get her through Please fill JEROME and advise pt once signed to go fruit or nut picker. * Telephone Encounter - Josee Mcgill [facility] - 03/08/2024 9:47 AM EDTSigned Prescriptions: Disp [...] a short supply be sent to the [facility] pharmacy as she is out of med. She has been out for several days now. Please contact pt to advise. documented in this encounter Plan of Treatment Upcoming Encounters Date Type Department Care Team (Late st Contact Info) Description 04/07/2024 11:20 AM EDT Office Visit [facility] 65 [facility] 293 [facility] [place] [address] Jeanine Woo, 293 [place] [address] 09/11/2024 10:00 AM EDT Nurse Only Ancillary 65 [facility] 293 [facility] [place] [address] College, Nurse Annual Wellness Visit [address] [place] [address] 01/23/2025 10:20 AM EDT Office Visit Dermatology [facility] 200 [place] [address] Deidre Barragan PA-C [address] [facility] [address] Health Maintenance Due Date Last Done Comments [...] D LEVEL ONCE IN A LIFETIME-USE SMARTSET# [id number] Completed 06/03/2023, 04/09/2022, 06/04/2021, Additional history exists Lung Cancer Screening Completed 09/02/2023 , 08/28/2022, 01/14/2005 HPV (Gardasil) Vaccine Aged Out No lo nger eligible based on patient's age to complete this topic MENINGOCOCCAL (MENACTRA/MENVEO) Aged Out No longer eligible based on patient's age to complete this topic documented as of this encounter Medical Devices Implanted Type Area Contract Programmer Device Identifier Shelf Expiration Date Model / Serial / Lot Lens 19.0 M160l - [id number] - [id number] Implanted:Qty: 1 on 11/28/2015 by Vinh Richardson MD at OR [facility] Right: Eye BAUSCH & LOMB : SURGICAL 08/18/2016 [id number]-70.0 / [id number] / [id number] Lens Intraoc 22.0 - [id number] - [id number] Implanted:Qty: 1 on 01/23/2020 by Ric Mcdonald MD at OR [facility] Left: Eye BAUSCH & LOMB 07/21/2024 [id number] / [id number] / [id number] documented as of this encounter Visit Diagnoses Diagnosis Major depressive disorder, recurrent episode, moderate (HCC) Major depressive disorder, recurrent episode, moderate documented in this encounter Advance Directives Documents on File Type Date Recorded Patient Senior Contracts Manager Expl vidal POL 10/01/2022 [place] [facility] FOR LIFE-SUSTAINING TREATMENT * Full Code (Latest Code Status on File) Date Activated Date Inactivated Comments 11/28/2015 6:26 AM 11/28/2015 12:14 PM This order re flects the patients wishes and were consensually agreed upon. Care Teams Behavioral Intervention Specialist Relationship Specialty Start Date End Date Jeanine Woo DO [address] [place] [address] PCP - General Family Medicine 12/07/23 documented as of this encounter
--- OUTSIDE RECORDS SUMMARY | 2024-07-01 04:13 | External Medical Summary | Summary of Care ---
Author Name Unknown Organization [facility] Address [address] [place] [address] Phone [phone] Care Team Providers Care Dialysis Equipment Technician Name Role Phone Jeanine Woo DO Primary Care Provider Reason for Visit * Reason Onset Date Comments Medication Refill 03/07/2024 Short supply, pt is out Encounter Details Date Type Department Care Team (Late st Contact Info) Description 03/07/2024 Refill Family Practice [address] [place] [address] [place] [address] Jeanine Woo DO [address] [place] [address] Major depressive disorder, recurrent episode, moderate (HCC) [...] MEDICATIONS 100 Tablet 2 07/26/2023 5 Active Transport PharmaceuticalsTouch Verio In Vitro Strip (Glucose Blood)Indications: Type 2 diabetes mellitus with hemoglobin A1c goal of less than 7.0% (HCC) USE TO TEST BLOOD SUGAR ONCE DAILY 100 Strip 3 08/25/2023 Active Transport PharmaceuticalsTouch Delica Plus Ovnvpc79T USE TO TEST BLOOD SUGARS ONCE DAILY [...] MCG/0.3 mL, 12 YRS AND ABOVE, IM ([employer]) 11/17/2023,03/14/2023 Covid-19, Mrna, Lnp-s, Pf, B ivalent, [...] Miscellaneous Notes * Telephone Encounter - Jeanine Woo DO [...] a short supply be sent to the [facility] pharmacy as she is out of med. She has been out for several days now. Please contact pt to advise. documented in this encounter Plan of Treatment Upcoming Encounters Date Type Department Care Team (Late st Contact Info) Description 03/08/2024 10:30 AM EDT Imaging Radiology, [facility] [address] [facility] [place] [address] 04/07/2024 11:20 AM EDT Office Visit Family Practice 65 [facility] 293 [facility] [place] [address] Jeanine Woo DO 293 [place] [address] 09/11/2024 10:00 AM EDT Nurse Only Ancillary 65 [facility] [address] [facility] [address] [facility], Nurse Annual Wellness Visit [address] [place] [address] 01/23/2025 10:20 AM EDT Office Visit Dermatology [facility] 200 [facility] [place] [address] Deidre Barragan PA-C [address] [facility] [place] [address] Health Maintenance Due Date Last Done Comments [...] D LEVEL ONCE IN A LIFETIME-USE SMARTSET# [id number] Completed 06/03/2023, 04/09/2022, 06/04/2021, Additional history exists Lung Cancer Screening Completed 09/02/2023 , 08/28/2022, 01/14/2005 HPV (Gardasil) Vaccine Aged Out No lo nger eligible based on patient's age to complete this topic MENINGOCOCCAL (MENACTRA/MENVEO) Aged Out No longer eligible based on patient's age to complete this topic documented as of this encounter Medical Devices Implanted Type Area Curtain Worker Device Identifier Shelf Expiration Date Model / Serial / Lot Lens 19.0 M160l - [id number] - [id number] Implanted:Qty: 1 on 11/28/2015 by Vinh Richardson MD at OR [facility] Right: Eye BAUSCH & LOMB : SURGICAL 08/18/2016 [id number]-72.0 / [id number] / [id number] Lens Intraoc 22.0 - [id number] - [id number] Implanted:Qty: 1 on 01/23/2020 by Ric Mcdonald MD at OR [facility] Left: Eye BAUSCH & LOMB 07/21/2024 [id number] / [id number] / [id number] documented as of this encounter Visit Diagnoses Diagnosis Major depressive disorder, recurrent episode, moderate (HCC) Major depressive disorder, recurrent episode, moderate documented in this encounter Advance Directives Documents on File Type Date Recorded Patient De Icer Kit Assembler Expl anation POLST 10/01/2022 [facility] FOR LIFE-SUSTAINING TREATMENT * Full Code (Latest Code Status on File) Date Activated Date Inactivated Comments 11/28/2015 6:26 AM 11/28/2015 12:14 PM This order re flects the patients wishes and were consensually agreed upon. Care Teams Dialysis Equipment Technician Relationship Specialty Start Date End Date Jeanine Woo DO [address] [place] [address] PCP - General Family Medicine 12/07/23 documented as of this encounter
--- OUTSIDE RECORDS SUMMARY | 2024-07-01 04:13 | External Medical Summary | Summary of Care ---
Author Name Unknown Organization [facility] Address [address] [place] [address] Phone [phone] Care Team Providers Care Office Runner Name Role Phone Jeanine Woo DO Primary Care Provider [phone] Reason for Visit * Reason Onset Date Comments Medication Refill 03/07/2024 Short supply, pt is out Encounter Details Date Type Department Care Team (Late st Contact Info) Description 03/07/2024 Refill Family Practice [address], [place] [address] [place] [address] Jeanine Woo DO [address] [place] [address] Major depressive disorder, recurrent episode, moderate (HCC) [...] MEDICATIONS 100 Tablet 2 07/26/2023 5 Active Shuoren HitechTouch Verio In Vitro Strip (Glucose Blood)Indications: Type 2 diabetes mellitus with hemoglobin A1c goal of less than 7.0% (HCC) USE TO TEST BLOOD SUGAR ONCE DAILY 100 Strip 3 08/25/2023 Active Shuoren HitechTouch Delica Plus [id number] USE TO TEST BLOOD SUGARS ONCE DAILY [...] Notes * Addendum Note - Rochelle Galvez [facility] - 03/09/2024 12:08 PM EDT Addended by: ROCHELLE GALVEZ on: 03/09/2024 12:08 PM Modules accepted: Orders * Telephone Encounter - Rochelle Galvez [facility] - 03/09/2024 12:00 PM EDT Patient's script was sent to [facility] yesterday. Called and left her a message saying such. Will send follow up script to mail order for subsequent fills. Rochelle Archibald, Pharm D, BCACP Clinical Pharmacist [address] - [facility] 03/09/2024, 12:01 PM Ph. [phone] * Telephone Encounter - Roxanna Nova OSA - 03/09/2024 10:15 AM EDT Pt checking the status of this message. Please note, pt is and has been out of med for several days. Please send a short term supply to for her to mixing picker tender \ Please call her once so she is aware . * Telephone Encounter - Roxanna Ribeiro OSA - 03/09/2024 8:50 AM EDT Needs short term sent to Amari as she is completely out and has been for several days. Needs short supply to get her through Please fill JEROME and advise pt once signed to go mixing picker tender. * Telephone Encounter - Josee Mcgill [facility] - 03/08/2024 9:47 AM EDTSigned [...] a short supply be sent to the [facility] pharmacy as she is out of med. She has been out for several days now. Please contact pt to advise. documented in this encounter Plan of Treatment Upcoming Encounters Date Type Department Care Team (Late st Contact Info) Description 04/07/2024 11:20 AM EDT Office Visit [facility] 65 [facility] 293 [place] [address] Jeanine Woo, 293 [place] [address] 09/11/2024 10:00 AM EDT Nurse Only Ancillary 65 [facility] 293 [place] [address] College, Nurse Annual Wellness Visit [address] [place] [address] 01/23/2025 10:20 AM EDT Office Visit Dermatology [facility] [address] [place] [address] Deidre Barragan PA-C [address] [facility] [address] Health Maintenance Due Date Last Done Comments [...] D LEVEL ONCE IN A LIFETIME-USE SMARTSET# [id number] Completed 06/03/2023, 04/09/2022, 06/04/2021, Additional history exists Lung Cancer Screening Completed 09/02/2023 , 08/28/2022, 01/14/2005 HPV (Gardasil) Vaccine Aged Out No lo nger eligible based on patient's age to complete this topic MENINGOCOCCAL (MENACTRA/MENVEO) Aged Out No longer eligible based on patient's age to complete this topic documented as of this encounter Medical Devices Implanted Type Area Compound Specialist Device Identifier Shelf Expiration Date Model / Serial / Lot Lens 19.0 M160l - [id number] - [id number] Implanted:Qty: 1 on 11/28/2015 by Vinh Richardson MD at OR [facility] Right: Eye BAUSCH & LOMB : SURGICAL 08/18/2016 [id number] / [id number] / [id number] Lens Intraoc 22.0 - [id number] - [id number] Implanted:Qty: 1 on 01/23/2020 by Ric Mcdonald MD at OR [facility] Left: Eye BAUSCH & LOMB 07/21/2024 [id number] / [id number] / [id number] documented as of this encounter Visit Diagnoses Diagnosis Major depressive disorder, recurrent episode, moderate (HCC) Major depressive disorder, recurrent episode, moderate documented in this encounter Advance Directives Documents on File Type Date Recorded Patient Hoop Machine Operator Expl vidal POL 10/01/2022 [place] OR [facility] FOR LIFE-SUSTAINING TREATMENT * Full Code (Latest Code Status on File) Date Activated Date Inactivated Comments 11/28/2015 6:26 AM 11/28/2015 12:14 PM This order re flects the patients wishes and were consensually agreed upon. Care Teams Office Runner Relationship Specialty Start Date End Date Jeanine Woo DO [address] [place] [address] PCP - General Family Medicine 12/07/23 documented as of this encounter
--- OUTSIDE RECORDS SUMMARY | 2024-07-01 04:14 | External Medical Summary | Summary of Care ---
Author Name Unknown Organization [facility] Address [address] [place] [address] Phone [phone] Care Team Providers Care Yield Improvement Engineer Name Role Phone Jeanine Franco DO Primary Care Provider [phone] Encounter Details Date Type Department Care Team (Late st Contact Info) Description 02/29/2024 Documentation HEALTH & WELLNESS Alayna Farah, Health Prosthetic Lab Technician Allergies Active Allergy Reactions Criticality Noted Date Comments Cm Inhibitors Cough Low 09/11/2008 Amoxicillin 11/17/2019 Diffuse rash documented as of this encounter (statuses as of 02/29/2024) Medications Medication Sig Dispensed Refills Start Date [...] MEDICATIONS 100 Tablet 2 07/26/2023 07/25/2024 Active Atorvastatin Calcium 40 MG Oral Tablet (Lipitor)Indication s:Dyslipidemia, goal LDL below 100 TAKE ONE TABLET BY MOUTH THREE TIMES A WEEK ON MON, WED AND FRI IN THE EVENING 45 Tablet 1 08/22/2023 Active OneTouch Verio In Vitro Strip (Glucose Blood)Indications:T ype 2 diabetes mellitus with hemoglobin A1c goal of less than 7.0% (HCC) USE TO TEST BLOOD SUGAR ONCE DAILY 100 Strip 3 08/25/2023 08/24/2024 Active OneTouch Delica Plus [id number] USE TO TEST BLOOD SUGARS ONCE DAILY [...] as of this encounter (statuses as of 02/29/2024) Active Problems Problem Noted Date Diagnosed Date [...] as of this encounter (statuses as of 02/29/2024) Resolved Problems Problem Noted Date Diagnosed Date [...] as of this encounter (statuses as of 02/29/2024) Immunizations Name Administration Dates Next Due COVID-19 [...] encounter Progress Notes * Alayna Farah Health Prosthetic Lab Technician - 02/29/2024 11:02 AM EDT SESSION TYPE: Group exercise session: [...] Description 03/08/2024 10:30 AM EDT Imaging Radiology, [facility] [address] [facility] [place] [address] 04/07/2024 11:20 AM EDT Office Visit Family Practice 65 [facility] [place] [facility] [address] [facility] 293 [facility] [address] 09/11/2024 10:00 AM EDT Nurse Only Ancillary [address], [place] [address] [facility], [place] [address] College, Nurse Annual Wellness Visit [address] [facility] 293 [facility], [place] [address] 01/23/2025 10:20 AM EDT Office Visit Dermatology [facility] [place] 200 [facility] [address] Deidre Barragan PA-C [address] [facility] [place] [address] Health Maintenance Due Date Last Done Comments [...] D LEVEL ONCE IN A LIFETIME-USE SMARTSET# [id number] Completed 06/03/2023, 04/09/2022, 06/04/2021, Additional history exists Lung Cancer Screening Completed 09/02/2023 , 08/28/2022, 01/14/2005 HPV (Gardasil) Vaccine Aged Out No lo nger eligible based on patient's age to complete this topic MENINGOCOCCAL (MENACTRA/MENVEO) Aged Out No longer eligible based on patient's age to complete this topic documented as of this encounter Medical Devices Implanted Type Area Human Resources Compensation Analyst Device Identifier Shelf Expiration Date Model / Serial / Lot Lens 19.0 M160l - [id number] - [id number] Implanted:Qty: 1 on 11/28/2015 by Vinh Richardson MD at OR [facility] Right: Eye BAUSCH & LOMB : SURGICAL 08/18/2016 [id number]-34.0 / [id number] / [id number] Lens Intraoc 22.0 - [id number] - [id number] Implanted:Qty: 1 on 01/23/2020 by Ric Mcdonald MD at OR [facility] Left: Eye BAUSCH & LOMB 07/21/2024 [id number] / [id number] / [id number] documented as of this encounter Advance Directives Documents on File Type Date Recorded Patient Leather Repairer Expl anation POLST 10/01/2022 [place] OR [facility] FOR LIFE-SUSTAINING TREATMENT * Full Code (Latest Code Status on File) Date Activated Date Inactivated Comments 11/28/2015 6:26 AM 11/28/2015 12:14 PM This order re flects the patients wishes and were consensually agreed upon. Care Teams Yield Improvement Engineer Relationship Specialty Start Date End Date Jeanine Franco DO [address] [place] [address] PCP - General Family Medicine 12/07/23 documented as of this encounter
--- OUTSIDE RECORDS SUMMARY | 2024-07-01 04:14 | External Medical Summary | Summary of Care ---
Author Name Unknown Organization [facility] Address [address] [place] [address] Phone [phone] Care Team Providers Care Rug Hooker Hand Name Role Phone Jeanine Woo DO Primary Care Provider Reason for Visit * Reason Comments Medication Refill Encounter Details Date Type Department Care Team (Late st Contact Info) Description 02/28/2024 Refill Family Practice [address], [place] [address] [place] [address] Jeanine Woo DO [address] [place] [address] Dyslipidemia, goal LDL below 100 Allergies Active Allergy Reactions Criticality Noted Date [...] MEDICATIONS 100 Tablet 2 07/26/2023 5 Active Bowman PowerTouch Verio In Vitro Strip (Glucose Blood)Indications: Type 2 diabetes mellitus with hemoglobin A1c goal of less than 7.0% ([facility]) USE TO TEST BLOOD SUGAR ONCE DAILY 100 Strip 3 08/25/2023 5 Active OneTouch Delica Plus [id number] USE TO TEST BLOOD SUGARS ONCE DAILY [...] MORNING 90 Tablet 3 12/01/2023 5 Active Citalopram Hydrobromide 20 MG Oral Tablet (CeleXA)Indication s:Major depressive disorder, recurrent episode, moderate (HCC) Take one tablet by mouth every other day 50 Tablet 3 12/07/2023 Active Atorvastatin Calcium 40 MG Oral Tablet (Lipitor)Indicatio ns:Dyslipidemia, goal LDL below 100 TAKE ONE TABLET BY MOUTH THREE TIMES A WEEK ON MON, WED AND FRI IN THE EVENING 45 Tablet 1 02/29/2024 Active Atorvastatin Calcium 40 MG Oral Tablet (Lipitor)Indicatio ns:Dyslipidemia, goal LDL below 100 TAKE ONE TABLET BY MOUTH THREE TIMES A WEEK ON MON, WED AND FRI IN THE EVENING 45 Tablet 1 08/22/2023 4 Discontinue d(Refill) documented as of this [...] MCG/0.3 mL, 12 YRS AND ABOVE, IM ([facility]) 11/17/2023,03/14/2023 Covid-19, Mrna, Lnp-s, Pf, B ivalent, [...] encounter Miscellaneous Notes * [facility] 12:57 PM EDTSigned Prescriptions: Disp Refills Atorvastatin Calcium 40 MG Oral Tablet (Li*45 Tab*1 Sig: TAKE ONE TABLET BY MOUTH THREE TIMES A WEEK ON MON, WED AND FRI IN THE EVENINGAuthorizing Provider: JEANINE WOO User: BRITNEY BLUE documented in this encounter Plan of Treatment Upcoming Encounters Date Type Department Care Team (Late st Contact Info) Description 03/08/2024 10:30 AM EDT [address], [address] [address] 04/07/2024 11:20 AM EDT Office Visit Family Practice 65 [facility] [address] [facility] [address] Jeanine Woo DO [address] [facility] [address] 09/11/2024 10:00 AM EDT Nurse Only Ancillary 65 [facility] [address] [facility] [address] College, Nurse Annual Wellness Visit [address] [place] [address] 01/23/2025 10:20 AM EDT Office Visit Dermatology [facility] 200 [facility] [address] Deidre Barragan PA-C [address] [facility] [place] [address] Health Maintenance Due Date Last Done Comments Hepatitis B Vaccine (2 of 3 - 19+ 3-dose series) 12/04/2016 11/06/2016 DXA Scan 09/09/2023 09/08/2021, 08/20, 07/31/2019, Additional history exists COVID-19 Vaccine (2022- season) 2024 11/17/2023, 03/14/2023, 03/24/2022, Additional history [...] D LEVEL ONCE IN A LIFETIME-USE SMARTSET# [id number] Completed 06/03/2023, 04/09/2022, 06/04/2021, Additional history exists Lung Cancer Screening Completed 09/02/2023 , 08/28/2022, 01/14/2005 HPV (Gardasil) Vaccine Aged Out No lo nger eligible based on patient's age to complete this topic MENINGOCOCCAL (MENACTRA/MENVEO) Aged Out No longer eligible based on patient's age to complete this topic documented as of this encounter Medical Devices Implanted Type Area Core Extruder Device Identifier Shelf Expiration Date Model / Serial / Lot Lens 19.0 M160l - [id number] - [id number] Implanted:Qty: 1 on 11/28/2015 by Vinh Richardson MD at OR [facility] Right: Eye BAUSCH & LOMB : SURGICAL 08/18/2016 [id number]-18.0 / [id number] / [id number] Lens Intraoc 22.0 - [id number] - [id number] Implanted:Qty: 1 on 01/23/2020 by Ric Mcdonald MD at OR [facility] Left: Eye BAUSCH & LOMB 07/21/2024 [id number] / [id number] / [id number] documented as of this encounter Visit Diagnoses Diagnosis Dyslipidemia, goal LDL below 100 Other and unspecified hyperlipidemia documented in this encounter Advance Directives Documents on File Type Date Recorded Patient Software Team Leader Expl anation POLST 10/01/[address] [place] [address] [facility] FOR LIFE-SUSTAINING TREATMENT * Full Code (Latest Code Status on File) Date Activated Date Inactivated Comments 11/28/2015 6:26 AM 11/28/2015 12:14 PM This order re flects the patients wishes and were consensually agreed upon. Care Teams Rug Hooker Hand Relationship Specialty Start Date End Date Jeanine Woo DO [address] [place] [address] PCP - General Family Medicine 12/07/23 documented as of this encounter
--- OUTSIDE RECORDS SUMMARY | 2024-07-01 04:14 | External Medical Summary | Summary of Care ---
Author Name Unknown Organization [facility] Address [address] [place] [address] Phone [phone] Care Team Providers Care Alteration Manager Name Role Phone Jeanine Franco DO Primary Care Provider [phone] Encounter Details Date Type Department Care Team (Latest Contact Info) Description 02/25/2024 10:42 AM EDT - 02/25/2024 11:59 PM EDT Hospital Encounter [facility] [address] [place], [place] [id number] Arrived Discharge Disposition: Home - Self Care Allergies Active Allergy Reactions Criticality Noted Date Comments Cm Inhibitors Cough Low 09/11/2008 Amoxicillin 11/17/2019 Diffuse rash documented as of this encounter (statuses as of 02/26/2024) Medications Medication Sig Dispensed Refills Start Date [...] THE EVENING 45 Tablet 1 08/22/2023 Active MyAppConverterTouch Verio In Vitro Strip (Glucose Blood)Indications:T ype 2 diabetes mellitus with hemoglobin A1c goal of less than 7.0% (HCC) USE TO TEST BLOOD SUGAR ONCE DAILY 100 Strip 3 08/25/2023 08/24/2024 Active MyAppConverterTouch Delica Plus [id number] USE TO TEST BLOOD SUGARS ONCE DAILY [...] as of this encounter (statuses as of 02/26/2024) Active Problems Problem Noted Date Diagnosed Date [...] as of this encounter (statuses as of 02/26/2024) Resolved Problems Problem Noted Date Diagnosed Date [...] as of this encounter (statuses as of 02/26/2024) Immunizations Name Administration Dates Next Due COVID-19 mRNA, LNP-s, No Pre serve, 2-Dose Series (Moderna) 04/10/2021,08/19/2020,07/16/2020 COVID-19 mRNA, LNP-s, No Pre serve, 2-Dose Series (Kickplay) 10/06/2021 COVID-19, MRNA-LNP, 23-24, P F, 30 MCG/0.3 mL, 12 YRS AND ABOVE, IM ([facility]) 11/17/2023,03/14/2023 Covid-19, Mrna, Lnp-s, Pf, B [...] Description 03/08/2024 10:30 AM EDT Imaging Radiology, [place] [address] [place] [address] 04/07/2024 11:20 AM EDT Office Visit Family Practice 65 [facility] 293 [place] [address] Jeanine Franco DO [address] [facility] [address] 09/11/2024 10:00 AM EDT Nurse Only Ancillary 65 [facility] 293 [place] [address] College, Nurse Annual Wellness Visit [address], [place] [address] 01/23/2025 10:20 AM EDT Office Visit Dermatology [facility] [place] 200 [facility] [place] [address] Deidre Barragan PA-C [address] [facility] [place] [address] Pending Results Name Type Priority Associated Diagnoses Date /Time XR L SPINE COMPLETE Medical Imaging Routine Lumbar pain 02/25/2024 11:00 AM EDT Health Maintenance Due Date Last Done Comments Hepatitis B Vaccine (2 of 3 - 19+ 3-dose series) 12/04/2016 11/06/2016 DXA Scan 09/09/2023 09/08/2021, 08/20, 07/31/2019, Additional history exists Influenza Vaccine (FLU shot) [...] D LEVEL ONCE IN A LIFETIME-USE SMARTSET# [id number] Completed 06/03/2023, 04/09/2022, 06/04/2021, Additional history exists Lung Cancer Screening Completed 09/02/2023 , 08/28/2022, 01/14/2005 COVID-19 Vaccine Completed 11/17/2023, , 03/24/2022, Additional history exists HPV (Gardasil) Vaccine Aged Out No lo nger eligible based on patient's age to complete this topic MENINGOCOCCAL (MENACTRA/MENVEO) Aged Out No longer eligible based on patient's age to complete this topic documented as of this encounter Medical Devices Implanted Type Area Rib Puller Device Identifier Shelf Expiration Date Model / Serial / Lot Lens 19.0 M160l - [id number] - [id number] Implanted:Qty: 1 on 11/28/2015 by Vnih Richardson MD at OR [facility] Right: Eye BAUSCH & LOMB : SURGICAL 08/18/2016 [id number]-30.0 / [id number] / [id number] Lens Intraoc 22.0 - [id number] - [id number] Implanted:Qty: 1 on 01/23/2020 by Ric Mcdonald MD at OR [facility] Left: Eye BAUSCH & LOMB 07/21/2024 [id number] / [id number] / [id number] documented as of this encounter Advance Directives Documents on File Type Date Recorded Patient Outside Sales Representative Insurance Expl anation POLST 10/01/2022 [place] OR [facility] FOR LIFE-SUSTAINING TREATMENT * Full Code (Latest Code Status on File) Date Activated Date Inactivated Comments 11/28/2015 6:26 AM 11/28/2015 12:14 PM This order re flects the patients wishes and were consensually agreed upon. Care Teams Alteration Manager Relationship Specialty Start Date End Date Jeanine Franco DO [address] [facility] [place] [address] PCP - General Family Medicine 12/07/23 documented as of this encounter
--- OUTSIDE RECORDS SUMMARY | 2024-07-01 04:14 | External Medical Summary | Summary of Care ---
Author Name Unknown Organization [facility] Address [address] [place] [address] Phone [phone] Care Team Providers Care Tank House Supervisor Name Role Phone Jeanine Franco DO Primary Care Provider [phone] Encounter Details Date Type Department Care Team (Late st Contact Info) Description 03/01/2024 Documentation HEALTH & WELLNESS Alayna Farah, Health Plant Operations Manager Allergies Active Allergy Reactions Criticality Noted [...] 3 08/25/2023 08/24/2024 Active OneTouch Delica Plus [id number] USE TO TEST BLOOD SUGARS ONCE DAILY [...] encounter Progress Notes * Alayna Farah Health Plant Operations Manager - 03/01/2024 11:45 AM EDT SESSION TYPE: Group exercise session: [...] Description 03/08/2024 10:30 AM EDT Imaging Radiology, [facility] [address] [facility] [place] [address] 04/07/2024 11:20 AM EDT Office Visit Family Practice [address] [place] [address] [facility] [address] Jeanine Franco DO 293 [facility] [address] 09/11/2024 10:00 AM EDT Nurse Only Ancillary [address], [place] 293 [facility], [place] [address] College, Nurse Annual Wellness Visit [address] [facility] [address] [facility] [address] 01/23/2025 10:20 AM EDT Office [facility] [place] [address] [place] [address] Deidre Barragan PA-C [address] [facility] [address] Health Maintenance Due Date Last Done Comments [...] D LEVEL ONCE IN A LIFETIME-USE SMARTSET# [id number] Completed 06/03/2023, 04/09/2022, 06/04/2021, Additional history exists Lung Cancer Screening Completed 09/02/2023 , 08/28/2022, 01/14/2005 HPV (Gardasil) Vaccine Aged Out No lo nger eligible based on patient's age to complete this topic MENINGOCOCCAL (MENACTRA/MENVEO) Aged Out No longer eligible based on patient's age to complete this topic documented as of this encounter Medical Devices Implanted Type Area In Home Sales Consultant Device Identifier Shelf Expiration Date Model / Serial / Lot Lens 19.0 M160l - [id number] - [id number] Implanted:Qty: 1 on 11/28/2015 by Vinh Richardson MD at OR [facility] Right: Eye BAUSCH & LOMB : SURGICAL 08/18/2016 [id number]-92.0 / [id number] / [id number] Lens Intraoc 22.0 - [id number] - [id number] Implanted:Qty: 1 on 01/23/2020 by Ric Mcdonald MD at OR [facility] Left: Eye BAUSCH & LOMB 07/21/2024 [id number] / [id number] / [id number] documented as of this encounter Advance Directives Documents on File Type Date Recorded Patient Director Software Expl anation POLST 10/01/2022 [place] OR [facility] FOR LIFE-SUSTAINING TREATMENT * Full Code (Latest Code Status on File) Date Activated Date Inactivated Comments 11/28/2015 6:26 AM 11/28/2015 12:14 PM This order re flects the patients wishes and were consensually agreed upon. Care Teams Tank House Supervisor Relationship Specialty Start Date End Date Jeanine Franco DO [address] [place] [address] PCP - General Family Medicine 12/07/23 documented as of this encounter
--- OUTSIDE RECORDS SUMMARY | 2024-07-01 04:14 | External Medical Summary | Summary of Care ---
Author Name Unknown Organization [facility] Address [address] [place] [address] Phone [phone] Care Team Providers Care Mining Professionals Name Role Phone Jeanine Franco DO Primary Care Provider [phone] Reason for Referral * Evaluate & Treat - Unlimited Visits (Within 10 days (routine)) - Authorized Specialty Diagnoses / Procedures Referred By Contac t Referred To Contact Physical Therapy / Physical Medicine And Rehab Diagnoses Lumbar pain Lumbar radiculopathy Degenerative spondylolisthesis Chronic neck pain Salazar Sequeira MD [address] [place] [address] Referral ID Status Reason Start Date Expiration Date Visits Requested Visits Authorized [id number] Authorized Specialty Services Required 02/25/2024 [id number] Question Answer Referral Priority Within 10 days (routine) Where should this appointment be scheduled? [facility] Comments Plan: cervical ROM, stretching, strengthening, periscapular strengthening, protraction/retraction exercises, gentle traction only if manual traction is beneficial 2 x week for 6 weeks Modalities for pain relief Plan: Back core strengthening, stretching, ROM, conditioning, lower extremity strengthening as needed, topicals as needed 2 x a week for 6 weeks Modalities for pain relief Reason for Visit * Reason Comments NEW PATIENT Cervical pain * Evaluate & Treat - Unlimited Visits (Within 10 days (routine)) - Authorized Specialty Diagnoses / Procedures Referred By Contac t Referred To Contact Neuro/Ortho Surgery - Spine. / Neurological Surgery Diagnoses Lumbar degenerative disc disease Jeanine Franco DO [address] [place] [address] Referral ID Status Reason Start Date Expiration Date Visits Requested Visits Authorized [id number] Authorized Specialty Services Required 01/03/2024 [id number] Encounter Details Date Type Department Care Team (Late st Contact Info) Description 02/25/2024 10:45 AM EDT Office Visit Orthopaedics Spine Surgery, [facility]avi[facility] Paulino [address] [place] [address] Salazar Sequeira MD [address] [place] [address] Lumbar pain*; Lumbar radiculopathy; Degenerative spondylolisthesis; Chronic neck pain Allergies Active Allergy Reactions Criticality Noted Date Comments Cm Inhibitors Cough Low 09/11/2008 Amoxicillin 11/17/2019 Diffuse rash documented as of this encounter (statuses as of 02/25/2024) Medications Medication Sig Dispensed Refills Start Date [...] 3 08/25/2023 08/24/2024 Active OneTouch Delica Plus [id number] USE TO TEST BLOOD SUGARS ONCE DAILY [...] as of this encounter (statuses as of 02/25/2024) Active Problems Problem Noted Date Diagnosed Date [...] as of this encounter (statuses as of 02/25/2024) Resolved Problems Problem Noted Date Diagnosed Date [...] as of this encounter (statuses as of 02/25/2024) Immunizations Name Administration Dates Next Due COVID-19 [...] Sign Reading Time Taken Comments Blood Pressure - - Pulse - - Temperature - - Respiratory Rate - - Oxygen Saturation - - Inhaled Oxygen Concentration - - Weight 82.1 kg (181 lb) 02/25/2024 10:43 AM EDT Height 168.9 cm (5' 6.5") 02/25/2024 10:43 AM ED T Body Mass Index 28.78 02/25/2024 10:43 AM EDT documented in this encounter Progress Notes * Salazar Sequeira MD - 02/25/2024 10:52 AM EDT Date of service: 02/25/2024 CHIEF COMPLAINT: Dominique Sloan is a 78 year old female presents with complaints/concerns of persistent low back pain with episodes of radiculopathy. These have been longstanding symptoms. She also complains of some neck pain New Referring physician:Jeanine Franco DO HPI: Lumbar Which side extremity: none Injury and date:none Onset, progress and duration: x 4 years Balance problems:none Bladder or bowel disturbances:none Hand dominance for cervical and hand function: right Workman compensation/ Litigation/ Conservation Technician: Spine investigations done and date: Xray: MRI: CT scan: EMG/ NCV:EMG in 2021 Spine treatment so far: Medications: Celexa Physical therapy within last year: none recent Chiropractor therapy intermittently for lumbar back just has one not to long ago Brace use:none Pain management and Spinal epidural injections:none Spine surgery - Surgeon and year:none Significant Medical history: If diabetic HbA1c: 5.9 12/07/2023 On blood thinners:none Osteoporosis screening 09/08/2021 Tobacco/ Illicit drug use:former 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 ROS: Negative except as outlined in HPI Vitals: Ht 1.689 m (5' 6.5") | Wt 82.1 kg (181 lb) | BMI 28.78 kg/m | BSA 1.96 m Body mass index is 28.78 kg/m. Physical Exam: General: alert, healthy and no distress. The general appearance appears normal. Cardiovascular system: Vascularity grossly preserved Spine evaluation: No paraspinal swelling. No deformity. Neurological examination: Motor power upper extremities - Bilateral shoulder abductors, elbow flexors, triceps, wrist flexorsand extensors and intrinsic muscles of the hand is 5/5. Motor power lower extremities - Bilateral hip flexors, knee extensors, ankle dorsiflexors, plantar flexors, EHL/EDL, FHL/FDL is 5/5. Sensation are grossly preserved bilaterally in upper extremities. Sensation are grossly preserved bilaterally in the lower extremities. Radiological imaging: I independently reviewed the relevant radiological imaging including x-rays ordered at this visit and discussed it with the patient X-rays of the cervical spine show presence of multilevel degenerative changes. There is loss of cervical lordosis. X-rays of the lumbar spine including dynamic view show presence of anterolisthesis at L4-5 and L5-S1. The spinal alignment is otherwise maintained. Assessment & Plan: Pt is a 78 year old female here for the following problems/concerns: Chronic neck pain Chronic low back pain Lumbar radiculopathy Degenerative spondylolisthesis We discussed the diagnosis, the natural history and the treatment options. Based on the findings various treatment options including the risks, benefits and alternatives were discussed. Patient is neurologically stable. Was agreed to try adequate conservative treatment as a 1st step. Physical therapy referral was made. Patient does not want to consider pain management. Role of back brace discussed. Modalities of pain relief discussed. No urgent spine intervention indicated. Patient encouraged to discuss about evaluation treatment of osteoporosis with her primary care Additional recommendations: Activity modification as tolerated Pain medications as per the primary care. If the patient has persistence or worsening of symptoms additional investigations will be recommended. Warning signs have been discussed. Follow up: Patient is going to call back as needed . Reach out earlier if any acute concerns. The patient expressed understanding and agreement to the plan. Complexity of decision making: I spent 45 minutes on 02/25/2024 in preparation, delivery and documentation of the care provided to the patient, excluding any time spent on the performance of the procedure are separately billable service. Salazar Sequeira MD This chart was completed in part utilizing [employer] Speech Voice Recognition Software. Grammatical errors, random word insertions, prounoun errors and incomplete sentences are an occasional consequence of this system due to software limitations, ambient noise, and hardware issues. Any formal questions or concerns about the content, text, or information contained within the body of this dictation should be directly addressed to the provider for clarification. documented in this encounter Nursing Notes * Harini Toscano LPN - 02/25/2024 10:38 AM EDT New Referring physician:Jeanine Franco DO HPI: Lumbar Which side extremity: none Injury and date:none Onset, progress and duration: x 4 years Balance problems:none Bladder or bowel disturbances:none Hand dominance for cervical and hand function: right Workman compensation/ Litigation/ Conservation Technician: Spine investigations done and date: Xray: MRI: CT scan: EMG/ NCV:EMG in 2021 Spine treatment so far: Medications: Celexa Physical therapy within last year: none recent Chiropractor therapy intermittently for lumbar back just has one not to long ago Brace use:none Pain management and Spinal epidural injections:none Spine surgery - Surgeon and year:none Significant Medical history: If diabetic HbA1c: 5.9 12/07/2023 On blood thinners:none Osteoporosis screening 09/08/2021 Tobacco/ Illicit drug use:former 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 [place] [address] 04/07/2024 11:20 AM EDT Office Visit Family Practice 65 [facility] 293 [facility] [place] [address] Jeanine Franco DO [address] [place] [address] 09/11/2024 10:00 AM EDT Nurse Only Ancillary 65 [facility] 293 [facility] [place] [address] College, Nurse Annual Wellness Visit [address] [address] 01/23/2025 10:20 AM EDT Office Visit Dermatology [facility] [address] [facility] [address] Deidre Barragan PA-C [address] [facility] [place] [address] Pending Results Name Type Priority Associated Diagnoses Date /Time XR L SPINE COMPLETE Medical Imaging Routine Lumbar pain 02/25/2024 11:00 AM EDT Scheduled Referrals Name Type Priority Associated Diagnoses Orde r Schedule PHYSICAL THERAPY REFERRAL OP Referral Within 10 days (routine) Lumbar pain Lumbar radiculopathy Degenerative spondylolisthesis Chronic neck pain Ordered: 02/25/2024 Health Maintenance Due Date Last Done Comments [...] D LEVEL ONCE IN A LIFETIME-USE SMARTSET# [id number] Completed 06/03/2023, 04/09/2022, 06/04/2021, Additional history exists [...] this encounter Medical Devices Implanted Type Area Service Delivery Analyst Device Identifier Shelf Expiration Date Model / Serial / Lot Lens 19.0 M160l - [id number] - [id number] Implanted:Qty: 1 on 11/28/2015 by Vinh Richardson MD at OR [facility] Right: Eye [employer] : SURGICAL 08/18/2016 [id number]-[id number] / [id number] / [id number] Lens Intraoc 22.0 - [id number] - [id number] Implanted:Qty: 1 on 01/23/2020 by Ric Mcdonald MD at OR [facility] Left: Eye [employer]OM[employer] 07/21/2024 [id number] / [id number] / [id number] documented as of this encounter Visit Diagnoses Diagnosis Lumbar pain- Primary Lumbago Lumbar radiculopathy Thoracic or lumbosacral neuritis or radiculitis, unspecified Degenerative spondylolisthesis Acquired spondylolisthesis Chronic neck pain Cervicalgia documented in this encounter Advance Directives Documents on File Type Date Recorded Patient Airline Counter Agent Expl anation POLST 10/01/2022 [place] [facility] FOR LIFE-SUSTAINING TREATMENT * Full Code (Latest Code Status on File) Date Activated Date Inactivated Comments 11/28/2015 6:26 AM 11/28/2015 12:14 PM This order re flects the patients wishes and were consensually agreed upon. Care Teams Mining Professionals Relationship Specialty Start Date End Date Jeanine Franco DO [address] [place] [address] PCP - General Family Medicine 12/07/23 documented as of this encounter
--- OUTSIDE RECORDS SUMMARY | 2024-07-01 04:15 | External Medical Summary | Summary of Care ---
Author Name Unknown Organization [facility] Address [address] [place] [address] Phone [phone] Care Team Providers Care Medical Communication Specialist Name Role Phone Jeanine Franco DO Primary Care Provider [phone] Encounter Details Date Type Department Care Team (Late st Contact Info) Description 01/26/2024 Documentation HEALTH & WELLNESS Alayna Farah, Health Computer Programming Manager Allergies Active Allergy Reactions Criticality Noted Date Comments Cm Inhibitors Cough Low 09/11/2008 Amoxicillin 11/17/2019 Diffuse rash documented as of this encounter (statuses as of 01/26/2024) Medications Medication Sig Dispensed Refills Start Date [...] 3 08/25/2023 08/24/2024 Active OneTouch Delica Plus [id number] USE TO TEST BLOOD SUGARS ONCE DAILY [...] as of this encounter (statuses as of 01/26/2024) Active Problems Problem Noted Date Diagnosed Date [...] as of this encounter (statuses as of 01/26/2024) Resolved Problems Problem Noted Date Diagnosed Date [...] as of this encounter (statuses as of 01/26/2024) Immunizations Name Administration Dates Next Due COVID-19 [...] lent, No Preserve, IM 03/29/2016,05/02/2015 Seasonal Influenza, Split, I IV3, With Preserve, Inj 03/28/2014,04/11/2013,03/21/2012,04/16,03/19/2010,04/25/2008,05/02/2007 ,05/11/2006 Seasonal Influenza, Trivalen t, Adjuvanted, 65+ yrs 03/30/2019 TDAP (age 10 and older)(Boostrix) 06/04/2021 [...] encounter Progress Notes * Alayna Farah Health Computer Programming Manager - 01/26/2024 12:11 PM EDT SESSION TYPE: Group exercise session: Exercise Subtype or Modality: Balance Training Patient completed a group exercise session which consisted of balance training. All exercises included improving balance and strength of lower extremities. She tolerated the exercises well and had nocomplaints. documented in this encounter Plan of Treatment Upcoming Encounters Date Type Department Care Team (Late st Contact Info) Description 02/17/2024 10:30 AM EDT Office Visit Orthopaedics Spine Surgery, [facility] Paulino [address] [place] [address] Salazar Sequeira MD [address] [place] [address] 03/08/2024 10:30 AM EDT Imaging Radiology, [address], [place] [address] 04/07/2024 11:20 AM EDT Office Visit Family Practice 65 [facility] [address] [place] [address] Jeanine Franco DO 293 [place] [address] 09/11/2024 10:00 AM EDT Nurse Only Ancillary 65 [facility] [address] [place] [address] College, Nurse Annual Wellness Visit 65 [facility] 293 [place] [address] 01/23/2025 10:20 AM EDT Office Visit Dermatology [facility] [address] [facility] [place] [address] Deidre Barragan PA-C [address] [place] [address] Health Maintenance Due Date Last Done Comments [...] IN PAST YEAR FOR COPD 01/02/2025 01/03/2024 DTaP,Tdap,and Td Vaccines (3 - Td or Tdap) 06/04/2031 06/04/2021, 05/06/2011, 01/14/2000 Pneumococcal Vaccine: 65+ Years Completed 11/06/2016, 08/22/2014, 11/24/2006 Zoster Vaccines Completed 08/28/2019, 04/22, 08/01/2008 Alpha-1 Antitrypsin Completed 08/06/2021 VITAMIN D LEVEL ONCE IN A LIFETIME-USE SMARTSET# [id number] Completed 06/03/2023, 04/09/2022, 06/04/2021, Additional history exists [...] this encounter Medical Devices Implanted Type Area Keypunch Operators Supervisor Device Identifier Shelf Expiration Date Model / Serial / Lot Lens 19.0 M160l - [id number] - [id number] Implanted:Qty: 1 on 11/28/2015 by Vinh Richardson MD at OR [facility] Right: Eye [employer] : SURGICAL 08/18/2016 [id number]-72.0 / [id number] / [id number] Lens Intraoc 22.0 - [id number] - [id number] Implanted:Qty: 1 on 01/23/2020 by Ric Mcdonald MD at OR [facility] Left: Eye [employer] 07/21/2024 [id number] / [id number] / [id number] documented as of this encounter Advance Directives Documents on File Type Date Recorded Patient County Administrator Expl anation POLST 10/01/2022 [place] OR [facility] FOR LIFE-SUSTAINING TREATMENT * Full Code (Latest Code Status on File) Date Activated Date Inactivated Comments 11/28/2015 6:26 AM 11/28/2015 12:14 PM This order re flects the patients wishes and were consensually agreed upon. Care Teams Medical Communication Specialist Relationship Specialty Start Date End Date Jeanine Franco DO [address] [place] [facility] [place] [address] PCP - General Family Medicine 12/07/23 documented as of this encounter
--- OUTSIDE RECORDS SUMMARY | 2024-07-01 04:15 | External Medical Summary | Summary of Care ---
Author Name Unknown Organization [facility] Address [address] [place] [address] Phone [phone] Care Team Providers Care Security Systems Engineer Name Role Phone Jeanine Franco DO Primary Care Provider [phone] Encounter Details Date Type Department Care Team (Late st Contact Info) Description 02/16/2024 Documentation HEALTH & WELLNESS Alayna Farah, Health Dean Of Admissions Allergies Active Allergy Reactions Criticality Noted Date Comments Cm Inhibitors Cough Low 09/11/2008 Amoxicillin 11/17/2019 Diffuse rash documented as of this encounter (statuses as of 02/16/2024) Medications Medication Sig Dispensed Refills Start Date [...] 3 08/25/2023 08/24/2024 Active OneTouch Delica Plus [id number] USE TO TEST BLOOD SUGARS ONCE DAILY [...] as of this encounter (statuses as of 02/16/2024) Active Problems Problem Noted Date Diagnosed Date [...] as of this encounter (statuses as of 02/16/2024) Resolved Problems Problem Noted Date Diagnosed Date [...] as of this encounter (statuses as of 02/16/2024) Immunizations Name Administration Dates Next Due COVID-19 [...] encounter Progress Notes * Alayna Farah Health Dean Of Admissions - 02/16/2024 3:31 PM EDT SESSION TYPE: Group exercise session: [...] [address] [place] [address] Salazar Sequeira MD [address] [place] [address] 03/08/2024 10:30 AM EDT Imaging Radiology, [address] [place], [place] [address] 04/07/2024 11:20 AM EDT Office Visit Family Practice 65 [facility] 293 [place] [address] Jeanine Franco DO [address] [place] [address] 09/11/2024 10:00 AM EDT Nurse Only Ancillary 65 [facility] [address] [place] [address] College, Nurse Annual Wellness Visit 65 [facility] 293 [place] [address] 01/23/2025 10:20 AM EDT Office Visit Dermatology [facility] 200 [facility] [place] [address] Deidre Barragan PA-C [address] [place] [address] Health Maintenance Due Date Last Done Comments [...] D LEVEL ONCE IN A LIFETIME-USE SMARTSET# [id number] Completed 06/03/2023, 04/09/2022, 06/04/2021, Additional history exists [...] this encounter Medical Devices Implanted Type Area Carpenter And Joiner Device Identifier Shelf Expiration Date Model / Serial / Lot Lens 19.0 M160l - [id number] - [id number] Implanted:Qty: 1 on 11/28/2015 by Vinh Richardson MD at OR [facility] Right: Eye [employer]OM[employer] : SURGICAL 08/18/2016 [id number]-00.0 / [id number] / [id number] Lens Intraoc 22.0 - [id number] - [id number] Implanted:Qty: 1 on 01/23/2020 by Ric Mcdonald MD at OR [facility] Left: Eye [employer]OM[employer] 07/21/2024 [id number] / [id number] / [id number] documented as of this encounter Advance Directives Documents on File Type Date Recorded Patient Litigation Attorney Associate Expl vidal POL 10/01/2022 [place] OR [facility] FOR LIFE-SUSTAINING TREATMENT * Full Code (Latest Code Status on File) Date Activated Date Inactivated Comments 11/28/2015 6:26 AM 11/28/2015 12:14 PM This order re flects the patients wishes and were consensually agreed upon. Care Teams Security Systems Engineer Relationship Specialty Start Date End Date Jeanine Franco DO [address] [place] [address] PCP - General Family Medicine 12/07/23 documented as of this encounter
--- OUTSIDE RECORDS SUMMARY | 2024-07-01 04:15 | External Medical Summary | Summary of Care ---
Author Name Unknown Organization [facility] Address [address] [place] [address] Phone [phone] Care Team Providers Care Director Of Category Management Name Role Phone Jeanine Franco DO Primary Care Provider Reason for Visit * Reason Onset Date Comments Forms Request 01/27/202401/26 Encounter Details Date Type Department Care Team ([facility] st Contact Info) Description 01/27/2024 Telephone Family Practice 65 [facility] [place] [address] [place] [id number] Jeanine Franco DO [address] [place], [place] [id number] Forms Request (01/26) Allergies Active Allergy Reactions Criticality Noted Date Comments Cm Inhibitors Cough Low 09/11/2008 Amoxicillin 11/17/2019 Diffuse rash documented as of this encounter (statuses as of 01/27/2024) Medications Medication Sig Dispensed Refills Start Date [...] THE EVENING 45 Tablet 1 08/22/2023 Active OdiloTouch Verio In Vitro Strip (Glucose Blood)Indications:T ype 2 diabetes mellitus with hemoglobin A1c goal of less than 7.0% ([facility]) USE TO TEST BLOOD SUGAR ONCE DAILY 100 Strip 3 08/25/2023 08/24/2024 Active OneTouch Delica Plus [id number] USE TO TEST BLOOD SUGARS ONCE DAILY [...] as of this encounter (statuses as of 01/27/2024) Active Problems Problem Noted Date Diagnosed Date [...] as of this encounter (statuses as of 01/27/2024) Resolved Problems Problem Noted Date Diagnosed Date [...] as of this encounter (statuses as of 01/27/2024) Immunizations Name Administration Dates Next Due COVID-19 mRNA, LNP-s, No Pre serve, 2-Dose Series (Moderna) 04/10/2021,08/19/2020,07/16/2020 COVID-19 mRNA, LNP-s, No Pre serve, 2-Dose Series (Democravise) 10/06/2021 COVID-19, MRNA-LNP, 23-24, P F, 30 MCG/0.3 mL, 12 YRS AND ABOVE, IM ([facility]) 11/17/2023,03/14/2023 Covid-19, Mrna, Lnp-s, Pf, B [...] encounter Miscellaneous Notes * Telephone Encounter - Su Gaines LPN - 01/27/2024 3:08 PM EDT Call placed to [facility] to confirm fax number. Per nurse - they prefer to submit request through [employer]. Signed documents and requested information faxed to [phone] with fax confirmation received. Signed forms sent to scanning. documented in this encounter Plan of Treatment Upcoming Encounters Date Type Department Care Team (Late st Contact Info) Description 02/17/2024 10:30 AM EDT Office Visit Orthopaedics Spine Surgery, [address], [place] [address] [place] [address] Salazar Sequeira MD [address] [place] [address] 03/08/2024 10:30 AM EDT Imaging Radiology, [facility] [address] [facility] [place] [address] 04/07/2024 11:20 AM EDT Office Visit Family Practice 65 [facility] [address] [place] [address] Jeanine Franco [address] [place] [address] 09/11/2024 10:00 AM EDT Nurse Only Ancillary 65 [facility] [address] [place] [address] College, Nurse Annual Wellness Visit [address] [address] 01/23/2025 10:20 AM EDT Office Visit Dermatology [facility] 200 [facility] [address] Deidre Barragan PA-C [address] [place] [address] Health Maintenance Due Date Last Done Comments [...] D LEVEL ONCE IN A LIFETIME-USE SMARTSET# [id number] Completed 06/03/2023, 04/09/2022, 06/04/2021, Additional history exists [...] this encounter Medical Devices Implanted Type Area Platform Beater Device Identifier Shelf Expiration Date Model / Serial / Lot Lens 19.0 M160l - [id number] - [id number] Implanted:Qty: 1 on 11/28/2015 by Vinh Richardson MD at OR [facility] Right: Eye BAUSCH & LOMB : SURGICAL 08/18/2016 [id number]-11.0 / [id number] / [id number] Lens Intraoc 22.0 - [id number] - [id number] Implanted:Qty: 1 on 01/23/2020 by Ric Mcdonald MD at OR [facility] Left: Eye BAUSCH & LOMB 07/21/2024 [id number] / [id number] / [id number] documented as of this encounter Advance Directives Documents on File Type Date Recorded Patient Comber Setter Expl anation POLST 10/01/2022 [place] OR [facility] FOR LIFE-SUSTAINING TREATMENT * Full Code (Latest Code Status on File) Date Activated Date Inactivated Comments 11/28/2015 6:26 AM 11/28/2015 12:14 PM This order re flects the patients wishes and were consensually agreed upon. Care Teams Director Of Category Management Relationship Specialty Start Date End Date Jeanine Franco DO 293 [place] [address] PCP - General Family Medicine 12/07/23 documented as of this encounter
--- OUTSIDE RECORDS SUMMARY | 2024-07-01 04:15 | External Medical Summary | Summary of Care ---
Author Name Unknown Organization [facility] Address [address] [place] [address] Phone [phone] Care Team Providers Care Computer Equipment Installer Name Role Phone Jeanine Franco DO Primary Care Provider [phone] Encounter Details Date Type Department Care Team (Late st Contact Info) Description 02/15/2024 Documentation HEALTH & WELLNESS Alayna Farah, Health Stitch Welder Allergies Active Allergy Reactions Criticality Noted Date Comments Cm Inhibitors Cough Low 09/11/2008 Amoxicillin 11/17/2019 Diffuse rash documented as of this encounter (statuses as of 02/15/2024) Medications Medication Sig Dispensed Refills Start Date [...] 3 08/25/2023 08/24/2024 Active OneTouch Delica Plus [id number] USE TO TEST BLOOD SUGARS ONCE DAILY [...] as of this encounter (statuses as of 02/15/2024) Active Problems Problem Noted Date Diagnosed Date [...] as of this encounter (statuses as of 02/15/2024) Resolved Problems Problem Noted Date Diagnosed Date [...] as of this encounter (statuses as of 02/15/2024) Immunizations Name Administration Dates Next Due COVID-19 [...] encounter Progress Notes * Alayna Farah Health Stitch Welder - 02/15/2024 11:52 AM EDT SESSION TYPE: Group exercise session: [...] [address] [place] [address] Salazar Sequeira MD [address] [place] [address] 03/08/2024 10:30 AM EDT [address], [address] [address] 04/07/2024 11:20 AM EDT Office Visit Family Practice 65 [facility] 293 [place] [address] Jeanine Franco, DO 293 [place] [address] 09/11/2024 10:00 AM EDT Nurse Only Ancillary 65 [facility] [address] [place] [address] College, Nurse Annual Wellness Visit 65 [facility] 293 [place] [address] 01/23/2025 10:20 AM EDT Office Visit Dermatology [facility] 200 [facility] [place] [address] Deidre Barragan PA-C [address] [facility] [address] Health Maintenance Due Date Last Done Comments [...] D LEVEL ONCE IN A LIFETIME-USE SMARTSET# [id number] Completed 06/03/2023, 04/09/2022, 06/04/2021, Additional history exists [...] this encounter Medical Devices Implanted Type Area Exhauster Engineer Device Identifier Shelf Expiration Date Model / Serial / Lot Lens 19.0 M160l - [id number] - [id number] Implanted:Qty: 1 on 11/28/2015 by Vinh Richardson MD at OR [facility] Right: Eye BAUSCH & LOMB : SURGICAL 08/18/2016 [id number]-07.0 / [id number] / [id number] Lens Intraoc 22.0 - [id number] - [id number] Implanted:Qty: 1 on 01/23/2020 by Ric Mcdonald MD at OR [facility] Left: Eye BAUSCH & LOMB 07/21/2024 [id number] / [id number] / [id number] documented as of this encounter Advance Directives Documents on File Type Date Recorded Patient Otr Hazmat Company Driver Expl anation POLST 10/01/2022 [place] OR [facility] FOR LIFE-SUSTAINING TREATMENT * Full Code (Latest Code Status on File) Date Activated Date Inactivated Comments 11/28/2015 6:26 AM 11/28/2015 12:14 PM This order re flects the patients wishes and were consensually agreed upon. Care Teams Computer Equipment Installer Relationship Specialty Start Date End Date Jeanine Franco DO [address] [place] [address] PCP - General Family Medicine 12/07/23 documented as of this encounter
--- OUTSIDE RECORDS SUMMARY | 2024-07-01 04:15 | External Medical Summary | Summary of Care ---
Author Name Unknown Organization [facility] Address [address] [place] [address] Phone [phone] Care Team Providers Care Director Corporate Name Role Phone Jeanine Franco DO Primary Care Provider [phone] Encounter Details Date Type Department Care Team (Late st Contact Info) Description 02/23/2024 Documentation HEALTH & WELLNESS Alayna Farah, Health Pharmacy Sales Representative Allergies Active Allergy Reactions Criticality Noted Date Comments Cm Inhibitors Cough Low 09/11/2008 Amoxicillin 11/17/2019 Diffuse rash documented as of this encounter (statuses as of 02/23/2024) Medications Medication Sig Dispensed Refills Start Date [...] 3 08/25/2023 08/24/2024 Active OneTouch Delica Plus Hphwii76B USE TO TEST BLOOD SUGARS ONCE DAILY [...] as of this encounter (statuses as of 02/23/2024) Active Problems Problem Noted Date Diagnosed Date [...] as of this encounter (statuses as of 02/23/2024) Resolved Problems Problem Noted Date Diagnosed Date [...] as of this encounter (statuses as of 02/23/2024) Immunizations Name Administration Dates Next Due COVID-19 [...] encounter Progress Notes * Alayna Farah Health Pharmacy Sales Representative - 02/23/2024 12:03 PM EDT SESSION TYPE: Group exercise [...] [address] [place] [address] Salazar Sequeira MD [address] [place] [address] 03/08/2024 10:30 AM EDT Imaging Radiology, [facility] [address] [facility] [place], [place] [address] 04/07/2024 11:20 AM EDT Office Visit Family Practice 65 [facility] 293 [place] [address] Jeanine Franco DO 293 [place] [address] 09/11/2024 10:00 AM EDT Nurse Only Ancillary 65 [facility] 293 [place] [address] College, Nurse Annual Wellness Visit [address] [place] [address] 01/23/2025 10:20 AM EDT Office Visit Dermatology [facility] 200 [facility] [place], [place] [address] Deidre Barragan PA-C [address] [facility] [place] [address] Health Maintenance Due Date Last Done Comments [...] D LEVEL ONCE IN A LIFETIME-USE SMARTSET# [id number] Completed 06/03/2023, 04/09/2022, 06/04/2021, Additional history exists [...] this encounter Medical Devices Implanted Type Area Rug Dyer Helper Device Identifier Shelf Expiration Date Model / Serial / Lot Lens 19.0 M160l - [id number] - [id number] Implanted:Qty: 1 on 11/28/2015 by Vinh Richardson MD at OR [facility] Right: Eye BAUSCH & LOMB : SURGICAL 08/18/2016 TH13J-45.0 / [id number] / [id number] Lens Intraoc 22.0 - [id number] - [id number] Implanted:Qty: 1 on 01/23/2020 by Ric Mcdonald MD at OR [facility] Left: Eye BAUSCH & LOMB 07/21/2024 [id number] / [id number] / [id number] documented as of this encounter Advance Directives Documents on File Type Date Recorded Patient Implementation Coordinator Expl vidal OCAMPO 10/01/2022 [facility] FOR LIFE-SUSTAINING TREATMENT * Full Code (Latest Code Status on File) Date Activated Date Inactivated Comments 11/28/2015 6:26 AM 11/28/2015 12:14 PM This order re flects the patients wishes and were consensually agreed upon. Care Teams Director Corporate Relationship Specialty Start Date End Date Jeanine Franco DO [address] [place] [address] PCP - General Family Medicine 12/07/23 documented as of this encounter
--- OUTSIDE RECORDS SUMMARY | 2024-07-01 04:15 | External Medical Summary | Summary of Care ---
Author Name Unknown Organization [facility] Address [address] [place] [address] Phone [phone] Care Team Providers Care Fishing Floats Assembler Name Role Phone Jeanine Franco DO Primary Care Provider [phone] Encounter Details Date Type Department Care Team (Late st Contact Info) Description 01/27/2024 Documentation HEALTH & WELLNESS Alayna Farah, Health Regulatory Affairs Portfolio Leader Allergies Active Allergy Reactions Criticality Noted Date [...] 3 08/25/2023 08/24/2024 Active OneTouch Delica Plus Kmubvh88I USE TO TEST BLOOD SUGARS ONCE DAILY [...] encounter Progress Notes * Alayna Farah Health Regulatory Affairs Portfolio Leader - 01/27/2024 12:14 PM EDT SESSION TYPE: Group exercise session: [...] Office Visit Orthopaedics Spine Surgery, [address] [place] [address] Salazar Sequeira MD [address] [place] [id number] 03/08/2024 10:30 AM EDT Imaging Radiology, [facility] [facility] [place] [address] 04/07/2024 11:20 AM EDT Office Visit Family Practice 65 [facility] 293 [facility], [place] [address] Jeanine Franco DO 293 [facility], [place] [address] 09/11/2024 10:00 AM EDT Nurse Only Ancillary 65 [facility] 293 [facility], [place] [address] College, Nurse Annual Wellness Visit [address], [place] [address] 01/23/2025 10:20 AM EDT Office Visit Dermatology [facility] 200 [facility] [place] [address] Deidre Barragan, [place] [address] [facility] [address] Health Maintenance Due Date Last Done Comments [...] D LEVEL ONCE IN A LIFETIME-USE SMARTSET# [id number] Completed 06/03/2023, 04/09/2022, 06/04/2021, Additional history exists [...] this encounter Medical Devices Implanted Type Area Garage Attendant Device Identifier Shelf Expiration Date Model / Serial / Lot Lens 19.0 M160l - [id number] - [id number] Implanted:Qty: 1 on 11/28/2015 by Vinh Richardson MD at OR [facility] Right: Eye BAUSCH & LOMB : SURGICAL 08/18/2016 PK60A-68.0 / [id number] / [id number] Lens Intraoc 22.0 - [id number] - [id number] Implanted:Qty: 1 on 01/23/2020 by Ric Mcdonald MD at OR [facility] Left: Eye BAUSCH & LOMB 07/21/2024 [id number] / [id number] / [id number] documented as of this encounter Advance Directives Documents on File Type Date Recorded Patient Plate Hanger Expl anation POLST 10/01/2022 [place] OR [facility] FOR LIFE-SUSTAINING TREATMENT * Full Code (Latest Code Status on File) Date Activated Date Inactivated Comments 11/28/2015 6:26 AM 11/28/2015 12:14 PM This order re flects the patients wishes and were consensually agreed upon. Care Teams Fishing Floats Assembler Relationship Specialty Start Date End Date Jeanine Franco DO 293 [place] [address] PCP - General Family Medicine 12/07/23 documented as of this encounter
--- OUTSIDE RECORDS SUMMARY | 2024-07-01 04:15 | External Medical Summary | Summary of Care ---
Author Name Unknown Organization [facility] Address [address] [place] [address] Phone [phone] Care Team Providers Care Doctor Of Podiatric Medicine Name Role Phone Jeanine Franco DO Primary Care Provider [phone] Encounter Details Date Type Department Care Team (Late st Contact Info) Description 02/03/2024 Documentation HEALTH & WELLNESS Alayna Farah, Health Registered Diet Technician Allergies Active Allergy Reactions Criticality Noted Date Comments Cm Inhibitors Cough Low 09/11/2008 Amoxicillin 11/17/2019 Diffuse rash documented as of this encounter (statuses as of 02/03/2024) Medications Medication Sig Dispensed Refills Start Date [...] 3 08/25/2023 08/24/2024 Active OneTouch Delica Plus Dslmyq39L USE TO TEST BLOOD SUGARS ONCE DAILY [...] as of this encounter (statuses as of 02/03/2024) Active Problems Problem Noted Date Diagnosed Date [...] as of this encounter (statuses as of 02/03/2024) Resolved Problems Problem Noted Date Diagnosed Date [...] as of this encounter (statuses as of 02/03/2024) Immunizations Name Administration Dates Next Due COVID-19 [...] encounter Progress Notes * Alayna Farah Health Registered Diet Technician - 02/03/2024 10:32 AM EDT SESSION TYPE: Group exercise session: [...] [place] [address] Salazar Sequeira MD [address] [place] [id number] 03/08/2024 10:30 AM EDT Imaging Radiology, [facility] [address] [facility] [place] [address] 04/07/2024 11:20 AM EDT Office Visit Family Practice 65 [facility] 293 [facility], [place] [address] Jeanine Franco DO 293 [facility], [place] [address] 09/11/2024 10:00 AM EDT Nurse Only Ancillary 65 [facility] 293 [facility], [place] [address] College, Nurse Annual Wellness Visit [address], [place] [address] 01/23/2025 10:20 AM EDT Office Visit Dermatology [facility] 200 [facility] [place] [place] [address] Deidre Barragan, LORENA [address] [facility] [address] Health Maintenance Due Date Last Done Comments [...] D LEVEL ONCE IN A LIFETIME-USE SMARTSET# [id number] Completed 06/03/2023, 04/09/2022, 06/04/2021, Additional history exists [...] this encounter Medical Devices Implanted Type Area Access Tech Device Identifier Shelf Expiration Date Model / Serial / Lot Lens 19.0 M160l - [id number] - [id number] Implanted:Qty: 1 on 11/28/2015 by Vinh Richardson MD at OR [facility] Right: Eye BAUSCH & LOMB : SURGICAL 08/18/2016 NU80B-51.0 / [id number] / [id number] Lens Intraoc 22.0 - [id number] - [id number] Implanted:Qty: 1 on 01/23/2020 by Ric Mcdonald MD at OR [facility] Left: Eye BAUSCH & LOMB 07/21/2024 [id number] / [id number] / [id number] documented as of this encounter Advance Directives Documents on File Type Date Recorded Patient Judge Clerk Expl anation POLST 10/01/2022 [place] OR [facility] FOR LIFE-SUSTAINING TREATMENT * Full Code (Latest Code Status on File) Date Activated Date Inactivated Comments 11/28/2015 6:26 AM 11/28/2015 12:14 PM This order re flects the patients wishes and were consensually agreed upon. Care Teams Doctor Of Podiatric Medicine Relationship Specialty Start Date End Date Jeanine Franco DO 293 [place] [address] PCP - General Family Medicine 12/07/23 documented as of this encounter
--- OUTSIDE RECORDS SUMMARY | 2024-07-01 04:15 | External Medical Summary | Summary of Care ---
Author Name Unknown Organization [facility] Address [address] [place] [address] Phone [phone] Care Team Providers Care Bessemer Bottom Maker Name Role Phone Jeanine Franco DO Primary Care Provider [phone] Encounter Details Date Type Department Care Team (Late st Contact Info) Description 02/18/2024 Documentation HEALTH & WELLNESS Alayna Farah, Health Screwhead Stoner And Polisher Allergies Active Allergy Reactions Criticality Noted Date Comments Cm Inhibitors Cough Low 09/11/2008 Amoxicillin 11/17/2019 Diffuse rash documented as of this encounter (statuses as of 02/18/2024) Medications Medication Sig Dispensed Refills Start Date [...] 3 08/25/2023 08/24/2024 Active OneTouch Delica Plus Wpiicw89N USE TO TEST BLOOD SUGARS ONCE DAILY [...] as of this encounter (statuses as of 02/18/2024) Active Problems Problem Noted Date Diagnosed Date [...] as of this encounter (statuses as of 02/18/2024) Resolved Problems Problem Noted Date Diagnosed Date [...] as of this encounter (statuses as of 02/18/2024) Immunizations Name Administration Dates Next Due COVID-19 [...] encounter Progress Notes * Alayna Farah Health Screwhead Stoner And Polisher - 02/18/2024 10:02 AM EDT SESSION TYPE: Group exercise session: [...] Surgery, [address] [place] [address] Salazar Sequeira MD [address] [place] [address] 03/08/2024 10:30 AM EDT Imaging Radiology, [facility] 25[address] [facility] [place], [place] [address] 04/07/2024 11:20 AM EDT Office Visit Family Practice 65 [facility] 293 [facility] [place] [address] Jeanine Franco DO 293 [facility], [place] [address] 09/11/2024 10:00 AM EDT Nurse Only Ancillary 65 [facility] 293 [facility] [place] [address] College, Nurse Annual Wellness Visit 65 [facility] 293 [facility] [place] [address] 01/23/2025 10:20 AM EDT [facility] [address] [place], [place] [address] Deidre Barragan PA-C [address] [facility] [address] Health Maintenance Due Date Last Done Comments Hepatitis B Vaccine (2 of 3 - 19+ 3-dose series) 12/04/2016 11/06/2016 DXA Scan 09/09/2023 09/08/2021, 08/20, 07/31/2019, Additional history exists Influenza Vaccine (FLU shot) (#1) 2024 03/02/2023, 03/31/2022, 03/21/2021, Additional history exists Albumin/Creatinine Ratio 04/19/20242 023, 04/16/2023, 05/22/2022, Additional history exists Diabetic [...] D LEVEL ONCE IN A LIFETIME-USE SMARTSET# [id number] Completed 06/03/2023, 04/09/2022, 06/04/2021, Additional history exists [...] this encounter Medical Devices Implanted Type Area Hardware Sales Assistant Device Identifier Shelf Expiration Date Model / Serial / Lot Lens 19.0 M160l - [id number] - [id number] Implanted:Qty: 1 on 11/28/2015 by Vinh Richardson MD at OR [facility] Right: Eye BAUSCH & LOMB : SURGICAL 08/18/2016 [id number]-23.0 / [id number] / [id number] Lens Intraoc 22.0 - [id number] - [id number] Implanted:Qty: 1 on 01/23/2020 by Ric Mcdonald MD at OR [facility] Left: Eye BAUSCH & LOMB 07/21/2024 [id number] / [id number] / [id number] documented as of this encounter Advance Directives Documents on File Type Date Recorded Patient Glass Robot Operator Expl anation POLST 10/01/2022 [place] OR [facility] FOR LIFE-SUSTAINING TREATMENT * Full Code (Latest Code Status on File) Date Activated Date Inactivated Comments 11/28/2015 6:26 AM 11/28/2015 12:14 PM This order re flects the patients wishes and were consensually agreed upon. Care Teams Bessemer Bottom Maker Relationship Specialty Start Date End Date Jeanine Franco DO [address] [place] [address] PCP - General Family Medicine 12/07/23 documented as of this encounter
--- OUTSIDE RECORDS SUMMARY | 2024-07-01 04:15 | External Medical Summary | Summary of Care ---
Author Name Unknown Organization [facility] Address [address] [place] [address] Phone [phone] Care Team Providers Care Dietitian Chief Name Role Phone Jeanine Franco DO Primary Care Provider [phone] Encounter Details Date Type Department Care Team (Late st Contact Info) Description 02/24/2024 Documentation HEALTH & WELLNESS Alayna Farah, Health Malter Operator Allergies Active Allergy Reactions Criticality Noted Date Comments Cm Inhibitors Cough Low 09/11/2008 Amoxicillin 11/17/2019 Diffuse rash documented as of this encounter (statuses as of 02/24/2024) Medications Medication Sig Dispensed Refills Start Date [...] 3 08/25/2023 08/24/2024 Active OneTouch Delica Plus [id number] USE TO TEST BLOOD SUGARS ONCE DAILY [...] as of this encounter (statuses as of 02/24/2024) Active Problems Problem Noted Date Diagnosed Date [...] as of this encounter (statuses as of 02/24/2024) Resolved Problems Problem Noted Date Diagnosed Date [...] as of this encounter (statuses as of 02/24/2024) Immunizations Name Administration Dates Next Due COVID-19 [...] encounter Progress Notes * Alayna Farah Health Malter Operator - 02/24/2024 11:25 AM EDT SESSION TYPE: Group exercise session: [...] [address] [place] [address] Salazar Sequeira MD [address] [place] [address] 03/08/2024 10:30 AM EDT Imaging Radiology, [facility] [facility] [place] [address] 04/07/2024 11:20 AM EDT Office Visit Family Practice 65 [facility] 293 [place] [address] Jeanine Franco 293 [facility] [address] 09/11/2024 10:00 AM EDT Nurse Only Ancillary 65 [facility] 293 [facility] [address] College, Nurse Annual Wellness Visit [address] [place] [address] 01/23/2025 10:20 AM EDT Office Visit Dermatology [facility] 200 [facility] [place] [address] Deidre Barragan PA-C [address] [facility] [address] Health Maintenance Due Date Last Done Comments [...] D LEVEL ONCE IN A LIFETIME-USE SMARTSET# [id number] Completed 06/03/2023, 04/09/2022, 06/04/2021, Additional history exists [...] this encounter Medical Devices Implanted Type Area Multiple Effect Evaporator Operator Device Identifier Shelf Expiration Date Model / Serial / Lot Lens 19.0 M160l - [id number] - [id number] Implanted:Qty: 1 on 11/28/2015 by Vinh Richardson MD at OR [facility] Right: Eye BAUSCH & LOMB : SURGICAL 08/18/2016 [id number]-46.0 / [id number] / [id number] Lens Intraoc 22.0 - [id number] - [id number] Implanted:Qty: 1 on 01/23/2020 by Ric Mcdonald MD at OR [facility] Left: Eye BAUSCH & LOMB 07/21/2024 [id number] / [id number] / [id number] documented as of this encounter Advance Directives Documents on File Type Date Recorded Patient Machinist Expl anation POLST 10/01/2022 [place] [facility] FOR LIFE-SUSTAINING TREATMENT * Full Code (Latest Code Status on File) Date Activated Date Inactivated Comments 11/28/2015 6:26 AM 11/28/2015 12:14 PM This order re flects the patients wishes and were consensually agreed upon. Care Teams Dietitian Chief Relationship Specialty Start Date End Date Jeanine Franco DO 293 [facility] [place] [address] PCP - General Family Medicine 12/07/23 documented as of this encounter
--- OUTSIDE RECORDS SUMMARY | 2024-07-01 04:15 | External Medical Summary | Summary of Care ---
Author Name Unknown Organization [facility] Address [address] [place] [address] Phone [phone] Care Team Providers Care Allergy Specialist Name Role Phone Jeanine Franco DO Primary Care Provider [phone] Encounter Details Date Type Department Care Team (Late st Contact Info) Description 01/20/2024 Documentation HEALTH & WELLNESS Alanya Farah, Health Candles Pourer Allergies Active Allergy Reactions Criticality Noted Date Comments Cm Inhibitors Cough Low 09/11/2008 Amoxicillin 11/17/2019 Diffuse rash documented as of this encounter (statuses as of 01/20/2024) Medications Medication Sig Dispensed Refills Start Date [...] 3 08/25/2023 08/24/2024 Active OneTouch Delica Plus [id number] USE TO TEST BLOOD SUGARS ONCE DAILY [...] as of this encounter (statuses as of 01/20/2024) Active Problems Problem Noted Date Diagnosed Date [...] as of this encounter (statuses as of 01/20/2024) Resolved Problems Problem Noted Date Diagnosed Date [...] as of this encounter (statuses as of 01/20/2024) Immunizations Name Administration Dates Next Due COVID-19 [...] encounter Progress Notes * Alayna Farah Health Candles Pourer - 01/20/2024 1:32 PM EDT SESSION TYPE: Group exercise session: [...] [id number] Salazar Sequeira MD [address] [place] [id number] 03/08/2024 10:30 AM EDT Imaging Radiology, [facility] [address] [facility] [place] [address] 04/07/2024 11:20 AM EDT Office Visit Family Practice 65 [facility] 293 [facility], [place] [address] Jeanine Franco DO 293 [facility], [place] [address] 09/11/2024 10:00 AM EDT Nurse Only Ancillary 65 [facility] 293 [facility], [place] [address] College, Nurse Annual Wellness Visit [address], [place] [address] 01/23/2025 10:20 AM EDT Office Visit Dermatology [facility] 200 [facility] [place] [address] Deidre Barragan, LORENA [facility] [facility] [address] Health Maintenance Due Date Last Done Comments [...] Additional history exists Depression Monitoring 09/05/2024 09/06/2023 TSH 10/11/2024 10/12/2023, 03/22, 04/09/2022, Additional history [...] D LEVEL ONCE IN A LIFETIME-USE SMARTSET# [id number] Completed 06/03/2023, 04/09/2022, 06/04/2021, Additional history exists [...] this encounter Medical Devices Implanted Type Area Medical Office Secretary Device Identifier Shelf Expiration Date Model / Serial / Lot Lens 19.0 M160l - [id number] - [id number] Implanted:Qty: 1 on 11/28/2015 by Vinh Richardson MD at OR [facility] Right: Eye BAUSCH & LOMB : SURGICAL 08/18/2016 LT97K-01.0 / [id number] / [id number] Lens Intraoc 22.0 - [id number] - [id number] Implanted:Qty: 1 on 01/23/2020 by Ric Mcdonald MD at OR [facility] Left: Eye BAUSCH & LOMB 07/21/2024 [id number] / [id number] / [id number] documented as of this encounter Advance Directives Documents on File Type Date Recorded Patient Desktop Support Manager Expl anation POLST 10/01/2022 [place] [facility] FOR LIFE-SUSTAINING TREATMENT * Full Code (Latest Code Status on File) Date Activated Date Inactivated Comments 11/28/2015 6:26 AM 11/28/2015 12:14 PM This order re flects the patients wishes and were consensually agreed upon. Care Teams Allergy Specialist Relationship Specialty Start Date End Date Jeanine Franco DO [address] [place] [address] PCP - General Family Medicine 12/07/23 documented as of this encounter
--- OUTSIDE RECORDS SUMMARY | 2024-07-01 04:15 | External Medical Summary | Summary of Care ---
Author Name Unknown Organization [facility] Address [address] [place] [address] Phone [phone] Care Team Providers Care Alfalfa Dehydrator Operator Name Role Phone Jeanine Franco DO Primary Care Provider [phone] Encounter Details Date Type Department Care Team (Late st Contact Info) Description 02/01/2024 Documentation HEALTH & WELLNESS Alayna Farah, Health Bloom Conveyor Operator Allergies Active Allergy Reactions Criticality Noted Date Comments Cm Inhibitors Cough Low 09/11/2008 Amoxicillin 11/17/2019 Diffuse rash documented as of this encounter (statuses as of 02/01/2024) Medications Medication Sig Dispensed Refills Start Date [...] 3 08/25/2023 08/24/2024 Active OneTouch Delica Plus [id number] USE TO TEST BLOOD SUGARS ONCE DAILY [...] as of this encounter (statuses as of 02/01/2024) Active Problems Problem Noted Date Diagnosed Date [...] as of this encounter (statuses as of 02/01/2024) Resolved Problems Problem Noted Date Diagnosed Date [...] as of this encounter (statuses as of 02/01/2024) Immunizations Name Administration Dates Next Due COVID-19 [...] encounter Progress Notes * Alayna Farah Health Bloom Conveyor Operator - 02/01/2024 11:14 AM EDT SESSION TYPE: Group exercise session: [...] [address] [place] [address] Salazar Sequeira MD [address] [place] [address] 03/08/2024 10:30 AM EDT [address], [address] [address] 04/07/2024 11:20 AM EDT Office Visit Family Practice 65 [facility] 293 [place] [address] Jeanine Franco, DO 293 [place] [address] 09/11/2024 10:00 AM EDT Nurse Only Ancillary 65 [facility] 293 [place] [address] College, Nurse Annual Wellness Visit 65 [facility] 293 [place] [address] 01/23/2025 10:20 AM EDT Office Visit Dermatology [facility] 200 [facility] [place] [address] Deidre Barragan PA-C [address] [facility] [address] Health Maintenance Due Date Last Done Comments [...] D LEVEL ONCE IN A LIFETIME-USE SMARTSET# [id number] Completed 06/03/2023, 04/09/2022, 06/04/2021, Additional history exists [...] this encounter Medical Devices Implanted Type Area Heading Saw Operator Device Identifier Shelf Expiration Date Model / Serial / Lot Lens 19.0 M160l - [id number] - [id number] Implanted:Qty: 1 on 11/28/2015 by Vinh Richardson MD at OR [facility] Right: Eye BAUSCH & LOMB : SURGICAL 08/18/2016 XM98H-71.0 / [id number] / [id number] Lens Intraoc 22.0 - [id number] - [id number] Implanted:Qty: 1 on 01/23/2020 by Ric Mcdonald MD at OR [facility] Left: Eye BAUSCH & LOMB 07/21/2024 [id number] / [id number] / [id number] documented as of this encounter Advance Directives Documents on File Type Date Recorded Patient Project Asst Expl vidal POL 10/01/2022 [place] OR [facility] FOR LIFE-SUSTAINING TREATMENT * Full Code (Latest Code Status on File) Date Activated Date Inactivated Comments 11/28/2015 6:26 AM 11/28/2015 12:14 PM This order re flects the patients wishes and were consensually agreed upon. Care Teams Alfalfa Dehydrator Operator Relationship Specialty Start Date End Date Jeanine Franco DO 293 [address] [facility] [address] PCP - General Family Medicine 12/07/23 documented as of this encounter
--- OUTSIDE RECORDS SUMMARY | 2024-07-01 04:15 | External Medical Summary | Summary of Care ---
Author Name Unknown Organization [facility] Address [address] [place] [address] Phone [phone] Care Team Providers Care Secondary English Teacher Name Role Phone Jeanine Franco DO Primary Care Provider [phone] Encounter Details Date Type Department Care Team (Late st Contact Info) Description 02/02/2024 Documentation HEALTH & WELLNESS Alayna Farah, Health Surface Mount Technology Operator Allergies Active Allergy Reactions Criticality Noted Date Comments Cm Inhibitors Cough Low 09/11/2008 Amoxicillin 11/17/2019 Diffuse rash documented as of this encounter (statuses as of 02/02/2024) Medications Medication Sig Dispensed Refills Start Date [...] 3 08/25/2023 08/24/2024 Active OneTouch Delica Plus Jhpung77I USE TO TEST BLOOD SUGARS ONCE DAILY [...] as of this encounter (statuses as of 02/02/2024) Active Problems Problem Noted Date Diagnosed Date [...] as of this encounter (statuses as of 02/02/2024) Resolved Problems Problem Noted Date Diagnosed Date [...] as of this encounter (statuses as of 02/02/2024) Immunizations Name Administration Dates Next Due COVID-19 [...] encounter Progress Notes * Alayna Farah Health Surface Mount Technology Operator - 02/02/2024 3:52 PM EDT SESSION TYPE: Group exercise session: [...] [address] [place] [address] Salazar Sequeira MD [address] [place] [address] 03/08/2024 10:30 AM EDT Imaging Radiology, [address] [place], [place] [address] 04/07/2024 11:20 AM EDT Office Visit Family Practice 65 [facility] 293 [place] [address] Jeanine Franco DO 293 [place] [address] 09/11/2024 10:00 AM EDT Nurse Only Ancillary 65 [facility] 293 [place] [address] College, Nurse Annual Wellness Visit 65 [facility] 293 [place] [address] 01/23/2025 10:20 AM EDT Office Visit Dermatology [facility] 200 [facility] [place] [address] Deidre Barragan PA-C [address] [place] [address] Health Maintenance Due Date Last Done Comments [...] D LEVEL ONCE IN A LIFETIME-USE SMARTSET# [id number] Completed 06/03/2023, 04/09/2022, 06/04/2021, Additional history exists [...] this encounter Medical Devices Implanted Type Area Clinical Radiologist Device Identifier Shelf Expiration Date Model / Serial / Lot Lens 19.0 M160l - [id number] - [id number] Implanted:Qty: 1 on 11/28/2015 by Vinh Richardson MD at OR [facility] Right: Eye BAUSCH & LOMB : SURGICAL 08/18/2016 WV14V-12.0 / [id number] / [id number] Lens Intraoc 22.0 - [id number] - [id number] Implanted:Qty: 1 on 01/23/2020 by Ric Mcdonald MD at OR [facility] Left: Eye BAUSCH & LOMB 07/21/2024 [id number] / [id number] / [id number] documented as of this encounter Advance Directives Documents on File Type Date Recorded Patient Business Technology Analyst Expl anation POLST 10/01/2022 [place] [facility] FOR LIFE-SUSTAINING TREATMENT * Full Code (Latest Code Status on File) Date Activated Date Inactivated Comments 11/28/2015 6:26 AM 11/28/2015 12:14 PM This order re flects the patients wishes and were consensually agreed upon. Care Teams Secondary English Teacher Relationship Specialty Start Date End Date Jeanine Franco DO 293 [facility] [place] [address] PCP - General Family Medicine 12/07/23 documented as of this encounter
--- OUTSIDE RECORDS SUMMARY | 2024-07-01 04:16 | External Medical Summary | Summary of Care ---
Author Name Unknown Organization [facility] Address [address] [place] [address] Phone [phone] Care Team Providers Care Carpenters Supervisor Name Role Phone Jeanine Franco DO Primary Care Provider [phone] Encounter Details Date Type Department Care Team (Late st Contact Info) Description 01/14/2024 Documentation HEALTH & WELLNESS Alayna Farah, Health Certified Social Workers In Health Care Allergies Active Allergy Reactions Criticality Noted Date Comments Cm Inhibitors Cough Low 09/11/2008 Amoxicillin 11/17/2019 Diffuse rash documented as of this encounter (statuses as of 01/14/2024) Medications Medication Sig Dispensed Refills Start Date [...] 3 08/25/2023 08/24/2024 Active OneTouch Delica Plus Ulryxp65J USE TO TEST BLOOD SUGARS ONCE DAILY [...] as of this encounter (statuses as of 01/14/2024) Active Problems Problem Noted Date Diagnosed Date [...] as of this encounter (statuses as of 01/14/2024) Resolved Problems Problem Noted Date Diagnosed Date [...] as of this encounter (statuses as of 01/14/2024) Immunizations Name Administration Dates Next Due COVID-19 [...] encounter Progress Notes * Alayna Farah Health Certified Social Workers In Health Care - 01/14/2024 10:03 AM EDT SESSION TYPE: Group exercise session: [...] [address] [place] [address] Salazar Sequeira MD [address] [place] [address] 03/08/2024 10:30 AM EDT Imaging [place]iology, [address] [place] [address] 04/07/2024 11:20 AM EDT Office Visit Family Practice 65 [facility] 293 [place] [address] Jeanine Franco, DO 293 [facility] [place] [address] 09/11/2024 10:00 AM EDT Nurse Only Ancillary 65 [facility] 293 [place] [address] College, Nurse Annual Wellness Visit [address] [facility] 293 [place] [address] 01/23/2025 10:20 AM EDT Office Visit Dermatology [facility] 200 [facility] [place] [address] Deidre Barragan PA-C [address] [facility] [address] Health Maintenance Due Date Last Done Comments Hepatitis B Vaccine (2 of 3 - 19+ 3-dose series) 12/04/2016 11/06/2016 DXA Scan 09/09/2023 09/08/2021, 08/20, 07/31/2019, Additional history exists *CXR OR CT FOR COPD EVER 01/02/2024 Influenza Vaccine (FLU shot) (#1) 2024 03/02/2023, [...] D LEVEL ONCE IN A LIFETIME-USE SMARTSET# [id number] Completed 06/03/2023, 04/09/2022, 06/04/2021, Additional history exists [...] this encounter Medical Devices Implanted Type Area Workers Compensation Paralegal Device Identifier Shelf Expiration Date Model / Serial / Lot Lens 19.0 M160l - [id number] - [id number] Implanted:Qty: 1 on 11/28/2015 by Vinh Richardson MD at OR [facility] Right: Eye BAUSCH & LOMB : SURGICAL 08/18/2016 [id number]-83.0 / [id number] / [id number] Lens Intraoc 22.0 - [id number] - [id number] Implanted:Qty: 1 on 01/23/2020 by Ric Mcdonald MD at OR [facility] Left: Eye BAUSCH & LOMB 07/21/2024 [id number] / [id number] / [id number] documented as of this encounter Advance Directives Documents on File Type Date Recorded Patient Pumping Supervisor Expl anation POLST 10/01/2022 [place] OR [facility] FOR LIFE-SUSTAINING TREATMENT * Full Code (Latest Code Status on File) Date Activated Date Inactivated Comments 11/28/2015 6:26 AM 11/28/2015 12:14 PM This order re flects the patients wishes and were consensually agreed upon. Care Teams Carpenters Supervisor Relationship Specialty Start Date End Date Jeanine Franco DO 293 [place] [address] PCP - General Family Medicine 12/07/23 documented as of this encounter
--- OUTSIDE RECORDS SUMMARY | 2024-07-01 04:16 | External Medical Summary | Summary of Care ---
Author Name Unknown Organization [facility] Address [address] [place] [address] Phone [phone] Care Team Providers Care Italian Tutor Name Role Phone Jeanine Franco DO Primary Care Provider [phone] Encounter Details Date Type Department Care Team (Late st Contact Info) Description 01/13/2024 Documentation HEALTH & WELLNESS Alayna Farah, Health Qa Internship Allergies Active Allergy Reactions Criticality Noted Date Comments Cm Inhibitors Cough Low 09/11/2008 Amoxicillin 11/17/2019 Diffuse rash documented as of this encounter (statuses as of 01/13/2024) Medications Medication Sig Dispensed Refills Start Date [...] 3 08/25/2023 08/24/2024 Active OneTouch Delica Plus Strefw60E USE TO TEST BLOOD SUGARS ONCE DAILY [...] as of this encounter (statuses as of 01/13/2024) Active Problems Problem Noted Date Diagnosed Date [...] as of this encounter (statuses as of 01/13/2024) Resolved Problems Problem Noted Date Diagnosed Date [...] as of this encounter (statuses as of 01/13/2024) Immunizations Name Administration Dates Next Due COVID-19 [...] encounter Progress Notes * Alayna Farah Health Qa Internship - 01/13/2024 1:59 PM EDT SESSION TYPE: Group exercise session: [...] [id number] Salazar Sequeira MD [address] [place] [id number] 03/08/2024 10:30 AM EDT Imaging Radiology, [facility] [address] [facility] [place] [address] 04/07/2024 11:20 AM EDT Office Visit Family Practice 65 [facility] 293 [facility], [place] [address] Jeanine Franco DO 293 [facility], [place] [address] 09/11/2024 10:00 AM EDT Nurse Only Ancillary 65 [facility] 293 [facility], [place] [address] College, Nurse Annual Wellness Visit 65 [facility] 293 [facility], [place] [address] 01/23/2025 10:20 AM EDT Office Visit Dermatology [facility] 200 [facility] [place] [address] Deidre Barragan, LORENA [address] [facility] [place] [address] Health Maintenance Due Date Last Done Comments [...] D LEVEL ONCE IN A LIFETIME-USE SMARTSET# [id number] Completed 06/03/2023, 04/09/2022, 06/04/2021, Additional history exists [...] this encounter Medical Devices Implanted Type Area Waterproof Bag Cutting Machine Operator Device Identifier Shelf Expiration Date Model / Serial / Lot Lens 19.0 M160l - [id number] - [id number] Implanted:Qty: 1 on 11/28/2015 by Vinh Richardson MD at OR [facility] Right: Eye BAUSCH & LOMB : SURGICAL 08/18/2016 DO93O-04.0 / [id number] / [id number] Lens Intraoc 22.0 - [id number] - [id number] Implanted:Qty: 1 on 01/23/2020 by Ric Mcdonald MD at OR [facility] Left: Eye BAUSCH & LOMB 07/21/2024 [id number] / [id number] / [id number] documented as of this encounter Advance Directives Documents on File Type Date Recorded Patient User Experience Manager Expl anation POLST 10/01/2022 [facility] FOR LIFE-SUSTAINING TREATMENT * Full Code (Latest Code Status on File) Date Activated Date Inactivated Comments 11/28/2015 6:26 AM 11/28/2015 12:14 PM This order re flects the patients wishes and were consensually agreed upon. Care Teams Italian Tutor Relationship Specialty Start Date End Date Jeanine Franco DO 293 [place] [address] PCP - General Family Medicine 12/07/23 documented as of this encounter
--- OUTSIDE RECORDS SUMMARY | 2024-07-01 04:16 | External Medical Summary | Summary of Care ---
Author Name Unknown Organization [facility] Address [address] [place] [address] Phone [phone] Care Team Providers Care Window Systems Administrator Name Role Phone Jeanine Franco DO Primary Care Provider [phone] Encounter Details Date Type Department Care Team (Late st Contact Info) Description 01/18/2024 Documentation HEALTH & WELLNESS Alayna Farah, Health Training Mgr Allergies Active Allergy Reactions Criticality Noted Date Comments Cm Inhibitors Cough Low 09/11/2008 Amoxicillin 11/17/2019 Diffuse rash documented as of this encounter (statuses as of 01/18/2024) Medications Medication Sig Dispensed Refills Start Date [...] 3 08/25/2023 08/24/2024 Active OneTouch Delica Plus [id number] USE TO TEST BLOOD SUGARS ONCE DAILY [...] as of this encounter (statuses as of 01/18/2024) Active Problems Problem Noted Date Diagnosed Date [...] as of this encounter (statuses as of 01/18/2024) Resolved Problems Problem Noted Date Diagnosed Date [...] as of this encounter (statuses as of 01/18/2024) Immunizations Name Administration Dates Next Due COVID-19 [...] encounter Progress Notes * Alayna Farah Health Training Mgr - 01/18/2024 11:56 AM EDT SESSION TYPE: Group exercise session: [...] [address] [place] [address] Salazar Sequeira MD [address] [place] [address] 03/08/2024 10:30 AM EDT [address], [address] [address] 04/07/2024 11:20 AM EDT Office Visit Family Practice 65 [facility] 293 [place] [address] Jeanine Franco, DO 293 [place] [address] 09/11/2024 10:00 AM EDT Nurse Only Ancillary 65 [facility] [address] [place] [address] College, Nurse Annual Wellness Visit 65 [facility] 293 [place] [address] 01/23/2025 10:20 AM EDT Office Visit Dermatology [facility] [address] [place] [address] Deidre Barragan PA-C [facility] [facility] [address] Health Maintenance Due Date Last Done Comments [...] D LEVEL ONCE IN A LIFETIME-USE SMARTSET# [id number] Completed 06/03/2023, 04/09/2022, 06/04/2021, Additional history exists [...] this encounter Medical Devices Implanted Type Area Honey Grader And Blender Device Identifier Shelf Expiration Date Model / Serial / Lot Lens 19.0 M160l - [id number] - [id number] Implanted:Qty: 1 on 11/28/2015 by Vinh Richardson MD at OR [facility] Right: Eye [employer]CH [employer] LOMB : SURGICAL 08/18/2016 [id number] / [id number] / [id number] Lens Intraoc 22.0 - [id number] - [id number] Implanted:Qty: 1 on 01/23/2020 by Ric Mcdonald MD at OR [facility] Left: Eye BAUSCH [employer] LOMB 07/21/2024 [id number] / [id number] / [id number] documented as of this encounter Advance Directives Documents on File Type Date Recorded Patient Cadmium Liquor Maker Expl vidal POLST 10/01/2022 [place] [facility] FOR LIFE-SUSTAINING TREATMENT * Full Code (Latest Code Status on File) Date Activated Date Inactivated Comments 11/28/2015 6:26 AM 11/28/2015 12:14 PM This order re flects the patients wishes and were consensually agreed upon. Care Teams Window Systems Administrator Relationship Specialty Start Date End Date Jeanine Franco DO 293 [place] [address] PCP - General Family Medicine 12/07/23 documented as of this encounter
--- OUTSIDE RECORDS SUMMARY | 2024-07-01 04:16 | External Medical Summary | Summary of Care ---
Author Name Unknown Organization [facility] Address [address] [place] [address] Phone [phone] Care Team Providers Care College Instructor Name Role Phone Jeanine Franco DO Primary Care Provider [phone] Encounter Details Date Type Department Care Team (Late st Contact Info) Description 01/11/2024 Documentation HEALTH & WELLNESS Alayna Farah, Health Warehouse Foreman Allergies Active Allergy Reactions Criticality Noted Date Comments Cm Inhibitors Cough Low 09/11/2008 Amoxicillin 11/17/2019 Diffuse rash documented as of this encounter (statuses as of 01/11/2024) Medications Medication Sig Dispensed Refills Start Date [...] 3 08/25/2023 08/24/2024 Active OneTouch Delica Plus [id number] USE TO TEST BLOOD SUGARS ONCE DAILY [...] as of this encounter (statuses as of 01/11/2024) Active Problems Problem Noted Date Diagnosed Date [...] as of this encounter (statuses as of 01/11/2024) Resolved Problems Problem Noted Date Diagnosed Date [...] as of this encounter (statuses as of 01/11/2024) Immunizations Name Administration Dates Next Due COVID-19 [...] encounter Progress Notes * Alayna Farah Health Warehouse Foreman - 01/11/2024 1:52 PM EDT SESSION TYPE: Group exercise session: [...] [address] [place] [address] Salazar Sequeira MD [address] [place] [address] 03/08/2024 10:30 AM EDT [address] Radiology, [address] [address] 04/07/2024 11:20 AM EDT Office Visit Family Practice 65 [facility] 293 [place] [address] Jeanine Franco, DO 293 [place] [address] 09/11/2024 10:00 AM EDT Nurse Only Ancillary 65 [facility] [address] [place] [address] College, Nurse Annual Wellness Visit 65 [facility] 293 [place] [address] 01/23/2025 10:20 AM EDT Office Visit Dermatology [facility] [address] [place] [address] Deidre Barragan PA-C [address] [facility] [address] Health Maintenance Due Date Last Done Comments [...] D LEVEL ONCE IN A LIFETIME-USE SMARTSET# [id number] Completed 06/03/2023, 04/09/2022, 06/04/2021, Additional history exists [...] this encounter Medical Devices Implanted Type Area Autism Motor Specialist Device Identifier Shelf Expiration Date Model / Serial / Lot Lens 19.0 M160l - [id number] - [id number] Implanted:Qty: 1 on 11/28/2015 by Vinh Richardson MD at OR [facility] Right: Eye BAUSCH [employer] LOMB : SURGICAL 08/18/2016 [id number]-84.0 / [id number] / [id number] Lens Intraoc 22.0 - [id number] - [id number] Implanted:Qty: 1 on 01/23/2020 by Ric Mcdonald MD at OR [facility] Left: Eye BAUSCH [employer] LOMB 07/21/2024 [id number] / [id number] / [id number] documented as of this encounter Advance Directives Documents on File Type Date Recorded Patient Distributed Generation Project Manager Expl vidal POLST 10/01/2022 [place] OR [facility] FOR LIFE-SUSTAINING TREATMENT * Full Code (Latest Code Status on File) Date Activated Date Inactivated Comments 11/28/2015 6:26 AM 11/28/2015 12:14 PM This order re flects the patients wishes and were consensually agreed upon. Care Teams College Instructor Relationship Specialty Start Date End Date Jeanine Franco DO [address] [place] [facility] [place] [address] PCP - General Family Medicine 12/07/23 documented as of this encounter
--- OUTSIDE RECORDS SUMMARY | 2024-07-01 04:16 | External Medical Summary | Summary of Care ---
Author Name Unknown Organization [facility] Address [address] [place] [address] Phone [phone] Care Team Providers Care Banking Management Consulting Manager Name Role Phone Jeanine Franco DO Primary Care Provider [phone] Encounter Details Date Type Department Care Team (Late st Contact Info) Description 01/07/2024 Documentation HEALTH & WELLNESS Alayna Farah, Health Utility Manager Allergies Active Allergy Reactions Criticality Noted Date Comments Cm Inhibitors Cough Low 09/11/2008 Amoxicillin 11/17/2019 Diffuse rash documented as of this encounter (statuses as of 01/07/2024) Medications Medication Sig Dispensed Refills Start Date [...] 3 08/25/2023 08/24/2024 Active OneTouch Delica Plus [id number] USE TO TEST BLOOD SUGARS ONCE DAILY [...] as of this encounter (statuses as of 01/07/2024) Active Problems Problem Noted Date Diagnosed Date [...] as of this encounter (statuses as of 01/07/2024) Resolved Problems Problem Noted Date Diagnosed Date [...] as of this encounter (statuses as of 01/07/2024) Immunizations Name Administration Dates Next Due COVID-19 [...] encounter Progress Notes * Alayna Farah Health Utility Manager - 01/07/2024 12:08 PM EDT SESSION TYPE: Group exercise session: [...] [address] [place] [address] Salazar Sequeira MD [address] [place] [address] 03/08/2024 10:30 AM EDT [place] [address] [place] [address] 04/07/2024 11:20 AM EDT Office Visit Family Practice 65 [facility] 293 [place] [address] Jeanine Franco, DO 293 [place] [address] 09/11/2024 10:00 AM EDT Nurse Only Ancillary 65 [facility] 293 [place] [address] College, Nurse Annual Wellness Visit 65 [facility] 293 [place] [address] 01/23/2025 10:20 AM EDT Office Visit Dermatology [facility] 200 [facility] [place] [address] Deidre Barragan PA-C [address] [facility] [address] Health Maintenance Due Date Last Done Comments [...] D LEVEL ONCE IN A LIFETIME-USE SMARTSET# [id number] Completed 06/03/2023, 04/09/2022, 06/04/2021, Additional history exists [...] this encounter Medical Devices Implanted Type Area Japanese Professor Device Identifier Shelf Expiration Date Model / Serial / Lot Lens 19.0 M160l - [id number] - [id number] Implanted:Qty: 1 on 11/28/2015 by Vinh Richardson MD at OR [facility] Right: Eye BAUSCH [employer] LOMB : SURGICAL 08/18/2016 [id number]-51.0 / [id number] / [id number] Lens Intraoc 22.0 - [id number] - [id number] Implanted:Qty: 1 on 01/23/2020 by Ric Mcdonald MD at OR [facility] Left: Eye BAUSCH [employer] LOMB 07/21/2024 [id number] / [id number] / [id number] documented as of this encounter Advance Directives Documents on File Type Date Recorded Patient Health Aide Expl anation POLST 10/01/2022 [place] [facility] FOR LIFE-SUSTAINING TREATMENT * Full Code (Latest Code Status on File) Date Activated Date Inactivated Comments 11/28/2015 6:26 AM 11/28/2015 12:14 PM This order re flects the patients wishes and were consensually agreed upon. Care Teams Banking Management Consulting Manager Relationship Specialty Start Date End Date Jeanine Franco DO [address] [place] [address] PCP - General Family Medicine 12/07/23 documented as of this encounter
--- OUTSIDE RECORDS SUMMARY | 2024-07-01 04:17 | External Medical Summary | Summary of Care ---
Author Name Unknown Organization [facility] Address [address] [place] [address] Phone [phone] Care Team Providers Care Customer Service Advisor Name Role Phone Jeanine Franco DO Primary Care Provider [phone] Reason for Referral * Evaluate & Treat - Unlimited Visits (Within 10 days (routine)) - Authorized Specialty Diagnoses / Procedures Referred By Contac t Referred To Contact Neuro/Ortho Surgery - Spine. / Neurological Surgery Diagnoses Lumbar degenerative disc disease Jeanine Franco DO [address] [place] [address] Referral ID Status Reason Start Date Expiration Date Visits Requested Visits Authorized [id number] Authorized Specialty Services Required 01/03/2024 999 999 Question Answer Referral Priority Within 10 days (routine) Where should this appointment be scheduled? [facility] spine region: Back - Thoracic/Lumbar Do you have any recent complete loss of bladder or bowel function? No Reason for Visit * Reason Comments Follow Up Encounter Details Date Type Department Care Team (Late st Contact Info) Description 01/03/2024 1:40 PM EDT Office Visit Family Practice 65 [facility] [address] [place] [address] Jeanine Franco DO [address] [place] [address] Lumbar degenerative disc disease*; Neck pain; Type 2 diabetes mellitus with hemoglobin A1c goal of less than 7.0% (HCC); HTN, goal below 140/90 Allergies Active Allergy Reactions Criticality Noted Date Comments Cm Inhibitors Cough Low 09/11/2008 Amoxicillin 11/17/2019 Diffuse rash documented as of this encounter (statuses as of 01/03/2024) Medications Medication Sig Dispensed Refills Start Date [...] THE EVENING 45 Tablet 1 08/22/2023 Active Dg HoldingsTouch Verio In Vitro Strip (Glucose Blood)Indications:T ype 2 diabetes mellitus with hemoglobin A1c goal of less than 7.0% ([facility]) USE TO TEST BLOOD SUGAR ONCE DAILY 100 Strip 3 08/25/2023 08/24/2024 Active OneTouch Delica Plus [id number] USE TO TEST BLOOD SUGARS ONCE DAILY [...] as of this encounter (statuses as of 01/03/2024) Active Problems Problem Noted Date Diagnosed Date [...] as of this encounter (statuses as of 01/03/2024) Resolved Problems Problem Noted Date Diagnosed Date [...] as of this encounter (statuses as of 01/03/2024) Immunizations Name Administration Dates Next Due COVID-19 [...] Sign Reading Time Taken Comments Blood Pressure 112/62 01/03/2024 1:44 PM EDT Pulse 61 01/03/2024 1:44 PM EDT Temperature 36.7 C (98.1 F) 01/03/2024 1:44 PM ED T Respiratory Rate 16 01/03/2024 1:44 PM EDT Oxygen Saturation 98% 01/03/2024 1:44 PM EDT Inhaled Oxygen Concentration - - Weight 82.5 kg (181 lb 14.4 oz) 01/03/2024 1:44 PM EDT Height 168.9 cm (5' 6.5") 01/03/2024 1:44 PM EDT Body Mass Index 28.92 01/03/2024 1:44 PM EDT documented in this encounter Progress Notes * Jeanine Franco, - 01/03/2024 1:45 PM EDT SUBJECTIVE: Chief Complaint Patient presents with Follow Up HPI: Dominique Sloan is a 78 year old female who presents today for regular return. Pt has neck pain onthe left side. She thinks that it has to do with how she sits with her laptop. She notes no night pain. She will lean that direction. No pain shooting down her arms. No numbness or tingling in her arms. Pt complains of ongoing back pain. Did see neurosurgery about a year ago and was advised that surgery was not necessary without any significant deficit. 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 PHM: Patient Active Problem List Diagnosis DARI (obstructive sleep apnea) Advance directive on file CM inhibitor intolerance High risk for fracture due to osteoporosis by DEXA scan History of left breast cancer Type 2 diabetes mellitus with hemoglobin A1c goal of less than 7.0% ([facility]) DYSLIPIDEMIA, GOAL LDL BELOW 100 Irritable bowel [...] taking one tablet by mouth once daily Fluticasone Propionate 50 MCG/ACT Nasal Suspension (Flonase) [...] DAY OR OTHER MEDICATIONS 100 Tablet 2 Atorvastatin Calcium 40 MG Oral Tablet (Lipitor) TAKE ONE TABLET BY MOUTH THREE TIMES A WEEK ON MON, WED AND FRI IN THE EVENING 45 Tablet 1 Alendronate Sodium 35 MG Oral Tablet (Fosamax) TAKE ONE TABLET BY MOUTH ONCE A WEEK 12 Tablet 3 Losartan Potassium 50 MG Oral Tablet (Cozaar) TAKE ONE TABLET BY MOUTH EVERY DAY IN THE MORNING 100Tablet 3 Furosemide 20 MG Oral Tablet (Lasix) TAKE ONE TABLET BY MOUTH EVERY MORNING 90 Tablet 3 Citalopram Hydrobromide 20 MG Oral Tablet (CeleXA) Take one tablet by mouth every other day 50 Tablet 3 Vitamin D-3 25 MCG (1000 UT) Oral Capsule Take 1 Capsule by mouth in the morning. (Patient not taking: Reported on 01/03/2024) NATURAL SUPPLEMENT Take 1 Capsule by mouth in the morning. Berbenne synergy 1 capsule daily for blood sugar. (Patient not taking: Reported on 10/12/2023) OneTouch Verio In Vitro Strip (Glucose Blood) USE TO TEST BLOOD SUGAR ONCE DAILY 100 Strip 3 OneTouch Delica Plus [id number] USE TO TEST BLOOD SUGARS ONCE DAILY [...] 40cms MAMMOGRAM - BILATERAL 09/07/2001 MAMMOGRAM-UNILAT FOCAL CIATY 09/15/2005 birad code 2, yearly left asymmetry remains unchanged MASTECTOMY, PARTIAL 08/06/2008 Left breast, re-excision of margins (clear) at [facility] - Dr. Cobb PARTIAL HYSTERECTOMY 06/21/1982 heavy periods [place] MASTECTOMY PARTIAL Left 06/18/2008 Left breast (DCIS) at [facility] - Dr. Cobb REMOVE CATARACT, INSERT LENS PROSTH Right 11/28/2015 EXTRACAPSULAR CATARACT REMOVAL WITH INTRAOCULAR LENS performed by Vinh Richardson MD at OR [facility] REMOVE CATARACT, INSERT LENS PROSTH Left 01/23/2020 left EXTRACAPSULAR CATARACT REMOVAL WITH INTRAOCULAR LENS performed by Ric Mcdonald MD at [facility] UMBIL HERNIA REPAIR (REDUCIBLE) AGE 5+YR 04/28/2012 04/28/2012 umbilical hernia repair [facility] - Dr. Yifan Villalba Review of [...] date: 12/24/1974 Quit date: 12/24/2014 Years since quittin.0 Passive exposure: Never Smokeless tobacco: Never Tobacco [...] pain, constipation, diarrhea, nausea and vomiting. Musculoskeletal: Positive for back pain. Negative for arthralgias, gait problem and joint swelling. Skin: Negative for color change, pallor and rash. OBJECTIVE: BP 112/62 (BP Site: Left Arm, BP Position: Sitting, BP Cuff Size: Regular) | Pulse 61 | Temp 36.7 C (98.1 F) (Tympanic) | Resp 16 | Ht 1.689 m (5' 6.5") | Wt 82.5 kg (181 lb 14.4 oz) | SpO2 98% |BMI 28.92 kg/m | BSA 1.97 m PHYSICAL EXAM: Physical Exam Constitutional: General: [...] tenderness. There is no guarding. Musculoskeletal: General: Tenderness (along cervical paraspinal musculature with some spasm) present. No deformity. Normal range of motion. Skin: General: Skin is warm and dry. Coloration: Skin is not pale. Findings: No erythema or rash. Neurological: Mental Status: She is alert and oriented to person, place, and time. ASSESSMENT/PLAN: (M51.36) Lumbar degenerative disc disease (primary encounter diagnosis) Plan: SPINE SURGERY REFERRAL OP Pt would like to see spine surgery. Reviewed that it is unlikely there is anything surgical to offer. She remains very functional and really does not have significant radicular symptoms. She does have a sensorimotor polyneuropathy. To use tylenol for discomfort. (M54.2) Neck pain Plan: XR C SPINE 4-5 VIEWS Pt will complete cervical spine x-ray. She is to use tylenol for discomfort. Can use u pto 3000mg aday. (E11.9) Type 2 diabetes mellitus with hemoglobin A1c goal of less than 7.0% (HCC) Plan: Up to date on lab studies no changes for now. (I10) HTN, goal below 140/90 Plan: BP controlled. No changes for now. Follow-up: 3 months Total time today including reviewing chart before the visit, pertinent labs, imaging reports, face to face time, and documentation time was 34 minutes. Jeanine Franco DO documented in this encounter Nursing Notes * Su Gaines LPN - 01/03/2024 1:44 PM EDT Patient here for routine follow up visit. Reports ongoing back and neck pain. documented in this encounter Plan of Treatment Upcoming Encounters Date Type Department Care Team (Late st Contact Info) Description 01/07/2024 11:00 AM EDT Office Visit Sleep Disorders Ctr [facility] [address] [facility] [place] [phone] Yoanna Baxter, DO 132 [facility] [place] [address] 02/03/2024 10:40 AM EDT Office Visit Family Practice 65 [facility] [phone] Jeanine Franco, DO [address] [facility] [address] 03/08/2024 10:30 AM EDT Imaging Radiology, [facility] [address] [facility] [place] [address] 04/07/2024 11:20 AM EDT Office Visit Family Practice 65 [facility] [address] [facility] [phone] Jeanine Franco, DO [address] [facility] [address] 09/11/2024 10:00 AM EDT Nurse Only Ancillary 65 [facility] [address] [facility] [address] [place], Nurse Annual Wellness Visit [address] [address] 01/23/2025 10:20 AM EDT Office Visit Dermatology [facility] [address] [facility] [place] [address] Deidre Barragan PA-C [address] [facility] [place] [address] Pending Results Name Type Priority Associated Diagnoses Date /Time XR C SPINE 4-5 VIEWS Medical Imaging Routine Neck pain 01/03/2024 2:27 PM EDT Scheduled Referrals Name Type Priority Associated Diagnoses Orde r Schedule SPINE SURGERY REFERRAL OP Referral Within 10 days (routine) Lumbar degenerative disc disease Ordered: 01/03/2024 Health Maintenance Due Date Last Done Comments [...] D LEVEL ONCE IN A LIFETIME-USE SMARTSET# [id number] Completed 06/03/2023, 04/09/2022, 06/04/2021, Additional history exists [...] this encounter Medical Devices Implanted Type Area Casting House Laborer Device Identifier Shelf Expiration Date Model / Serial / Lot Lens 19.0 M160l - [id number] - [id number] Implanted:Qty: 1 on 11/28/2015 by Vinh Richardson MD at OR [facility] Right: Eye BAUSCH [employer] LOMB : SURGICAL 08/18/2016 [id number]-74.0 / [id number] / [id number] Lens Intraoc 22.0 - [id number] - [id number] Implanted:Qty: 1 on 01/23/2020 by Ric Mcdonald MD at OR [facility] Left: Eye BAUSCH & LOMB 07/21/2024 [id number] / [id number] / [id number] documented as of this encounter Visit Diagnoses Diagnosis Lumbar degenerative disc disease- Primary Degeneration of lumbar or lumbosacral intervertebral disc Neck pain Cervicalgia Type 2 diabetes mellitus with hemoglobin A1c goal of less than 7.0% ([facility]) HTN, goal below 140/90 Unspecified essential hypertension documented in this encounter Advance Directives Documents on File Type Date Recorded Patient Allied Health Professional Expl anation POLST 10/01/2022 [place] OR [facility] FOR LIFE-SUSTAINING TREATMENT * Full Code (Latest Code Status on File) Date Activated Date Inactivated Comments 11/28/2015 6:26 AM 11/28/2015 12:14 PM This order re flects the patients wishes and were consensually agreed upon. Care Teams Customer Service Advisor Relationship Specialty Start Date End Date Jeanine Franco DO [address] [place] [address] PCP - General Family Medicine 12/07/23 documented as of this encounter
--- OUTSIDE RECORDS SUMMARY | 2024-07-01 04:17 | External Medical Summary | Summary of Care ---
Author Name Unknown Organization [facility] Address [address] [place] [address] Phone [phone] Care Team Providers Care Military Administrative Technician Name Role Phone Jeanine Franco DO Primary Care Provider [phone] Encounter Details Date Type Department Care Team (Late st Contact Info) Description 01/04/2024 Documentation [facility]ALTH [facility]LL[facility] Alayna Farah, Health Automatic Clipper Allergies Active Allergy Reactions Criticality Noted Date Comments Cm Inhibitors Cough Low 09/11/2008 Amoxicillin 11/17/2019 Diffuse rash documented as of this encounter (statuses as of 01/04/2024) Medications Medication Sig Dispensed Refills Start Date [...] 3 08/25/2023 08/24/2024 Active OneTouch Delica Plus [id number] USE TO TEST BLOOD SUGARS ONCE DAILY [...] as of this encounter (statuses as of 01/04/2024) Active Problems Problem Noted Date Diagnosed Date [...] as of this encounter (statuses as of 01/04/2024) Resolved Problems Problem Noted Date Diagnosed Date [...] as of this encounter (statuses as of 01/04/2024) Immunizations Name Administration Dates Next Due COVID-19 [...] encounter Progress Notes * Alayna Farah [facility] - 01/04/2024 3:24 PM EDT SESSION TYPE: Group exercise session: [...] AM EDT Office Visit Sleep Disorders Ctr [facility] [address] [place] [address] Yoanna Baxter DO [address] [place] [address] 02/17/2024 10:30 AM EDT Office Visit Orthopaedics Spine Surgery, Favi[facility] Paulino [address] [place] [address] Salazar Sequeira MD [address] [place] [address] 03/08/2024 10:30 AM EDT [facility] [address] [facility] [address] 04/07/2024 11:20 AM EDT Office Visit Family Practice [address] [facility] [address] [place] [address] Jeanine Franco DO [address] [facility] [place] [address] 09/11/2024 10:00 AM EDT Nurse Only Ancillary [address] [facility] [address] [place] [address] College, Nurse Annual Wellness Visit [address] [place] [address] 01/23/2025 10:20 AM EDT Office Visit Dermatology [facility] [address] [facility], [place] [address] Deidre Barragan [facility]-C [address] [facility] [address] Health Maintenance Due Date Last Done Comments [...] D LEVEL ONCE IN A LIFETIME-USE SMARTSET# [id number] Completed 06/03/2023, 04/09/2022, 06/04/2021, Additional history exists [...] this encounter Medical Devices Implanted Type Area Patient Assessment Coordinator Device Identifier Shelf Expiration Date Model / Serial / Lot Lens 19.0 M160l - [id number] - [id number] Implanted:Qty: 1 on 11/28/2015 by Vinh Richardson MD at OR [facility] Right: Eye [employer] : SURGICAL 08/18/2016 [id number]-80.0 / [id number] / [id number] Lens Intraoc 22.0 - [id number] - [id number] Implanted:Qty: 1 on 01/23/2020 by Ric Mcdonald MD at OR [facility] Left: Eye [employer] 07/21/2024 [id number] / [id number] / [id number] documented as of this encounter Advance Directives Documents on File Type Date Recorded Patient Yard Hand Expl anation POLST 10/01/2022 [facility] LIFE-SUSTAINING TREATMENT * Full Code (Latest Code Status on File) Date Activated Date Inactivated Comments 11/28/2015 6:26 AM 11/28/2015 12:14 PM This order re flects the patients wishes and were consensually agreed upon. Care Teams Military Administrative Technician Relationship Specialty Start Date End Date Jeanine Franco DO [address] [place] [address] PCP - General Family Medicine 12/07/23 documented as of this encounter
[2024-07-01] MEDS: LEVOTHYROXINE SODIUM 100 MCG TABLET PO SCH (05:50)
[2024-07-01 06:27] LABS: Basophils # (auto) 0.04 K/uL (0.00-0.20); Basophils % (auto) 0.6 %; Eosinophils # (auto) 0.02 K/uL (0.00-0.50); Eosinophils % (auto) 0.3 %; Hematocrit (blood only) 34.3 % (37.0-47.0); Hemoglobin 11.7 g/dl (12.0-16.0); Immature Granulocytes # (auto) 0.02 K/uL (0.01-0.20); Immature Granulocytes % (auto) 0.3 %; Lymphocytes # (auto) 2.15 K/uL (1.20-3.40); Lymphocytes % (auto) 29.7 %; Mean Corpuscular Hemoglobin 30.5 pg (25.0-34.0); Mean Corpuscular Hgb Conc 34.1 g/dL (32.0-36.0); Mean Corpuscular Volume 89.6 fL (80.0-100.0); Mean Platelet Volume 9.2 fL (9.4-12.4); Monocytes # (auto) 0.47 K/uL (0.11-0.59); Monocytes % (auto) 6.5 %; Neutrophils # (auto) 4.53 K/uL (1.40-6.50); Neutrophils % (auto) 62.6 %; Platelet Count 251 K/uL (130-400); RDW Coefficient of Variation 12.7 % (11.5-14.5); RDW Standard Deviation 41.3 fL (36.4-46.3); Red Blood Count 3.83 M/uL (4.20-5.40); White Blood Count 7.23 K/ul (4.8-10.8)
[2024-07-01 06:40] LABS: BUN Creatinine Ratio 15.9 (10-20); Calcium 8.6 mg/dl (8.6-10.3); Creatinine Clr Calc Pharmacy 74.2 ml/min
[2024-07-01] MEDS: ATORVASTATIN 40 MG TAB PO SCH (07:27)
[2024-07-01] MEDS: LOSARTAN POTASSIUM 50 MG TAB PO SCH (07:27)
[2024-07-01] MEDS: CITALOPRAM 20 MG TAB PO SCH (07:27)
[2024-07-01 11:25] VITALS: BP 156/78; RESP 18; TEMP 98.1; O2SAT 96
--- NOTE | 2024-07-01 11:53 | Discharge Summary ---
Discharge Summary Date of Service July 01, 2024 Principal Dx & Hospital Course #1 = Principal Diagnosis (1) Nausea and vomiting: Due to extreme anxiety (2) Acute anxiety: (3) Depression: (4) Sleep apnea, obstructive: (5) Diabetes mellitus type 2 with complications: Plan Patient presents to the emergency room with acute onset of nausea and vomiting. Patient was noted to have some mild hypokalemia and slightly prolonged QT interval. Is unclear if she would be able to tolerate any orals and was kept for observation. Patient was given some IV fluid resuscitation antiemetics. Her potassium was replaced. By the following morning she had no recurrent nausea vomiting. She states that she had acute anxiety attack. She admits to struggling with this recently. Reviewing of outside EMR noted that she was a started on BuSpar end of April/early May 2024 for her complaints of anxiety. Her diet was advanced. Her EKG QT interval normalized with hydration and replacement of her potassium. We will increase her BuSpar dosing to 2 times daily and she can follow-up with her outpatient provider Notes For Next Care Provider Patient may need to have ongoing adjustments of her medications for her anxiety Medication Changes From Visit BuSpar increased for management of anxiety Zofran as needed for nausea Admission HPI Per Admitting Provider History obtained from interview with the patient and chart review. Medical history of type 2 diabetes, hyperlipidemia, hypothyroidism, COPD group B, DARI, hypertension, hypertensive heart disease, irritable bowel syndrome, osteoporosis, history of left breast cancer, depression Last confinement in May 2018 with chest discomfort Patient presents to the hospital with multiple episodes of nausea and vomiting. Patient reported that she went for lunch with her friends in the afternoon. After coming back home, patient started to have multiple episode of vomiting containing food particle; denies any hematemesis. She reports some abdominal discomfort. She denies any abdominal pain. She denies any diarrhea, chest pain, palpitation or shortness of breath. On presentation to the ED, she was hypertensive, afebrile and saturating well on room air. CBC revealed normal WBC count. BMP showed mild hypokalemia with potassium of 3.4. CT abdomen and pelvis did not show any acute finding. CT head without contrast did not show any cerebral atrophy. Patient was admitted for further evaluation. Family history; mother heart disease, at 97, father heart disorder at 88. Social history; previous smoker; stopped in 2014. Drinks 2 glasses of wine every night; last drink was day before yesterday. Admission Exam Per Admitting Provider See H&P Discharge Exam Constitutional: Alert, nontoxic HEENT: Mucous membranes moist. Lungs: Clear to auscultation, decreased, no wheezes rales or rhonchi CV: S1-S2, regular Abdomen: Soft, nontender, nondistended Extremities: No significant edema Neuro: No focal deficits Psych: Cooperative, depressed mood Updated Medication List Medication Instructions Recorded Confirmed Type alendronate 35 mg tablet 35 mg PO WK 06/30/24 06/30/24 History atorvastatin 40 mg tablet 40 mg PO DAILY 06/30/24 06/30/24 History citalopram 20 mg tablet 20 mg PO DAILY 06/30/24 06/30/24 History fluticasone propionate 50 1 spray intranasal DAILY 06/30/24 06/30/24 History mcg/actuation nasal spray,suspension furosemide 20 mg tablet 20 mg PO DAILY 06/30/24 06/30/24 History levothyroxine 100 mcg tablet 100 mcg PO DAILY 06/30/24 06/30/24 History losartan 50 mg tablet 50 mg PO DAILY 06/30/24 06/30/24 History buspirone 10 mg tablet 10 mg PO BID #60 tabs 07/01/24 Rx ondansetron 4 mg disintegrating 4 mg PO Q6H PRN nausea and 07/01/24 Rx tablet vomiting #14 tabs Hospital Stay Data Consultations 06/30/24 20:03 ED Decision to Admit Stat Diagnostic Imagining Performed 06/30/24 18:09 CT abd pelvis IV con only Stat 06/30/24 18:10 CT head/brain wo con Stat Reviewed imaging, laboratory and diagnostic studies. Pertinent findings as below. Hemoglobin 11.7 Potassium 4.0 Creatinine 0.63 Personally reviewed EKG, normal sinus rhythm, QTc 445 LFTs within normal range Pending Results Patient Have Any Pending Studies at Discharge: No Discharge Instructions Given to Patient (Per Discharging Provider) Encourage you to continue to follow-up with her outpatient providers to address her depression and anxiety Total Time Total Time Spent Total Time Spent (In Minutes): 33
[2024-07-01 12:11] VITALS: PULSE 65
--- NOTE | 2024-07-02 22:02 | Electrocardiogram Report ---
Test Reason : Blood Pressure : */* mmHG Vent. Rate : 65 BPM Atrial Rate : 65 BPM P-R Int : 260 ms QRS Dur : 100 ms QT Int : 492 ms P-R-T Axes : 16 -15 79 degrees QTcB Int : 511 ms Sinus rhythm with 1st degree A-V block Left ventricular hypertrophy with repolarization abnormality ( R in aVL , Rony product ) Prolonged QT Abnormal ECG When compared with ECG of 25-Oct-2023 19:52, No significant change was found Confirmed by Janak Alford ([id number]) on 07/02/2024 10:02:18 PM Referred By: Confirmed By: Janak Alford
--- NOTE | 2024-07-03 21:42 | Electrocardiogram Report ---
Test Reason : Blood Pressure : */* mmHG Vent. Rate : 62 BPM Atrial Rate : 62 BPM P-R Int : 272 ms QRS Dur : 100 ms QT Int : 518 ms P-R-T Axes : 13 -34 98 degrees QTcB Int : 527 ms Sinus rhythm with 1st degree A-V block Left axis deviation Left ventricular hypertrophy with repolarization abnormality Prolonged QT Abnormal ECG When compared with ECG of 30-Jun-2024 17:43, No significant change was found Confirmed by Janak Alford ([id number]) on 07/03/2024 9:42:22 PM Referred By: REFERRED SELF Confirmed By: Janak Alford
--- NOTE | 2024-07-03 21:46 | Electrocardiogram Report ---
Test Reason : Blood Pressure : */* mmHG Vent. Rate : 57 BPM Atrial Rate : 57 BPM P-R Int : 288 ms QRS Dur : 98 ms QT Int : 482 ms P-R-T Axes : 41 -19 93 degrees QTcB Int : 470 ms Sinus bradycardia with 1st degree A-V block Nonspecific T wave abnormality Abnormal ECG When compared with ECG of 30-Jun-2024 17:43, QT has shortened Confirmed by Janak Alford ([id number]) on 07/03/2024 9:46:01 PM Referred By: REFERRED SELF Confirmed By: Janak Alford
== END 2024-07-01 13:34 | disposition home or self-care (01) | DRG 392 ==
LOC: ED 17:30 → 2N 20:29